=== PATIENT | female | born 1970 | race Caucasian/White ===

== ENCOUNTER 2017-12-14 06:33 | Day surgery (SDC) | payer BC, SELFPAY ==
[2017-12-14] VITALS (7 sets, daily range): BP systolic 112–137; BP diastolic 66–76; PULSE 54–69; RESP 16–18; TEMP 36.2–36.6; O2SAT 97–100; BMI 24.7
--- NOTE | 2017-12-14 | EMB_PTH ---
PATIENT: COLE ZENG LOC: [facility] [place] U#:[id number] AGE/SX: 47/F ROOM: RE12/14/[address]: Dr. Marybel Overton DO : 1970 BED: DIS: 12/14/2017 SPEC #: [id number] RECD: 12/14/17 13:31 STATUS: KACEY LÁZARO #: [id number] DENISHA: 12/14/17 00:[address]: Marybel Overton DEPT: SURGICAL PATHOLOGY RECD BY: Spike Kinsey ENTERED: 12/14/17 13:31 SP TYPE: ENDOM BX/C PORFIRIO DR: No Primary Care Phys Tissues: Endometrium, NOS Procedures: Surgery Specimen Level IV HEADER OPERATION: Hysteroscopy, D & C, Symphion PRE-OP DIAGNOSIS: Abnormal uterine bleeding and polyp TISSUE SUBMITTED: Endometrial curettings MICROSCOPIC DIAGNOSIS Endometrial curettings: Simple and complex hyperplasia with focal atypia. Fragments of myometrium. SJ:radha 12/15/17 COMMENT Case has been reviewed in consultation with Dr. Polanco who concurs with the above diagnosis. IDC:AM MICROSCOPIC DESCRIPTION Slides are reviewed. GROSS DESCRIPTION Received in fixative is one container labeled with the patient's name and designated endometrial curettings. The specimen consists of multiple fragments of diamond hemorrhagic soft tissue that in aggregate measure 4 x 3 x 0.3 cm. The entire specimen is submitted in two cassettes. / LUCHO:radha 12/14/17 TC:5 CPT: 12388
[2017-12-14 06:58] LABS: Internal QC Validated? YES +Cl - CLEAR BKGD; Pregnancy, Urine Negative Negative
[2017-12-14 07:06] LABS: Hematocrit 38.4 % (37-47); Hemoglobin 12.5 g/dl (12.0-15.0); Mean Corp Hgb Conc 32.6 g/gl (32-36); Mean Corpuscular Hgb 31.7 pg (27.0-32.0); Mean Corpuscular Volume 97.5 fL (81-99); Mean Platelet Vol. 10.4 fl (6.2-12.0); Platelet Count 276 K/mm3 (150-450); RBC Distribution Width CV 12.8 % (11.6-14.6); RBC Distribution Width SD 45.2 fl (35.1-43.9); Red Blood Count 3.94 M/mm3 (4.2-5.4); White Blood Count 6.6 K/mm3 (4.4-11.0)
[2017-12-14 07:10] LABS: Scan Indicated on CBC? Y/N NO
[2017-12-14] MEDS: Bupivacaine Mpf 0.5% 30 ML VIAL (08:31)
--- NOTE | 2017-12-14 09:45 | DCINST_ITS ---
Discharge Diet: No Restrictions Discharge Activity: Return to Normal Activity, May Shower Return to work on:: 12/18/17 May resume sexual activity in: 2 weeks Weight Bearing Status: Weight bearing as tolerated Lifting Restrictions: None Call your doctor if you observe: Fever of 101 or Higher, Using more than one pad per hour, Shortness of breath, Chest pain, Calf discomfort, Uncontrolled pain Allergies/Adverse Reactions: Allergies ibuprofen Allergy (Severe, Verified 12/13/17 08:53) Unknown naproxen Allergy (Severe, Verified 12/13/17 08:53) unknown Medications to take at Discharge Glucosamine/MSM/Chondroitin A [Glucosamine Chondroit MSM Tab] 1 each PO BID 12/13/17 Multivitamin [Animal Shapes] 2 each PO DAILY 12/13/17 Primary Care Physician: Care Physician,No Primary [Primary Care Provider] - Test Results: Test results from this visit will be discussed in further detail at your follow- up appointment, if applicable. Please Follow Up With: Marybel Overton DO When: 1-2 weeks
--- NOTE | 2017-12-14 10:12 | OP.PCM_ITS ---
Problem List (1) Abnormal uterine bleeding (AUB) Status: Acute Report of Operation Date of Procedure: 12/14/17 Pre-Operative Diagnosis: AUB, history of uterine polyps, uterine polyp noted on ultrasound Post-Operative Diagnosis: As above Surgery/Procedure Performed:: Hysteroscopy, D&C using Symphoin and sharp curettage Description of Surgical Findings:: Descent of uterus and cervix. Very fluffy endometrium noted, with no distinct polyp or fibroid. Unable to visualize bilateral tubal ostia given the amount of endometrial tissue and the bleeding that was present. Otherwise normal en dometrial cavity. Type of Anesthesia:: MAC Specimen's removed: Endometrial curettings Estimated Blood Loss (mL): < 50 cc Fluids Replaced: Fluid deficit of 350 cc Description of Procedure: Indication: Patient is a 47-year-old who presented with abnormal uterine bleeding. Irregular menses started several years ago. She has a history of uterine polyps that were removed in 2006. Menses every few months. Bleeding that lasts a few days to 20 days, that is heavy flow. Pelvic ultrasound showed 2 intramural fibroids, largest 4.5 cm in size, endometrial thickness 8.1 mm with a well-circumscribed polyp present. Hysteroscopy, polypectomy, D&C was discussed with the patient. Risks, benefits, and alternatives were fully discussed. Consent was signed. Procedure: The patient was taken to the operating room where she was prepped and draped in the usual sterile fashion in dorsal lithotomy position using yellow fin stirrups. MAC anesthesia was adequate. The cervix was exposed with a weighted vaginal speculum. The anterior lip of the cervix was grasped with a s mindy-tooth tenaculum. 0.5% Marcaine was used for a paracervical block. Uterus was sounded to a depth of 7 cm. The endocervical canal was then progressively dilated to accommodate the Symphion hysteroscope. The hysteroscope was then introduced into the uterine cavity using sterile saline solution as a distending media. The endometrial cavity was distended with fluid and the cavity visualized. The endometrium appeared very fluffy. There is a lot of endometrial tissue and bleeding present. No distinct polyps or fibroids were noted. The bilateral tubal ostia were not able to be visualized given the amount of tissue. The Symphion was used to do a camera guided curettage of the uterine cavity. The hysteroscope was then removed. Sharp curettage was performed for a moderate-large amount of tissue. The patient tolerated the procedure well. The endometrial tissue was sent to pathology for review. All instruments were removed from the vaginal vault. Bleeding was hemostatic. Instrument count was correct. The patient was sent to recovery room in stable condition. - Admit VTE Documentation VTE Mechan Device Prophylaxis: SCD's
[2017-12-14] MEDS: Ondansetron 4 MG/2 ML Vial IV (10:15)
[2017-12-14] MEDS: Lactated Ringers 1,000 ML 75 ML IV (10:15)
[2017-12-14] MEDS: Ondansetron 4 MG/2 ML Vial IM (10:30)
== END 2017-12-14 11:15 | disposition home or self-care (01) ==
LOC: SDC 06:35 → AC 06:36
PROVIDERS: Referring Provider Obstetrics & Gynecology; Visit Provider Obstetrics & Gynecology
PROC: (CPT 58558; principal; 2017-12-14 07:45)
DX: N85.01 Benign endometrial hyperplasia (principal); N93.8 Other specified abnormal uterine and vaginal bleeding; N92.6 Irregular menstruation, unspecified; G25.81 Restless legs syndrome; K21.9 Gastro-esophageal reflux disease without esophagitis; F17.210 Nicotine dependence, cigarettes, uncomplicated
CPT/HCPCS: 00952; 58558; 81025; 85027; 86850; 86900; 88305; J7120; J2405

== ENCOUNTER 2018-09-24 07:53 | Observation (INO) | payer BC, SELFPAY ==
[2018-09-24] VITALS (12 sets, daily range): BP systolic 107–143; BP diastolic 49–107; PULSE 57–89; RESP 16–18; TEMP 36.4–36.9; O2SAT 96–100; BMI 23.4; BMI 24.1; BMI 24.2
--- NOTE | 2018-09-24 08:07 | RAD_ITS ---
STUDY: X-RAY CHEST REASON FOR EXAM: Female, 48 years old. Weakness and dizziness. TECHNIQUE: Single AP portable view of the chest. COMPARISON: None. FINDINGS: EKG electrodes are seen. Hyperinflation. The lungs are clear. There is no demonstrated pleural abnormality. Normal size heart. Normal mediastinum and betzaida. Normal visualized pulmonary arteries. Normal visualized aortic arch and descending thoracic aorta. Normal visualized thoracic spine. Normal visualized ribs, clavicles, and shoulders. There is no demonstrated abnormality of the visualized soft tissue structures of the upper abdomen. RAD/Chest 1 View IMPRESSION: Hyperinflation. Electronically Signed: Clark White, at 9:10 EDT , Service support ,
--- NOTE | 2018-09-24 08:07 | EKG12_ITS ---
Test Reason : DIZZINESS/WEAKNESS Blood Pressure : / mmHG Vent. Rate : 066 BPM Atrial Rate : 066 BPM P-R Int : 130 ms QRS Dur : 074 ms QT Int : 394 ms P-R-T Axes : 060 025 028 degrees QTc Int : 413 ms Normal sinus rhythm Low voltage QRS Confirmed by ANTONIO GILLESPIE, LJ ([id number]), makeup editor ROGERIO JACOBSON ([id number]) on 09/26/2018 11:30:07 AM Referred By: TEVIN Confirmed By:LJ ALVAREZ MD
--- NOTE | 2018-09-24 08:07 | CT_ITS ---
STUDY: CT BRAIN WITHOUT CONTRAST REASON FOR EXAM: Female, 48 years old. Dizziness. Left upper and lower extremity numbness. RADIATION DOSAGE (If Supplied By Facility): CTDIvol = ( 44.99 ) mGy, DLP = ( 745.49 ) mGycm TECHNIQUE: Transaxial CT imaging of the brain was performed without administration of intravenous contrast material. Individualized dose optimization techniques were used for this CT. COMPARISON: No relevant priors. FINDINGS: Normal soft tissue structures. Normal calvarium. Normal size ventricles and extra-axial spaces for the patient's age. Normal white matter tracts of the cerebral hemispheres. Normal basal ganglia and thalami. Normal brainstem. Normal cerebellum. There is no intracranial hemorrhage. There are no findings of an acute ischemic infarction. Minimal mucosal thickening at the base of the right maxillary sinus. CT/Brain/Head without Contrast IMPRESSION: Normal unenhanced CT scan of the brain. Electronically Signed: Clark White, at 9:10 EDT , Service support ,
--- NOTE | 2018-09-24 08:15 | ED.VISSUMM ---
- ER Visit Summary Date of Service: 09/24/18 Chief Complaint: Dizziness History of Present Illness: The patient is a 48 F with dizziness. This was sudden onset on Monday when the patient was eating lunch. She describes it as the room spinning. Worse when trying to walk. Patient had similar symptoms to this in the past, years ago. Patient also reports nausea, vomiting, and she has had ringing in her ears for years. No recent illnesses or fevers. She went to work today, and the symptoms were worse. She was having some numbness in her right thumb and left leg and left arm. She never had the numbness before. She denies weakness, facial droop, speech changes, or vision changes. Patient is a smoker. Physical Examination: Afebrile and vital signs unremarkable. Patient alert and oriented. No acute distress. Head and neck atraumatic. HEENT exam unremarkable. Cranial nerves grossly intact. No nystagmus. Heart regular. Lungs clear. Skin appears normal. No focal or lateralizing neurologic abnormalities. NIH stroke scale is 0. Test Results: EKG, lab work, CT brain, chest x-ray pending. Emergency Department Course and Treatment: Patient has vertigo and she had focal numbness. Her NIH stroke scale is 0 at this point so I will not activate a team. Will monitor closely for any changes, and activate as needed. IV and monitor started. Blood work, EKG, chest x-ray, CT brain pending. Patient treated with Ativan for her symptoms. Work-up was unremarkable. Patient felt somewhat better after treatment. Given that she has persistent vertigo for several days and is now having focal neurologic symptoms, I will contact the hospitalist for observation and further care. Treatment Plan: As above Disposition: Observation Impression: 1. Dizziness This note was generated with [employer] software. It may contain incorrect words, spelling, and punctuation that were not noted in review of the chart prior to signing ED Disposition - Plan for ED Patient: Referrals: Piero Evans MD [Primary Care Provider] -
[2018-09-24] MEDS: LORazepam 2 MG/ML Syringe 0.5 MG IV (08:22)
[2018-09-24 08:26] LABS: Absolute Lymphocyte Count 2.09 X10^3/ul (0.83-4.51); Absolute Neutrophil Count 3.6 X10^3/uL (2.0-7.7); Basophil# 0.02 X10^3/uL; Basophil% 0.3 % (0-1); Eosinophil# 0.05 X10^3/uL; Eosinophils% 0.8 % (0-5); Hematocrit 40.9 % (37-47); Hemoglobin 13.6 g/dl (12.0-15.0); Lymphocyte # 2.09 X10^3/ul (4.0); Lymphocyte % 33.4 % (19-41); Mean Corp Hgb Conc 33.3 g/gl (32-36); Mean Corpuscular Hgb 32.8 pg (27.0-32.0); Mean Corpuscular Volume 98.6 fL (81-99); Mean Platelet Vol. 10.6 fl (6.2-12.0); Monocyte# 0.48 X10^3/uL; Monocyte% 7.7 % (0-10); Neutrophil # 3.62 X10^3/uL (2.7-7.7); Neutrophil % 57.8 % (47-70); Platelet Count 298 K/mm3 (150-450); RBC Distribution Width CV 12.7 % (11.6-14.6); RBC Distribution Width SD 44.7 fl (35.1-43.9); Red Blood Count 4.15 M/mm3 (4.2-5.4); White Blood Count 6.3 K/mm3 (4.4-11.0)
[2018-09-24 08:36] LABS: POSITIVE DIFFERENTIAL NO
[2018-09-24 08:37] LABS: POSITIVE COUNT NO; POSITIVE MORPHOLOGY NO
[2018-09-24 08:40] LABS: Anion Gap 5 (5-15); BUN 10 mg/dL (7-18); BUN/Creat Ratio 13.4 RATIO (10-20); Calcium,Total 9.4 mg/dL (8.5-10.1); Chloride 108 mmol/L (98-107); Creatinine, Serum 0.74 mg/dL (0.55-1.02); EST Glomerular Filtration Rate 89 mL/min (>60); Est Glom Filt Rate - Afr Amer 107 mL/min (>60); Estimated Creatinine Clearance 66.78 ml/min; Glucose 87 mg/dL (74-106); Potassium 3.7 mmol/L (3.5-5.1); Sodium Level 139 mmol/L (136-145)
[2018-09-24 08:47] LABS: Prothrombin Time (Protime)PT. 13.3 SECONDS (11.7-14.9)
[2018-09-24 08:48] LABS: Partial Thromboplast Time 34.6 Seconds (24.1-36.2)
--- NOTE | 2018-09-24 09:45 | NURSING ---
125 OBS DIZZINESS, NUMBNESS SEMENTI
--- NOTE | 2018-09-24 09:51 | HP.PCM_ITS ---
Problem List (1) Vertigo Status: Acute (2) Tinnitus Status: Acute (3) TIA (transient ischemic attack) Status: Acute History of Present Illness Date of Admission: 09/24/18 Chief Complaint: numbness on the left side along with 3 days of vertigo and ringing in her ears The patient is a 48 year old F with a past medical history of uterine polyps (has had 2 surgeries in the past, the last in DEC 2017 and there was focal atypia), former smoker (now using e-cigarettes) and uterine fibroids who presented to the emergency department at [facility] on 09/24/2018 complaining of sudden onset of vertigo on 09/22/2018 and this was associated with ringing in her ears and now hearing loss in her right ear. Her observed her having nystagmus on Monday. Sx increase with head movement and when trying to ambulate. She has had brief periods of vertigo in the past but no prior hx of tinnitus or hearing loss. On 09/24/18 at approximately 6 AM she experienced paresthesias in the left arm and left leg. She had difficulty walking because she could not feel her leg and her foot was slapping down. This lasted approximately 30 minutes. By the time she arrived in the emergency department the symptoms had resolved. A stat CT brain revealed no acute pathology. Vital signs of presentation to the hospital were temp 97.8, pulse rate 89, blood pressure 143/107, respiratory rate 16 and she was 100% saturated on room air. CBC was unremarkable. CMP was unremarkable and troponin was less than 0.015. Magnesium is normal at 2.2. She had a CTA of the head and neck which was normal. She was admitted to a monitored bed on PCU with a dx of TIA and suspected M?ni?re's disease. Past Medical History Medical History: Medical History (Last Updated 04/23/17 @ 10:30 by Beronica Flores) Acute hemorrhoid K64.9 Anemia D64.9 Shoulder pain M25.519 Allergies ibuprofen Allergy (Severe, Verified 09/24/18 07:54) Unknown naproxen Allergy (Severe, Verified 09/24/18 07:54) unknown Home Medications: Ambulatory Orders Medication Instructions Recorded NK 09/24/18 Surgical History: Surgical History (Last Reviewed 09/24/18 @ 12:15 by Meagan Sementi, DO) History of cholecystectomy Z98.890, Z90.49 Surgical History: cholecystectomy, dilatation and curettage - December 2017, - - History of removal of several uterine polyps in the past Psychiatric History: No pertinent psych hx [employer]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 Overton Lives: Spouse/ Significant Other Smoking Status: Former smoker - she quit smoking cigarettes in 2013 and started E cigarettes which she is still using Tobacco Use: - - E-cigarettes Alcohol: None Drugs: None Review of Systems Constitutional: Denies: Anorexia, Chills, Fever, Weakness, Weight Change Eyes: Denies: Blurred vision, Double vision HEENT: Reports: Hearing Changes, - - Tinnitus. Denies: Head Aches, Sinus Con gestion, Sinus Drainage Cardiovascular: Denies: Chest Pain, Edema, Heaviness, Light Headedness, Palpitations Respiratory: Denies: Cough, Shortness of breath at rest, Sputum production Gastrointestinal: Reports: Nausea, Vomiting - Onset with vertigo. Denies: Abdominal Pain Genitourinary: Denies: Dysuria Gynecological: Reports: - - Currently on her menstrual period. Denies: Breast symptoms Musculoskeletal: Denies: Joint Pain, Joint Tenderness Skin: Denies: Jaundice, Rash, Wounds Neurological: Reports: Balance problems, Numbness - For arm and left leg onset at 0600 today and lasted 30 minutes.. Denies: Focal weakness, Tingling, Seizures Psychiatric: Denies: Anxiety, Depression, Homicidal Ideations, Suicidal Ideations Endocrine: Denies: Heat/ Cold Intolerance Hematologic/ Lymphatic: Denies: Easy Bruising, Easy Bleeding, Hx of blood clot VTE Information - Inpt Only VTE Present on Admission: No VTE Mechan Device Prophylaxis: None VTE Pharm Prophylaxis ordered?: No Reason prophylaxis not ordered:: Treatment Not Indicated - Short admission is expected and the patient is at very low risk. Patient Problems: Active and Suspected Problems (Last Updated 04/23/17 @ 10:30 by Beronica Flores) Vertigo (Acute) Tinnitus (Acute) TIA (transient ischemic attack) (Acute) - Physical Exam General: Alert, Oriented x3, Cooperative, No apparent distress, Well developed, Well nourished HEENT: Atraumatic, PERRLA, EOMI, Normocephalic Oral: Moist Mucosa Neck: Supple, No JVD, Negative Carotid Bruits, No Nodes, Trachea Midline Lungs: Clear to auscultation, Normal air movement Cardiovascular: Regular rate, Regular Rhythm, Normal S1, Normal S2, No murmurs, No Ectopic Activity, No rub noted, No Gallop Abdomen: Bowel Sounds Present, Soft, Non Tender, Non-Distended Extremities: No clubbing, No cyanosis, No edema, Capillary Refill Less than 3 Seconds, No Calf Tenderness, Peripheral Pulses Normal Skin: No rashes, No breakdown Musculoskeletal: No Tenderness to Palpation of Joints or Extremities Neurological: Cranial nerves II-XII grossly intact, Neuro grossly intact Psych/Mental Status: Normal Affect, Appropriate Vital Signs Temp Pulse Resp BP Pulse Ox 97.8 F 76 18 129/66 H 100 09/24/18 07:54 09/24/18 08:09 09/24/18 08:09 09/24/18 08:09 09/24/18 08:09 Oxygen Flow Rate (L/min) 2 Oxygen Delivery Method Room Air Weight: 120 lb Body Mass Index (BMI) 23.4 Laboratory Tests Past 24 Hrs 09/24/18 09/24/18 09/24/18 08:15 08:15 08:15 WBC 6.3 RBC 4.15 L Hgb 13.6 Hct 40.9 MCV 98.6 MCH 32.8 H MCHC 33.3 RDW 12.7 RDW Differential 44.7 H Plt Count 298 MPV 10.6 Immature Gran % (Auto) 0.000 Neut % (Auto) 57.8 Lymph % (Auto) 33.4 Caswell % (Auto) 7.7 Eos % (Auto) 0.8 Baso % (Auto) 0.3 Absolute Neuts (auto) 3.6 Absolute Lymphs (auto) 2.09 Total Counted Not Reportable PT 13.3 INR 1.0 APTT 34.6 Sodium 139 Potassium 3.7 Chloride 108 H Carbon Dioxide 26.0 Anion Gap 5 BUN 10 Creatinine 0.74 Estim Creat Clear Calc 66.78 Est GFR (MDRD) Af Amer 107 Est GFR (MDRD) Non-Af 89 BUN/Creatinine Ratio 13.4 Glucose 87 Calcium 9.4 Troponin I < 0.015 Assessment/Plan All Active Problems (Last Updated 04/23/17 @ 10:30 by Beronica Flores) Vertigo (Acute) Tinnitus (Acute) TIA (transient ischemic attack) (Acute) Abnormal uterine bleeding (AUB) (Acute) URI, acute (Acute) Impressions 1. Vertigo, tinnitus and hearing loss in the right ear-suspect M?ni?re's disease. 2. Paresthesias of the left upper extremity and left lower extremity lasting approximately 30 minutes and then resolving this a.m. CTA of the head and neck is normal. CT brain had no acute findings. 3. Former smoker, now using e-cigarettes Admit to a monitored bed on PCU Initiate Stroke protocol MRI of the head and CTA of the head and the neck. Neurology consult with Dr. Avelar Antiplatelet therapy with aspirin 81 mg daily PT and OT consults Bedside swallow eval Hydrate Lipid profile in the AM EKG-normal sinus rhythm with no suspicious ST or T wave changes. Ativan 0.5 mg p.o. every 8 hours.......... if the MRI is negative will consider starting low-dose hydrochlorothiazide for suspected M?ni?re's disease. Code Visit OBSV E&M: 27143 Initial observation care L3
--- NOTE | 2018-09-24 10:17 | CT_ITS ---
STUDY: CTA HEAD AND NECK WITH CONTRAST REASON FOR EXAM: Female, 48 years old. Dizziness/nausea. Left arm and left lower extremity numbness. RADIATION DOSAGE (If Supplied By Facility): CTDIvol = ( 15.90 ) mGy, DLP = ( 560.74 ) mGycm TECHNIQUE: CT angiography was performed with a multi-detector CT scanner. Data acquisition was obtained from the skull base through the vertex following intravenous administration of 100 IV Isovue 370. MIP images were reconstructed from the axial data set. Post-processing of the angiographic images was performed, with multiplanar reformation and 3D reconstruction. Individualized dose optimization techniques were used for this CT. COMPARISON: No relevant priors. FINDINGS: Mild degree of the thyroid megaly. Normal bilateral petrous carotid arteries. Normal right cavernous carotid artery with a normal supraclinoid bifurcation. Normal left cavernous carotid artery with a normal supraclinoid bifurcation. Normal right A1 segments of the anterior cerebral artery. Normal left A1 segments of the anterior cerebral artery. Normal intact anterior communicating artery (ACOM). Normal bilateral A2 segments of the anterior cerebral arteries. Normal right M1 and M2 segments of the middle cerebral arteries, with a normal M1 bifurcation. Normal left M1 and M2 segments of the middle cerebral arteries, with a normal M1 bifurcation. Normal right posterior communicating artery (PCOM). Normal left posterior communicating artery (PCOM). Normal bilateral vertebral arteries. Normal basilar artery with a normal basilar bifurcation. The visualized bilateral superior cerebellar (SCA) arteries are normal. Normal bilateral P1, P2 and visualized P3 segments of the posterior cerebral arteries. There is no demonstrated aneurysm of the three affiliated of Muñoz. There is no demonstrated abnormality of the visualized brain. AORTIC ARCH: Normal visualized aortic arch. Normal origins of the brachiocephalic, left common carotid, and left subclavian arteries. RIGHT CAROTID ARTERIES: Normal right common carotid artery (CCA). Normal right common carotid bulb. Normal origin of the right internal carotid (ICA) artery without a hemodynamically significant stenosis. Normal visualized cervical portion of the right internal carotid artery. Normal origin of the right external carotid artery (ECA). LEFT CAROTID ARTERIES: Normal left common carotid artery (CCA). Normal left common carotid bulb. Normal origin of the left internal carotid (ICA) artery without a hemodynamically significant stenosis. Normal visualized cervical portion of the left internal carotid artery. Normal origin of the left external carotid artery (ECA). VERTEBRAL ARTERIES: There is enhancement within the bilateral vertebral arteries with a small right vertebral artery, and a dominant left vertebral artery. CT/CTA Head AND Neck W/ Contrast IMPRESSION: Normal CTA Head and neck with contrast. Electronically Signed: Clark White, at 11:13 EDT , Service support ,
[2018-09-24 10:48] LABS: Magnesium 2.2 mg/dL (1.6-2.6)
[2018-09-24] MEDS: 0.9% NaCl Peripheral Flush Adult/Peds IV (11:00)
[2018-09-24] MEDS: 0.9% Normal Saline 1,000 ML 100 ML IV (11:01)
[2018-09-24 11:39] LABS: AST(SGOT) 17 U/L (15-37); Alanine Aminotransfer ALT/SGPT 21 U/L (13-56); Albumin, Serum 3.9 g/dL (3.2-5.0); Alkaline Phosphatase 94 U/L (45-117); Bilirubin, Direct 0.09 mg/dL (0.00-0.30); Globulin 3.5 g/dL (2.2-4.2); Protein, Total 7.4 g/dL (6.4-8.2)
--- NOTE | 2018-09-24 12:09 | MRI_ITS ---
STUDY: MRI BRAIN WITHOUT CONTRAST REASON FOR EXAM: Female, 48 years old. Dizziness possible CVA TECHNIQUE: Standardized multiplanar fat and water weighted pulse sequences were obtained. COMPARISON: Head CT and CTA same day. FINDINGS: Normal size of the ventricles and extra-axial spaces for the patient's age. The diffusion weighted sequence is normal. There are a few scattered 2 to 3 mm foci of increased T2 signal within the white matter.. Normal bilateral basal ganglia. Normal thalami. There is no extra-axial fluid accumulation. Normal flow voids within the major intracranial circulation suggesting patency by spin echo criteria. Normal sella turcica, pituitary gland, infundibular stalk, optic chiasm and hypothalamus. Normal tectal plate and pineal gland. Normal midbrain, mauri and medulla. Normal cerebellum. Normal basal cisterns. Normal bilateral temporal bones. Normal bilateral internal auditory canals. No demonstrated orbital abnormality, within the constraints of a routine brain study. There is minimal increased T2 signal within the paranasal sinuses. There is likely small right maxillary sinus mucus retention cyst. Normal calvarium and skull base. Normal visualized soft tissue structures. Normal visualized upper cervical spine. MRI/Brain without Contrast IMPRESSION: No MRI evidence for acute infarct Few scattered increased T2 signal abnormalities suspicious for Virchow-Keith spaces, versus old punctate areas of old ischemic changes or demyelination cannot be excluded Minimal inflammatory changes within the paranasal sinuses Electronically Signed: Rey Doss, at 16:58 EDT Tel , Service support ,
[2018-09-24 12:40] LABS: Amphetamine Urine VISTA NEGATIVE (<1000 ng/mL); Barbiturate Urine VISTA NEGATIVE (< 200 ng/mL); Benzodiazepine Urine VISTA NEGATIVE (< 200 ng/mL); Cocaine Urine VISTA NEGATIVE (< 300 ng/mL); Ecstacy Urine VISTA NEGATIVE (< 500 ng/mL); Methadone Urine VISTA NEGATIVE (< 300 ng/mL); PCP Urine VISTA NEGATIVE (< 25 ng/mL); THC Urine VISTA NEGATIVE (< 50 ng/mL); Vista UDS pH Range 6
[2018-09-24] MEDS: Aspirin 81 MG TAB.CHEW PO (13:27)
[2018-09-24] MEDS: LORazepam 0.5 MG Tablet PO ×2 (13:27→22:09)
--- NOTE | 2018-09-24 13:41 | PCM.CONS.GEN ---
Problem List (1) Vertigo Status: Acute Reason for Consult Date of Consultation: 09/24/18 Reason for Consultation: Dizziness History of Present Illness: The patient is a 48 year old F with PMH Ex-tobacco abuse admitted with dizziness. Per patient she started having dizziness since 09/22/2018, per patient she felt that the whole room was spinning, she was wobbly and needed to take support to walk, had nausea and vomiting, has tinnitus for a long time. Per patient she had numbness in the left arm and left leg this morning 09/24/18 lasting few mins, along with neck pain and right thumb numbness but denies any left facial numbness or left facial weakness. Patient denies any headache, visual disturbances, speech disturbances, or focal motor weakness. Patient had dizziness would worsen with head movement. Per patient would snore at night and also probably has apneic spells. CTA head/neck done on admission did not show any hemodynamically significant stenosis or occlusion. [] Past Medical History Medical History: Medical History (Last Updated 04/23/17 @ 10:30 by Beronica Flores) Acute hemorrhoid K64.9 Anemia D64.9 Shoulder pain M25.519 Allergies ibuprofen Allergy (Severe, Verified 09/24/18 07:54) Unknown naproxen Allergy (Severe, Verified 09/24/18 07:54) unknown Home Medications: Ambulatory Orders Medication Instructions Recorded NK 09/24/18 Surgical History: Surgical History (Last Reviewed 09/24/18 @ 12:15 by Samantha Gómez DO) History of cholecystectomy Z98.890, Z90.49 Surgical History: cholecystectomy, dilatation and curettage - December 2017, - - History of removal of several uterine polyps in the past Psychiatric History: No pertinent 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 Overton Lives: Spouse/ Significant Other Smoking Status: Former smoker - she quit smoking cigarettes in 2013 and started E cigarettes which she is still using Tobacco Use: - - E-cigarettes Alcohol: None Drugs: None Review of Systems Constitutional: Reports: - - Complete ROS negative except as documented in HPI Patient Problems: Active and Suspected Problems (Last Updated 04/23/17 @ 10:30 by Beronica Flores) Vertigo (Acute) Tinnitus (Acute) TIA (transient ischemic attack) (Acute) - Physical Exam General: Alert HEENT: Normocephalic Neck: Supple Lungs: Normal air movement Cardiovascular: Normal S1, Normal S2 Abdomen: Bowel Sounds Present Extremities: No cyanosis Neurological: - - Conscious, alert, CN II to XII grossly intact, power 5 x 5 all 4 extremities, no sensory loss, no cerebellar signs, gait deferred, no nystagmus, reflexes + B/L B/S/T/K/A Psych/Mental Status: Normal Affect Vital Signs Temp Pulse Resp BP Pulse Ox 97.5 F L 68 18 115/82 H 100 09/24/18 10:18 09/24/18 11:16 09/24/18 10:18 09/24/18 10:18 09/24/18 10:18 Oxygen Flow Rate (L/min) 2 Oxygen Delivery Method Room Air Weight: 56.1 kg Body Mass Index (BMI) 24.1 Intake and Output for Last 24 Hours 09/22/18 09/23/18 09/24/18 23:59 23:59 23:59 Intake Total 240 / 240 Balance 240 / 240 Laboratory Tests Past 24 Hrs 09/24/18 09/24/18 09/24/18 08:15 08:15 08:15 WBC 6.3 RBC 4.15 L Hgb 13.6 Hct 40.9 MCV 98.6 MCH 32.8 H MCHC 33.3 RDW 12.7 RDW Differential 44.7 H Plt Count 298 MPV 10.6 Immature Gran % (Auto) 0.000 Neut % (Auto) 57.8 Lymph % (Auto) 33.4 Menard % (Auto) 7.7 Eos % (Auto) 0.8 Baso % (Auto) 0.3 Absolute Neuts (auto) 3.6 Absolute Lymphs (auto) 2.09 Total Counted Not Reportable PT 13.3 INR 1.0 APTT 34.6 Sodium 139 Potassium 3.7 Chloride 108 H Carbon Dioxide 26.0 Anion Gap 5 BUN 10 Creatinine 0.74 Estim Creat Clear Calc 66.78 Est GFR (MDRD) Af Amer 107 Est GFR (MDRD) Non-Af 89 BUN/Creatinine Ratio 13.4 Glucose 87 Calcium 9.4 Magnesium Total Bilirubin Direct Bilirubin AST ALT Alkaline Phosphatase Troponin I < 0.015 Total Protein Albumin Globulin Urine Opiates Screen Urine Methadone Screen Ur Barbiturates Screen Ur Phencyclidine Scrn Ur Amphetamines Screen U Methamphetamin-MDMA U Benzodiazepines Scrn Urine Cocaine Screen U Cannabinoids Screen Ur Drug Screen Comment 09/24/18 09/24/18 09/24/18 08:15 08:15 12:05 WBC RBC Hgb Hct MCV MCH MCHC RDW RDW Differential Plt Count MPV Immature Gran % (Auto) Neut % (Auto) Lymph % (Auto) Menard % (Auto) Eos % (Auto) Baso % (Auto) Absolute Neuts (auto) Absolute Lymphs (auto) Total Counted PT INR APTT Sodium Potassium Chloride Carbon Dioxide Anion Gap BUN Creatinine Estim Creat Clear Calc Est GFR (MDRD) Af Amer Est GFR (MDRD) Non-Af BUN/Creatinine Ratio Glucose Calcium Magnesium 2.2 Total Bilirubin 0.20 Direct Bilirubin 0.09 AST 17 ALT 21 Alkaline Phosphatase 94 Troponin I Total Protein 7.4 Albumin 3.9 Globulin 3.5 Urine Opiates Screen NEGATIVE Urine Methadone Screen NEGATIVE Ur Barbiturates Screen NEGATIVE Ur Phencyclidine Scrn NEGATIVE Ur Amphetamines Screen NEGATIVE U Methamphetamin-MDMA NEGATIVE U Benzodiazepines Scrn NEGATIVE Urine Cocaine Screen NEGATIVE U Cannabinoids Screen NEGATIVE Ur Drug Screen Comment Assessment/Plan All Active Problems (Last Updated 04/23/17 @ 10:30 by Beronica Flores) Vertigo (Acute) Tinnitus (Acute) TIA (transient ischemic attack) (Acute) Abnormal uterine bleeding (AUB) (Acute) URI, acute (Acute) The patient is a 48 year old F with PMH Ex-tobacco abuse admitted with dizziness. Per patient she started having dizziness since 09/22/2018, per patient she felt that the whole room was spinning, she was wobbly and needed to take support to walk, had nausea and vomiting, has tinnitus for a long time. Per patient she had numbness in the left arm and left leg this morning 09/24/18 lasting few mins, along with neck pain and right thumb numbness but denies any left facial numbness or left facial weakness. Patient denies any headache, visual disturbances, speech disturbances, or focal motor weakness. Patient had dizziness would worsen with head movement. Per patient would snore at night and also probably has apneic spells. CTA head/neck done on admission did not show any hemodynamically significant stenosis or occlusion. Impression Dizziness?likely peripheral etiology, R/O stroke Left arm/leg numbness with neck pain Plan ?MRI brain without contrast and MRI C spine w/o contrast ?CTA head/neck?reported no hemodynamically significant stenosis or occlusion ?TTE -Polysomnography testing as outpatient. -PT/OT ?Vestibular therapy ?ENT consult ?Fall precautions ?Further medical management per hospitalist team ?Please call with questions if any ?Follow-up with neurology as outpatient in 6 weeks ?Thank you for allowing us to participate in patient's care and management Code Visit Inpatient E&M: [id number] Init Hosp L3
--- NOTE | 2018-09-24 15:00 | MRI_ITS ---
STUDY: MRI CERVICAL SPINE WITHOUT CONTRAST REASON FOR EXAM: Female, 48 years old. Vertigo TECHNIQUE: Standardized fat and water weighted pulse sequences were obtained in the sagittal and axial planes. COMPARISON: None FINDINGS: Normal foramen magnum and brainstem-cervical cord junction. Normal craniovertebral junction. Normal anterior atlantoaxial articulation. Normal odontoid process. There is Mild multilevel facet spondylosis and mild uncinate hypertrophy Normal cervical lordosis. Normal vertebral bodies and posterior osseous elements. C2-3: Normal endplates. Normal disc height, signal and morphology. Normal central canal and intervertebral neural foramina. C3-4: There is mild posterior bulging annulus. There is small posterior disc osteophyte complex.. Normal central canal and intervertebral neural foramina. C4-5: Normal endplates. Normal disc height, signal and morphology. Normal central canal and intervertebral neural foramina. C5-6: Normal endplates. Normal disc height, signal and morphology. Normal central canal and intervertebral neural foramina. C6-7: There is mild posterior bulging annulus. There is 3 mm anterolisthesis C7 on C6.. Normal central canal and intervertebral neural foramina. C7-T1: Normal endplates. Normal disc height, signal and morphology. Normal central canal and intervertebral neural foramina. Normal cervical cord. Normal visualized soft tissue structures. MRI/Spine Cervical (Routine) IMPRESSION: Mild multilevel spondylosis 3 mm anterior listhesis C7 on C6 likely degenerative Electronically Signed: Rey Doss, at 17:37 EDT Tel , Service support ,
[2018-09-25] MEDS: 0.9% Normal Saline 1,000 ML 100 ML IV ×2 (00:10→08:42)
[2018-09-25 00:18] VITALS: BMI 24.1
[2018-09-25 03:03] VITALS: PULSE 57
[2018-09-25 04:00] VITALS: BP 99/52; PULSE 59; RESP 16; TEMP 36.5; O2SAT 97
[2018-09-25] MEDS: LORazepam 0.5 MG Tablet PO ×2 (05:29→13:30)
[2018-09-25 07:00] VITALS: PULSE 67
[2018-09-25 07:52] LABS: Cholesterol 153 mg/dL (200); High Density Lipoprotein 44 mg/dL; Triglycerides 86 mg/dL; Very Low Density Lipoprotein 17 mg/dL (5-40)
[2018-09-25] MEDS: Aspirin 81 MG TAB.CHEW PO (08:39)
[2018-09-25 09:35] VITALS: BP 99/58; PULSE 67; RESP 14; TEMP 36.8; O2SAT 97
--- NOTE | 2018-09-25 12:31 | PCM.PN.NEU ---
Patient Problems: Active and Suspected Problems (Last Updated 04/23/17 @ 10:30 by Beronica Flores) Vertigo (Acute) Tinnitus (Acute) TIA (transient ischemic attack) (Acute) Subjective: No issues overnight. MRI brain w/o contrast images reviewed?nothing acute. MRI C-spine w/o contrast reported to show mild multilevel spondylosis, 3 mm anterolisthesis C7 and C6 likely degenerative - Physical Exam General: Alert HEENT: Normocephalic Neck: Supple Lungs: Normal air movement Cardiovascular: Normal S1, Normal S2 Abdomen: Bowel Sounds Present Extremities: No cyanosis Neurological: - - Conscious, alert, CN II to XII grossly intact, power 5 x 5 all 4 extremities, no sensory loss, no cerebellar signs, gait deferred, no nystagmus, reflexes + B/L B/S/T/K/A Psych/Mental Status: Normal Affect Vital Signs Temp Pulse Resp BP Pulse Ox 98.2 F 67 14 99/58 L 97 09/25/18 09:35 09/25/18 09:35 09/25/18 09:35 09/25/18 09:35 09/25/18 09:35 Oxygen Flow Rate (L/min) 2 Oxygen Delivery Method Room Air Weight: 56.1 kg Body Mass Index (BMI) 24.1 Intake and Output for Last 24 Hours 09/23/18 09/24/18 09/25/18 23:59 23:59 23:59 Intake Total 1997 1617 / 1617 Balance 1997 1617 / 1617 Laboratory Tests Past 24 Hrs 09/24/18 09/25/18 12:05 06:50 Triglycerides 86 Cholesterol 153 LDL Cholesterol 92 VLDL Cholesterol 17 HDL Cholesterol 44 Urine Opiates Screen NEGATIVE Urine Methadone Screen NEGATIVE Ur Barbiturates Screen NEGATIVE Ur Phencyclidine Scrn NEGATIVE Ur Amphetamines Screen NEGATIVE U Methamphetamin-MDMA NEGATIVE U Benzodiazepines Scrn NEGATIVE Urine Cocaine Screen NEGATIVE U Cannabinoids Screen NEGATIVE Medical Necessity - Tobacco Use Smoking Status: Former smoker Tobacco Use: - Assessment/Plan All Active Problems (Last Updated 04/23/17 @ 10:30 by Beronica Flores) Vertigo (Acute) Tinnitus (Acute) TIA (transient ischemic attack) (Acute) Abnormal uterine bleeding (AUB) (Acute) URI, acute (Acute) The patient is a 48 year old F with PMH Ex-tobacco abuse admitted with dizziness. Per patient she started having dizziness since 09/22/2018, per patient she felt that the whole room was spinning, she was wobbly and needed to take support to walk, had nausea and vomiting, has tinnitus for a long time. Per patient she had numbness in the left arm and left leg yesterday morning 09/24/18 lasting few mins, along with neck pain and right thumb numbness but denies any left facial numbness or left facial weakness. Patient denies any headache, visual disturbances, speech disturbances, or focal motor weakness. Patient had dizziness would worsen with head movement. Per patient would snore at night and also probably has apneic spells. CTA head/neck done on admission did not show any hemodynamically significant stenosis or occlusion. Impression Dizziness?likely peripheral etiology Left arm/leg numbness with neck pain C7 on C6 anterolisthesis Plan ?MRI brain without contrast-images reviewed nothing acute ?MRI C spine w/o contrast-7 on C6 anterolisthesis. Mild multilevel spondylosis ?CTA head/neck?reported no hemodynamically significant stenosis or occlusion ?TTE-pending ?On aspirin -Polysomnography testing as outpatient ?Spine surgery consult as outpatient -PT/OT ?Vestibular therapy ?ENT consult ?Fall precautions ?Further medical management per hospitalist team ?Please call with questions if any ?Follow-up with neurology as outpatient in 6 weeks ?Thank you for allowing us to participate in patient's care and management
--- NOTE | 2018-09-25 14:48 | ECHOD_ITS ---
Reason For Study: TIA Procedure This was a 2D Doppler, Color Flow transthoracic echocardiogram. The exam was of adequate technical quality. Exam performed portable in patient room. Left Ventricle Normal LV size. Left ventricular systolic function is normal. The estimated ejection fraction is 60 %. No evidence for diastolic dysfunction. No regional wall motion abnormalities noted. Right Ventricle Normal RV size. Normal systolic function. Atria Normal left atrium. Normal right atrium. No doppler evidence for ASD. Bubble contrast study negative for right to left interatrial shunt. Mitral Valve There is no mitral annular calcification. Normal mitral valve. Trivial mitral valve insufficiency. Tricuspid Valve Normal tricuspid valve. Trivial tricuspid valve insufficiency. Right ventricular systolic pressure estimated to be 22 mmHg. Aortic Valve Trisinus/trileaflet aortic valve. Normal aortic valve. Pulmonic Valve The pulmonic valve is not well visualized. Great Vessels Normal sized aortic root. Pericardium/Pleural No pericardial effusion. Medication Performed a rapid injection of agitated mix of 9 cc saline and 1cc air to assess for atrial septal defect. MMode/2D Measurements & Calculations LVIDd: 4.3 cm IVSd: 0.58 cm Ao root diam: 2.7 cm LVIDs: 3.1 cm LVPWd: 0.64 cm RVDd: 3.0 cm FS: 27.5 % LAV(MOD-bp): 39.3 ml LA A4 area: 13.2 cm2 LA dimension(2D): 2.9 cm LAV(MOD-bp) Indexed: 25.9 ml/m2 LAV(MOD-sp2): 44.4 ml LAV(MOD-sp4): 32.6 ml RA A4 area: 14.8 cm2 Time Measurements MV dec time: 0.21 sec Doppler Measurements & Calculations MV E max cristian: 81.0 cm/sec Lat Peak E' Cristian: 13.2 cm/sec Med Peak E' Cristian: 9.8 cm/sec MV A max cristian: 61.8 cm/sec E/E' lat: 6.2 E/E' med: 8.3 MV E/A: 1.3 Ao V2 max: 113.7 cm/sec LV V1 max: 92.4 cm/sec PA V2 max: 86.7 cm/sec Ao max P.2 mmHg LV V1 max P.6 mmHg TR max cristian: 215.8 cm/sec TR max P.7 mmHg Interpretation Summary Left ventricular systolic function is normal. The estimated ejection fraction is 60 %. Trivial mitral valve insufficiency. Trivial tricuspid valve insufficiency. Right ventricular systolic pressure estimated to be 22 mmHg. No evidence for diastolic dysfunction. Bubble contrast study negative for right to left interatrial shunt. Ordering Physician: Samantha Gómez Referring Physician: Piero Evans Performed By: Shiela Paz, JACOB, RVT
[2018-09-25 15:00] VITALS: PULSE 76
[2018-09-25 15:17] VITALS: BP 110/67; PULSE 72; RESP 14; TEMP 36.8; O2SAT 98
--- NOTE | 2018-09-25 15:27 | CASEMGMT ---
SW did not complete a PHQ9 as per Neurologist he does not feel patient had a Stroke or TIA. Colleen NOBLES MSW
--- NOTE | 2018-09-25 17:18 | PCM.DC ---
- Discharge Diagnoses Current Active Problems: Current Active and Chronic Problems (Last Updated 04/23/17 @ 10:30 by Beronica Flores) Vertigo (Acute) Tinnitus (Acute) TIA (transient ischemic attack) (Acute) You will use the following diet at home:: No restrictions Your food should be the consistency of: Regular Your liquids should be the consistency of: Regular/Thin Discharge Activity: - - You are on a small dose of Ativan which can make you sleepy....do not drive while taking this medication if you are sleepy. Return to work on:: 10/01/18 Call your doctor if you observe: Fever of 101 or Higher, - - Recurrent nausea/vomiting/severe vertigo Instructions: The Inner Ear: Understanding the Balance System, Inner Ear Problems: Causes of Dizziness (Vertigo), Managing Dizziness (Vertigo) with Medications, Managing Balance Problems: Vestibular Rehabilitation Therapy, What Is Meniere's Disease? Additional Instructions: I think you should eat a low salt diet......salt causes fluid retention and this can lead to increased vertigo IF you have M?ni?re's disease. I also think you should see an ENT doctor to be evaluated for M?ni?re's disease. M?ni?re's disease is a triad of vertigo, hearing loss and tinnitus (ringing in the ears). There are several ENT doctors in [place]...Dr. Moreland, Dr. Reinoso and Dr. Mireles. Any of them would be good. I am giving you a referral to go to PT so you can get Vestibular training to help with the Vertigo. You did not have a stroke. Your heart is normal. The rhythm of your heart is regular with no problems. You do not have to take aspirin. The neurologist, Dr. Avelar, wants to see you in the office in 6 weeks. He thinks you should have a sleep study and either he can order this OR your family doctor can order it. Pending Tests on Discharge: none Allergies/Adverse Reactions: Allergies ibuprofen Allergy (Severe, Verified 09/24/18 07:54) Unknown naproxen Allergy (Severe, Verified 09/24/18 07:54) unknown Medications to take at Discharge Lorazepam [Ativan] 0.5 mg PO UD #30 tablet 09/25/18 The following prescriptions were given: Lorazepam [Ativan] 0.5 mg PO UD #30 tablet Transmission Status: Received by [id number] Primary Care Physician: Piero Evans MD [Primary Care Provider] - Please follow up with your Primary Care Physician in: 1-2 weeks Test Results: Test results from this visit will be discussed in further detail at your follow-up appointment, if applicable. Please Follow Up With: Rosemary Avelar MD When: 6 weeks Proposed Discharge Date: 09/25/18
--- NOTE | 2018-09-25 17:19 | PCM.WORK.EX ---
Work/School Excuse Work/School Excuse for:: Patient Please excuse this person from:: Work From: 09/24/18 through: 09/30/18
--- NOTE | 2018-09-25 17:32 | DS.PCM_ITS ---
Discharge Date and Diagnosis - Problem List Patient Problems: Active and Suspected Problems (Last Updated 04/23/17 @ 10:30 by Beronica Flores) M?ni?re's disease (Suspected) Vertigo (Acute) Tinnitus (Acute) Date of Admission: 09/24/18 Date of Discharge: 09/25/18 - Primary Discharge Diagnosis Active and Suspected Problems (Last Updated 04/23/17 @ 10:30 by Beronica Flores) Vertigo (Acute) Tinnitus (Acute) Paresthesias involving both sides of the body..suspect anxiety related M?ni?re's disease (Suspected) - Secondary Discharge Diagnosis Chronic Problems Former smoker (Chronic) - now uses E cigarette 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 hx of uterine polyps with atypia on path report Hospital Course and Treatment Imaging Results: 09/25/18 14:48 Echo Complete [ECHO] Routine Clinical Impression(s) from Imaging Studies Brain CT 09/24/18 08:07 IMPRESSION: Normal unenhanced CT scan of the brain. Electronically Signed: Clark White, at 9:10 EDT , Service support , Chest X-Ray 09/24/18 08:07 IMPRESSION: Hyperinflation. Electronically Signed: Clark White, at 9:10 EDT , Service support , Head/Neck CTA 09/24/18 10:17 IMPRESSION: Normal CTA Head and neck with contrast. Electronically Signed: Clark White, at 11:13 EDT , Service support , Brain MRI 09/24/18 12:09 IMPRESSION: No MRI evidence for acute infarct Few scattered increased T2 signal abnormalities suspicious for Virchow-Keith spaces, versus old punctate areas of old ischemic changes or demyelination cannot be excluded Minimal inflammatory changes within the paranasal sinuses Electronically Signed: Rey Doss, at 16:58 EDT Tel , Service support , Cervical Spine MRI 09/24/18 15:00 IMPRESSION: Mild multilevel spondylosis 3 mm anterior listhesis C7 on C6 likely degenerative Electronically Signed: Rey Doss, at 17:37 EDT Tel , Service support , Laboratory Results - last 24 hr 09/25/18 06:50 Triglycerides 86 Cholesterol 153 LDL Cholesterol 92 VLDL Cholesterol [address] Bala Avelar-neurology Operations: None Procedures: Transthoracic echo - Interpretation Summary Left ventricular systolic function is normal. The estimated ejection fraction is 60 %. Trivial mitral valve insufficiency. Trivial tricuspid valve insufficiency. Right ventricular systolic pressure estimated to be 22 mmHg. No evidence for diastolic dysfunction. Bubble contrast study negative for right to left interatrial shunt. Summary of Care Provided: The patient is a 48 year old F with a past medical history of uterine polyps (has had 2 surgeries in the past, the last in DEC 2017 and there was focal atypia), former smoker (now using e-cigarettes) and uterine fibroids who presented to the emergency department at [facility] on 09/24/2018 complaining of sudden onset of vertigo on 09/22/2018 and this was associated with ringing in her ears and hearing loss in her right ear. Her observed her having nystagmus on Monday09/22/2018. Sx increased with head movement and when trying to ambulate. She had had brief periods of vertigo in the past but no prior hx of tinnitus or hearing loss. On 09/24/18 at approximately 6 AM she experienced paresthesias in the left arm, left leg and right thumb. She had difficulty walking because she could not feel her leg and her foot was slapping down. This lasted approximately 30 minutes. By the time she arrived in the emergency department the symptoms had resolved. A stat noncontrasted CT brain revealed no acute pathology. Vital signs at presentation to the hospital were temp 97.8, pulse rate 89, blood pressure 143/107, respiratory rate 16 and she was 100% saturated on room air. CBC was unremarkable. CMP was unremarkable and troponin was less than 0.015. Magnesium was normal at 2.2. She had a CTA of the head and neck which was normal. She was admitted to a monitored bed on PCU with a dx of TIA and suspected M?ni?re's disease. The stroke protocol was initiated. Dr. Avelar was consulted and saw the patient on 09/24/2018. He recommended an MRI of the brain without contrast and MRI of the C-spine without contrast. He also recommended a transthoracic echocardiogram, PSG as an outpatient, vestibular therapy, ENT consult and F/U with him in the office in 6 weeks. The MRI of the brain showed no MR evidence of acute infarct. MRI of the C-spine showed mild multilevel spondylosis with a 3 mm anterior listhesis of C7 on C6. There was no canal stenosis and no neural foraminal stenosis. An ec hocardiogram showed a normal left ventricular ejection fraction with a negative bubble contrast study for intra-atrial shunt. Telemetry during her admission showed normal sinus rhythm with no significant ectopy. She was started on Ativan 0.5 mg p.o. every 8 hours at admission and this improved her symptoms. On the date of discharge she still had mild vertigo but was able to ambulate without difficulty and denied any nausea or vomiting. She was discharged home and instructed to follow-up with ENT to be evaluated for possible M?ni?re's disease. She was given a referral to physical therapy for vestibular training. She will follow-up with Dr. Evans in 1 to [address] Avelar in 6 weeks. She should have an outpatient PSG to be evaluated for possible sleep disordered breathing. She was given a prescription for Ativan 0.5 mg tablets, #30, and instructed to take 1 p.o. every 8 hours for the next 48 to 72 hours and then change the dosing to every 8 hours as needed f or vertigo. PHYSICAL EXAM: GENERAL: alert, oriented X 3, Cooperative, NAD ORAL: moist mucosa, no mucosal lesions NECK: No JVD, supple, trachea midline LUNGS: CTA, symmetric chest expansion HEART: RRR, Normal S1 and S2, no rub, no gallop ABDOMEN: soft, NT, ND, BS present, no guarding with palpation EXTREMITIES: no edema, no cyanosis, no calf tenderness SKIN: No rashes, no breakdown NEUROLOGIC: no focal neurologic deficits PSYCH: appropriate, normal affect, pleasant This note was generated with [employer] software. It may contain incorrect words, spelling, and punctuation that were not noted in checking the note before signing. Patient Problems: Active and Suspected Problems (Last Updated 04/23/17 @ 10:30 by Beronica Flores) M?ni?re's disease (Suspected) Vertigo (Acute) Tinnitus (Acute) - Physical Exam Vital Signs Temp Pulse Resp BP Pulse Ox 98.3 F 72 14 110/67 98 09/25/18 15:17 09/25/18 15:17 09/25/18 15:17 09/25/18 15:17 09/25/18 15:17 Oxygen Flow Rate (L/min) 2 Oxygen Delivery Method Room Air Weight: 123 lb 10.869 oz Body Mass Index (BMI) 24.1 Intake and Output for Last 24 Hours 09/23/18 09/24/18 09/25/18 23:59 23:59 23:59 Intake Total 1997 2502 / 2502 Balance 1997 2502 / 2502 Laboratory Tests Past 24 Hrs 09/25/18 06:50 Triglycerides 86 Cholesterol 153 LDL Cholesterol 92 VLDL Cholesterol 17 HDL Cholesterol 44 Discharge Activity: - - You are on a small dose of Ativan which can make you sleepy....do not drive while taking this medication if you are sleepy. Return to work on:: 10/01/18 Call your doctor if you observe: Fever of 101 or Higher, - - Recurrent nausea/vomiting/severe vertigo Home Medications: Medications to take at Discharge Lorazepam [Ativan] 0.5 mg PO UD #30 tablet 09/25/18 Following Prescrptions Were Given to Patient: Lorazepam [Ativan] 0.5 mg PO UD #30 tablet Transmission Status: Received by [id number] Other Amb Orders: Physical Therapy Evaluation Location: None Selected Primary Care Physician: Piero Evans MD [Primary Care Provider] - Please follow up with your Primary Care Physician in: 1-2 weeks Please Follow Up With: Rosemary Avelar MD When: 6 weeks Patient Instructions: What Is Meniere's Disease?, The Inner Ear: Understanding the Balance System, Inner Ear Problems: Causes of Dizziness (Vertigo), Managing Dizziness (Vertigo) with Medications, Managing Balance Problems: Vestibular Rehabilitation Therapy Minutes spent on discharge:: 30 Patient Condition:: Good Medical Necessity - Tobacco Use Smoking Status: Former smoker Tobacco Use: - - she uses a E cigarette Meaningful Use Info Meaningful Use Diagnoses (Choose all that apply): None applicable Code Visit OBSV E&M: 59058 Observation care discharge
== END 2018-09-25 18:03 | disposition home or self-care (01) ==
LOC: ED 08:13 → PCU 09:55
PROVIDERS: Admitting Provider Internal Medicine; Emergency Provider Emergency Medicine; Family Provider Internal Medicine; PCP Internal Medicine; Visit Provider Internal Medicine
DX: R42 Dizziness and giddiness (principal); H93.19 Tinnitus, unspecified ear; R29.700 NIHSS score 0; F17.290 Nicotine dependence, other tobacco product, uncomplicated; M47.892 Other spondylosis, cervical region; I08.1 Rheumatic disorders of both mitral and tricuspid valves
CPT/HCPCS: 36415; 70450; 70496; 70498; 70551; 71045; 72141; 80048; 80061; 80076; 80307; 83735; 84484; 85025; 85610; 85730; 93005; 93306; 94762; 96361; 96374; 97161; 97166; 99218; 99283; J7030; Q9957; Q9967; A4216; G0378

== ENCOUNTER 2021-10-18 16:56 | Emergency (ER) | payer OTHER, SELFPAY ==
[2021-10-18] VITALS (10 sets, daily range): BP systolic 99–126; BP diastolic 59–88; PULSE 67–109; RESP 16–30; TEMP 36.6; O2SAT 98–100; BMI 26.0
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
--- NOTE | 2021-10-18 16:59 | CT_ITS ---
STUDY: CT HEAD STROKE PROTOCOL W/O CONTRAST INJECTION REASON FOR EXAM: Female, 51 years old. Neuro deficit, acute, stroke suspected RADIATION DOSAGE (If Supplied By Facility): CTDIvol = ( ) mGy, DLP = ( ) mGycm TECHNIQUE: Transaxial CT imaging of the brain was performed without administration of intravenous contrast material. Individualized dose optimization techniques were used for this CT. COMPARISON: 09/24/2018 FINDINGS: Normal soft tissue structures. Normal calvarium. Normal size ventricles and extra-axial spaces for the patient''s age. Normal white matter tracts of the cerebral hemispheres. Normal basal ganglia and thalami. Normal brainstem. Normal cerebellum. There is no intracranial hemorrhage. There are no findings of an acute ischemic infarction. Normal visualized paranasal sinuses. ASPECT score: CT/STROKE Brain/Head without Cont IMPRESSION: Normal unenhanced CT scan of the brain. N.B. : The above Results were Read Back by Esau Levin MD to Drew Puckett MD, and understanding confirmed on 10/18/2021 17:24:13 (ET). Electronically Signed: Esau Levin MD at 17:20 EDT ,
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
--- NOTE | 2021-10-18 17:00 | CT_ITS ---
STUDY: CTA HEAD AND NECK WITH CONTRAST REASON FOR EXAM: Female, 51 years old. Neuro deficit, acute, stroke suspected RADIATION DOSAGE (If Supplied By Facility): CTDIvol = ( 16.89 ) mGy, DLP = ( 626.77 ) mGycm TECHNIQUE: CT angiography was performed with a multi-detector CT scanner. Data acquisition was obtained from the skull base through the vertex following intravenous administration of IV 100mL Isovue-370. MIP images were reconstructed from the axial data set. Post-processing of the angiographic images was performed, with multiplanar reformation and 3D reconstruction. Individualized dose optimization techniques were used for this CT. COMPARISON: No relevant priors. FINDINGS: Normal bilateral petrous carotid arteries. Minor calcific plaquing of the right cavernous carotid artery with a normal supraclinoid bifurcation. Minor calcific plaquing of left cavernous carotid artery with a normal supraclinoid bifurcation. Normal right A1 segments of the anterior cerebral artery. Normal left A1 segments of the anterior cerebral artery. Normal intact anterior communicating artery (ACOM). Normal bilateral A2 segments of the anterior cerebral arteries. Normal right M1 and M2 segments of the middle cerebral arteries, with a normal M1 bifurcation. Normal left M1 and M2 segments of the middle cerebral arteries, with a normal M1 bifurcation. Right posterior communicating artery not visualized consistent with normal variant). Normal left posterior communicating artery (PCOM). Normal bilateral vertebral arteries. Normal basilar artery with a normal basilar bifurcation. The visualized bilateral superior cerebellar (SCA) arteries are normal. Normal bilateral P1, P2 and visualized P3 segments of the right posterior cerebral.. Hypoplastic P1 segment of left posterior cerebral and normal T2 and P3 segments There is no demonstrated aneurysm of the [place] of [place]. AORTIC ARCH: Normal visualized aortic arch. Normal origins of the brachiocephalic, left common carotid, and left subclavian arteries. RIGHT CAROTID ARTERIES: Normal right common carotid artery (CCA). Normal right common carotid bulb. Normal origin of the right internal carotid (ICA) artery without a hemodynamically significant stenosis. Normal visualized cervical portion of the right internal carotid artery. Normal origin of the right external carotid artery (ECA). LEFT CAROTID ARTERIES: Normal left common carotid artery (CCA). Normal left common carotid bulb. Normal origin of the left internal carotid (ICA) artery without a hemodynamically significant stenosis. Normal visualized cervical portion of the left internal carotid artery. Normal origin of the left external carotid artery (ECA). VERTEBRAL ARTERIES: Left vertebral is dominant and normal caliber. Right vertebral is hypoplastic terminating in PICA which is normal developmental variant CT/STROKE CTA Head AND Neck W/Con IMPRESSION: Mild atherosclerotic disease. No evidence for hemodynamically stenosis of the head or neck vasculature. N.B. : The above Results were Read Back by Rob Nam MD to Drew Bonilla DO, DO, and understanding confirmed on 10/18/2021 17:52:57 (ET). Electronically Signed: Rob Nam MD at 17:40 EDT ,
--- NOTE | 2021-10-18 17:10 | CM.ED ---
Social Work Note Reason for Referral: Stroke Alert SW responded to Stroke Alert, no family present. SW to remain available should additional needs arise. Hailee Patterson EMBEDDED PROCESSOR, HEEL SPRAYER FIRST
[2021-10-18 17:55] LABS: Anion Gap 9 (5-15); BUN 9 mg/dL (7-18); BUN/Creat Ratio 10.4 RATIO (10-20); Calcium,Total 9.4 mg/dL (8.5-10.1); Chloride 110 mmol/L (98-107); Creatinine, Serum 0.86 mg/dL (0.55-1.02); EST Glomerular Filtration Rate 73 mL/min (>60); Est Glom Filt Rate - Afr Amer 89 mL/min (>60); Estimated Creatinine Clearance 66.83 ml/min; Glucose 107 mg/dL (74-106); Potassium 3.1 mmol/L (3.5-5.1); Sodium Level 139 mmol/L (136-145); Troponin-I HS 9 pg/mL (3.0-54.0)
[2021-10-18 18:02] LABS: Absolute Lymphocyte Count 1.67 X10^3/uL (0.83-4.51); Absolute Neutrophil Count 5.2 X10^3/uL (2.0-7.7); Basophil# 0.04 X10^3/uL; Basophil% 0.5 % (0-1); Hemoglobin 13.4 g/dL (12.0-15.0); Lymphocyte # 1.67 X10^3/ul (0.83-4.51); Lymphocyte % 22.6 % (19-41); Mean Corp Hgb Conc 35.3 g/dL (32-36); Mean Corpuscular Hgb 33.4 pg (27.0-32.0); Mean Corpuscular Volume 94.8 fL (81-99); Mean Platelet Vol. 10.2 fl (6.2-12.0); Monocyte# 0.46 X10^3/uL; Monocyte% 6.2 % (0-10); NRBC Flagged by Analyzer 0 % (0-5); Neutrophil % 70.3 % (47-70); Platelet Count 417 K/mm3 (150-450); RBC Distribution Width CV 12.3 % (11.6-14.6); RBC Distribution Width SD 43.3 fl (35.1-43.9); Red Blood Count 4.01 M/mm3 (4.2-5.4); White Blood Count 7.4 K/mm3 (4.4-11.0)
--- NOTE | 2021-10-18 18:03 | ED.RN ---
Transfer to [facility] set up with [facility] with assist of [facility] staff. Delay in TPA order being placed due to waiting on chest abd pelvis CT results.
[2021-10-18 18:06] LABS: Partial Thromboplast Time 31.8 Seconds (24.1-36.2); Prothrombin Time (Protime)PT. 13.2 SECONDS (11.7-14.9)
--- NOTE | 2021-10-18 18:12 | NURSING ---
[facility] ETA IS 25 MIN
[2021-10-18] MEDS: 0.9% Normal Saline 1,000 ML 100 ML IV (18:41)
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
--- NOTE | 2021-10-18 19:36 | ED.RN ---
[facility] brought patient back d/t pt. becoming combative. Pt. was given 20 mg of Ketamine and 1 mg of Ativan but despite medication pt. continued to be combative-flight crew stated the only way they could take her was if they could intubate and sedate her and because she is a stroke patient they could not do that. Flight crew brought pt. back to this ER and patient was placed back in room/on monitor/ and the NS flush for the TPA was continued. [facility] gave 15 minute ETA.
--- NOTE | 2021-10-18 19:46 | ED.RN ---
Pauline Gomez notified that pt. will be coming via Ambulance instead of [facility].
--- NOTE | 2021-10-18 19:58 | ED.RN ---
[facility] here to take patient to [facility].
--- NOTE | 2021-10-18 20:09 | ED.RN ---
Pt. left with [facility]. notified.
== END 2021-10-18 19:05 | disposition short-term general hospital (02) ==
PROVIDERS: Emergency Provider Student in an Organized Health Care Education/Training Program; Visit Provider Student in an Organized Health Care Education/Training Program
DX: I63.9 Cerebral infarction, unspecified (principal); E87.6 Hypokalemia; Z87.891 Personal history of nicotine dependence; R47.81 Slurred speech; R29.711 NIHSS score 11; V89.2XXA Person injured in unspecified motor-vehicle accident, traffic, initial encounter
CPT/HCPCS: 70450; 70496; 70498; 71260; 74177; 80048; 84484; 85025; 85610; 85730; 93005; 96365; 99285; J2997; J7030; Q9967; A4216

== ENCOUNTER → 2022-03-29 | Outpatient (CLI) | payer OTHER, SELFPAY ==
[2022-03-29 17:41] LABS: Absolute Lymphocyte Count 2.29 X10^3/uL (0.83-4.51); Absolute Neutrophil Count 4.3 X10^3/uL (2.0-7.7); Basophil# 0.04 X10^3/uL; Basophil% 0.6 % (0-1); Eosinophil# 0.09 X10^3/uL; Eosinophils% 1.2 % (0-5); Hematocrit 43.9 % (37-47); Hemoglobin 14.8 g/dL (12.0-15.0); Lymphocyte # 2.29 X10^3/ul (0.83-4.51); Lymphocyte % 31.5 % (19-41); Mean Corp Hgb Conc 33.7 g/dL (32-36); Mean Corpuscular Hgb 32.1 pg (27.0-32.0); Mean Corpuscular Volume 95.2 fL (81-99); Mean Platelet Vol. 12.4 fl (6.2-12.0); Monocyte# 0.54 X10^3/uL; Monocyte% 7.4 % (0-10); NRBC Flagged by Analyzer 0 % (0-5); Neutrophil # 4.28 X10^3/uL (2.7-7.7); Platelet Count 205 K/mm3 (150-450); RBC Distribution Width CV 12.2 % (11.6-14.6); RBC Distribution Width SD 42.5 fl (35.1-43.9); Red Blood Count 4.61 M/mm3 (4.2-5.4); White Blood Count 7.3 K/mm3 (4.4-11.0)
[2022-03-29 18:23] LABS: ALB/GLOB Ratio 1.1 RATIO (0.9-2.4); AST(SGOT) 28 U/L (15-37); Alanine Aminotransfer ALT/SGPT 35 U/L (13-56); Albumin, Serum 3.9 g/dL (3.2-5.0); Alkaline Phosphatase 152 U/L (45-117); Anion Gap 7 (5-15); BUN 13 mg/dL (7-18); BUN/Creat Ratio 19.7 RATIO (10-20); Calcium,Total 9.6 mg/dL (8.5-10.1); Chloride 110 mmol/L (98-107); Creatinine, Serum 0.66 mg/dL (0.55-1.02); EST Glomerular Filtration Rate 100 mL/min (>60); Est Glom Filt Rate - Afr Amer 121 mL/min (>60); Globulin 3.7 g/dL (2.2-4.2); Glucose 81 mg/dL (74-106); Potassium 3.7 mmol/L (3.5-5.1); Protein, Total 7.6 g/dL (6.4-8.2); Sodium Level 141 mmol/L (136-145); Thyroid Stim Hormone (TSH) 1.14 uIU/mL (0.358-3.74)
[2022-03-29 19:01] LABS: Hepatitis C Antibody Non-Reactive (Nonreactive); Vitamin D,25 Hydroxy 20.8 ng/mL
== END | disposition home or self-care (01) ==
LOC: POLAB3 15:47
PROVIDERS: Visit Provider Family Medicine Geriatric Medicine
DX: Z13.89 Encounter for screening for other disorder (principal); E78.5 Hyperlipidemia, unspecified; E55.9 Vitamin D deficiency, unspecified
CPT/HCPCS: 36415; 80053; 82306; 84443; 85025; 86803

== ENCOUNTER 2025-01-12 09:22 | Observation (INO) | payer MEDICAID, SELFPAY ==
[2025-01-12] VITALS (11 sets, daily range): BP systolic 130–157; BP diastolic 64–78; PULSE 57–78; RESP 16–21; TEMP 36.6–37; O2SAT 96–100; BMI 25.0; BMI 25.3
--- NOTE | 2025-01-12 09:28 | EKG12_ITS ---
Test Reason : Blood Pressure : */* mmHG Vent. Rate : 60 BPM Atrial Rate : 60 BPM P-R Int : 146 ms QRS Dur : 74 ms QT Int : 434 ms P-R-T Axes : 61 46 61 degrees QTcB Int : 434 ms Normal sinus rhythm Normal ECG Confirmed by Tremaine Ivey ([id number]), editor sound NELL YBARRA ([id number]) on 01/13/2025 1:13:13 PM Referred By: Confirmed By: Tremaine Ivey
--- NOTE | 2025-01-12 09:29 | EDS_ITS ---
HPI History of Present Illness Chief Complaint: Stroke Alert Narrative Narrative: Patient is a 54-year-old female presenting to the emergency department for strokelike symptoms. Stroke team was called by nurse in triage. Patient states about 15 minutes prior to arrival she developed numbness to her bilateral face below her nose to her neck. She initially was unable to speak and had slurred speech right after per her . They state that her speech still sounds muted. She is not on any oral anticoagulation. She has a history of a TIA and what sounds like transient global amnesia by 's history. Patient denies any recent head trauma or falls. Reports that she had visual changes during the episode that have now completely improved. Denies any focal numbness or weakness in her extremities. [facility] Medical History Encounter for screening for COVID-19 URI (upper respiratory infection) Anemia Shoulder pain Acute hemorrhoid Home Medications ?Medication ?Instructions ?Recorded ?Last Taken ?Type estradiol 1 mg tablet 1 mg PO DAILY 01/12/25 Unkno wn History loratadine 10 mg tablet (Claritin) 10 mg PO DAILY lori rgies 01/12/25 Unknown History Allergy/AdvReac Type Severity Reaction Status Date / Time ibuprofen Allergy Severe Unknown Verified 01/12/25 09:25 naproxen Allergy Severe unknown Verified 01/12/25 09:25 Surgical History H/O: hysterectomy History of cholecystectomy Social History Smoking Status: Former smoker alcohol intake: never ROS ROS ED ROS Narrative See HPI EXAM Physical Exam Narrative Exam Narrative: Vital signs: Reviewed General: Alert and oriented x 3. No acute distress HEENT: Head is normocephalic and atraumatic, sinuses nontender, pupils equal round and reactive. Nares are patent. Oropharynx and throat exams normal. Neck: Supple without lymphadenopathy nontender Cardiovascular: Regular rate and rhythm, no murmurs. No rubs or gallops. Normal S1 and S2 Respiratory: Clear to auscultation bilaterally. No wheezes, rales, rhonchi Abdominal: Soft and nontender. Normal bowel sounds. No guarding or rebound. Nonsurgical abdomen Extremities: No tenderness. No bruising. Normal range of motion. Normal sensation. Skin: No rash or redness. The rest of the physical exam is unremarkable Const Vital Signs: 01/12/25 09:25 01/12/25 09:28 01/12/25 09:48 Temperature 98.3 F Temperature Source Temporal Pulse Rate 78 63 Respiratory Rate 18 21 H Blood Pressure 145/78 H 136/71 H Blood Pressure Mean 100 92 Pulse Ox 100 100 Oxygen Delivery Method Room Air Room Air Room Air 01/12/25 09:50 01/12/25 09:56 01/12/25 10:04 Temperature 98.3 F Temperature Source Temporal Pulse Rate 78 64 60 Respiratory Rate 18 17 20 H Blood Pressure 145/78 H 157/78 H Blood Pressure Mean 100 104 Pulse Ox 100 98 100 Oxygen Delivery Method Room Air Room Air 01/12/25 10:15 Temperature Temperature Source Pulse Rate 57 L Respiratory Rate 21 H Blood Pressure 139/67 H Blood Pressure Mean 85 Pulse Ox Oxygen Delivery Method MDM MDM MDM Narrative Medical decision making narrative: Patient is a 54-year-old female presenting to the emergency department for strokelike symptoms. Stroke team was called by nursing staff on triage. Patient was immediately evaluated by myself. She has an NIH of 0. She has what sounds like a TIA. She is not on any OAC. CT imaging was still obtained given the reports of the patient's age still sounding slightly slurred per . EKG shows normal sinus rhythm with no ischemic changes. No dysrhythmia. No ST elevation or depression. No abnormal T wave inversions CBC with no leukocytosis and a normal hemoglobin. BMP with no significant abnormalities. Coags are unremarkable. Troponin is negative. CT brain with no acute intracranial process. CTA is negative. Given NIH is 0 patient is not a candidate for TNK. Discussed findings with patient and at bedside. All questions answered. Explained the need for admission for further stroke workup. They are agreeable. Patient admitted to Dr. Turner for further management. Clinical impression: Stroke like symptoms. History & Record Review Discussion w/independent historian: Patient Lab Data Attestation: I reviewed the patient's lab results. Labs: Laboratory Results - last 24 hr 01/12/25 01/12/25 09:26 09:40 WBC 8.2 RBC 4.46 Hgb 14.5 Hct 42.8 MCV 96.0 MCH 32.5 H MCHC 33.9 RDW Std Deviation 42.2 RDW Coeff of Kishore 12.2 Plt Count 290 MPV 10.9 Immature Gran % (Auto) 0.500 Neut % (Auto) 61.0 Lymph % (Auto) 30.6 [place] % (Auto) 6.3 Eos % (Auto) 1.0 Baso % (Auto) 0.6 Absolute Neuts (auto) 5.0 Absolute Lymphs (auto) 2.51 Nucleated RBC % 0 PT 13.0 INR 1.0 APTT 30.0 Sodium 137 Potassium 4.0 Chloride 104 Carbon Dioxide 22.2 Anion Gap 11 BUN 11 Creatinine 0.62 L Estim Creat Clear Calc 97.00 Est GFR (MDRD) Non-Af 106 BUN/Creatinine Ratio 18.1 Glucose 97 Calcium 9.3 Troponin T High Sens < 6 POC Glucose 92 Radiography Diagnostic Testing: Clinical Impression(s) from Imaging Studies Brain CT 01/12/25 09:32 IMPRESSION: No acute intracranial process. If concern for infarction persists, I recommend MRI with diffusion-weighted imaging if clinically indicated. Results were reported to Dr. Zaragoza at 9:40 a.m. EST on 01/12/2025. Reading Location: [facility] Head/Neck CTA 01/12/25 09:40 IMPRESSION: Negative CTA head/neck. No large vessel occlusion or stenosis. No aneurysm identified. Reading [facility] Discharge Plan Disposition Disposition: Acute Care Hospital [facility] Discharge Date/Time: 01/12/25 12:05 NIHSS NIHSS 1a. Level of Consciousness: 0 - Alert; keenly responsive 1b. LOC Questions: 0 - Answers BOTH questions correctly 1c. LOC Commands: 0 - Performs BOTH tasks correctly 2. Best Gaze: 0 - Normal 3. Visual: 0 - No visual loss 4. Facial Palsy: 0 - Normal symmetrical movements 5a. Left Arm: 0 - No drift; arm holds 90 (or 45) degrees for full 10 seconds 5b. Right Arm: 0 - No drift; arm holds 90 (or 45) degrees for full 10 seconds 6a. Left Le - No drift; leg holds 30-degree position for full 5 seconds 6b. Right Le - No drift; leg holds 30-degree position for full 5 seconds 7. Limb Ataxia: 0 - Absent 8. Sensory: 0 - Normal; no sensory loss 9. Best Language: 0 - No aphasia; normal 10. Dysarthria: 0 - Normal 11. Extinction and Inattention: 0 - No abnormality Total: 0 Stroke Questions Stroke Team Activated: Yes Reviewed Inclusion/Exclusion criteria: Yes IV Thrombolytic Administered: No No contraindications from thrombolytic administration: No
--- OUTSIDE RECORDS SUMMARY | 2025-01-12 09:31 | XMS RPT_ITS | CCD ---
Author Organization [facility] Care Team Providers Care Watch Technician Name Role Phone Free, Text Entry Unavailable Unavailable Elsie Mar Unavailable Unavailable Nathan GILLESPIE, Piero Camara Primary Care Provider Caleb Munguia Unavailable Unavailable Unavailable Caleb Munguia PA-C Primary Care Provider Caleb Munguia PA-C Primary Care Provider SHAHBAZ RAMIREZ Attending Unavailable CALEB MUNGUIA Primary Care Unavailable CALEB MUNGUIA Referring Unavailable SHAHBAZ RAMIREZ Admitting Unavailable Maggy RaeChi Unavailable Butch, Dr. Baez Primary Care Unavailable Franki, Dr. Oliverio Dc Attending Unavail able Doan, Dr. Oliverio Dc Referring Unavail able Butch, Dr. Baez Primary Care Unavailable Jose, Dr. Denita Rod Admitting Unav ailable Jose, Dr. Denita Rod Attending Unav ailable Butch, Dr. Baez Primary Care Unavailable Jose, Dr. Denita Rod Admitting Unav ailable Zanoteboni, Dr. Denita Rod Attending Unav ailable Butch, Dr. Baez Primary Care Unavailable Jose, Dr. Denita Rod Attending Unav ailable Carey, MsKathy Mata Attending Unavailabl e Fried, MsKathy Mata Referring Unavailabl e Newbill, Mr. Caleb Vargas Primary Care Unavail able Newbill, Mr. Caleb Vargas Primary Care Unavail able Newbill, Kathy Vargas Attending Unavail able Newbill, Kathy Vargas Referring Unavail able Butch, Dr. Baez Primary Care Unavailable UNKNOWN, UNKNOWN Referring Unavailable Zanotti, Dr. Denita Rod Admitting Unav ailable Zanotti, Dr. Denita Rod Attending Unav ailable Butch, Dr. Baez Primary Care Unavailable Butch, Dr. Baez Attending Unavailable Butch, Dr. Baez Primary Care Unavailable Fried, Andrea Attending Unavailable Fried, Andrea Referring Unavailable Butch, Dr. Baez Attending Unavailable Butch, Dr. Baez Primary Care Unavailable Fried, Andrea Attending Unavailable Fried, Andrea Referring Unavailable Butch, Dr. Baez Primary Care Unavailable Butch , Nestor Primary Care Provider [phone] Rommel Rae Chi Attending Unavailable Care Physician, No Primary Primary Care Unava ilable Rommel Rae Chi Attending Unavailable ButchRommel ring Chi Primary Care Unavailable ButchRommel ring Chi Primary Care Provider [phone] PIERO EVANS Primary Care Unavailable PIERO EVANS Primary Care Unavailable ROMMEL RAE CHI Primary Care Unavailable Allergies Allergy Classification Reported Allergen(s) Allergy Type Date of Onset Reaction(s) Facility (18 sources) Ibuprofen; Translations: [Ibuprofen TABS] Drug Allergy 1 Hives [facility] (18 sources) Naproxen; Translations: [Naproxen TABS] Drug Allergy 8 Hives, Swelling [facility] (5 sources) Naproxen; Translations: [NAPROXEN SODIUM] Drug Allergy 8 Hives, Swelling [facility] (1 source) Ibuprofen Drug Allergy [address] [facility] (1 source) Naproxen Drug Allergy [address] [facility] Medications Current Medications Medication Drug Class(es) Dates Sig (Normalized) Sig (Original) LORazepam 0.5 mg oral tablet (2 sources) Benzodiazepine Start: 09-25-2018 take 1 tablet by mouth every eight hours as needed, then take 1 tablet by mouth every eight hours as needed Lorazepam Active 0.5 MG PO DIRECTED September 24, 2018 11:00pm take 1 tab every 8 hours for the next 3 days and then you can change the dosing to 1 tab every 8 hours as needed for vertigo Completed/Discontinued Medications Medication Drug Class(es) Dates Sig (Normalized) Sig (Original) Acetaminophen (16 sources) Start: 10-18-2021 End: 10-20-2021 take 1 tablet by mouth every four hours as needed acetaminophen (TYLENOL) tablet 325 mg Start: 09-20-2021 take 1 tablet by evens th four times daily as needed Tylenol 8 Hour Arthritis Pain 650 MG Oral Tablet Extended Release TAKE 1 TABLET 4 TIMES DAILY NEEDED. Quantity: 120 Refills: 0 Ordered: 20-Sep-2021 Caleb Munguia PA-C Start : 20-Sep-2021 Active End: 04-09-2024 take 2 tablets by mouth every six hours as needed acetaminophen (TYLENOL EXTRA STRENGTH) 500 mg tablet Take 1,000 mg by mouth every 6 hours as needed. 04/09/2024 Discontinued Comment on above: Take 1,000 mg by evens every 6 hours as needed. amoxicillin 875 mg oral tablet (2 sources) Penicillin-class Antibacterial Start: End: take 1 tablet by mouth twice daily amoxicillin 875 mg oral tablet ; 1 tab(s) orally 2 times a day Quantity: 20 Refills: 0 Ordered: 07-Apr-2020 Tremaine Garrido Start: 07-Apr-2020 End: 16-Apr-2020 Status: Other Generic Substitution Allowed Comments: Finish all this medication unless otherwise directed by prescriber. take 1 capsule by mo [facility] three times daily amoxicillin 500 mg oral capsule ; 1 cap( s) orally 3 times a day Quantity: 0 Refills: 0 Ordered: 02-Aug-2021 [place] Generic Substitution Allowed Comment on above: Finish all this medi cation unless otherwise directed by prescriber. aspirin 81 mg chewable tablet (1 source) Platelet Aggregation Inhibitor, Nonsteroidal Anti-inflammatory Drug Start: 10-21-19 End: 10-21-19 aspirin chewable tablet 81 mg atorvastatin 40 mg oral tablet (1 source) HMG-CoA Reductase Inhibitor Start: 10-20-19 End: 10-21-19 atorvastatin (LIPITOR) tablet 40 mg azithromycin 250 mg oral tablet (4 sources) Macrolide Antimicrobial Start: 10-12-19 take 1 tablet by mouth once Azithromycin 250 MG Oral Tablet TAKE DIRECTED PER PACKAGE INSTRUCTIONS. Quantity: 6 Refills: 0 Ordered: 11-Oct-2021 Caleb Munguia PA-C Start : 11-Oct-2021 Active Start: 04-23-2017 End: 04-28-2017 Azithromycin Discontinued 25 0 MG PO daily 6 5 April 23, 2017 12:00am April 28, 2017 12:08am Take 2 tabs once on day one. Take one tablet once daily for the next 4 days. brompheniramine maleate 0.4 mg/ml / dextromethorphan hydrobromide 2 mg/ml / pseudoephedrine hydrochloride 6 mg/ml oral solution (2 sources) alpha-Adrenergic Agonist, Uncompetitive B-zijsfm-E-aspartate Receptor Antagonist, Sigma-1 Agonist Start: 10-11-2021 take 5-10 mL by mouth every four to six hours as needed for cough Uhwtakwtm-Sbquqrhi-DJ 30-2-10 MG/5ML Oral Syrup take 5-10 mL po q4-6 hrs prn cough, cold, or allergy symptoms Quantity: 200 Refills: 1 Ordered: 11-Oct-2021 Caleb Munguia PA-C Start : 11-Oct-2021 Active celecoxib 100 mg oral capsule (12 sources) Nonsteroidal Anti-inflammatory Drug Start: 09-20-2021 take 1 capsule by mouth every twelve hours Celecoxib 100 MG Oral Capsule TAKE 1 CAPSULE Every twelve hours PRN Quantity: 60 Refills: 1 Ordered: 20-Sep-2021 Caleb Munguia PA-C Start : 20-Sep-2021 Active dimenhyDRINATE 50 mg oral tablet (15 sources) Start: 09-20-2021 take 1-2 tablets by mouth every six hours as needed Dramamine 50 MG Oral Tablet TAKE 1 TO 2 TABLETS EVERY 6 HOURS NEEDED. Quantity: 240 Refills: 0 Ordered: 20-Sep-2021 Caleb Munguia PA-C Start : 20-Sep-2021 Active Start: 10-03-2018 End: 04-09-2024 take 1 tablet by mouth four times daily as needed for dizziness dimenhyDRINATE (DRAMAMINE) 50 mg chew Indications: Vertigo Take 1 tablet by mouth four times daily as needed (dizziness). 10/03/2018 04/09/2024 Discontinued Comment on above: Take 1 tablet by evens four times daily as needed (dizziness). Enoxaparin Sodium (LOVENOX) injection 40 mg (1 source) Start: End: Enoxaparin Sodium (LOVENOX) injection 40 mg estradiol 0.1 mg/ml vaginal cream (2 sources) Estrogen Start: End: estradiol (ESTRACE) 0.01 % (0.1 mg/gram) vaginal cream Use 0.5g vaginally at bedtime for 2 weeks then 1-3 time/weeks for maintenance. 42.5 g 2 03/30/2023 04/09/2024 Discontinued 1 ml hydrALAZINE hydrochloride 20 mg/ml injection (2 sources) Arteriolar Vasodilator Start: End: take 10 mg intravenously every hour as needed hydrALAZINE (APRESOLINE) injection 10 mg labetalol hydrochloride 5 mg/ml injectable solution (2 sources) beta-Adrenergic Woody Start: End: take 10 mg intravenously every hour as needed labetalol (NORMODYNE) injection 10 mg Start: 10-18-2021 End: 10-20-2021 labetalol (NORMODYNE) inject ion 20 mg 2 ml metoclopramide 5 mg/ml prefilled syringe (1 source) Dopamine-2 Receptor Antagonist Start: 10-18-2021 End: 10-18-2021 metoclopramide (REGLAN) injection 10 mg Start: 10-18-2021 End: 10-18-2021 metoclopramide (REGLAN) inje ction 10 mg polyethylene glycol (MIRALAX ) packet 17 g (1 source) Start: 10-18-2021 End: 10-20-2021 polyethylene glycol (MIRALAX ) packet 17 g microencapsulated potassium chloride 20 meq extended release oral tablet (1 source) Start: 10-20-2021 End: 10-20-2021 potassium chloride (K-DUR) tablet ER 40 mEq Start: 10-20-2021 End: 10-20-2021 potassium chloride (K-DUR) t ablet ER 40 mEq predniSONE 10 mg oral tablet (8 sources) Start: 10-26-2021 predniSONE 10 MG Oral Tablet TAKE 3 TABLETS FOR 3 DAYS, 2 TABLETS FOR 3 DAYS, 1 TABLET FOR 4 DAYS AND THEN STOP Quantity: 19 Refills: 0 Ordered: 26-Oct-2021 Caleb Munguia PA-C Start : 26-Oct-2021 Active Start: 10-11-2021 take 1 tablet by evens th twice daily predniSONE 10 MG Oral Tablet Take 1 tablet twice daily Quantity: 10 Refills: 0 Ordered: 11-Oct-2021 Caleb Munguia PA-C Start : 11-Oct-2021 Active Start: 09-30-2021 predniSONE 10 MG Oral Tablet Take 3 tablets by mouth for 3 days, then 2 tablets for 3 days and 1 tablet daily for 3 days. Quantity: 18 Refills: 0 Ordered: 30-Sep-2021 Car FLORES Avis Start : 30-Sep-2021 Active prochlorperazine 10 mg oral tablet (12 sources) Phenothiazine Start: 09-20-2021 take 1 tablet by mouth every six hours for nausea Prochlorperazine Maleate 10 MG Oral Tablet take one tablet every 6 hrs for nausea or at onset of migraine Quantity: 20 Refills: 0 Ordered: 20-Sep-2021 Caleb Munguia PA-C Start : 20-Sep-2021 Active rizatriptan 10 mg oral tablet (12 sources) Serotonin-1b and Serotonin-1d Receptor Agonist Start: 09-20-2021 take 1 tablet by mouth every two hours as needed, then take 3 tablets by mouth every twenty-four hours as needed Rizatriptan Benzoate 10 MG Oral Tablet TAKE 1 TABLET AT ONSET OF HEADACHE. MAY REPEAT EVERY 2 HOURS NEEDED. MAXIMUM 3 TABLETS IN 24 HOURS. Quantity: 9 Refills: 2 Ordered: 20-Sep-2021 Caleb Munguia PA-C Start : 20-Sep-2021 Active Senna Leaves (1 source) Start: 10-19-2021 End: 10-20-2021 senna (SENOKOT) tablet 8.6 mg 1000 ml sodium chloride 9 mg/ml injection (2 sources) Start: 10-18-2021 End: 10-19-2021 sodium chloride 0.9% IV solution tiZANidine 4 mg oral tablet (2 sources) Central alpha-2 Adrenergic Agonist Start: 10-26-2021 take 1 tablet by mouth three times daily as needed tiZANidine HCl - 4 MG Oral Tablet TAKE 1 TABLET 3 TIMES DAILY NEEDED. Quantity: 30 Refills: 1 Ordered: 26-Oct-2021 Caleb Munguia PA-C Start : 26-Oct-2021 Active topiramate 25 mg oral tablet (2 sources) Start: 07-12-2022 Topiramate 25 MG Oral Tablet 25 mg at night for a week, then 25 mg twice daily for a week, then 25 mg am, 50mg pm twice daily for a week, then 50 mg twice daily Quantity: 120 Refills: 5 Ordered: 12-Jul-2022 Oliverio Doan MD Start : 12-Jul-2022 Active Problems Active Problems Problem Classification Problem Date Documented Da te Episodic/Chronic Acute cerebrovascular disease (2 sources) Cerebrovascular accident; Translations: [Cerebral infarction, unspecified] Onset: 10-18-2021 Chronic Benign neoplasm of uterus (2 sources) Leiomyoma of uterus, unspecified; Translations: [Uterine leiomyoma] Onset: 08-31-2022 10-04-2022 Episodic Chronic obstructive pulmonary disease and bronchiectasis (1 source) Other emphysema; Translations: [Other emphysema] Onset: 04-26-2022 Chronic Conditions associated with dizziness or vertigo (2 sources) Vertigo; Translations: [Dizziness and giddiness] 09-24-2018 Episodic Disorders of lipid metabolism (1 source) Hyperlipidemia, unspecified; Translations: [Hyperlipidemia, unspecified hyperlipidemia type] Onset: 10-04-2023 Chronic Epilepsy; convulsions (4 sources) Seizure; Translations: [Other convulsions] Onset: 05-17-2022 Episodic Essential hypertension (1 source) Essential (primary) hypertension; Translations: [Essential hypertension, malignant] Onset: 04-08-2024 Chronic Headache; including migraine (15 sources) Migraine with aura; Translations: [Migraine with aura, without mention of intractable migraine without mention of status migrainosus] Onset: 07-12-2022 Chronic Menopausal disorders (4 sources) Menopausal flushing; Translations: [Menopausal and female climacteric states] Onset: 04-26-2018 04-26-2018 Chronic Nutritional deficiencies (1 source) Vitamin D deficiency, unspecified; Translations: [Vitamin D deficiency] Onset: 10-04-2023 Chronic Osteoarthritis (18 sources) Primary gonarthrosis, bilateral; Translations: [Bilateral primary osteoarthritis of knee] Onset: 04-26-2018 04-26-2018 Chronic Other ear and sense organ disorders (2 sources) Tinnitus; Translations: [Tinnitus, unspecified ear] 09-24-2018 Episodic Other female genital disorders (16 sources) Abnormal uterine bleeding; Translations: [Unspecified disorders of menstruation and other abnormal bleeding from female genital tract] 09-25-2018 Chronic Other female genital disorders (1 source) Abnormal uterine and vaginal bleeding, unspecified; Translations: [Abnormal uterine and vaginal bleeding, unspecified] Onset: 08-31-2022 Chronic Other female genital disorders (1 source) Unspecified dyspareunia; Translations: [Unspecified dyspareunia] Onset: 06-14-2022 Chronic Other female genital disorders (5 sources) Large ovary; Translations: [Other noninflammatory disorders of ovary, fallopian tube, and broad ligament] Episodic Other female genital disorders (3 sources) Mass of ovary; Translations: [Other noninflammatory disorders of ovary, fallopian tube, and broad ligament] Episodic Other gastrointestinal disorders (1 source) Intra-abdominal and pelvic swelling, mass and lump, unspecified site; Translations: [Intra-abd and pelvic swelling, mass and lump, unsp site] Onset: 10-11-2022 Episodic Other gastrointestinal disorders (2 sources) Generalized intra-abdominal and pelvic swelling, mass and lump; Translations: [Generalized intra-abd and pelvic swelling, mass and lump] Onset: 08-31-2022 Episodic Other gastrointestinal disorders (1 source) Other intra-abdominal and pelvic swelling, mass and lump; Translations: [Other intra-abdominal and pelvic swelling, mass and lump] Onset: 08-31-2022 Episodic Other gastrointestinal disorders (1 source) Finding of abdominopelvic segment of trunk; Translations: [Generalized intra-abdominal and pelvic swelling, mass and lump] 08-31-2022 Episodic Other gastrointestinal disorders (1 source) Swelling; Translations: [Other intra-abdominal and pelvic swelling, mass and lump] 10-04-2022 Episodic Other nervous system disorders (14 sources) Carpal tunnel syndrome; Translations: [Carpal tunnel syndrome] Chronic Other nervous system disorders (5 sources) Disorder of brain; Translations: [Encephalopathy, unspecified] Chronic Other non-traumatic joint disorders (14 sources) Pain in left knee; Translations: [Chronic pain of left knee] Episodic Other non-traumatic joint disorders (14 sources) Chronic ankle pain; Translations: [Pain in joint, ankle and foot] Episodic Other and delivery including normal (13 sources) Delivery normal; Translations: [Normal delivery] Episodic Comment on above: 06/18/89 42 WEEKS FE MALE 7LBS 1/2OZ10/19/90 31 WEEKS MALE 7LBS 9OZ; Other screening for suspected conditions (not mental disorders or infectious disease) (20 sources) Patient encounter status; Translations: [Encounter for screening mammogram for malignant neoplasm of breast] Onset: 04-26-2022 Resolved: 10-26-2021 Episodic Residual codes; unclassified (4 sources) Past history of procedure; Translations: [Other specified personal history presenting hazards to health] Episodic Comment on above: 10/25/21 NORMAL; Screening and history of mental health and substance abuse codes (2 sources) Ex-smoker; Translations: [Personal history of nicotine dependence] 09-25-2018 Episodic Sprains and strains (4 sources) Strain of neck muscle; Translations: [Sprain of neck] Episodic Substance-related disorders (4 sources) Nicotine dependence, unspecified, uncomplicated; Translations: [Nicotine dependence, unspecified, uncomplicated] Onset: 04-26-2022 Chronic Unclassified (2 sources) MOUTH PAIN 08-02-2021 Comment on above: MOUTH PAIN Past or Other Problems Problem Classification Problem Date Documented Date Episodic/Chronic Acute cerebrovascular disease (1 source) Acute cerebrovascular disease Onset: 10-18-2021 Administrative/social admission (1 source) Other specified counseling; Translations: [Other specified counseling] Onset: 06-14-2022 Episodic Malaise and fatigue (2 sources) Other fatigue; Translations: [Other fatigue] Onset: 02-21-2023 Episodic Other connective tissue disease (10 sources) Tendinitis of wrist; Translations: [Other tenosynovitis of hand and wrist] Resolved: 10-26-2021 Episodic Other female genital disorders (4 sources) Other noninflammatory disorders of ovary, fallopian tube and broad ligament; Translations: [Oth noninflammatory disord of ovary, fallop and broad ligmt] Onset: 05-12-2022 Episodic Other lower respiratory disease (1 source) Other nonspecific abnormal finding of lung field; Translations: [Other nonspecific abnormal finding of lung field] Onset: 04-26-2022 Episodic Other lower respiratory disease (3 sources) Breathing painful; Translations: [Chest pain on breathing] Onset: 11-13-2007 Resolved: 04-26-2018 04-26-2018 Episodic Other non-traumatic joint disorders (11 sources) Pain in wrist; Translations: [Pain in joint, forearm] Resolved: 10-26-2021 Episodic Other upper respiratory infections (10 sources) Acute upper respiratory infection; Translations: [Acute upper respiratory infections of unspecified site] Resolved: 10-26-2021 09-25-2018 Episodic Residual codes; unclassified (14 sources) H/O: vertigo; Translations: [Personal history of other disorders of nervous system and sense organs] Resolved: 09-20-2021 Episodic Spondylosis; intervertebral disc disorders; other back problems (3 sources) Brachial neuritis; Translations: [Radiculopathy, cervical region] Onset: 11-13-2007 Resolved: 04-26-2018 04-26-2018 Episodic Unclassified (13 sources) Finding of menstrual bleeding; Translations: [Menstruation] Comment on above: AGE 12; Results Test Name Value Interpretation Reference Range Facility [facility] SCREENING W TOMOon 04-11 [facility] SCRE[facility]ING [facility] * * *Final Report* * * DATE OF EXAM: Apr 11 2024 11:01AM [facility] 0582 - WEND[facility] SCREENING W YANG / PROCEDURE REASON: Encounter for screening mammogram for breast cancer * * * * Physician Interpretation * * * * RESULT: [place] [address] #[id number] - [facility]END[facility] SCREENING W YANG HISTORY: 53 year-old patient seen for screening and is asymptomatic in both breasts. Patient states no personal history of breast cancer. Patient states no personal history of other cancers. COMPARISON STUDIES: The present examination has been compared to prior imaging studies dated 11/22/2017 (mammogram), 12/12/2017 (mammogram), 12/12/2017 (ultrasound), 09/30/2021 (mammogram) and 11/04/2022 (mammogram). MAMMOGRAM TECHNIQUE: The study was acquired using full field digital technology and interpreted from soft copy. Digital Breast Tomosynthesis (DBT) images were obtained and used to assist in the interpretation of this examination. MAMMOGRAM FINDINGS: There are scattered areas of fibroglandular density. No suspicious masses, calcifications or other abnormalities are seen in either breast. There are no significant interval changes. IMPRESSION: There is no mammographic evidence of malignancy in either breast. Routine screening mammogram is recommended. Annual mammogram will be due in 1 year. BI-RADS Category 1: Negative RISK: Based on the Tyrer-Cuzick (TC) risk assessment model, this patient has a 4.8% lifetime risk of developing breast cancer, meaning they are at average risk for developing breast cancer. However, this is only an estimate based on available history provided on the patient's questionnaire. We encourage all patients to talk with their providers about these results, further recommendations for managing breast health, and appropriate supplemental screening options if the patient has dense breast tissue. Interpreting Radiologist: Pamela Simeon M.D. Electronically signed on: 04/15/2024 Wood Craftsman: TANISHA Transcribe Date/Time: Apr 11 2024 10:50A Dictated by: PAMELA SIMEON MD This examination was interpreted and the report reviewed and electronically signed by: PAMELA SIMEON MD on Apr 15 2024 11:33AM EST [id number] [facility] Telephone (RDXWS) KELSIE ZENG ([id number]) 1970 F Date Time Provider Department 04/09/24 NURSE/NATHAN EDUARDO [facility] [id number] During your visit today, we recorded the following information about you: Rd Henry, Mammo Tech 04/09/2024 2:28 PM Signed Could we have a order for a screening mammogram? Pt schedule 04/11. Thanks a Piero Weeks MD 04/09/2024 4:34 PM Signed Has not been seen since 2019. Allergies As of Date: 04/09/2024 Noted Allergy Reaction ALEVE (NAPROXEN SODIUM) 11/23/2017 4 - Hives 7 - Swelling Date Reviewed: 03/30/2023 Reviewed by: Gracia Dunham APRN.AUTOMOTIVE FLEET SUPERVISOR - Fully Assessed Reason for Visit: Orders [681] Problem List As Of Date 04/09/2024 Noted Resolved Brachial neuritis or radiculitis NOS [M54.12] 11/13/2007 04/26/2018 Painful respiration [R07.1] 11/13/2007 04/26/2018 Primary osteoarthritis of both knees [M17.0] 04/26/2018 Perimenopausal vasomotor symptoms [N95.1] 04/26/2018 Encounter Status:Closed by ANGELES JONES on 04/09/24 Normal [facility] CBC panel Auto (Bld)on 04-08 Erythrocyte distribution width (RBC) [Ratio] 12.1 % Normal 11.5-15.0 [facility] Comment on above: Order Comment: Jessica gallegos Type: BLOOD SPECIMEN Ordering Facility: External Submitter Address: , , Performed By: #### 5 8410-2 #### [facility] CLIA [id number] [address] [place] [address] [place] Hematocrit (Bld) [Volume fraction] 40.5 % Normal 36.0-46.0 [facility] Comment on above: Order Comment: Jessica gallegos Type: BLOOD SPECIMEN Ordering Facility: External Submitter Address: , , Performed By: #### 5 8410-2 #### [facility] CLIA [id number] [address] [place] [address] [place] Hemoglobin (Bld) [Mass/Vol] 13.3 g/dL Normal 11.5-15.5 [facility] Comment on above: Order Comment: Jessica gallegos Type: BLOOD SPECIMEN Ordering Facility: External Submitter Address: , , Performed By: #### 5 8410-2 #### [facility] CLIA [id number] [address] [place] [address] [place] MCH (RBC) [Entitic mass] 32.8 pg Normal 26.0-34.0 [facility] Comment on above: Order Comment: Speci men Type: BLOOD SPECIMEN Ordering Facility: External Submitter Address: , , Performed By: #### 5 8410-2 #### [facility] CLIA [id number] [address] [place] [address] [place] MCHC (RBC) [Mass/Vol] 32.8 g/dL Normal 30.5-36.0 [facility] Comment on above: Order Comment: Speci men Type: BLOOD SPECIMEN Ordering Facility: External Submitter Address: , , Performed By: #### 5 8410-2 #### [facility] CLIA [id number] [address] [place] [address] [place] MCV (RBC) [Entitic vol] 100.0 fL Normal 80.0-100.0 [facility] Comment on above: Order Comment: Speci men Type: BLOOD SPECIMEN Ordering Facility: External Submitter Address: , , Performed By: #### 5 8410-2 #### [facility] CLIA [id number] [address] [place] [address] [place] Nucleated RBC (Bld) [#/Vol] 10*3/uL Normal <0.01 [facility] Comment on above: Order Comment: Speci men Type: BLOOD SPECIMEN Ordering Facility: External Submitter Address: , , Performed By: #### 5 8410-2 #### [facility] CLIA [id number] [address] [place] [address] [place] Platelet mean volume (Bld) [Entitic vol] 11.4 fL Normal 9.0-12.7 [facility] Comment on above: Order Comment: Speci men Type: BLOOD SPECIMEN Ordering Facility: External Submitter Address: , , Performed By: #### 5 8410-2 #### [facility] CLIA [id number] [address] [place] [address] [place] Platelets (Bld) [#/Vol] 266 10*3/uL Normal 150-400 [facility] Comment on above: Order Comment: Speci men Type: BLOOD SPECIMEN Ordering Facility: External Submitter Address: , , Performed By: #### 5 8410-2 #### [facility] CLIA [id number] [address] [place] [address] [place] RBC (Bld) [#/Vol] 4.05 10*6/uL Normal 3.90-5.20 [facility] Comment on above: Order Comment: Speci men Type: BLOOD SPECIMEN Ordering Facility: External Submitter Address: , , Performed By: #### 5 8410-2 #### [facility] CLIA [id number] [address] [place] [address] [place] WBC (Bld) [#/Vol] 6.87 10*3/uL Normal 3.70-11.00 [facility] Comment on above: Order Comment: Speci men Type: BLOOD SPECIMEN Ordering Facility: External Submitter Address: , , Performed By: #### 5 8410-2 #### [facility] CLIA [id number] [address] [place] [address] [place] Comprehensive metabolic 2000 panelon 04-08-2024 Albumin [Mass/Vol] 4.0 g/dL Normal 3.9-4.9 [facility] Comment on above: Order Comment: Speci men Type: BLOOD SPECIMEN Ordering Facility: External Submitter Address: , , Performed By: #### 2 4331-1, 3, #### [facility] CLIA [id number] [address] [place] [address] [place] ALP [Catalytic activity/Vol] 84 U/L Normal 34-123 [facility] Comment on above: Order Comment: Speci men Type: BLOOD SPECIMEN Ordering Facility: External Submitter Address: , , Performed By: #### 2 4331-1, 3015-3, #### [facility] CLIA [id number] [address] [place] [id number] [place] ALT [Catalytic activity/Vol] 16 U/L Normal 7-38 [facility] Comment on above: Order Comment: Speci men Type: BLOOD SPECIMEN Ordering Facility: External Submitter Address: , , Performed By: #### 2 4331-1, 3015-05, #### [facility] CLIA [id number] [address] [place] [id number] [place] Anion gap [Moles/Vol] 11 mmol/L Normal 8-15 [facility] Comment on above: Order Comment: Speci men Type: BLOOD SPECIMEN Ordering Facility: External Submitter Address: , , Performed By: #### 2 4331-1, 3015-05, #### [facility] CLIA [id number] [address] [place] [address] [place] AST [Catalytic activity/Vol] 20 U/L Normal 13-35 [facility] Comment on above: Order Comment: Speci men Type: BLOOD SPECIMEN Ordering Facility: External Submitter Address: , , Performed By: #### 2 4331-1, 3015-05, #### [facility] CLIA [id number] [address] [place] [id number] [place] Bilirubin [Mass/Vol] 0.3 mg/dL Normal 0.2-1.3 [facility] Comment on above: Order Comment: Speci men Type: BLOOD SPECIMEN Ordering Facility: External Submitter Address: , , Performed By: #### 2 4331-1, 3015-05, #### [facility] CLIA [id number] [address] [place] [address] [place] Calcium [Mass/Vol] 9.5 mg/dL Normal 8.5-10.2 [facility] Comment on above: Order Comment: Speci men Type: BLOOD SPECIMEN Ordering Facility: External Submitter Address: , , Performed By: #### 2 4331-1, 3, #### [facility] CLIA [id number] [address] [place] [id number] [place] Chloride [Moles/Vol] 105 mmol/L Normal 98-107 [facility] Comment on above: Order Comment: Speci men Type: BLOOD SPECIMEN Ordering Facility: External Submitter Address: , , Performed By: #### 2 4331-1, 3, #### [facility] CLIA [id number] [address] [place] [id number] [place] CO2 [Moles/Vol] 23 mmol/L Normal 22-30 [facility] Comment on above: Order Comment: Speci men Type: BLOOD SPECIMEN Ordering Facility: External Submitter Address: , , Performed By: #### 2 4331-1, 3015-05, #### [facility] CLIA [id number] [address] [place] [address] [place] Creatinine [Mass/Vol] 0.65 mg/dL Normal 0.58-0.96 [facility] Comment on above: Order Comment: Speci men Type: BLOOD SPECIMEN Ordering Facility: External Submitter Address: , , Performed By: #### 2 4331-1, 3015-05, #### [facility] CLIA [id number] [address] [place] [address] OF [facility] Creatinine and Glomerular filtration rate.predicted panel (S/P/Bld) 105 mL/min/1.73m??? Normal >=60 [facility] Comment on above: Order Comment: Speci men Type: BLOOD SPECIMEN Ordering Facility: External Submitter Address: , , Result Comment: Bashir mated Glomerular Filtration Rate (eGFR) is calculated using the 2020 CKD-EPI creatinine equation. This equation utilizes serum creatinine, sex, and age as parameters. The creatinine assay has traceable calibration to isotope dilution-mass spectrometry. Refer to KDIGO guidelines for clinical interpretation. In patients with unstable renal function, e.g. those with acute kidney injury, the eGFR may not accurately reflect actual GFR. Performed By: #### 2 4331-1, 3015-05, #### [facility] CLIA [id number] [address] [address] [place] Glucose [Mass/Vol] 75 mg/dL Normal 74-99 [facility] Comment on above: Order Comment: Jessica gallegos Type: BLOOD SPECIMEN Ordering Facility: External Submitter Address: , , Result Comment: The [place] Diabetes Association (ADA) provides guidance for cutoff values for fasting glucose and random glucose. The ADA defines fasting as no caloric intake for at least 8 hours. Fasting plasma glucose results between 100 to 125 mg/dL indicate increased risk for diabetes (prediabetes). Fasting plasma glucose results greater than or equal to 126 mg/dL meet the criteria for diagnosis of diabetes. In the absence of unequivocal hyperglycemia, results should be confirmed by repeat testing. In a patient with classic symptoms of hyperglycemia or hyperglycemic crisis, random plasma glucose results greater than or equal to 200 mg/dL meet the criteria for diagnosis of diabetes. Reference: Standards of Medical Care in Diabetes 2016, [place] [employer]. Diabetes Care. 2016.39(Suppl 1). Performed By: #### 2 4331-1, 3015-05, #### [facility] CLIA [id number] [address] [address] [place] Potassium [Moles/Vol] 4.0 mmol/L Normal 3.7-5.1 [facility] Comment on above: Order Comment: Jessica gallegos Type: BLOOD SPECIMEN Ordering Facility: External Submitter Address: , , Performed By: #### 2 4331-1, 3015-05, #### [facility] CLIA [id number] [address] [address] [place] Protein [Mass/Vol] 6.7 g/dL Normal 6.3-8.0 [facility] Comment on above: Order Comment: Jessica gallegos Type: BLOOD SPECIMEN Ordering Facility: External Submitter Address: , , Performed By: #### 2 4331-1, 3015-3, #### [facility] CLIA [id number] [address] [place] [address] [place] Sodium [Moles/Vol] 139 mmol/L Normal 136-144 [facility] Comment on above: Order Comment: Speci men Type: BLOOD SPECIMEN Ordering Facility: External Submitter Address: , , Performed By: #### 2 4331-1, 3, #### [facility] CLIA [id number] [address] [place] [address] [place] Urea nitrogen [Mass/Vol] 10 mg/dL Normal 7-21 [facility] Comment on above: Order Comment: Speci men Type: BLOOD SPECIMEN Ordering Facility: External Submitter Address: , , Performed By: #### 2 4331-1, 3015-05, #### [facility] CLIA [id number] [address] [place] [address] [place] Lipid 1996 panelon 5 Cholesterol [Mass/Vol] 186 mg/dL Normal <200 [facility] Comment on above: Order Comment: Speci men Type: BLOOD SPECIMEN Ordering Facility: External Submitter Address: , , Result Comment: <200 mg/dL, Desirable 200-239 mg/dL, Borderline high >239 mg/dL, High Performed By: #### 2 4331-1, 3, #### [facility] CLIA [id number] [address] [place] [id number] [place] Cholesterol in HDL [Mass/Vol] 54 mg/dL Normal >39 [facility] Comment on above: Order Comment: Speci men Type: BLOOD SPECIMEN Ordering Facility: External Submitter Address: , , Result Comment: 40-5 9 mg/dL, Acceptable >59 mg/dL, High: Negative risk factor for coronary heart disease <40 mg/dL, Low: Positive risk factor for coronary heart disease Performed By: #### 2 4331-1, 3015-3, #### [facility] CLIA [id number] [address] [place] [address] [place] Cholesterol in LDL [Mass/Vol] 99 mg/dL Normal <100 [facility] Comment on above: Order Comment: Speci men Type: BLOOD SPECIMEN Ordering Facility: External Submitter Address: , , Result Comment: <100 mg/dL, Optimal 100-129 mg/dL, Near optimal/above optimal 130-159 mg/dL, Borderline high 160-189 mg/dL, High >189 mg/dL, Very high Secondary prevention optimal LDL Cholesterol levels are recommended to be < 70 mg/dL Performed By: #### 2 4331-1, 3015-05, #### [facility] CLIA [id number] [address] [place] [address] [place] Cholesterol in LDL/Cholesterol in HDL [Mass ratio] 1.83 {ratio} Normal <2.54 [facility] Comment on above: Order Comment: Jessica gallegos Type: BLOOD SPECIMEN Ordering Facility: External Submitter Address: , , Result Comment: Deisi kohler: 1. National Cholesterol Education Program ATP III Guideline At-A-Glance Quick Desk Reference: National Heart, Lung, and Blood De Young. National Institutes of Health. 2001: NIH Publication No. 01-3305. 2. An International Atherosclerosis Society position paper: global recommendations for the management of dyslipidemia: executive summary, Atherosclerosis. 2014: 232(2):410-413. Performed By: #### 2 4331-1, 3015-05, #### [facility] CLIA [id number] [address] [place] [id number] [place] Cholesterol in VLDL [Mass/Vol] 33 mg/dL High <30 [facility] Comment on above: Order Comment: Jessica men Type: BLOOD SPECIMEN Ordering Facility: External Submitter Address: , , Performed By: #### 2 4331-1, 3, #### [facility] CLIA [id number] [address] [place] [address] [place] Cholesterol non HDL [Mass/Vol] 132 mg/dL High <130 [facility] Comment on above: Order Comment: Fcoi men Type: BLOOD SPECIMEN Ordering Facility: External Submitter Address: , , Result Comment: <130 mg/dL, Optimal 130-159 mg/dL, Near optimal/above optimal 160-189 mg/dL, Borderline high 190-219 mg/dL, High >219 mg/dL, Very high Secondary prevention optimal non HDL Cholesterol levels are recommended to be <100 mg/dL Performed By: #### 2 4331-1, 3015-3, #### [facility] IA [id number] [address] [place] [address] [place] Cholesterol.total/Ch olesterol in HDL [Mass ratio] 3.44 {ratio} Normal <5.10 [facility] Comment on above: Order Comment: Speci men Type: BLOOD SPECIMEN Ordering Facility: External Submitter Address: , , Performed By: #### 2 4331-1, 3, #### [facility] IA [id number] [address] [place] [address] [place] FASTING TIME 15 hrs Normal [facility] Comment on above: Order Comment: Fcoi men Type: BLOOD SPECIMEN Ordering Facility: External Submitter Address: , , Performed By: #### 2 4331-1, 3, #### [facility] IA [id number] [address] [place] [address] [place] Triglyceride [Mass/Vol] 165 mg/dL High <150 [facility] Comment on above: Order Comment: Fcoi men Type: BLOOD SPECIMEN Ordering Facility: External Submitter Address: , , Result Comment: <150 mg/dL, Normal 150-199 mg/dL, Borderline high 200-499 mg/dL, High >499 mg/dL, Very high Performed By: #### 2 4331-1, 3015-3, #### [facility] CLIA [id number] [address] [place] [address] [place] TSH SerPl-aCncon 04-08-2024 TSH Qn 1.480 m[IU]/L Normal 0.270-4.200 [facility] Comment on above: Order Comment: Speci men Type: BLOOD SPECIMEN Ordering Facility: External Submitter Address: , , Performed By: #### 2 4331-1, 3016-3, #### [facility] CLIA [id number] [address] [place] [address] [place] 25(OH)D3 SerPl-mCncon 2023 25-hydroxyvitamin D3 [Mass/Vol] 23.4 ng/mL Low 31.0-80.0 [facility] Comment on above: Order Comment: Speci men Type: BLOOD SPECIMENOrdering Facility: [facility] Address: ATTN: LABORATORY, [place] [address] Result Comment: Clas sification of 25 [place] Vitamin D status: Deficiency/Insufficiency: < or = 30 ng/ml. Sufficiency/Optimal Levels: 31-80 ng/mL Toxicity: > 100 ng/mL. Test performed by chemiluminescent immunoassay. Performed By: #### 1 989-3 ####[facility] [id number] [place] [address] [place] CBC W Auto Differential pane l (Bld)on 10-04-2023 Basophils (Bld) [#/Vol] 0.05 10*3/uL Normal <0.11 [facility] Comment on above: Order Comment: Speci men Type: BLOOD SPECIMEN Ordering Facility: [facility] Address: ATTN: LABORATORY, [place] [address] Performed By: #### 5 7021-8 #### [facility] CLIA [id number] [address] [place] [id number] [place] Basophils/100 WBC (Bld) 0.6 % Normal [facility] Comment on above: Order Comment: Speci men Type: BLOOD SPECIMEN Ordering Facility: [facility] Address: ATTN: LABORATORY, [place] [address] Performed By: #### 5 7021-8 #### [facility] CLIA [id number] [address] [place] [address] [place] Differential cell count method Nom (Bld) Auto Normal [facility] Comment on above: Order Comment: Speci men Type: BLOOD SPECIMEN Ordering Facility: [facility] Address: ATTN: LABORATORY, [place] [address] Performed By: #### 5 7021-8 #### [facility] CLIA [id number] [address] [place] [address] [place] Eosinophils (Bld) [#/Vol] 0.06 10*3/uL Normal <0.46 [facility] Comment on above: Order Comment: Speci men Type: BLOOD SPECIMEN Ordering Facility: [facility] Address: ATTN: LABORATORY, [place] [address] Performed By: #### 5 7021-8 #### [facility] CLIA [id number] [address] [place] [address] [place] Eosinophils/100 WBC (Bld) 0.7 % Normal [facility] Comment on above: Order Comment: Speci men Type: BLOOD SPECIMEN Ordering Facility: [facility] Address: ATTN: LABORATORY, [place] [address] Performed By: #### 5 7021-8 #### [facility] CLIA [id number] [address] [place] [address] [place] Erythrocyte distribution width (RBC) [Ratio] 12.2 % Normal 11.5-15.0 [facility] Comment on above: Order Comment: Speci men Type: BLOOD SPECIMEN Ordering Facility: [facility] Address: ATTN: LABORATORY, [place] [address] Performed By: #### 5 7021-8 #### [facility] CLIA [id number] [address] [place] [address] [place] Hematocrit (Bld) [Volume fraction] 41.2 % Normal 36.0-46.0 [facility] Comment on above: Order Comment: Speci men Type: BLOOD SPECIMEN Ordering Facility: [facility] Address: ATTN: LABORATORY, [place] [address] Performed By: #### 5 7021-8 #### [facility] CLIA [id number] [address] [place] [address] [place] Hemoglobin (Bld) [Mass/Vol] 13.5 g/dL Normal 11.5-15.5 [facility] Comment on above: Order Comment: Speci men Type: BLOOD SPECIMEN Ordering Facility: [facility] Address: ATTN: LABORATORY, [place] [address] Performed By: #### 5 7021-8 #### [facility] CLIA [id number] [address] [place] [address] [place] Immature granulocytes (Bld) [#/Vol] 0.17 10*3/uL High <0.10 [facility] Comment on above: Order Comment: Speci men Type: BLOOD SPECIMEN Ordering Facility: [facility] Address: ATTN: LABORATORY, [place] [address] Performed By: #### 5 7021-8 #### [facility] CLIA [id number] [address] [place] [address] [place] Immature granulocytes/100 WBC (Bld) 1.9 % Normal [facility] Comment on above: Order Comment: Speci men Type: BLOOD SPECIMEN Ordering Facility: [facility] Address: ATTN: LABORATORY, [place] [address] Performed By: #### 5 7021-8 #### [facility] CLIA [id number] [address] [place] [address] [place] Lymphocytes (Bld) [#/Vol] 2.15 10*3/uL Normal 1.00-4.00 [facility] Comment on above: Order Comment: Speci men Type: BLOOD SPECIMEN Ordering Facility: [facility] Address: ATTN: LABORATORY, [place] [address] Performed By: #### 5 7021-8 #### [facility] CLIA [id number] [address] [place] [address] [place] Lymphocytes/100 WBC (Bld) 23.8 % Normal [facility] Comment on above: Order Comment: Speci men Type: BLOOD SPECIMEN Ordering Facility: [facility] Address: ATTN: LABORATORY, [place] [address] Performed By: #### 5 7021-8 #### [facility] CLIA [id number] [address] [place] [address] [place] MCH (RBC) [Entitic mass] 32.9 pg Normal 26.0-34.0 [facility] Comment on above: Order Comment: Speci men Type: BLOOD SPECIMEN Ordering Facility: [facility] Address: ATTN: LABORATORY, [place] [address] Performed By: #### 5 7021-8 #### [facility] CLIA [id number] [address] [place] [address] [place] MCHC (RBC) [Mass/Vol] 32.8 g/dL Normal 30.5-36.0 [facility] Comment on above: Order Comment: Speci men Type: BLOOD SPECIMEN Ordering Facility: [facility] Address: ATTN: LABORATORY, [place] [address] Performed By: #### 5 7021-8 #### [facility] CLIA [id number] [address] [place] [address] [place] MCV (RBC) [Entitic vol] 100.5 fL High 80.0-100.0 [facility] Comment on above: Order Comment: Speci men Type: BLOOD SPECIMEN Ordering Facility: [facility] Address: ATTN: LABORATORY, [place] [address] Performed By: #### 5 7021-8 #### [facility] CLIA [id number] [address] [place] [address] [place] Monocytes (Bld) [#/Vol] 0.45 10*3/uL Normal <0.87 [facility] Comment on above: Order Comment: Speci men Type: BLOOD SPECIMEN Ordering Facility: [facility] Address: ATTN: LABORATORY, [place] [address] Performed By: #### 5 7021-8 #### [facility] CLIA [id number] [address] [place] [address] [place] Monocytes/100 WBC (Bld) 5.0 % Normal [facility] Comment on above: Order Comment: Speci men Type: BLOOD SPECIMEN Ordering Facility: [facility] Address: ATTN: LABORATORY, [place] [address] Performed By: #### 5 7021-8 #### [facility] CLIA [id number] [address] [place] [address] [place] Neutrophils (Bld) [#/Vol] 6.14 10*3/uL Normal 1.45-7.50 [facility] Comment on above: Order Comment: Speci men Type: BLOOD SPECIMEN Ordering Facility: [facility] Address: ATTN: LABORATORY, [place] [address] Performed By: #### 5 7021-8 #### [facility] CLIA [id number] [address] [place] [address] [place] Neutrophils/100 WBC (Bld) 68.0 % Normal [facility] Comment on above: Order Comment: Speci men Type: BLOOD SPECIMEN Ordering Facility: [facility] Address: ATTN: LABORATORY, [place] [address] Performed By: #### 5 7021-8 #### [facility] CLIA [id number] [address] [place] [address] [place] Nucleated RBC (Bld) [#/Vol] 10*3/uL Normal <0.01 [facility] Comment on above: Order Comment: Speci men Type: BLOOD SPECIMEN Ordering Facility: [facility] Address: ATTN: LABORATORY, [place] [address] Performed By: #### 5 7021-8 #### [facility] CLIA [id number] [address] [place] [address] [place] Nucleated RBC/100 WBC (Bld) [Ratio] 0.0 /100 WBC Normal [facility] Comment on above: Order Comment: Speci men Type: BLOOD SPECIMEN Ordering Facility: [facility] Address: ATTN: LABORATORY, [place] [address] Performed By: #### 5 7021-8 #### [facility] CLIA [id number] [address] [place] [address] [place] Platelet mean volume (Bld) [Entitic vol] 11.8 fL Normal 9.0-12.7 [facility] Comment on above: Order Comment: Speci men Type: BLOOD SPECIMEN Ordering Facility: [facility] Address: ATTN: LABORATORY, [place] [address] Performed By: #### 5 7021-8 #### [facility] CLIA [id number] [address] [place] [address] [place] Platelets (Bld) [#/Vol] 307 10*3/uL Normal 150-400 [facility] Comment on above: Order Comment: Speci men Type: BLOOD SPECIMEN Ordering Facility: [facility] Address: ATTN: LABORATORY, [place] [address] Performed By: #### 5 7021-8 #### [facility] CLIA [id number] [address] [place] [address] [place] RBC (Bld) [#/Vol] 4.10 10*6/uL Normal 3.90-5.20 [facility] Comment on above: Order Comment: Speci men Type: BLOOD SPECIMEN Ordering Facility: [facility] Address: ATTN: LABORATORY, [place] [address] Performed By: #### 5 7021-8 #### [facility] CLIA [id number] [address] [place] [address] [place] WBC (Bld) [#/Vol] 9.02 10*3/uL Normal 3.70-11.00 [facility] Comment on above: Order Comment: Speci men Type: BLOOD SPECIMEN Ordering Facility: [facility] Address: ATTN: LABORATORY, [place] [address] Performed By: #### 5 7021-8 #### [facility] CLIA [id number] [address] [place] [id number] [place] Comprehensive metabolic 2000 panelon 10-04-2023 Albumin [Mass/Vol] 4.1 g/dL Normal 3.9-4.9 [facility] Comment on above: Order Comment: Speci men Type: BLOOD SPECIMEN Ordering Facility: [facility] Address: ATTN: LABORATORY, [place] [address] Performed By: #### 2 4331-1, 3015-3, 24557-4 #### [facility] CLIA [id number] [address] [place], [place] [address] [place] ALP [Catalytic activity/Vol] 98 U/L Normal 34-123 [facility] Comment on above: Order Comment: Speci men Type: BLOOD SPECIMEN Ordering Facility: [facility] Address: ATTN: LABORATORY, [place] [address] Performed By: #### 2 4331-1, 3015-3, 77702-8 #### [facility] CLIA [id number] [address] [place] [id number] [place] ALT [Catalytic activity/Vol] 12 U/L Normal 7-38 [facility] Comment on above: Order Comment: Speci men Type: BLOOD SPECIMEN Ordering Facility: [facility] Address: ATTN: LABORATORY, [place] [address] Performed By: #### 2 4331-1, 3015-3, 87627-9 #### [facility] CLIA [id number] [address] [address] [place] Anion gap [Moles/Vol] 12 mmol/L Normal 8-15 [facility] Comment on above: Order Comment: Speci men Type: BLOOD SPECIMEN Ordering Facility: [facility] Address: ATTN: LABORATORY, [place] [address] Performed By: #### 2 4331-1, 3015-3, #### [facility] CLIA [id number] [address] [place] [address] [place] AST [Catalytic activity/Vol] 18 U/L Normal 13-35 [facility] Comment on above: Order Comment: Speci men Type: BLOOD SPECIMEN Ordering Facility: [facility] Address: ATTN: LABORATORY, [place] [address] Performed By: #### 2 4331-1, 3015-3, #### [facility] CLIA [id number] [address] [place] [address] [place] Bilirubin [Mass/Vol] 0.3 mg/dL Normal 0.2-1.3 [facility] Comment on above: Order Comment: Speci men Type: BLOOD SPECIMEN Ordering Facility: [facility] Address: ATTN: LABORATORY, [place] [address] Performed By: #### 2 4331-1, 3015-3, #### [facility] CLIA [id number] [address] [place] [address] [place] Calcium [Mass/Vol] 9.2 mg/dL Normal 8.5-10.2 [facility] Comment on above: Order Comment: Speci men Type: BLOOD SPECIMEN Ordering Facility: [facility] Address: ATTN: LABORATORY, [place] [address] Performed By: #### 2 4331-1, 3, #### [facility] CLIA [id number] [address] [place] [address] [place] Chloride [Moles/Vol] 105 mmol/L Normal 98-107 [facility] Comment on above: Order Comment: Speci men Type: BLOOD SPECIMEN Ordering Facility: [facility] Address: ATTN: LABORATORY, [place] [address] Performed By: #### 2 4331-1, 6-3, 46656-9 #### [facility] CLIA [id number] [address] [place] [address] [place] CO2 [Moles/Vol] 22 mmol/L Normal 22-30 [facility] Comment on above: Order Comment: Speci men Type: BLOOD SPECIMEN Ordering Facility: [facility] Address: ATTN: LABORATORY, [place] [address] Performed By: #### 2 4331-1, 3015-3, 18269-3 #### [facility] CLIA [id number] [address] [place] [address] [place] Creatinine [Mass/Vol] 0.60 mg/dL Normal 0.58-0.96 [facility] Comment on above: Order Comment: Fcoi men Type: BLOOD SPECIMEN Ordering Facility: [facility] Address: ATTN: LABORATORY, [place] [address] Performed By: #### 2 4331-1, 3015-3, #### [facility] CLIA [id number] [address] [place] [address] [place] Creatinine and Glomerular filtration rate.predicted panel (S/P/Bld) 107 mL/min/1.73m??? Normal >=60 [facility] Comment on above: Order Comment: Jessica gallegos Type: BLOOD SPECIMEN Ordering Facility: [facility] Address: ATTN: LABORATORY, [place] [address] Result Comment: Bashir mated Glomerular Filtration Rate (eGFR) is calculated using the 2020 CKD-EPI creatinine equation. This equation utilizes serum creatinine, sex, and age as parameters. The creatinine assay has traceable calibration to isotope dilution-mass spectrometry. Refer to KDIGO guidelines for clinical interpretation. In patients with unstable renal function, e.g. those with acute kidney injury, the eGFR may not accurately reflect actual GFR. Performed By: #### 2 4331-1, 6-3, 16097-6 #### [facility] CLIA [id number] [address] [address] [place] Glucose [Mass/Vol] 77 mg/dL Normal 74-99 [facility] Comment on above: Order Comment: Jessica gallegos Type: BLOOD SPECIMEN Ordering Facility: [facility] Address: ATTN: LABORATORY, [place] [address] Result Comment: The [place] Diabetes Association (ADA) provides guidance for cutoff values for fasting glucose and random glucose. The ADA defines fasting as no caloric intake for at least 8 hours. Fasting plasma glucose results between 100 to 125 mg/dL indicate increased risk for diabetes (prediabetes). Fasting plasma glucose results greater than or equal to 126 mg/dL meet the criteria for diagnosis of diabetes. In the absence of unequivocal hyperglycemia, results should be confirmed by repeat testing. In a patient with classic symptoms of hyperglycemia or hyperglycemic crisis, random plasma glucose results greater than or equal to 200 mg/dL meet the criteria for diagnosis of diabetes. Reference: Standards of Medical Care in Diabetes 2016, [place] [employer] Association. Diabetes Care. 2016.39(Suppl 1). Performed By: #### 2 4331-1, 6-3, 26794-7 #### [facility] CLIA [id number] [address] [address] [place] Potassium [Moles/Vol] 4.2 mmol/L Normal 3.7-5.1 [facility] Comment on above: Order Comment: Jessica gallegos Type: BLOOD SPECIMEN Ordering Facility: [facility] Address: ATTN: LABORATORY, [place] [address] Performed By: #### 2 4331-1, 3015-3, 25630-0 #### [facility] CLIA [id number] [address] [address] [place] Protein [Mass/Vol] 6.7 g/dL Normal 6.3-8.0 [facility] Comment on above: Order Comment: Jessica gallegos Type: BLOOD SPECIMEN Ordering Facility: [facility] Address: ATTN: LABORATORY, [place] [address] Performed By: #### 2 4331-1, 3015-3, 15682-3 #### [facility] CLIA [id number] [address] [address] [place] Sodium [Moles/Vol] 139 mmol/L Normal 136-144 [facility] Comment on above: Order Comment: Speci men Type: BLOOD SPECIMEN Ordering Facility: [facility] Address: ATTN: LABORATORY, [place] [address] Performed By: #### 2 4331-1, 3016-3, 83345-7 #### [facility] CLIA [id number] [address] [place] [id number] [place] Urea nitrogen [Mass/Vol] 6 mg/dL Low 7-21 [facility] Comment on above: Order Comment: Speci men Type: BLOOD SPECIMEN Ordering Facility: [facility] Address: ATTN: LABORATORY, [place] [address] Performed By: #### 2 4331-1, 3015-3, 97222-5 #### [facility] CLIA [id number] [address] [place] [id number] [place] Lipid 1996 panelon 4 Cholesterol [Mass/Vol] 181 mg/dL Normal <200 [facility] Comment on above: Order Comment: Speci men Type: BLOOD SPECIMENOrdering Facility: [facility] Address: ATTN: LABORATORY, [place] [address] Result Comment: <200 mg/dL, Desirable 200-239 mg/dL, Borderline high >239 mg/dL, High Performed By: #### 2 4331-1, 3016-3, 79578-3 ####[facility] [id number] [address] [address] [place] Cholesterol in HDL [Mass/Vol] 55 mg/dL Normal >39 [facility] Comment on above: Order Comment: Speci men Type: BLOOD SPECIMENOrdering Facility: [facility] Address: ATTN: LABORATORY, [place] [address] Result Comment: 40-5 9 mg/dL, Acceptable >59 mg/dL, High: Negative risk factor for coronary heart disease <40 mg/dL, Low: Positive risk factor for coronary heart disease Performed By: #### 2 4331-1, 3015-3, 48287-7 ####[facility] [id number] [address] [address] [place] Cholesterol in LDL [Mass/Vol] 104 mg/dL High <100 [facility] Comment on above: Order Comment: Speci men Type: BLOOD SPECIMENOrdering Facility: [facility] Address: ATTN: LABORATORY, [place] [address] Result Comment: <100 mg/dL, Optimal 100-129 mg/dL, Near optimal/above optimal 130-159 mg/dL, Borderline high 160-189 mg/dL, High >189 mg/dL, Very high Secondary prevention optimal LDL Cholesterol levels are recommended to be < 70 mg/dL Performed By: #### 2 4331-1, 3015-3, ####[facility] [id number] [place] [address] [place] Cholesterol in LDL/Cholesterol in HDL [Mass ratio] 1.89 {ratio} Normal <2.54 [facility] Comment on above: Order Comment: Fcoi men Type: BLOOD SPECIMENOrdering Facility: [facility] Address: ATTN: [place] [address] Result Comment: Refe rence: 1. National Cholesterol Education Program ATP III Guideline At-A-Glance Quick Desk Reference: National Heart, Lung, and Blood De Young. National Institutes of Health. 2001: NIH Publication No. 01-3305. 2. An International Atherosclerosis Society position paper: global recommendations for the management of dyslipidemia: executive summary, Atherosclerosis. 2014: 232(2):410-413. Performed By: #### 2 4331-1, 3015-3, ####[facility] [id number] [place] [id number] [place] Cholesterol in VLDL [Mass/Vol] 22 mg/dL Normal <30 [facility] Comment on above: Order Comment: Fcoi men Type: BLOOD SPECIMENOrdering Facility: [facility] Address: ATTN: LABORATORY, [place] [address] Performed By: #### 2 4331-1, 3, ####[facility] [id number] [address] [address] [place] Cholesterol non HDL [Mass/Vol] 126 mg/dL Normal <130 [facility] Comment on above: Order Comment: Speci men Type: BLOOD SPECIMENOrdering Facility: [facility] Address: ATTN: LABORATORY, [place] [address] Result Comment: <130 mg/dL, Optimal 130-159 mg/dL, Near optimal/above optimal 160-189 mg/dL, Borderline high 190-219 mg/dL, High >219 mg/dL, Very high Secondary prevention optimal non HDL Cholesterol levels are recommended to be <100 mg/dL Performed By: #### 2 4331-1, 3, ####[facility] [id number] [place] [address] [place] Cholesterol.total/Ch olesterol in HDL [Mass ratio] 3.29 {ratio} Normal <5.10 [facility] Comment on above: Order Comment: Fcoi men Type: BLOOD SPECIMENOrdering Facility: [facility] Address: ATTN: LABORATORY, [place] [address] Performed By: #### 2 4331-1, 3015-05, ####[facility] [id number] [address] [address] [place] FASTING TIME 12 hrs Normal [facility] Comment on above: Order Comment: Speci men Type: BLOOD SPECIMENOrdering Facility: [facility] Address: ATTN: LABORATORY, [place] [address] Performed By: #### 2 4331-1, 3, ####[facility] [id number] [address] [address] [place] Triglyceride [Mass/Vol] 109 mg/dL Normal <150 [facility] Comment on above: Order Comment: Speci rosy Type: BLOOD SPECIMENOrdering Facility: [facility] Address: ATTN: LABORATORY, [place] [address] Result Comment: <150 mg/dL, Normal 150-199 mg/dL, Borderline high 200-499 mg/dL, High >499 mg/dL, Very high Performed By: #### 2 4331-1, 3016-3, 78309-2 ####[facility] [id number] [place] [address] [place] TSH SerPl-aCncon 10-04-2023 TSH Qn 1.140 m[IU]/L Normal 0.270-4.200 [facility] Comment on above: Order Comment: Speci men Type: BLOOD SPECIMEN Ordering Facility: [facility] Address: ATTN: LABORATORY, [place] [address] Performed By: #### 2 4331-1, 3016-3, 97836-8 #### [facility] CLIA [id number] [address] [place] Mamm - Screening Mammogram w / Tomosynthesison 11-04-2022 MG Breast Screening Normal Women [address] Work Phone: Clinic Note - [employer] Onc-Teleph one Visiton 10-11-2022 Clinic Note - [employer] Onc-Telephone Visit Patient Visit Information: Onco- Fertility: Visit Type: Telephone Visit: A telephone visit (audio only) between the patient (at the originating site) and the provider (at the distant site) was utilized to provide this telehealth service. Verbal Consent for Encounter: Verbal consent was requested and obtained from patient, or from parent/guardian if minor, on this date for a telehealth visit. Patient Visit Info: Last 3 Weights & Heights: Date: Weight/Scale Type:Height: 27-Sep-2022 15:1661.1 kg 150.8 cm 14-Jun-2022 11:1664.8 kg 150.8 cm History of Present Illness: Patient Information: KLESIE ZENG is a 52 year old Female Chief Complaint: Postop Treatment History: Referred by Andrea Laird CNP for adnexal mass MRI PELVIS W/O-W CONTRASt 05/12/2022 FINDINGS: UTERUS: The uterus is anteverted and measures 7.4 x 3.1 x 5.8 cm. Please note measurement does not include the mass described below. The thickness of the junctional zone is within normal limits. The endometrium has normal thickness and appearance. A few tiny nabothian cysts are noted. Projecting into the right adnexa, there is a 7.0 x 3.7 x 4.4 cm T2 hypointense mass extending from the right lateral corpus. It is uncertain if this abuts or arises from the myometrium. The vagina and vulva are unremarkable. OVARIES/ADNEXA: RIGHT: Local susceptibility artifact partially obscures the ovary. No visualized hydrosalpinx. LEFT: Local susceptibility artifact partially obscures the left ovary which otherwise does not appear enlarged. No visualized hydrosalpinx. PERITONEAL FLUID: No free or loculated fluid collections are evident in the pelvis. PELVIC LYMPH NODES: No abnormally enlarged pelvic lymph nodes are identified. BOWEL: No dilated bowel is visualized. BONES: No focal lesions are noted in the bone. The visualized pelvic vasculature appears patent. IMPRESSION: 1. Both ovaries are partially obscured by significant susceptibility artifact, probably arising from tubal ligation clips. 2. 7 cm mass extending into the right adnexa. This most likely arises from the right lateral corpus of the uterus and represents an exophytic subserosal fibroid. Because the right ovary is partially obscured, it is possible this arises from the right ovary as well. If that was the case, this would likely represent a fibrothecoma. US PELVIS TRANSABDOMINAL WITH TRANSVAGINAL 09/30/2021 FINDINGS: URINARY BLADDER: Unremarkable. UTERUS: The uterus measured 7.9 x 4.1 x 5.8 cm. There was no focal uterine mass. The endometrial lining measured 5 mm in AP thickness, within the limits of normal for this age group. RIGHT OVARY: Unable to identify the right ovary. There was however a complex heterogeneous rounded solid appearing masslike structure with dirty posterior acoustic shadowing measuring 56 x 34 x 45 mm. Color Doppler did show internal blood flow.. LEFT OVARY: Unable to identify the left ovary. No gross left adnexal mass. FREE FLUID: None. IMPRESSION: Unable to identify the left ovary. No gross left adnexal mass. Heterogeneous nonspecific masslike lesion in the right adnexa as described. Tumor to be excluded. This could be an ovarian dermoid. Other ovarian tumor must be excluded. Exophytic partially calcified uterine fibroid is a remote possibility. Recommend further evaluation with MRI of the pelvis. CA125 trends PMH BMI 27.4 Abnormal uterine bleeding Acute encephalopathy Enlarged ovary PSH History of Cholecystectomy History of Skin biopsy History of [facility] tooth extraction Social Hx Electronic cigarette use No alcohol use No illicit drug use Sexually active Family Hx Mother- HTN, diabetes, cardiac disorder Allergies and Outpatient Medication Profile: Allergies: ibuprofen: Drug, Hives/Urticaria, Active naproxen: Drug, Hives/Urticaria, Active Outpatient Medication Profile: * Patient Currently Takes Medications as of 27-Sep-2022 15:18 documented in Structured Notes acetaminophen 500 mg oral tablet: 2 tab(s) orally every 6 hours, As Needed Interval History, ROS and Problem List: Problem List: Medical History: Encounter for surgical counseling: ICD-10: Z71.89, Status: Active Dyspareunia in female: ICD-10: N94.10, Status: Active Pelvic mass: ICD-10: R19.00, Status: Active Family History: Family History: No Family History items are recorded in the problem list. Social History: Smoking: Smoking Statusnever smoker Results: Lab Results: Lab Results: Results: CEA date/time 23-Aug-2022 10:23 N/A CA19-9 date/time 23-Aug-2022 10:23 N/A CA125 date/time 23-Aug-2022 10:23 N/A InhibinA date/time 23-Aug-2022 10:23 N/A InhibinB date/time 23-Aug-2022 10:23 N/A AFP date/time 23-Aug-2022 10:23 N/A b-HcG date/time 23-Aug-2022 10:23 3 Assessment and Plan: Assessm (more content not included)... 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 Normal [facility] SURGICAL PATHOLOGY RESULTSon 10-03-2022 Pathology Report Name KELSIE ZENG Kathy Pathologist: ROSA MARIA READ MD Date of Procedure: 08/31/2022 Date Received: 08/31/2022 Date Reported 10/03/2022 Submitting Physician: DENITA CHA M.D. Location: [facility] Other External # FINAL DIAGNOSIS A. UTERUS, CERVIX, RIGHT AND LEFT OVARIES AND FALLOPIAN TUBES, TOTAL LAPAROSCOPIC HYSTERECTOMY AND BILATERAL SALPINGO-OOPHORECTOMY: -- INACTIVE ENDOMETRIUM. 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 -- CERVIX WITH NO SIGNIFICANT PATHOLOGIC FINDINGS. -- RIGHT AND LEFT OVARIES WITH NO SIGNIFICANT PATHOLOGIC FINDINGS. -- RIGHT AND LEFT FALLOPIAN TUBES WITH NO SIGNIFICANT PATHOLOGIC FINDINGS. Electronically Signed Out By ROSA MARIA READ MD/SXR By the signature on this report, the individual or group listed as making the Final Interpretation/Diagnosi s certifies that they have reviewed this case. Diagnostic interpretation performed at [facility] [address] [facility] [address] Clinical History: Physician Contact Number: [id number] Fixative (A): Formalin Clinical Diagnosis History 51yo F with pelvic mass presenting for robotic TLH, BSO Preop labs: Hgb 14.2, Plts 270, Cr 0.57 IMAGING: MRI PELVIS W/ CONTRAST 05/12/2022 FINDINGS: UTERUS: The uterus is anteverted and measures 7.4 x 3.1 x 5.8 cm. Please note measurement does not include the mass described below. The thickness of the junctional zone is within normal limits. The endometrium has normal thickness and appearance. A few tiny nabothian cysts are noted. Projecting into the right adnexa, there is a 7.0 x 3.7 x 4.4 cm T2 hypointense mass extending from the right lateral corpus. It is uncertain if this abuts or arises from the myometrium. The vagina and vulva are unremarkable. PELVIC LYMPH NODES: No abnormally enlarged pelvic lymph nodes are identified. IMPRESSION: 1. Both ovaries are partially obscured by significant susceptibility artifact, probably arising from tubal ligation clips. 2. 7 cm mass extending into the right adnexa. This most likely arises from the right lateral corpus of the uterus and represents an exophytic subserosal fibroid. Because the right ovary is partially obscured, it is possible this arises from the right ovary as well. If that was the case, this would likely represent a fibrothecoma. US PELVIS TRANSABDOMINAL WITH TRANSVAGINAL 09/30/2021 FINDINGS: UTERUS: The uterus measured 7.9 x 4.1 x 5.8 cm. There was no focal uterine mass. The endometrial lining measured 5 mm in AP thickness, within the limits of normal for this age group. RIGHT OVARY: Unable to identify the right ovary. There was however a complex heterogeneous rounded solid appearing masslike structure with dirty posterior acoustic shadowing measuring 56 x 34 x 45 mm. Color Doppler did show internal blood flow. IMPRESSION: Unable to identify the left ovary. No gross left adnexal mass. Heterogeneous nonspecific masslike lesion in the right adnexa as described. Tumor to be excluded. This could Specimens Submitted As: A: UTERUS CERVIX BILATERAL TUBES AND OVARIES, FIBROID Gross Description: A. Received in formalin, labeled with the patient's name and hospital number and uterus, cervix, bilateral tubes and ovaries with fibroid, is a uterus with attached cervix, fallopian tubes, and ovaries and detached nodule. The uterus is received intact, weighs 71.30 g, and measures 3.2 cm (cornu to cornu) x 7.8 cm (fundus to cervix) x 3.4 cm (anterior to posterior). The serosa is diamond-red and remarkable for a 4.5 x 3.5 cm ragged area on the posterior region consistent with possible attachment site for the nodule. The cervix measures 2.7 cm from 12:00 to 6:00 and 2.7 cm from 9:00 to 3:00, and the cervical os is slit-like, 0.7 cm. The ectocervix is diamond brown, smooth, and glistening. The endocervical canal measures 2.3 cm in length and appears unremarkable. The endometrial cavity is 4.5 cm in length and 2.3 cm in width. The endometrium is diamond and velvety and measur (more content not included)... [facility] Clinic Note - Intakeon 09-27 Clinic Note - Intake Patient Visit Information: Visit TypeFollow Up Visit Source of Informationpatient Admission Information: Admission Since Last VisitNo Vital Signs: Temp (degrees C)36.5 degrees C Heart Rate (beats/min)53 beats per minute Respiration (breaths/min)17 breath per minute BP Systolic (mm Hg)136 mmHg BP Diastolic (mm Hg)83 mmHg BP Mean (mm Hg)100 mmHg Height in cm150.8 centimeter(s) Weight in kg61.1 kilogram(s) Weightstanding BMI (kg/m2)26.8 kg/M2 BSA (m2)1.59 M2 SpO2 (%)100 % SpO2 Patient Onroom air Pain Screening: Patient States Painno (0) Allergies: ibuprofen: Drug, Hives/Urticaria, Active naproxen: Drug, Hives/Urticaria, Active Outpatient Medication Profile: * Patient Currently Takes Medications as of 27-Sep-2022 15:18 documented in Structured Notes acetaminophen 500 mg oral tablet: 2 tab(s) orally every 6 hours, As Needed Notification: NotificationsAnnual Screens Due Dates Advanced Directives: Aug 31, 2023 Family Violence: Aug 31, 2023 Depression (Due every 6 months for ONC only; all others use Annual date): Feb 27, 2023 Substance Use - Alcohol: Aug 31, 2023 Substance Use - Drugs: Aug 31, 2023 Nutrition: Aug 31, 2023 Learning: Aug 31, 2023 Travel History: COVID-19 Screening Completedno exposure or symptoms Travel or ExposureNO travel to International locations in the past 30 days Falls: Have you fallen in the last 6 monthsno Do you have a fear of fallingno Do you feel you need assistanceno Is the patient using an assistive deviceno Spiritual/Procedural: Spiritual/cultural/reli gious practices important for us to knowno Alcohol, prescription or recreational drugs taken this AM for non medical reasonsno Oncology Nutrition: During the past 2 weeks, weight has(0) not changed Intake past month, compared to normal intake(0) unchanged Problems keeping me from eating past 2 weeks (0) no problem eating In the past month, my activity/functioning rating is(0) normal with no limitations Clinician notifiedno Score 6 or > notify clinician0 Electronic Signatures: Niharika Augustin (PCNA) (Signed 27-Sep-2022 15:18) Authored: Patient Visit Information, Vital Signs, Allergies, Outpatient Medication Profile, Notification, Travel History, Falls, Spiritual/Procedural, Oncology Nutrition Last Updated: 27-Sep-2022 15:18 by Niharika Augustin (PCNA) [facility] 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 Please note measurement does not include the mass described below. The thickness of the junctional zone is within normal limits. The endometrium has normal thickness and appearance. A few tiny nabothian cysts are noted. Projecting into the right adnexa, there is a 7.0 x 3.7 x 4.4 cm T2 hypointense mass extending from the right lateral corpus. It is uncertain if this abuts or arises from the myometrium. The vagina and vulva are unremarkable. OVARIES/ADNEXA: RIGHT: Local susceptibility artifact partially obscures the ovary. No visualized hydrosalpinx. LEFT: Local susceptibility artifact partially obscures the left ovary which otherwise does not appear enlarged. No visualized hydrosalpinx. PERITONEAL FLUID: No free or loculated fluid collections are evident in the pelvis. PELVIC LYMPH NODES: No abnormally enlarged pelvic lymph nodes are identified. BOWEL: No dilated bowel is visualized. BONES: No focal lesions are noted in the bone. The visualized pelvic vasculature appears patent. IMPRESSION: 1. Both ovaries are partially obscured by significant susceptibility artifact, probably arising from tubal ligation clips. 2. 7 cm mass extending into the right adnexa. This most likely arises from the right lateral corpus of the uterus and represents an exophytic subserosal fibroid. Because the right ovary is partially obscured, it is possible this arises from the right ovary as well. If that was the case, this would likely represent a fibrothecoma. US PELVIS TRANSABDOMINAL WITH TRANSVAGINAL 09/30/2021 FINDINGS: URINARY BLADDER: Unremarkable. UTERUS: The uterus measured 7.9 x 4.1 x 5.8 cm. There was no focal uterine mass. The endometrial lining measured 5 mm in AP thickness, within the limits of normal for this age group. RIGHT OVARY: Unable to identify the right ovary. There was however a complex heterogeneous rounded solid appearing masslike structure with dirty posterior acoustic shadowing measuring 56 x 34 x 45 mm. Color Doppler did show internal blood flow.. LEFT OVARY: Unable to identify the left ovary. No gross left adnexal mass. FREE FLUID: None. IMPRESSION: Unable to identify the left ovary. No gross left adnexal mass. Heterogeneous nonspecific masslike lesion in the right adnexa as described. Tumor to be excluded. This could be an ovarian dermoid. Other ovarian tumor must be excluded. Exophytic partially calcified uterine fibroid is a remote possibility. Recommend further evaluation with MRI of the pelvis. CA125 trends PMH BMI 27.4 Abnormal uterine bleeding Acute encephalopathy Enlarged ovary PSH History of Cholecystectomy History of Skin biopsy History of [facility] tooth extraction Social Hx Electronic cigarette use No alcohol use No illicit drug use Sexually active Family Hx Mother- HTN, diabetes, cardiac disorder Allergies and Outpatient Medication Profile: Allergies: ibuprofen: Drug, Hives/Urticaria, Active naproxen: Drug, Hives/Urticaria, Active Outpatient Medication Profile: * No Current Medications as of 31-Aug-2022 12:19 documented in Structured Notes oxyCODONE 5 mg oral tablet: 1 tab(s) orally every 6 hours as needed for tqfqonzz-uz-ylyoze pain, take with ibuprofen. , Start Date: 31-Aug-2022 MiraLax oral powder for reconstitution: 17 gram(s) orally once a day as needed for constipation, Start Date: 31-Aug-2022 acetaminophen 500 mg oral tablet: 2 tab(s) orally every 6 hours , Start Date: 31-Aug-2022 Interval History, ROS and Problem List: Problem List: Medical History: Encounter for surgical counseling: ICD-10: Z71.89, Status: Active Dyspareunia in female: ICD-10: N94.10, Status: Active Pelvic mass: ICD-10: R19.00, Status: Active Social History: Smoking: Smoking Statusnever smoker Assessment and Plan: Assessment: Referred by Andrea Laird CNP for adnexal mass 51 yo referred for evaluation of solid adnexal mass. DDx includes large pedunculated fibroid versus ovarian fibroma. S/p 08/31/2022 Robotic-assisted total laparoscopic hysterectomy and bilateral salpingo oophorectomy. Plan: Doing very well postop. Postoperative do's an don'ts discussed from this point forward. f/u by phone after pathology is resulted. Denita Cha MD Wet Char Conveyor Tender, Gynecologic Oncology [facility] (more content not included)... Normal [facility] ABO/RH GROUP TESTon 09-01-19 23 ABO TYPE O Normal [facility] Comment on above: Performed By: #### V ERAB ####[id number] [place] [address] RH TYPE Positive Normal [facility] Comment on above: Performed By: #### V ERAB ####[id number] [place] [address] Order Reconciliationon 08-31 Order Reconciliation Page 1 Discharge Reconciliation Document Reconciliation Type: Discharge requested on behalf of Fidelina Shaffer (Resident) done by Fidelina Shaffer ( (Resident)) Discharge - Reconciliation: 31-Aug-2022 12:19 by: Fidelina Shaffer ( (Resident)) Current OrdersDateHOME MEDICATIONS AT DISCHARGE DateReconciliation Comment/ Additional Information Acetaminophen Tablet (TYLENOL)DOSE = 650 mg Oral Every 4 Hours, PRN Pain - Mild (1-3) (PACU) when able to take OralClinician Notes: Dolores-operative order ONLY 31-Aug-2022 09:14 Acetaminophen is not required ceFAZolin 1 gram Vial_IPRO SolutionGive 2 gram(s), IntraVenous, ONCE 31-Aug-2022 12:08 ceFAZolin 1 gram Vial_IPRO is not required Dexamethasone 4 mg Inj 1 mL_IPRO SolutionGive 6 mg, IntraVenous, ONCE 31-Aug-2022 12:08 Dexamethasone 4 mg Inj 1 mL_IPRO is not required ePHEDrine 50 mg/mL 1 mL Vial_IPRO SolutionGive 15 mg, IntraVenous, ONCE 31-Aug-2022 12:08 ePHEDrine 50 mg/mL 1 mL Vial_IPRO is not required FENTANYL 50MCG/1ML 2ML INJ_IPRO SolutionGive 150 microgram(s), IntraVenous, ONCE 31-Aug-2022 12:08 FENTANYL 50MCG/1ML 2ML INJ_IPRO is not required HYDROmorphone 1 mg/mL 1 mL Ampule_IPRO SolutionGive 0.8 mg, IntraVenous, ONCE 31-Aug-2022 12:08 HYDROmorphone 1 mg/mL 1 mL Ampule_IPRO is not required HYDROmorphone Injectable (DILAUDID)DOSE = 0.2 mg IntraVenous Push Every 5 Minutes, PRN Pain - Mod (4-6) (PACU) if unable to take oralClinician Notes: Dolores-operative order ONLYMax total of 4 mg regardless of dose. 31-Aug-2022 09:14 HYDROmorphone Injectable is not required HYDROmorphone Injectable (DILAUDID)DOSE = 0.4 mg IntraVenous Push Every 5 Minutes, PRN Pain - Severe (7-10) (PACU)Clinician Notes: Dolores-operative order ONLYMax total of 4 mg regardless of dose. 31-Aug-2022 09:14 HYDROmorphone Injectable is not required Lactated Ringers Infusion IV Bag Volume = 1,000 mL Run at: 100 mL/hr IntraVenous Clinician Notes: Dolores-operative order ONLY 31-Aug-2022 09:14 Lactated Ringers Infusion is not required LIDOCAINE 2% PF 100MG/5ML SYR_IPRO SolutionGive 80 mg, IntraVenous, ONCE 31-Aug-2022 12:08 LIDOCAINE 2% PF 100MG/5ML SYR_IPRO is not required Lidocaine 1% Injectable DOSE = 0.1 mL SubCutaneous Once, PRN analgesia for IV startClinician Notes: Dolores-operative order ONLYTo be used for IV Insertion Only 31-Aug-2022 09:14 Lidocaine 1% Injectable is not required Methocarbamol Injectable (ROBAXIN)DOSE = 1,000 mg IntraVenous Push OnceClinician Notes: Dolores-operative order ONLY 31-Aug-2022 09:14 Methocarbamol Injectable is not required Midazolam 1 mg/mL Inj 2 mL_IPRO SolutionGive 2 mg, IntraVenous, ONCE 31-Aug-2022 12:08 Midazolam 1 mg/mL Inj 2 mL_IPRO is not required Ondansetron 4 mg/2 mL Inj_IPRO SolutionGive 4 mg, IntraVenous, ONCE 31-Aug-2022 12:08 Ondansetron 4 mg/2 mL Inj_IPRO is not required Ondansetron Injectable (ZOFRAN)DOSE = 4 mg IntraVenous Push Once, PRN PONV, first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 Zully Fritz (N MGR) (Signed 14-Jun-2022 11:38) Authored: Vital Signs, Notification Co-Signer: Patient Visit Information, Vital Signs, Allergies, Outpatient Medication Profile, Notification, Travel History, Falls, Spiritual/Procedural, Oncology Nutrition, Adv Dir, Violence, Depression, Substance, Nutrition/Learning Last Updated: 14-Jun-2022 11:38 by Zully Fritz (N MGR) [facility] 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 Please note measurement does not include the mass described below. The thickness of the junctional zone is within normal limits. The endometrium has normal thickness and appearance. A few tiny nabothian cysts are noted. Projecting into the right adnexa, there is a 7.0 x 3.7 x 4.4 cm T2 hypointense mass extending from the right lateral corpus. It is uncertain if this abuts or arises from the myometrium. The vagina and vulva are unremarkable. OVARIES/ADNEXA: RIGHT: Local susceptibility artifact partially obscures the ovary. No visualized hydrosalpinx. LEFT: Local susceptibility artifact partially obscures the left ovary which otherwise does not appear enlarged. No visualized hydrosalpinx. PERITONEAL FLUID: No free or loculated fluid collections are evident in the pelvis. PELVIC LYMPH NODES: No abnormally enlarged pelvic lymph nodes are identified. BOWEL: No dilated bowel is visualized. BONES: No focal lesions are noted in the bone. The visualized pelvic vasculature appears patent. IMPRESSION: 1. Both ovaries are partially obscured by significant susceptibility artifact, probably arising from tubal ligation clips. 2. 7 cm mass extending into the right adnexa. This most likely arises from the right lateral corpus of the uterus and represents an exophytic subserosal fibroid. Because the right ovary is partially obscured, it is possible this arises from the right ovary as well. If that was the case, this would likely represent a fibrothecoma. US PELVIS TRANSABDOMINAL WITH TRANSVAGINAL 09/30/2021 FINDINGS: URINARY BLADDER: Unremarkable. UTERUS: The uterus measured 7.9 x 4.1 x 5.8 cm. There was no focal uterine mass. The endometrial lining measured 5 mm in AP thickness, within the limits of normal for this age group. RIGHT OVARY: Unable to identify the right ovary. There was however a complex heterogeneous rounded solid appearing masslike structure with dirty posterior acoustic shadowing measuring 56 x 34 x 45 mm. Color Doppler did show internal blood flow.. LEFT OVARY: Unable to identify the left ovary. No gross left adnexal mass. FREE FLUID: None. IMPRESSION: Unable to identify the left ovary. No gross left adnexal mass. Heterogeneous nonspecific masslike lesion in the right adnexa as described. Tumor to be excluded. This could be an ovarian dermoid. Other ovarian tumor must be excluded. Exophytic partially calcified uterine fibroid is a remote possibility. Recommend further evaluation with MRI of the pelvis. CA125 trends PMH BMI 27.4 Abnormal uterine bleeding Acute encephalopathy Enlarged ovary PSH History of Cholecystectomy History of Skin biopsy History of [place] tooth extraction Social Hx Electronic cigarette use No alcohol use No illicit drug use Sexually active Family Hx Mother- HTN, diabetes, cardiac disorder Allergies and Outpatient Medication Profile: Allergies: ibuprofen: Drug, Hives/Urticaria, Active naproxen: Drug, Hives/Urticaria, Active Outpatient Medication Profile: * Patient Currently Takes Medications as of 02-Aug-2021 10:19 documented in Structured Notes amoxicillin 500 mg oral capsule: 1 cap(s) orally 3 times a day Social History: Smoking: Smoking Statusnever smoker Results: Lab Results: Lab Results: Results: CBC date/time WBC HGB HCT PLT Neut 23-Sep-2021 09:16 7.5 12.8 38.3 266 N/A BMP date/time NA K CL CO2 BUN CREAT 23-Sep-2021 09:16 139 3.9 108(H) N/A 12 0.56 Assessment and Plan: Assessment: Referred by Andrea Laird CNP for adnexal mass 51 yo referred for evaluation of solid adnexal mass. DDx includes large pedunculated fibroid versus ovarian fibroma. Reporting associated R sided dysparunia. Feels it is related. Plan: Discussed entities on DDx and potential management strategies. Favor benign process and observation is possible. Patient feels she is symptomatic of this mass with dysparunia and this is reasonably likely. Hysterectomy is an option. R/B/A discussed. Wants to proceed. Robotic hysterectomy/BSO Pelvic mass, pelvic pain Same day surgery No PAT needed Usual labs to include bhcg, Type & Screen Denita Cha MD [employer] Conveyor Tender, Gynecologic Oncology [facility] Referred by Andrea Laird CNP Patient Instructions: Instructions Type: nutrition Note Recipients: Nestor Rae MD - [id number] Nestor Rae MD - [id number] [] Se (more content not included)... [facility] MRI PELVIS W/O-W CONTRASTon 05-12-2022 MRI PELVIS W/O-W CONTRAST Patient Name: KELSIE ZENG STUDY: MRI PELVIS W/O-W CONTRAST; 05/12/2022 10:11 am INDICATION: Enlarged ovary can't r/o tumor per recent u/s N83.8: Enlarged ovary. COMPARISON: None. ACCESSION NUMBER(S): [id number] ORDERING CLINICIAN: ANDREA CHAPIN TECHNIQUE: Multiplanar MRI of the pelvis was obtained including axial, sagittal and coronal T2 weighted SSFSE, (para)axial, (para)coronal and sagittal T2 FSE , axial DWI, pre and post gadolinium dynamic T1 GRE sequences in 3 planes. 10 ml of Gadolinium contrast agent Dotarem were administered intravenously without complication. FINDINGS: UTERUS: The uterus is anteverted and measures 7.4 x 3.1 x 5.8 cm. Please note measurement does not include the mass described below. The thickness of the junctional zone is within normal limits. The endometrium has normal thickness and appearance. A few tiny nabothian cysts are noted. Projecting into the right adnexa, there is a 7.0 x 3.7 x 4.4 cm T2 hypointense mass extending from the right lateral corpus. It is uncertain if this abuts or arises from the myometrium. The vagina and vulva are unremarkable. OVARIES/ADNEXA: RIGHT: Local susceptibility artifact partially obscures the ovary. No visualized hydrosalpinx. LEFT: Local susceptibility artifact partially obscures the left ovary which otherwise does not appear enlarged. No visualized hydrosalpinx. PERITONEAL FLUID: No free or loculated fluid collections are evident in the pelvis. PELVIC LYMPH NODES: No abnormally enlarged pelvic lymph nodes are identified. BOWEL: No dilated bowel is visualized. BONES: No focal lesions are noted in the bone. The visualized pelvic vasculature appears patent. IMPRESSION: 1. Both ovaries are partially obscured by significant susceptibility artifact, probably arising from tubal ligation clips. 2. 7 cm mass extending into the right adnexa. This most likely arises from the right lateral corpus of the uterus and represents an exophytic subserosal fibroid. Because the right ovary is partially obscured, it is possible this arises from the right ovary as well. If that was the case, this would likely represent a fibrothecoma. Electronically signed by: JUWAN DAMON MD Normal 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 : No Is the patient or breast feeding? : No What are the patient's signs and symptoms? : Enlarged ovary can't r/o tumor per recent u/s Mamm - Screening Mammogram w/ Tomosynthesis; Status:Hold For - Scheduling; Requested for:[id number]; Radiologist to Determine Optimal Study : Y What are the patient's signs and symptoms ? : Annual Screening Mammogram Provider Impressions Pelvic MRI ordered await result and consider CA125 mammogram ordered Chief Complaint PT HERE TODAY TO DISCUSS THE MASS THAT WAS FOUND BY HER RIGHT OVARY. PT HAS NO CONCERNS AT THIS TIME. History of Present IllnessPt. presents for f/u to concern about ovarian mass from Summer 2021. At the time a pelvic MRI and CA 125 was ordered. Soon after that visit pt. had a stroke and then lost health ins. She now presents with to follow up. Pt. reports continued pelvic pain with intercourse Review of Systems Constitutional: no fever and no chills. Active Problems Problems Abnormal uterine bleeding (AUB) (626.9) (N93.9) Acute encephalopathy (348.30) (G93.40) Arthritis (716.90) (M19.90) Carpal tunnel syndrome (354.0) (G56.00) Cervical strain (847.0) (S16.1XXA) Chronic pain of left knee (719.46,338.29) (M25.562,G89.29) Chronic pain of right ankle (719.47,338.29) (M25.571,G89.29) Enlarged ovary (620.8) (N83.8) Migraine with aura and without status migrainosus, not intractable (346.00) (G43.109) Past Medical History Problems History of Encounter for routine gynecological examination (V72.31) (Z01.419) Resolved Date: 26 Oct 2021 History of Encounter for screening for malignant neoplasm of colon (V76.51) (Z12.11) Resolved Date: 26 Oct 2021 History of mammogram (V15.89) (Z92.89) 10/25/21 NORMAL History of vertigo (V12.49) (Z87.898) Resolved Date: 20 Sep 2021 History of Menstruation AGE 12 History of NVD (normal vaginal delivery) (650) (O80) 06/18/89 42 WEEKS FEMALE 7LBS 1/2OZ 10/19/90 31 WEEKS MALE 7LBS 9OZ History of Pap test, as part of routine gynecological examination (V76.2) (Z01.419) 10/25/21 NORMAL History of Right wrist pain (719.43) (M25.531) Resolved Date: 26 Oct 2021 History of Screening for breast cancer (V76.10) (Z12.39) Resolved Date: 26 Oct 2021 History of Screening for cervical cancer (V76.2) (Z12.4) Resolved Date: 26 Oct 2021 History of Tendonitis of wrist, right (727.05) (M77.8) Resolved Date: 26 Oct 2021 History of URI, acute (465.9) (J06.9) Resolved Date: 26 Oct 2021 Surgical History Problems History of Cholecystectomy History of Skin biopsy History of [place] tooth extraction Family History Mother Family history of cardiac disorder (V17.49) (Z82.49) Family history of cerebrovascular accident (CVA) (V17.1) (Z82.3) Family history of diabetes mellitus (V18.0) (Z83.3) Family history of hypertension (V17.49) (Z82.49) Brother Family history of asthma (V17.5) (Z82.5) Family history of bleeding disorder (V18.3) (Z83.2) Family history of cardiac disorder (V17.49) (Z82.49) Family history of cerebrovascular accident (CVA) (V17.1) (Z82.3) Family history of diabetes mellitus (V18.0) (Z83.3) Family history of hypertension (V17.49) (Z82.49) Family history of malignant neoplasm (V16.9) (Z80.9) Social History Problems Electronic cigarette use (305.1) (Z78.9) Former smoker (V15.82) (Z87.891) No alcohol use No illicit drug use Patient consumes caffeinated coffee (V49.89) (Z78.9) Patient ingests cola containing caffeine (V49.89) (Z78.9) Sexually active Allergies Medication Ibuprofen TABS Recorded By: Dimitri Chapa; 09/16/2021 11:35:45 AM Naproxen TABS Recorded By: Dimitri Chapa; 09/16/2021 11:35:45 AM Current Meds Medication NameInstruction Celecoxib 100 MG Oral CapsuleTAKE 1 CAPSULE Every twelve hours PRN Dramamine 50 MG Oral TabletTAKE 1 TO 2 TABLETS EVERY 6 HOURS NEEDED. predniSONE 10 MG Oral TabletTAKE 3 TABLETS FOR 3 DAYS, 2 TABLETS FOR 3 DAYS, 1 TABLET FOR 4 DAYS AND THEN STOP Prochlorperazine Maleate 10 MG Oral Tablettake one tablet every 6 hrs for nausea or at onset of migraine Rizatriptan Benzoate 10 MG Oral TabletTAKE 1 TABLET AT ONSET OF HEADACHE. MAY REPEAT EVERY 2 HOURS NEEDED. MAXIMUM 3 TABLETS IN 24 HOURS. tiZANidine HCl - 4 MG Oral TabletTAKE 1 TABLET 3 TIMES DAILY NEEDED. Tylenol 8 Hour Arthritis Pain 650 MG Oral Tablet Extended ReleaseTAKE 1 T (more content not included)... Normal [facility] CT Chest Low Dose for Lung S creening w/o Contraston 04-26-2022 CT Chest for screening Normal [facility] [address] Work Phone: CT CHEST LUNG CA SCREEN I NITIAL OR FOLLOW UP LR1 LR2 CONTINUATION OF SCREENING LOW DOSEon 04-26-2022 CT CHEST LUNG CA SCREEN INITIAL OR FOLLOW UP LR1 LR2 CONTINUATION OF SCREENING LOW DOSE Patient Name: KELSIE ZENG STUDY: TH CT CHEST LOW DOSE FOR LUNG SCREENING WO CONTRAST INDICATION: NICOTINE DEPENDENCE. COMPARISON: None. ACCESSION NUMBER(S): [id number] ORDERING CLINICIAN: NESTOR RAE TECHNIQUE: Helical data acquisition of the chest was obtained without IV contrast material. Images were reformatted in axial, coronal, and sagittal planes. FINDINGS: LUNGS AND AIRWAYS: The trachea and central airways are patent. No endobronchial lesion is seen. There is no focal consolidation, pleural effusion, or pneumothorax. Minimal upper lung predominant paraseptal emphysema noted. Nodules as described below are annotated on PACS series 5. 2 mm left upper lobe nodule on image 44. 2 mm right lower lobe nodule on image 206. MEDIASTINUM AND ROSSY, LOWER NECK AND AXILLA: The visualized thyroid gland is within normal limits. No evidence of thoracic lymphadenopathy by CT criteria. Esophagus appears within normal limits as seen. HEART AND VESSELS: The thoracic aorta normal in course and caliber. Main pulmonary artery and its branches are normal in caliber. No coronary artery calcifications are seen. Please note, the study is not optimized for evaluation of coronary arteries. The cardiac chambers are not enlarged. There is no pericardial effusion seen. UPPER ABDOMEN: The visualized subdiaphragmatic structures demonstrate no remarkable findings. CHEST WALL AND OSSEOUS STRUCTURES: Chest wall is within normal limits. No acute osseous pathology. There are no suspicious osseous lesions. IMPRESSION: 1. 2 mm pulmonary nodules as described above,likely benign. Continued annual screening with low-dose noncontrast chest CT is recommended. 2. Minimal upper lung predominant paraseptal emphysema. LUNG RADS CATEGORY: Lung-RADS 2, (Benign Appearance or Behavior): Continue with annual screening in 12 months, CT199 CT Chest Lung Ca Screen Initial or Follow up LR1/LR2/Continuation of Screening Low Dose recommended as per [place] [employer] Guidelines Lung-RADS Version 1.1. Electronically signed by: KANDACE CROOKS MD [facility] Absolute lymphocyte countOrd ered By: Dr. Rae on 03-29-2022 Lymphocytes Auto (Unsp spec) [#/Vol] 2.29 10*3/uL 0.83-4.[address] [facility] Basophil percentageOrdered B y: Dr. Rae on 03-29-2022 Basophils/100 WBC (Bld) 0.6 % 0-[address] [facility] Bilirubin [Mass/Vol] 0.40 mg/dL 0.20-1.00 [facility] Comment on above: For patients on eltr ombopag therapy, use of Dimension [place] TBIL is not recommended. Chloride [Moles/Vol] 110 mmol/L 98-107 [facility] Eosinophils/100 WBC (Bld) 1.2 % 0-[address] [facility] Glucose [Mass/Vol] 81 mg/dL 74-106 [facility] Neutrophils (Bld) [#/Vol] 4.3 10*3/uL 2.0-7.[address] [facility] Neutrophils/100 WBC (Bld) 59.0 % 47-[address] [facility] Potassium [Moles/Vol] 3.7 mmol/L 3.5-5.[address] [facility] Protein [Mass/Vol] 7.6 g/dL 6.4-8.2 [facility] Sodium [Moles/Vol] 141 mmol/L 136-145 [facility] WBC (Bld) [#/Vol] 7.3 10*3/uL 4.4-11.0 [facility] Blood erythrocytes count (nu mber/volume)Ordered By: Dr. Rae on 03-29-2022 RBC (Bld) [#/Vol] 4.61 10*6/uL 4.2-5.4 [facility] Blood hemoglobin measurement (mass/volume)Ordered By: Dr. Rae on 03-29-2022 Hemoglobin (Bld) [Mass/Vol] 14.8 g/dL 12.0-15.[address] [facility] Blood lymphocytes/100 leukoc ytesOrdered By: Dr. Rae on 03-29-2022 Lymphocytes/100 WBC (Bld) 31.5 % 19-[address] [facility] Blood monocytes/100 leukocyt esOrdered By: Dr. Rae on 03-29-2022 Monocytes/100 WBC (Bld) 7.4 % 0-[address] [facility] Blood platelet mean volumeOr dered By: Dr. Rae on 03-29-2022 Platelet mean volume (Bld) [Entitic vol] 12.4 fL 6.2-12.[address] [facility] CBC W/Diff, Automatedon 03-13 Absolute Lymph 2.29 X10 3/uL Normal 0.83-4.[address] [facility] Comment on above: Performed By: #### L 100.0100, L500.4050, L506.1000, L501.9520, L3890.6300 #### [facility] [address] [place], [address] Absolute Neut 4.3 X10 3/uL Normal 2.0-7.[address] [facility] Comment on above: Performed By: #### L 100.0100, L500.4050, L506.1000, L501.9520, L3890.6300 #### [facility] [address] [place], [address] Basophils/100 WBC (Bld) 0.6 % Normal 0-[address] [facility] Comment on above: Performed By: #### L 100.0100, L500.4050, L506.1000, L501.9520, L3890.6300 #### [facility] [address] [place], [address] Eosinophils/100 WBC (Bld) 1.2 % Normal 0-[address] [facility] Comment on above: Performed By: #### L 100.0100, L500.4050, L506.1000, L501.9520, L3890.6300 #### [facility] [address] [place], [address] Erythrocyte distribution width (RBC) [Ratio] 12.2 % Normal 11.6-14.[address] [facility] Comment on above: Performed By: #### L 100.0100, L500.4050, L506.1000, L501.9520, L3890.6300 #### [facility] [address] [place], [address] Hematocrit (Bld) [Volume fraction] 43.9 % Normal 37-[address] [facility] Comment on above: Performed By: #### L 100.0100, L500.4050, L506.1000, L501.9520, L3890.6300 #### [facility] [address] [place], [address] Hemoglobin (Bld) [Mass/Vol] 14.8 g/dL Normal 12.0-15.[address] [facility] Comment on above: Performed By: #### L 100.0100, L500.4050, L506.1000, L501.9520, L3890.6300 #### [facility] [address] [place], [address] IG% 0.300 Normal 0.0-0.[address] [facility] Comment on above: Result Comment: IG% - Immature Granulocytes (promyelocytes, myelocytes and metamyelocytes) > 1% indicates that a LEFT SHIFT is Present. Performed By: #### L 100.0100, L500.4050, L506.1000, L501.9520, L3890.6300 #### [facility] [address] [place], [address] Lymphocytes/100 WBC (Bld) 31.5 % Normal 19-[address] [facility] Comment on above: Performed By: #### L 100.0100, L500.4050, L506.1000, L501.9520, L3890.6300 #### [facility] [address] [place], [address] MCH (RBC) [Entitic mass] 32.1 pg High 27.0-32.[address] [facility] Comment on above: Performed By: #### L 100.0100, L500.4050, L506.1000, L501.9520, L3890.6300 #### [facility] [address] [place], [address] MCHC (RBC) [Mass/Vol] 33.7 g/dL Normal 32-[address] [facility] Comment on above: Performed By: #### L 100.0100, L500.4050, L506.1000, L501.9520, L3890.6300 #### [facility] [address] [place], [address] MCV (RBC) [Entitic vol] 95.2 fL Normal 81-[address] [facility] Comment on above: Performed By: #### L 100.0100, L500.4050, L506.1000, L501.9520, L3890.6300 #### [facility] [address] [place], [address] Monocytes/100 WBC (Bld) 7.4 % Normal 0-[address] [facility] Comment on above: Performed By: #### L 100.0100, L500.4050, L506.1000, L501.9520, L3890.6300 #### [facility] [address] [place], [address] Neutrophils/100 WBC (Bld) 59.0 % Normal 47-[address] [facility] Comment on above: Performed By: #### L 100.0100, L500.4050, L506.1000, L501.9520, L3890.6300 #### [facility] [address] [place], [address] Nucleated RBC (Bld) [#/Vol] 0 10*3/uL Normal 0-[address] [facility] Comment on above: Performed By: #### L 100.0100, L500.4050, L506.1000, L501.9520, L3890.6300 #### [facility] [address] [place], [address] Platelet mean volume (Bld) [Entitic vol] 12.4 fL High 6.2-12.[address] [facility] Comment on above: Performed By: #### L 100.0100, L500.4050, L506.1000, L501.9520, L3890.6300 #### [facility] [address] [place], [address] Platelets (Bld) [#/Vol] 205 10*3/uL Normal 150-[address] [facility] Comment on above: Performed By: #### L 100.0100, L500.4050, L506.1000, L501.9520, L3890.6300 #### [facility] [address] [place], [address] RBC (Bld) [#/Vol] 4.61 10*6/uL Normal 4.2-5.4 [facility] Comment on above: Performed By: #### L 100.0100, L500.4050, L506.1000, L501.9520, L3890.6300 #### [facility] [address] [place], [address] RDW SD 42.5 fl Normal 35.1-43.[address] [facility] Comment on above: Performed By: #### L 100.0100, L500.4050, L506.1000, L501.9520, L3890.6300 #### [facility] [address] [place], [address] WBC (Bld) [#/Vol] 7.3 10*3/uL Normal 4.4-11.0 [facility] Comment on above: Performed By: #### L 100.0100, L500.4050, L506.1000, L501.9520, L3890.6300 #### [facility] [address] [place], [address] Comprehensive Metabolic Prof ilon 03-29-2022 Albumin [Mass/Vol] 3.9 g/dL Normal 3.2-5.0 [facility] Comment on above: Performed By: #### L 100.0100, L500.4050, L506.1000, L501.9520, L3890.6300 #### [facility] [address] [place], [address] Albumin/Globulin [Mass ratio] 1.1 {ratio} Normal 0.9-2.[address] [facility] Comment on above: Performed By: #### L 100.0100, L500.4050, L506.1000, L501.9520, L3890.6300 #### [facility] [address] [place], [address] ALK P 152 U/L High 45-[address] [facility] Comment on above: Performed By: #### L 100.0100, L500.4050, L506.1000, L501.9520, L3890.6300 #### [facility] [address] [place], [address] ALT [Catalytic activity/Vol] 35 U/L Normal 13-[address] [facility] Comment on above: Performed By: #### L 100.0100, L500.4050, L506.1000, L501.9520, L3890.6300 #### [facility] [address] [place], [address] AST [Catalytic activity/Vol] 28 U/L Normal 15-[address] [facility] Comment on above: Performed By: #### L 100.0100, L500.4050, L506.1000, L501.9520, L3890.6300 #### [facility] [address] [place], [address] Bilirubin [Mass/Vol] 0.40 mg/dL Normal 0.20-1.00 [facility] Comment on above: Result Comment: For patients on eltrombopag therapy, use of Dimension [place] TBIL is not recommended. Performed By: #### L 100.0100, L500.4050, L506.1000, L501.9520, L3890.6300 #### [facility] [address] [place], [address] BUN/CRE 19.7 RATIO Normal 10-[address] [facility] Comment on above: Performed By: #### L 100.0100, L500.4050, L506.1000, L501.9520, L3890.6300 #### [facility] [address] [place], [address] CA,Total 9.6 mg/dL Normal 8.5-10.[address] [facility] Comment on above: Performed By: #### L 100.0100, L500.4050, L506.1000, L501.9520, L3890.6300 #### [facility] [address] [place], [address] Chloride [Moles/Vol] 110 mmol/L High 98-107 [facility] Comment on above: Performed By: #### L 100.0100, L500.4050, L506.1000, L501.9520, L3890.6300 #### [facility] [address] [place], [address] CO2 [Moles/Vol] 24.0 mmol/L Normal 21.0-32.[address] [facility] Comment on above: Performed By: #### L 100.0100, L500.4050, L506.1000, L501.9520, L3890.6300 #### [facility] [address] [place], [address] Creatinine [Mass/Vol] 0.66 mg/dL Normal 0.55-1.[address] [facility] Comment on above: Result Comment: The validity of the calculated GFR GFRAA in patients over 70 years has not been determined. Clinical correlation is essential. Performed By: #### L 100.0100, L500.4050, L506.1000, L501.9520, L3890.6300 #### [facility] [address] [place], [address] EST GFR - AA 121 mL/min Normal >[address] [facility] Comment on above: Result Comment: Afri can [place] GFR Calc Performed By: #### L 100.0100, L500.4050, L506.1000, L501.9520, L3890.6300 #### [facility] [address] [place], [address] GAP 7 Normal 5-[address] [facility] Comment on above: Performed By: #### L 100.0100, L500.4050, L506.1000, L501.9520, L3890.6300 #### [facility] [address] [place], [address] GFR/1.73 sq M.predicted among non-blacks MDRD (S/P/Bld) [Vol rate/Area] 100 mL/min/{1.73_m2} Normal >[address] [facility] Comment on above: Result Comment: Non- GFR Calc Performed By: #### L 100.0100, L500.4050, L506.1000, L501.9520, L3890.6300 #### [facility] [address] [place], [address] Globulin (S) [Mass/Vol] 3.7 g/dL Normal 2.2-4.[address] [facility] Comment on above: Performed By: #### L 100.0100, L500.4050, L506.1000, L501.9520, L3890.6300 #### [facility] [address] [place], [address] Glucose [Mass/Vol] 81 mg/dL Normal 74-106 [facility] Comment on above: Performed By: #### L 100.0100, L500.4050, L506.1000, L501.9520, L3890.6300 ####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 #### [facility] (DEFAULT) [address] [address] Mean Cell Hgb Conc 33.2 g/dL Normal 31.4-35.9 [facility] Comment on above: Performed By: #### H EMOGC #### [facility] (DEFAULT) [address] [address] Platelet mean volume (Bld) [Entitic vol] 10.3 fL Normal 8.5-12.2 [facility] Comment on above: Performed By: #### H EMOGC #### [facility] (DEFAULT) [address] [place] [address] Platelets (Bld) [#/Vol] 354 10*3/uL Normal 150-393 [facility] Comment on above: Performed By: #### H EMOGC #### [facility] (DEFAULT) [address] [place] [address] RBC (Bld) [#/Vol] 3.60 10*6/uL Low 3.91-5.04 [facility] Comment on above: Performed By: #### H EMOGC #### [facility] (DEFAULT) [address] [place] [address] RBC Distribution 12.7 % Normal 10.8-14.9 [facility] Comment on above: Performed By: #### H EMOGC #### [facility] (DEFAULT) [address] [place] [address] WBC (Bld) [#/Vol] 11.18 10*3/uL Normal 3.99-11.19 [facility] Comment on above: Performed By: #### [facility] #### [facility] (DEFAULT) [address] [place] [address] Erythrocyte distribution width (RBC) [Ratio] 12.7 % 10.8 - 14.9 % [facility] Hematocrit (Bld) [Volume fraction] 34.9 % 34.9 - 44.3 % [facility] Hemoglobin (Bld) [Mass/Vol] 11.6 g/dL 11.4 - 15.2 g/dL [facility] Interpretation and review of laboratory results Abnormal [facility] MCH (RBC) [Entitic mass] 32.2 pg 25.9 - 33.9 pg [facility] MCHC (RBC) [Mass/Vol] 33.2 g/dL 31.4 - 35.9 g/dL [facility] MCV (RBC) [Entitic vol] 96.9 fL 79.6 - 97.7 fL [facility] Platelet mean volume (Bld) [Entitic vol] 10.3 fL 8.5 - 12.2 fL [facility] Platelets (Bld) [#/Vol] 354 10*3/uL 150 - 393 K/uL [facility] RBC (Bld) [#/Vol] 3.60 10*6/uL Low [facility] WBC (Bld) [#/Vol] 11.18 10*3/uL 3.99 - 11 .19 K/uL [facility] CHEM 7 (LYTES,BUN,CREA,GLUC) on 10-19-2021 Anion gap [Moles/Vol] 14 mmol/L Normal 7-17 [facility] Comment on above: Performed By: #### L ABHSTI1 #### [facility] (DEFAULT) [address] [place] [address] Chloride [Moles/Vol] 112 mmol/L High 98-108 [facility] Comment on above: Performed By: #### L ABHSTI1 #### [facility] (DEFAULT) [address] [place] [address] CO2 [Moles/Vol] 21 mmol/L Normal 21-31 [facility] Comment on above: Performed By: #### L ABHSTI1 #### [facility] (DEFAULT) [address] [place] [address] Creatinine [Mass/Vol] 0.63 mg/dL Normal 0.50-1.20 [facility] Comment on above: Performed By: #### L ABHSTI1 #### [facility] (DEFAULT) [address] [place] [address] eGFR, CKD-EPI, Female >90 Normal >=60 [facility] Comment on above: Result Comment: Repo rted eGFR is based on the CKD-EPI 2020 equation using creatinine, age, and sex. Performed By: #### L ABHSTI1 #### [facility] (DEFAULT) [address] [place] [address] Glucose [Mass/Vol] 93 mg/dL Normal 70-99 [facility] Comment on above: Performed By: #### L ABHSTI1 #### [facility] (DEFAULT) [address] [place] [address] Osmolality [Osmolality] 296 mosm/kg Normal 278-305 [facility] Comment on above: Performed By: #### L ABHSTI1 #### [facility] (DEFAULT) [address] [place] [address] Potassium [Moles/Vol] 3.6 mmol/L Normal 3.5-5.0 [facility] Comment on above: Performed By: #### L ABHSTI1 #### [facility] (DEFAULT) [address] [place] [address] Sodium [Moles/Vol] 143 mmol/L Normal 135-145 [facility] Comment on above: Performed By: #### L ABHSTI1 #### [facility] (DEFAULT) [address] [place] [address] Urea nitrogen [Mass/Vol] 10 mg/dL Normal 7-25 [facility] Comment on above: Performed By: #### L ABHSTI1 #### [facility] (DEFAULT) [address] [place] [address] Urea nitrogen/Creatinine [Mass ratio] 16 mg/mg Normal [facility] Comment on above: Performed By: #### L ABHSTI1 #### [facility] (DEFAULT) [address] [place] [address] Anion gap [Moles/Vol] 14 mmol/L 7 - 17 mmol/L [facility] Chloride [Moles/Vol] 112 mmol/L High 98 - 10 8 mmol/L [facility] CO2 [Moles/Vol] 21 mmol/L 21 - 31 mmol/L [facility] Creatinine [Mass/Vol] 0.63 mg/dL 0.50 - 1.20 mg/dL [facility] GFR/1.73 sq M.predicted CKD-EPI (S/P/Bld) [Vol rate/Area] >90 >=60 mL/min/1.73m2 [facility] Comment on above: Reported eGFR is bas ed on the CKD-EPI 2020 equation using creatinine, age, and sex. Glucose [Mass/Vol] 93 mg/dL 70 - 99 mg/dL [facility] Interpretation and review of laboratory results Abnormal [facility] Osmolality Calc [Osmolality] 296 [facility] Potassium [Moles/Vol] 3.6 mmol/L 3.5 - 5.0 mmol/L [facility] Sodium [Moles/Vol] 143 mmol/L 135 - 145 mmol/L [facility] Urea nitrogen [Mass/Vol] 10 mg/dL 7 - 25 mg/dL [facility] Urea nitrogen/Creatinine [Mass ratio] 16 mg/mg [facility] CHM 7 - EDon 10-19-2021 Anion gap [Moles/Vol] 14 mmol/L Normal 7-17 [facility] Comment on above: Performed By: #### [facility] [place] #### [facility] (DEFAULT) [address] [place] [address] Chloride [Moles/Vol] 111 mmol/L High 98-108 [facility] Comment on above: Performed By: #### [facility] [place] #### [facility] (DEFAULT) [address] [place] [address] CO2 [Moles/Vol] 20 mmol/L Low 21-31 [facility] Comment on above: Performed By: #### [facility] [place] #### [facility] (DEFAULT) [address] [place] [address] Creatinine [Mass/Vol] 0.64 mg/dL Normal 0.50-1.20 [facility] Comment on above: Performed By: #### [facility] [place] #### [facility] (DEFAULT) [address] [place] [address] eGFR, CKD-EPI, Female >90 Normal >=60 [facility] Comment on above: Result Comment: Repo rted eGFR is based on the CKD-EPI 2020 equation using creatinine, age, and sex. Performed By: #### H EMO #### [facility] (DEFAULT) [address] [place] [address] Glucose [Mass/Vol] 104 mg/dL High 70-99 [facility] Comment on above: Performed By: #### H EMO #### [facility] (DEFAULT) [address] [place] [address] Osmolality [Osmolality] 294 mosm/kg Normal 278-305 [facility] Comment on above: Performed By: #### H EMO #### [facility] (DEFAULT) [address] [place] [address] Potassium [Moles/Vol] 4.2 mmol/L Normal 3.5-5.0 [facility] Comment on above: Result Comment: Slig htly hemolyzed Performed By: #### H EMO #### [facility] (DEFAULT) [address] [place] [address] Sodium [Moles/Vol] 141 mmol/L Normal 135-145 [facility] Comment on above: Performed By: #### H EMO #### [facility] (DEFAULT) [address] [place] [address] Urea nitrogen [Mass/Vol] 9 mg/dL Normal 7-25 [facility] Comment on above: Performed By: #### H EMO #### [facility] (DEFAULT) [address] [place] [address] Urea nitrogen/Creatinine [Mass ratio] 14 mg/mg Normal [facility] Comment on above: Performed By: #### H EMO #### [facility] (DEFAULT) [address] [place] [address] HEAD WITHOUT CONTRASTon 0 10-19-2021 CT HEAD WITHOUT CONTRAST EXAM: CT HEAD WITHOUT CONTRAST, 10/19/2021 6:14 PM COMPARISON: CT head 10/18/2021. CLINICAL INDICATIONS: 51 years Female s/p tPA; RELEVANT CLINICAL HISTORY: To be scheduled 24 hours post admission.; TECHNIQUE: A series of transaxial computerized tomographic images are obtained from base of skull to vertex without intravenous contrast. Axial whole-head and thin section posterior fossa slices are provided. Reformats: Sagittal and coronal. FINDINGS: No acute intracranial hemorrhage, large territory infarct, mass effect, or midline shift. There is no extracerebral collection. Ventricles are normal in size and configuration for patient's stated age. Posterior fossa is within normal limits. Calvarium and skull base appear intact. Small amount of fluid in the right frontal and sphenoid sinuses with partial opacification of the right frontoethmoidal recess, similar to the prior study. Mastoid air cells and middle ear cavities are clear. Visualized orbits are unremarkable. IMPRESSION: No hemorrhage or other acute intracranial abnormality. I personally viewed and interpreted these images and I have reviewed and approved this report. Normal [facility] CT Head WO contraston 2021 IMPRESSION: No hemorrhage or other acute intracranial abnormality. I personally viewed and interpreted these images and I have reviewed and approved this report. OLOGY EXAM: CT HEAD WITHOU T CONTRAST, 10/19/2021 6:14 PM COMPARISON: CT head 10/18/2021. CLINICAL INDICATIONS: 51 years Female s/p tPA; RELEVANT CLINICAL HISTORY: To be scheduled 24 hours post admission.; TECHNIQUE: A series of transaxial computerized tomographic images are obtained from base of skull to vertex without intravenous contrast. Axial whole-head and thin section posterior fossa slices are provided. Reformats: Sagittal and coronal. FINDINGS: No acute intracranial hemorrhage, large territory infarct, mass effect, or midline shift. There is no extracerebral collection. Ventricles are normal in size and configuration for patient's stated age. Posterior fossa is within normal limits. Calvarium and skull base appear intact. Small amount of fluid in the right frontal and sphenoid sinuses with partial opacification of the right frontoethmoidal recess, similar to the prior study. Mastoid air cells and middle ear cavities are clear. Visualized orbits are unremarkable. RADIOLOGY Jaciel Henry MD - 10/19/2021 EXAM: CT HEAD WITHOUT CONTRAST, 10/19/2021 6:14 PM COMPARISON: CT head 10/18/2021. CLINICAL INDICATIONS: 51 years Female s/p tPA; RELEVANT CLINICAL HISTORY: To be scheduled 24 hours post admission.; TECHNIQUE: A series of transaxial computerized tomographic images are obtained from base of skull to vertex without intravenous contrast. Axial whole-head and thin section posterior fossa slices are provided. Reformats: Sagittal and coronal. FINDINGS: No acute intracranial hemorrhage, large territory infarct, mass effect, or midline shift. There is no extracerebral collection. Ventricles are normal in size and configuration for patient's stated age. Posterior fossa is within normal limits. Calvarium and skull base appear intact. Small amount of fluid in the right frontal and sphenoid sinuses with partial opacification of the right frontoethmoidal recess, similar to the prior study. Mastoid air cells and middle ear cavities are clear. Visualized orbits are unremarkable. IMPRESSION IMPRESSION: No hemorrhage or other acute intracranial abnormality. I personally viewed and interpreted these images and I have reviewed and approved this report. [facility] Radiology Study observation (narrative) [facility] CT Head WO contrastOrdered B y: Jaciel Henry on 10-19-2021 [facility] Work Phone: CT STROKE HEAD-STROKE ALERT ONLYon 10-19-2021 CT STROKE HEAD-STROKE ALERT ONLY EXAM: CT STROKE HEAD-STROKE ALERT ONLY, 10/18/2021 9:53 PM COMPARISON: None. CLINICAL INDICATIONS: 51 years Female Suspected Stroke; TECHNIQUE: A series of transaxial computerized tomographic images are obtained from base of skull to vertex without intravenous contrast. Axial whole-head and thin section posterior fossa slices are provided. Reformats: Sagittal and coronal. FINDINGS: No acute intracranial hemorrhage, large territory infarct, or mass effect. There is no extracerebral collection. Ventricles are normal in size and configuration for patient's stated age. Posterior fossa is within normal limits. Calvarium and skull base appear intact. Small amount of fluid in the right frontal and sphenoid sinuses with partial opacification of the right frontoethmoid recess. Mastoids and middle ear cavities clear. Normal orbits. IMPRESSION: 1. No acute intracranial abnormality. 2. Fluid in the right frontal ethmoid and sphenoid sinuses. Correlate for acute sinusitis. Findings were discussed with Maribell Grewal DO at 2158 on 10.18.21. I personally viewed and interpreted these images and I have reviewed and approved this report. Normal [facility] FIBRINOGEN, CLOTTABLEon 08-0 Fibrinogen Coag (PPP) [Mass/Vol] 204 mg/dL Low 220 - 410 mg/dL [facility] Comment on above: Functional Fibrinoge n (activity) levels can be affected by direct thrombin inhibitors such as heparins (>2.0 IU/ml) and dabigatran. Abnormal results should be interpreted with caution. Interpretation and review of laboratory results Abnormal [facility] Fibrinogen levels m ay be altered by the normal physiologic changes of and should be interpreted considering reference ranges specific to gestational age. First Trimester: 244-510 mg/dL Second Trimester: 291-538 mg/dL Third Trimester: 373-619 mg/dL Reference: Jony-Magdy M, Yeboah LG, Terrell FG. and laboratory studies: a reference table for clinicians. Obstet Gynecol 2009; 114:1326. [facility] Fibrinogen-Clottable 204 mg/dL Low 220-410 [facility] Comment on above: Order Comment: Acute Coronary Syndrome (ACS): Initial Evaluation and Management: [email or web address]/Acute% 20Coronary%20Syndrome.pdf#search=troponin Result Comment: Func tional Fibrinogen (activity) levels can be affected by direct thrombin inhibitors such as heparins (>2.0 IU/ml) and dabigatran. Abnormal results should be interpreted with caution. Performed By: #### L ABHSTI1 #### [facility] (DEFAULT) [address] [place] [address] Fibrinogen-Clottable 187 mg/dL Low 220-410 [facility] Comment on above: Order Comment: Fibr inogen levels may be altered by the normal physiologic changes of and should be interpreted considering reference ranges specific to gestational age. First Trimester: 244-510 mg/dL Second Trimester: 291-538 mg/dL Third Trimester: 373-619 mg/dL Reference: Osmar M, Edilia LG, Terrell FG. and laboratory studies: a reference table for clinicians. Obstet Gynecol 2009; 114:1326. Result Comment: Func tional Fibrinogen (activity) levels can be affected by direct thrombin inhibitors such as heparins (>2.0 IU/ml) and dabigatran. Abnormal results should be interpreted with caution. Performed By: #### P TT, PTISTR, FIB #### [facility] (DEFAULT) [address] [address] GLUCOSE POCon 10-19-2021 Glucose [Mass/Vol] 94 mg/dL 70 - 99 mg/dL [facility] POC Sample Type CAPBL [facility] Test performed at address of the patient encounter. [facility] HEMOGLOBIN A1Con 10-19-2021 Glucose [Mass/Vol] 103 mg/dL Normal [facility] Comment on above: Performed By: #### A 1CB #### [facility] (DEFAULT) [address] [address] HbA1c (Bld) [Mass fraction] 5.2 % Normal 4.7-5.6 [facility] Comment on above: Performed By: #### A 1CB #### [facility] (DEFAULT) [address] [address] HEMOGLOBIN [id number] By: Sa emelyn Vásquez on 10-19-2021 Average glucose Estimated from glycated hemoglobin (Bld) [Mass/Vol] 103 mg/dL [facility] HbA1c (Bld) [Mass fraction] 5.2 % 4.7 - 5.6 % [facility] HEPATIC FUNCTION PANELon Albumin [Mass/Vol] 3.9 g/dL Normal 3.5-5.0 [facility] Comment on above: Performed By: #### H EMO #### [facility] (DEFAULT) [address] [place] [address] ALP [Catalytic activity/Vol] 82 U/L Normal 32-126 [facility] Comment on above: Performed By: #### H EMO #### [facility] (DEFAULT) [address] [place] [address] ALT [Catalytic activity/Vol] 17 U/L Normal 9-48 [facility] Comment on above: Result Comment: Slig htly hemolyzed Performed By: #### H EMO #### [facility] (DEFAULT) [address] [place] [address] AST [Catalytic activity/Vol] 21 U/L Normal 10-39 [facility] Comment on above: Result Comment: Slig htly hemolyzed Performed By: #### H EMO #### [facility] (DEFAULT) [address] [place] [address] Bilirubin [Mass/Vol] 0.8 mg/dL Normal <1.5 [facility] Comment on above: Result Comment: Slig htly hemolyzed Performed By: #### H EMO #### [facility] (DEFAULT) [address] [place] [address] Bilirubin.indirect [Mass/Vol] 0.1 mg/dL Normal <0.3 [facility] Comment on above: Result Comment: Slig htly hemolyzed Performed By: #### H EMO #### [facility] (DEFAULT) [address] [place] [address] Protein [Mass/Vol] 6.7 g/dL Normal 6.4-8.3 [facility] Comment on above: Performed By: #### H EMOGC #### [facility] (DEFAULT) [address] [place] [address] HIGH SENSITIVITY TROPONIN I - SINGLE ORDERon 10-19-2021 hs-Troponin I 12 ng/L Normal <34 [facility] Comment on above: Order Comment: Acute Coronary Syndrome (ACS): Initial Evaluation and Management: [email or web address]/Guidelines/Acute% 20Coronary%20Syndrome.pdf#search=troponin Performed By: #### L ABHSTI1 #### [facility] (DEFAULT) [address] [place] [address] LIPID PANEL WITH REFLEX TO M ELODIA LDLon 10-19-2021 Calculated LDL Cholesterol 80 mg/dL Normal 0-99 [facility] Comment on above: Result Comment: [<10 0 mg/dL: Optimal] [100-129 mg/dL: Near Optimal] [130-159 mg/dL: Borderline High] [160-189 mg/dL: High] [>189 mg/dL: Very High] Performed By: #### L IPDR #### [facility] (DEFAULT) [address] [place] [address] Cholesterol [Mass/Vol] 138 mg/dL Normal <200 [facility] Comment on above: Result Comment: [<20 0 mg/dL: Desirable] [200-239 mg/dL: Borderline High] [>239 mg/dL: High] Performed By: #### L IPDR #### [facility] (DEFAULT) [address] [place] [address] Cholesterol in HDL [Mass/Vol] 32 mg/dL Low >=40 [facility] Comment on above: Result Comment: [<40 mg/dL: Low (High Risk)] [>59 mg/dL: High (Low Risk)] Performed By: #### L IPDR #### [facility] (DEFAULT) [address] [address] Non HDL Cholesterol 106 mg/dL Normal <130 [facility] Comment on above: Performed By: #### L IPDR #### [facility] (DEFAULT) [address] [address] Total Cholesterol/HDL Ratio 4.3 Normal <4.5 [facility] Comment on above: Performed By: #### L IPDR #### [facility] (DEFAULT) [address] [place] [address] Triglyceride [Mass/Vol] 128 mg/dL Normal <150 [facility] Comment on above: Result Comment: [<15 0 mg/dL: Desirable] [150-199 mg/dL: Borderline] [200-499 mg/dL: High] [>500 mg/dL: Very High] Performed By: #### L IPDR #### [facility] (DEFAULT) [address] [place] [address] Cholesterol [Mass/Vol] 138 mg/dL <200 [facility] Comment on above: [<200 mg/dL: Desirab le] [200-239 mg/dL: Borderline High] [>239 mg/dL: High] Cholesterol in HDL [Mass/Vol] 32 mg/dL Low >=40 [facility] Comment on above: [<40 mg/dL: Low (Hig h Risk)] [>59 mg/dL: High (Low Risk)] Cholesterol in HDL [Mass/Vol] 106 mg/dL <130 [facility] Cholesterol in LDL [Mass/Vol] 80 mg/dL 0 - 99 mg/dL [facility] Comment on above: [<100 mg/dL: Optimal ] [100-129 mg/dL: Near Optimal] [130-159 mg/dL: Borderline High] [160-189 mg/dL: High] [>189 mg/dL: Very High] Cholesterol.total/Ch olesterol in HDL [Mass ratio] 4.3 {ratio} <4.5 [facility] Interpretation and review of laboratory results Abnormal [facility] Triglyceride [Mass/Vol] 128 mg/dL <150 [facility] Comment on above: [<150 mg/dL: Desirab le] [150-199 mg/dL: Borderline] [200-499 mg/dL: High] [>500 mg/dL: Very High] [facility] LT BLUE TOP TUBEon 2 [facility] MAGNESIUMon 10-19-2021 Magnesium [Mass/Vol] 2.1 mg/dL Normal 1.6-2.6 [facility] Comment on above: Performed By: #### L ABHSTI1 #### [facility] (DEFAULT) [address] [place] [address] Interpretation and review of laboratory results Normal [facility] Magnesium [Mass/Vol] 2.1 mg/dL 1.6 - 2 .6 mg/dL [facility] No Panel Informationon 10-19 [facility] PTINR-STROKEon 10-19-2021 INR Coag (PPP) [Relative time] 1.2 {INR} High 0.9-1.1 [facility] Comment on above: Performed By: #### P TT, PTISTR, FIB #### [facility] (DEFAULT) [address] [place] [address] PT Coag (PPP) [Time] 14.8 s High 11.9-14.2 [facility] Comment on above: Performed By: #### P TT, PTISTR, FIB #### [facility] (DEFAULT) [address] [place] [address] PTTon 10-19-2021 aPTT Coag (Bld) [Time] 30.7 s Normal 24.0-34.3 [facility] Comment on above: Performed By: #### P TT, PTISTR, FIB #### [facility] (DEFAULT) [address] [place] [address] Portable XR Chest Viewson IMPRESSION: No acute cardiopulmonary disease I personally viewed and interpreted these images and I have reviewed and approved this report. OLOGY EXAM: XR CHEST PORTABLE, 10/19/2021 07:33 AM COMPARISON: No prior studies available for comparison. CLINICAL INDICATIONS: evaluate for pneumonia FINDINGS: (Compromised by rotation to the left) Implanted Devices: None Thorax: Lungs are clear with no focal consolidation or mass. No pleural effusion or pneumothorax. Cardiac silhouette is within normal limits. Included osseous structures are intact. RADIOLOGY Mar Wyatt MB [facility] - 10/19/2021 EXAM: XR CHEST PORTABLE, 10/19/2021 07:33 AM COMPARISON: No prior studies available for comparison. CLINICAL INDICATIONS: evaluate for pneumonia FINDINGS: (Compromised by rotation to the left) Implanted Devices: None Thorax: Lungs are clear with no focal consolidation or mass. No pleural effusion or pneumothorax. Cardiac silhouette is within normal limits. Included osseous structures are intact. IMPRESSION IMPRESSION: No acute cardiopulmonary disease I personally viewed and interpreted these images and I have reviewed and approved this report. [facility] Radiology Study observation (narrative) [facility] Portable XR Chest ViewsOrder ed By: Mar Wyatt on 10-19-2021 [facility] Work Phone: TOXICOLOGY SCREEN URINE - UD RGOrdered By: Nancy King on 10-19-2021 Barbiturates Ql (U) Negative Cutoff: 200 ng/mL [facility] Cannabinoids Screen Ql (U) Negative Cutoff: 50 ng/mL [facility] Drugs identified Screen Nom (U) Ketamine Lorazapam Dextromethorphan Abnormal Negative [facility] Interpretation and review of laboratory results Abnormal [facility] For Medical Purposes Only. Nonforensic screen results are considered presumptive and no confirmatory testing will follow. Drugs are detected by immunoassay or Liquid Chromatography Mass Spectrometry (LC-MS/MS). The LC-MS/MS test was developed and its performance characteristics determined by the Toxicology Laboratory at [facility]. It has not been cleared or approved by the FDA. The laboratory is regulated under CLIA as qualified to perform high-complexity testing. This test is used for clinical purposes and should not be regarded as investigational or for research. The following drugs with their lowest level of detection in ng/ml(LOD) are included in this screen: 6 Monoacetylmorphine(300) , 7 Aminoflunitrazepam(25), 7 Aminoclonazepam(50),7 hydroxymitragynine (100),Alphahydroxymidaz olam (200), Alphahydrozyalprazolam( 200), Alprazolam(50), Amitriptyline(50), Amphetamine(250), Atenolol(500),Benzoylec gonine(50), Buprenorphine(100), Bupropion(25),Caffeine( [address]),Chlordiazepoxide (50), Chlorpheniramine(100), Chlorpromazine(50), Citalopram(100), Clonazepam(200), Cocaine(25),Codeine(200 ), Cotinine(500),Desiprami ne(50), Desmethyldoxepin(100), Dextromethorphan(100), Diazepam(100), Dihydrocodeine(100), Diltazem(50), Diphenhydramine(100),Do xepin(100),EDDP/methado ne(100), Ephedrine/Pseudoephedri ne(100),Fentanyl(25),Fl unitrazepam(100),Fluoxe hunter(200), Flurazepam(50),Gabapent in(1500), Haloperidol(25), Hydrocodone(100), Hydromorphone(200), Imipramine(50), Ketamine(25), Lidocaine(25),Lorazepam (100), Lysergide(LSD)(25),Mapr otiline(200), MDA(250), MDMA(250), Meperidine(50),Midazola m (200),Methadone(50), Methamphetamine(500), Methylphenidate(50), Metoprolol(50), Morphine(200),Nalbuphin e(50), Naloxone(200), Norbuprenorphine(300), Nordiazepam(100), Norfentanyl(50),Noroxyc odone (100), Norpropoxyphene(50), Nortriptyline(50), Olanzapine(200),Oxazepa m(200),Oxycodone(100),O xymorphone(200), Phencyclidine(PCP)(25), Pheniramine(25), Pregabalin(1500), Promethazine(50), Propoxyphene(100), Propanolol(50), Quetiapine(25), Quinidine(500), Ranitidine(500), Risperidone(100), Sertraline(50),Temazepa m(100), Thioridazine(100), Tramadol(50), Trazodone(25), Triazolam(100), Trifluoperazine (100),Venlafaxine(50), Verapamil(100), Zolpidem(200) [facility] TOXICOLOGY SCREEN URINE - UD RGon 10-19-2021 Barbiturates Negative Normal Cutoff: 200 ng/mL [facility] Comment on above: Order Comment: For M edical Purposes Only. Nonforensic screen results are considered presumptive and no confirmatory testing will follow. Drugs are detected by immunoassay or Liquid Chromatography Mass Spectrometry (LC-MS/MS). The LC-MS/MS test was developed and its performance characteristics determined by the Toxicology Laboratory at [facility]. It has not been cleared or approved by the FDA. The laboratory is regulated under CLIA as qualified to perform high-complexity testing. This test is used for clinical purposes and should not be regarded as investigational or for research. The following drugs with their lowest level of detection in ng/ml(LOD) are included in this screen: 6 Monoacetylmorphine(300), 7 Aminoflunitrazepam(25), 7 Aminoclonazepam(50),7 hydroxymitragynine (100),Alphahydroxymidazolam (200), Alphahydrozyalprazolam(200), Alprazolam(50), Amitriptyline(50), Amphetamine(250), Atenolol(500),Benzoylecgonine(50), Buprenorphine(100), Bupropion(25),Caffeine(32584),Chlordiazepoxide(50), Chlorpheniramine(100), Chlorpromazine(50), Citalopram(100), Clonazepam(200), Cocaine(25),Codeine(200), Cotinine(500),Desipramine(50), Desmethyldoxepin(100), Dextromethorphan(100), Diazepam(100), Dihydrocodeine(100), Diltazem(50), Diphenhydramine(100),Doxepin(100),EDDP/methadone(100), Ephedrine/Pseudoephedrine(100),Fentanyl(25),Flunitrazepam(100),Fl uoxetine(200), Flurazepam(50),Gabapentin(1500), Haloperidol(25), Hydrocodone(100), Hydromorphone(200), Imipramine(50), Ketamine(25), Lidocaine(25),Lorazepam(100), Lysergide(LSD)(25),Maprotiline(200), MDA(250), MDMA(250), Meperidine(50),Midazolam (200),Methadone(50), Methamphetamine(500), Methylphenidate(50), Metoprolol(50), Morphine(200),Nalbuphine(50), Naloxone(200), Norbuprenorphine(300), Nordiazepam(100), Norfentanyl(50),Noroxycodone (100), Norpropoxyphene(50), Nortriptyline(50), Olanzapine(200),Oxazepam(200),Oxycodone(100),Oxymorphone(200), Phencyclidine(PCP)(25), Pheniramine(25), Pregabalin(1500), Promethazine(50), Propoxyphene(100), Propanolol(50), Quetiapine(25), Quinidine(500), Ranitidine(500), Risperidone(100), Sertraline(50),Temazepam(100), Thioridazine(100), Tramadol(50), Trazodone(25), Triazolam(100), Trifluoperazine (100),Venlafaxine(50), Verapamil(100), Zolpidem(200) Performed By: #### U DRG #### [facility] (DEFAULT) [address] [place] [address] Cannabinoids Screen Ql (U) Negative Normal Cutoff: 50 ng/mL [facility] Comment on above: Order Comment: For M edical Purposes Only. Nonforensic screen results are considered presumptive and no confirmatory testing will follow. Drugs are detected by immunoassay or Liquid Chromatography Mass Spectrometry (LC-MS/MS). The LC-MS/MS test was developed and its performance characteristics determined by the Toxicology Laboratory at [facility]. It has not been cleared or approved by the FDA. The laboratory is regulated under CLIA as qualified to perform high-complexity testing. This test is used for clinical purposes and should not be regarded as investigational or for research. The following drugs with their lowest level of detection in ng/ml(LOD) are included in this screen: 6 Monoacetylmorphine(300), 7 Aminoflunitrazepam(25), 7 Aminoclonazepam(50),7 hydroxymitragynine (100),Alphahydroxymidazolam (200), Alphahydrozyalprazolam(200), Alprazolam(50), Amitriptyline(50), Amphetamine(250), Atenolol(500),Benzoylecgonine(50), Buprenorphine(100), Bupropion(25),Caffeine(92163),Chlordiazepoxide(50), Chlorpheniramine(100), Chlorpromazine(50), Citalopram(100), Clonazepam(200), Cocaine(25),Codeine(200), Cotinine(500),Desipramine(50), Desmethyldoxepin(100), Dextromethorphan(100), Diazepam(100), Dihydrocodeine(100), Diltazem(50), Diphenhydramine(100),Doxepin(100),EDDP/methadone(100), Ephedrine/Pseudoephedrine(100),Fentanyl(25),Flunitrazepam(100),Fl uoxetine(200), Flurazepam(50),Gabapentin(1500), Haloperidol(25), Hydrocodone(100), Hydromorphone(200), Imipramine(50), Ketamine(25), Lidocaine(25),Lorazepam(100), Lysergide(LSD)(25),Maprotiline(200), MDA(250), MDMA(250), Meperidine(50),Midazolam (200),Methadone(50), Methamphetamine(500), Methylphenidate(50), Metoprolol(50), Morphine(200),Nalbuphine(50), Naloxone(200), Norbuprenorphine(300), Nordiazepam(100), Norfentanyl(50),Noroxycodone (100), Norpropoxyphene(50), Nortriptyline(50), Olanzapine(200),Oxazepam(200),Oxycodone(100),Oxymorphone(200), Phencyclidine(PCP)(25), Pheniramine(25), Pregabalin(1500), Promethazine(50), Propoxyphene(100), Propanolol(50), Quetiapine(25), Quinidine(500), Ranitidine(500), Risperidone(100), Sertraline(50),Temazepam(100), Thioridazine(100), Tramadol(50), Trazodone(25), Triazolam(100), Trifluoperazine (100),Venlafaxine(50), Verapamil(100), Zolpidem(200) Performed By: #### U DRG #### [facility] (DEFAULT) [address] [place] [address] Drugs Detected Urine Tox Abnormal Negative [facility] Comment on above: Order Comment: For M edical Purposes Only. Nonforensic screen results are considered presumptive and no confirmatory testing will follow. Drugs are detected by immunoassay or Liquid Chromatography Mass Spectrometry (LC-MS/MS). The LC-MS/MS test was developed and its performance characteristics determined by the Toxicology Laboratory at [facility]. It has not been cleared or approved by the FDA. The laboratory is regulated under CLIA as qualified to perform high-complexity testing. This test is used for clinical purposes and should not be regarded as investigational or for research. The following drugs with their lowest level of detection in ng/ml(LOD) are included in this screen: 6 Monoacetylmorphine(300), 7 Aminoflunitrazepam(25), 7 Aminoclonazepam(50),7 hydroxymitragynine (100),Alphahydroxymidazolam (200), Alphahydrozyalprazolam(200), Alprazolam(50), Amitriptyline(50), Amphetamine(250), Atenolol(500),Benzoylecgonine(50), Buprenorphine(100), Bupropion(25),Caffeine(79322),Chlordiazepoxide(50), Chlorpheniramine(100), Chlorpromazine(50), Citalopram(100), Clonazepam(200), Cocaine(25),Codeine(200), Cotinine(500),Desipramine(50), Desmethyldoxepin(100), Dextromethorphan(100), Diazepam(100), Dihydrocodeine(100), Diltazem(50), Diphenhydramine(100),Doxepin(100),EDDP/methadone(100), Ephedrine/Pseudoephedrine(100),Fentanyl(25),Flunitrazepam(100),Fl uoxetine(200), Flurazepam(50),Gabapentin(1500), Haloperidol(25), Hydrocodone(100), Hydromorphone(200), Imipramine(50), Ketamine(25), Lidocaine(25),Lorazepam(100), Lysergide(LSD)(25),Maprotiline(200), MDA(250), MDMA(250), Meperidine(50),Midazolam (200),Methadone(50), Methamphetamine(500), Methylphenidate(50), Metoprolol(50), Morphine(200),Nalbuphine(50), Naloxone(200), Norbuprenorphine(300), Nordiazepam(100), Norfentanyl(50),Noroxycodone (100), Norpropoxyphene(50), Nortriptyline(50), Olanzapine(200),Oxazepam(200),Oxycodone(100),Oxymorphone(200), Phencyclidine(PCP)(25), Pheniramine(25), Pregabalin(1500), Promethazine(50), Propoxyphene(100), Propanolol(50), Quetiapine(25), Quinidine(500), Ranitidine(500), Risperidone(100), Sertraline(50),Temazepam(100), Thioridazine(100), Tramadol(50), Trazodone(25), Triazolam(100), Trifluoperazine (100),Venlafaxine(50), Verapamil(100), Zolpidem(200) Result Comment: Aleksandra mine Lorazapam Dextromethorphan Performed By: #### U DRG #### [facility] (DEFAULT) [address] [place] [address] [id number] URINE DIPSTICK; REFLEX MICRO SCOPY; REFLEX CULTURE PERFORMABLEon 10-19-2021 Appearance (U) Clear Normal Clear [facility] Comment on above: Performed By: #### L [email or web address] #### [facility] (DEFAULT) [address] [place] [address] 34837 Blood Urine Trace Abnormal Negative [facility] Comment on above: Performed By: #### L ABHSTI1 #### [facility] (DEFAULT) [address] [place] [address] 42830 Color (U) Yellow Normal Yellow [facility] Comment on above: Performed By: #### L ABHSTI1 #### [facility] (DEFAULT) [address] [place] [address] 24873 Glucose Ql (U) Negative Normal Negative [facility] Comment on above: Performed By: #### L ABHSTI1 #### [facility] (DEFAULT) [address] [place] [address] 05801 Ketones Ql (U) 15 mg/dL = Small Abnormal Negative [facility] Comment on above: Performed By: #### L ABHSTI1 #### [facility] (DEFAULT) [address] [place] [address] 65183 Leukocyte esterase Test strip Ql (U) Negative Normal Negative [facility] Comment on above: Performed By: #### L ABHSTI1 #### [facility] (DEFAULT) [address] [place] [address] 95175 Nitrites Urine Negative Normal Negative [facility] Comment on above: Performed By: #### L ABHSTI1 #### [facility] (DEFAULT) [address] [place] [address] 24380 pH (U) 5.5 [pH] Normal 5.0-7.0 [facility] Comment on above: Performed By: #### L ABHSTI1 #### [facility] (DEFAULT) [address] [place] [address] 19805 Protein Urine Negative Normal Negative [facility] Comment on above: Performed By: #### L ABHSTI1 #### [facility] (DEFAULT) [address] [place] [address] 97897 Specific [place] Urine 1.010 Normal 1.001-1.035 [facility] Comment on above: Performed By: #### L HUYTI1 #### [facility] (DEFAULT) [address] [place] [address] 15056 Urobilinogen Urine 0.2 E.U./dL Normal 0.2 E.U/d L, 1.0 E.U/dL [facility] Comment on above: Performed By: #### L ABHSTI1 #### [facility] (DEFAULT) [address] [place] [address] 79596 Appearance (U) Clear Clear [facility] Color (U) Yellow Yellow [facility] Glucose Test strip (U) [Mass/Vol] Negative Negative [facility] Interpretation and review of laboratory results Abnormal [facility] Ketones (U) [Mass/Vol] 15 mg/dL = Small Abnormal Negative [facility] Leukocyte esterase Test strip Ql (U) Negative Negative [facility] Nitrite Ql (U) Negative Negative [facility] pH (U) 5.5 [pH] 5.0 - 7.0 [facility] Protein (U) [Mass/Vol] Negative Negative [facility] RBC (U) [#/Vol] Trace Abnormal Negative [facility] Specific gravity (U) [Rel density] 1.010 [facility] Urobilinogen (U) [Mass/Vol] 0.2 E.U./dL 0.2 E.U/dL, 1.0 E.U/dL [facility] URINE MICROSCOPIC WITH REFLE X TO CULTUREon 10-19-2021 Bacteria ABSENT Normal ABSENT [facility] Comment on above: Performed By: #### L ABHSTI1 #### [facility] (DEFAULT) [address] [place] [address] 70355 RBC Urine 0-2 Normal 0-2 [facility] Comment on above: Performed By: #### L ABHSTI1 #### [facility] (DEFAULT) [address] [place] [address] 34921 Squamous/Epithelial Cells ABSENT Normal 1/hpf = 1+, 2-5/hpf = 2+, 0/hpf = 0+, ABSENT [facility] Comment on above: Performed By: #### L ABHSTI1 #### [facility] (DEFAULT) [address] [place] [address] 87305 WBC Urine 0-5 Normal 0-5 [facility] Comment on above: Performed By: #### L ABHSTI1 #### [facility] (DEFAULT) [address] [place] [address] 64858 URINE MICROSCOPIC WITH REFLE X TO CULTUREOrdered By: Maia Noyola on 10-19-2021 Bacteria LM Ql (Urine sed) ABSENT ABSENT [facility] Epithelial cells.squamous LM Ql (Urine sed) ABSENT 1/hpf = 1+, 2-5/hpf = 2+, 0/hpf = 0+, ABSENT [facility] Interpretation and review of laboratory results Normal [facility] RBC LM.HPF (Urine sed) [#/Area] 0-2 0 - 2 /HPF [facility] WBC LM.HPF (Urine sed) [#/Area] 0-5 0 - 5 /HPF [facility] XR CHEST PORTABLEon 10-20-19 XR CHEST PORTABLE EXAM: XR CHEST PORTABLE, 10/19/2021 07:33 AM COMPARISON: No prior studies available for comparison. CLINICAL INDICATIONS: evaluate for pneumonia FINDINGS: (Compromised by rotation to the left) Implanted Devices: None Thorax: Lungs are clear with no focal consolidation or mass. No pleural effusion or pneumothorax. Cardiac silhouette is within normal limits. Included osseous structures are intact. IMPRESSION: No acute cardiopulmonary disease I personally viewed and interpreted these images and I have reviewed and approved this report. Normal [facility] Absolute lymphocyte counton 10-18-2021 Lymphocytes Auto (Unsp spec) [#/Vol] 1.67 10*3/uL 0.83-4.[address] [facility] Work Phone: [phone] Basophil percentageon 2021 Basophils/100 WBC (Bld) 0.5 % 0-[address] [facility] Work Phone: [phone] Chloride [Moles/Vol] 110 mmol/L 98-107 [facility] Work Phone: Eosinophils/100 WBC (Bld) 0.0 % 0-[address] [facility] Work Phone: Glucose [Mass/Vol] 107 mg/dL 74-106 [facility] Work Phone: [phone] Comment on above: Fasting Glucose resu lt from 100 to 125 mg/dL suggests IMPAIRED HOMEOSTASIS per A.D.A. criteria. Neutrophils (Bld) [#/Vol] 5.2 10*3/uL 2.0-7.[address] [facility] Work Phone: Neutrophils/100 WBC (Bld) 70.3 % 47-[address] [facility] Work Phone: Potassium [Moles/Vol] 3.1 mmol/L 3.5-5.[address] [facility] Work Phone: [phone] Sodium [Moles/Vol] 139 mmol/L 136-145 [facility] Work Phone: WBC (Bld) [#/Vol] 7.4 10*3/uL 4.4-11.0 [facility]: Blood erythrocytes count (nu mber/volume)on 10-18-2021 RBC (Bld) [#/Vol] 4.01 10*6/uL 4.2-5.4 [facility]: Blood hemoglobin measurement (mass/volume)on 10-18-2021 Hemoglobin (Bld) [Mass/Vol] 13.4 g/dL 12.0-15.[address] [facility] Work Phone: Blood lymphocytes/100 leukoc yteson 10-18-2021 Lymphocytes/100 WBC (Bld) 22.6 % 19-[address] [facility] Work Phone: Blood monocytes/100 leukocyt eson 10-18-2021 Monocytes/100 WBC (Bld) 6.2 % 0-[address] [facility] Work Phone: Blood platelet mean volumeon 10-18-2021 Platelet mean volume (Bld) [Entitic vol] 10.2 fL 6.2-12.[address] [facility] Work Phone: CBC AND ELECTRONIC DIFFon Basophils (Bld) [#/Vol] 0.04 10*3/uL 0.00 - 0.15 K/uL [facility] Basophils/100 WBC (Bld) 0.3 % [facility] Differential cell count method Nom (Bld) Electronic Differential [facility] Eosinophils (Bld) [#/Vol] 10*3/uL 0.00 - 0.42 K/uL [facility] Eosinophils/100 WBC (Bld) 0.1 % [facility] Erythrocyte distribution width (RBC) [Ratio] 12.3 % 10.8 - 14.9 % [facility] Hematocrit (Bld) [Volume fraction] 36.4 % 34.9 - 44.3 % [facility] Hemoglobin (Bld) [Mass/Vol] 12.1 g/dL 11.4 - 15.2 g/dL [facility] Immature granulocytes (Bld) [#/Vol] 0.07 10*3/uL <=0.08 [facility] Immature granulocytes/100 WBC (Bld) 0.5 % [facility] Interpretation and review of laboratory results Abnormal [facility] Lymphocytes (Bld) [#/Vol] 1.72 10*3/uL 1.16 - 3.51 K/uL [facility] Lymphocytes/100 WBC (Bld) 11.3 % [facility] MCH (RBC) [Entitic mass] 31.9 pg 25.9 - 33.9 pg [facility] MCHC (RBC) [Mass/Vol] 33.2 g/dL 31.4 - 35.9 g/dL [facility] MCV (RBC) [Entitic vol] 96.0 fL 79.6 - 97.7 fL [facility] Monocytes (Bld) [#/Vol] 0.78 10*3/uL 0.22 - 0.87 K/uL [facility] Monocytes/100 WBC (Bld) 5.1 % [facility] Neutrophils (Bld) [#/Vol] 12.56 10*3/uL High 1.64 - 7.28 K/uL [facility] Nucleated RBC/100 WBC (Bld) [Ratio] 0.0 % <=0.2 /100 WBC [facility] Platelet mean volume (Bld) [Entitic vol] 10.5 fL 8.5 - 12.2 fL [facility] Platelets (Bld) [#/Vol] 363 10*3/uL 150 - 393 K/uL [facility] RBC (Bld) [#/Vol] 3.79 10*6/uL Low [facility] Segmented neutrophils/100 WBC (Bld) 82.7 % [facility] WBC (Bld) [#/Vol] 15.18 10*3/uL High 3.99 - 11 .19 [facility] - EDon 10-18-2021 Anion gap [Moles/Vol] 14 mmol/L 7 - 17 mmol/L [facility] Chloride [Moles/Vol] 111 mmol/L High 98 - 10 8 mmol/L [facility] CO2 [Moles/Vol] 20 mmol/L Low 21 - 31 mmol/L [facility] Creatinine [Mass/Vol] 0.64 mg/dL 0.50 - 1.20 mg/dL [facility] GFR/1.73 sq M.predicted CKD-EPI (S/P/Bld) [Vol rate/Area] >90 >=60 mL/min/1.73m2 [facility] Comment on above: Reported eGFR is bas ed on the CKD-EPI 2020 equation using creatinine, age, and sex. Glucose [Mass/Vol] 104 mg/dL High 70 - 99 mg/dL [facility] Interpretation and review of laboratory results Abnormal [facility] Osmolality Calc [Osmolality] 294 [facility] Potassium [Moles/Vol] 4.2 mmol/L 3.5 - 5.0 mmol/L [facility] Comment on above: Slightly hemolyzed Sodium [Moles/Vol] 141 mmol/L 135 - 145 mmol/L [facility] Urea nitrogen [Mass/Vol] 9 mg/dL 7 - 25 mg/dL [facility] Urea nitrogen/Creatinine [Mass ratio] 14 mg/mg [facility] CT Head limitedon 10-18-2021 IMPRESSION: 1. No acute intracranial abnormality. 2. Fluid in the right frontal ethmoid and sphenoid sinuses. Correlate for acute sinusitis. Findings were discussed with Maribell Grewal DO at 2158 on 10.18.21. I personally viewed and interpreted these images and I have reviewed and approved this report. OLOGY EXAM: CT STROKE HEAD-STROKE ALERT ONLY, 10/18/2021 9:53 PM COMPARISON: None. CLINICAL INDICATIONS: 51 years Female Suspected Stroke; TECHNIQUE: A series of transaxial computerized tomographic images are obtained from base of skull to vertex without intravenous contrast. Axial whole-head and thin section posterior fossa slices are provided. Reformats: Sagittal and coronal. FINDINGS: No acute intracranial hemorrhage, large territory infarct, or mass effect. There is no extracerebral collection. Ventricles are normal in size and configuration for patient's stated age. Posterior fossa is within normal limits. Calvarium and skull base appear intact. Small amount of fluid in the right frontal and sphenoid sinuses with partial opacification of the right frontoethmoid recess. Mastoids and middle ear cavities clear. Normal orbits. RADIOLOGY Martina Leon MD - 10/18/2021 EXAM: CT STROKE HEAD-STROKE ALERT ONLY, 10/18/2021 9:53 PM COMPARISON: None. CLINICAL INDICATIONS: 51 years Female Suspected Stroke; TECHNIQUE: A series of transaxial computerized tomographic images are obtained from base of skull to vertex without intravenous contrast. Axial whole-head and thin section posterior fossa slices are provided. Reformats: Sagittal and coronal. FINDINGS: No acute intracranial hemorrhage, large territory infarct, or mass effect. There is no extracerebral collection. Ventricles are normal in size and configuration for patient's stated age. Posterior fossa is within normal limits. Calvarium and skull base appear intact. Small amount of fluid in the right frontal and sphenoid sinuses with partial opacification of the right frontoethmoid recess. Mastoids and middle ear cavities clear. Normal orbits. IMPRESSION IMPRESSION: 1. No acute intracranial abnormality. 2. Fluid in the right frontal ethmoid and sphenoid sinuses. Correlate for acute sinusitis. Findings were discussed with Maribell Grewal DO at 2158 on 10.18.21. I personally viewed and interpreted these images and I have reviewed and approved this report. [facility] Radiology Study observation (narrative) [facility] CT Head limitedOrdered By: Barb Leon on 10-18-2021 [facility] Work Phone: Determination of erythrocyte mean corpuscular volume (MCV)on 10-18-2021 MCV (RBC) [Entitic vol] 94.8 fL 81-99 [facility] Work Phone: FIBRINOGEN, CLOTTABLEon 08-0 Fibrinogen Coag (PPP) [Mass/Vol] 187 mg/dL Low 220 - 410 mg/dL [facility] Comment on above: Functional Fibrinoge n (activity) levels can be affected by direct thrombin inhibitors such as heparins (>2.0 IU/ml) and dabigatran. Abnormal results should be interpreted with caution. Interpretation and review of laboratory results Abnormal [facility] Fibrinogen levels m ay be altered by the normal physiologic changes of and should be interpreted considering reference ranges specific to gestational age. First Trimester: 244-510 mg/dL Second Trimester: 291-538 mg/dL Third Trimester: 373-619 mg/dL Reference: Osmar M, Edilia LG, Terrell FG. and laboratory studies: a reference table for clinicians. Obstet Gynecol 2009; 114:1326. [facility] HCG ( test) QlOrder ed By: Marissa Marino on 10-18-2021 Beta HCG ( test) Ql Negative Negative [facility] Interpretation and review of laboratory results Normal [facility] HEPATIC FUNCTION PANELon Albumin [Mass/Vol] 3.9 g/dL 3.5 - 5.0 g/dL [facility] ALP [Catalytic activity/Vol] 82 U/L 32 - 126 U/L [facility] ALT [Catalytic activity/Vol] 17 U/L 9 - 48 U/L [facility] Comment on above: Slightly hemolyzed AST [Catalytic activity/Vol] 21 U/L 10 - 39 U/L [facility] Comment on above: Slightly hemolyzed Bilirubin [Mass/Vol] 0.8 mg/dL <1.5 [facility] Comment on above: Slightly hemolyzed Bilirubin.direct [Mass/Vol] 0.1 mg/dL <0.3 [facility] Comment on above: Slightly hemolyzed Interpretation and review of laboratory results Normal [facility] Protein [Mass/Vol] 6.7 g/dL 6.4 - 8.3 g/dL [facility] HIGH SENSITIVITY TROPONIN I - SINGLE ORDERon 10-18-2021 Interpretation and review of laboratory results Normal [facility] Troponin I.cardiac DL <= 0.01 ng/mL [Mass/Vol] 12 ng/L <34 [facility] Hematocrit Auto (Bld) [Volum e fraction]on 10-18-2021 Hematocrit (Bld) [Volume fraction] 38.0 % 37-[address] [facility] Work Phone: INR in Blood by Coagulation assayon 10-18-2021 INR Coag (Bld) [Relative time] 1.0 {INR} [facility] Work Phone: Laboratory - Chemistry and C hemistry - challengeon 10-18-2021 CO2 [Moles/Vol] 20.0 mmol/L 21.0-32.[address] [facility] Work Phone: Urea nitrogen/Creatinine [Mass ratio] 10.4 mg/mg 10-[address] [facility] Work Phone: Laboratory - Coagulationon 0 10-18-2021 aPTT Coag (Bld) [Time] 31.8 s 24.1-36.[address] [facility] Work Phone: PT Coag (PPP) [Time] 13.2 s 11.7-14.9 [facility] Work Phone: Laboratory - Hematology and Cell countson 10-18-2021 Erythrocyte distribution width (RBC) [Entitic vol] 43.3 fL 35.1-43.[address] [facility] Work Phone: Erythrocyte distribution width (RBC) [Ratio] 12.3 % 11.6-14.[address] [facility] Work Phone: Immature granulocytes/100 WBC (Bld) 0.400 % 0.0-0.[address] [facility] Work Phone: Comment on above: IG% - Immature Granu locytes (promyelocytes, myelocytes and metamyelocytes) > 1% indicates that a LEFT SHIFT is Present. MCH (RBC) [Entitic mass] 33.4 pg 27.0-32.[address] [facility] Work Phone: Nucleated RBC/100 WBC (Bld) [Ratio] 0 % 0-[address] [facility] Work Phone: MCHC Auto (RBC) [Mass/Vol]on 10-18-2021 MCHC (RBC) [Mass/Vol] 35.3 g/dL 32-[address] [facility] Work Phone: No Panel Informationon 10-18 [facility] Estimated Creatinine Clearance Calc 66.83 ml/min [facility] Work Phone: Estimated GFR (MDRD) Amer 89 mL/min >[address] [facility] Work Phone: Comment on above: GFR Calc Estimated GFR (MDRD) Non-Af Amer 73 mL/min >[address] [facility] Work Phone: Comment on above: Non- GFR Calc Troponin I High Sensitivity 9 pg/mL 3.0-54.[address] [facility] Work Phone: Comment on above: Please Note: [place] t Units and Gender Specific Reference Ranges. For more information see Policy Stat Procedure [place] High Sensitivity Troponin (TNIH) and attachments. PTINR-STROKEon 10-18-2021 INR Coag (Bld) [Relative time] 1.2 {INR} High [facility] Interpretation and review of laboratory results Abnormal [facility] PT Coag (PPP) [Time] 14.8 s High [facility] PTTon 10-18-2021 aPTT Coag (PPP) [Time] 30.7 s [facility] Interpretation and review of laboratory results Normal [facility] Platelets bldon 10-18-2021 Platelets (Bld) [#/Vol] 417 10*3/uL 150-[address] [facility] Work Phone: Serum or plasma calcium cecilia urement (mass/volume)on 10-18-2021 Calcium [Mass/Vol] 9.4 mg/dL 8.5-10.1 [facility] Work Phone: Serum or plasma creatinine m easurement (mass/volume)on 10-18-2021 Creatinine [Mass/Vol] 0.86 mg/dL 0.55-1.[address] [facility] Work Phone: Comment on above: The validity of the calculated GFR & GFRAA in patients over 70 years has not been determined. Clinical correlation is essential. Serum or plasma urea nitroge n measurement (mass/volume)on 10-18-2021 Urea nitrogen [Mass/Vol] 9 mg/dL 7-[address] [facility] Work Phone: Thin prep Papanicolaou smear with manual screeningon 10-18-2021 Thin prep Papanicolaou smear with manual screening 9 5-[address] [facility] Work Phone: Office Visit (Internal Medic ine)on 10-11-2021 Follow-up visit Diagnoses/Problems Assessed URI, acute (465.9) (J06.9) Orders URI, acute Start: Azithromycin 250 MG Oral Tablet (Zithromax); TAKE DIRECTED PER PACKAGE INSTRUCTIONS Rx By: Caleb Munguia; Dispense: 0 Days ; #:6 Tablet; Refill: 0;For: URI, acute; KARL = N; Verified Transmission to [facility]; Last Updated By: Paulina Brown; 10/11/2021 11:25:47 AM Xray Chest 2 View PA + Lateral; Status:Hold For - Scheduling; Requested for:[id number]; Perform:[facility]; Due:[id number];Ordered; For:URI, acute; Ordered By:Caleb Munguia; Radiologist to Determine Optimal Study : Y What are the patient's signs and symptoms? : cough, covid suspected Start: predniSONE 10 MG Oral Tablet; Take 1 tablet twice daily Rx By: Caleb Munguia; Dispense: 5 Days ; #:10 Tablet; Refill: 0;For: URI, acute; KARL = N; Verified Transmission to [facility]; Last Updated By: Paulina Brown; 10/11/2021 11:25:48 AM Start: [id number]-MH 30-2-10 MG/5ML Oral Syrup; take 5-10 mL po q4-6 hrs prn cough, cold, or allergy symptoms Rx By: Caleb Munguia; Dispense: 0 Days ; #:200 Milliliter; Refill: 1;For: URI, acute; KARL = N; Verified Transmission to [facility]; Last Updated By: Paulina Brown; 10/11/2021 11:25:49 AM Patient Discussion/Summary Exam and presentation is consistent with upper respiratory infection and suspect for COVID-19. Patient declined swab at this time. Patient's treatment window for paxlovid also passed. Prescriptions for Z-Rizwan, prednisone, and Bromfed. X-ray chest but patient advised to wait to obtain this until symptoms are improved. Work note provided. Follow-up as needed. Chief Complaint Patient here today to be seen body aches, fatigue, cough, diarrhea, loss of taste and smell x 1 week. Patient taking OTC Tylenol and last taken this morning. History of Present IllnessPresents for evaluation of URI. Symptoms including cough, congestion, body aches, malaise, and headache have been present for seven days and refractory to OTC meds. Patient also reports associated loss of taste and smell and diarrhea. No fever, chills, nausea, vomiting, abdominal pain, CP, or SOB. No exacerbating factors Review of Systems Constitutional: as noted in HPI. Cardiovascular: as noted in HPI. Respiratory: as noted in HPI. Gastrointestinal: as noted in HPI. Active Problems Problems Abnormal uterine bleeding (AUB) (626.9) (N93.9) Arthritis (716.90) (M19.90) Carpal tunnel syndrome (354.0) (G56.00) Chronic pain of left knee (719.46,338.29) (M25.562,G89.29) Chronic pain of right ankle (719.47,338.29) (M25.571,G89.29) Encounter for routine gynecological examination (V72.31) (Z01.419) Encounter for screening for malignant neoplasm of colon (V76.51) (Z12.11) Migraine with aura and without status migrainosus, not intractable (346.00) (G43.109) Right wrist pain (719.43) (M25.531) Screening for breast cancer (V76.10) (Z12.39) Screening for cervical cancer (V76.2) (Z12.4) Tendonitis of wrist, right (727.05) (M77.8) Past Medical History Problems History of vertigo (V12.49) (Z87.898) Resolved Date: 20 Sep 2021 History of Menstruation AGE 12 History of NVD (normal vaginal delivery) (650) (O80) 06[birth year]18/89 42 WEEKS FEMALE 7LBS 1/2OZ 10/19/90 31 WEEKS MALE 7LBS 9OZ Surgical History Problems History of Cholecystectomy History of Skin biopsy History of [place] tooth extraction Family History Mother Family history of cardiac disorder (V17.49) (Z82.49) Family history of cerebrovascular accident (CVA) (V17.1) (Z82.3) Family history of diabetes mellitus (V18.0) (Z83.3) Family history of hypertension (V17.49) (Z82.49) Brother Family history of asthma (V17.5) (Z82.5) Family history of bleeding disorder (V18.3) (Z83.2) Family history of cardiac disorder (V17.49) (Z82.49) Family history of cerebrovascular accident (CVA) (V17.1) (Z82.3) Family history of diabetes mellitus (V18.0) (Z83.3) Family history of hypertension (V17.49) (Z82.49) Family history of malignant neoplasm (V16.9) (Z80.9) Social History Problems Electronic cigarette use (305.1) (Z78.9) Former smoker (V15.82) (Z87.891) No alcohol use No illicit drug use Patient consumes caffeinated coffee (V49.89) (Z78.9) Patient ingests cola containing caffeine (V49.89) (Z78.9) Sexually active Allergies Medication Ibuprofen TABS Recorded By: Dimitri Chapa; 09/16/2021 11:35:45 AM Naproxen TABS Recorded By: Dimitri Chapa; 09/16/2021 11:35:45 AM Current Meds Medication NameInstruction Celecoxib 100 MG Oral CapsuleTAKE 1 CAPSULE Every twelve hours PRN Dramamine 50 MG Oral TabletTAKE 1 TO 2 TABLETS EVERY 6 HOURS NEEDED. Prochlorperazine Maleate 10 MG Oral Tablettake one tablet every 6 hrs for nausea or at onset of migraine Rizatriptan Benzoate 10 MG Oral TabletTAKE 1 TABLET AT ONSET OF HEADACHE. MAY REPEAT EVERY 2 HOURS NEEDED. MAXIMUM 3 TABLETS IN 24 HOURS. Tylenol 8 Hour Art (more content not included)... Normal [place] Tobacco Screening.on 022 Adult depression screening assessment No [facility] Work Phone: Fall risk assessment a) No falls within the last year [facility] Work Phone: Tobacco use status CPHS a) Yes [facility] Work Phone: BUSINESS INFO CONSULTANT - Office Visiton 09-11 BUSINESS INFO CONSULTANT - Office Visit Diagnoses/Problems Assessed Abnormal uterine bleeding (AUB) (626.9) (N93.9) Provider Impressions Will consult with physician regarding next imaging and call pt. Pt. advised to schedule f/u with Caleb Munguia (PCP) as soon as possible for evaluation of hemorrhoids and referral for colonoscopy/colorectal surgery as indicated Pt. verbalized understanding Chief Complaint Patient here today for ultrasound results. She is nervous for results but has no other concerns at this time. History of Present IllnessPt. presents for f/u from pelvic u/s 09/30/2021. Indication was bleeding that pt. is unable to tell whether it is vaginal or rectal. I did not see any vaginal bleeding or cervical friability on last exam. Pt. also with hemorrhoids that she states have not been investigated. Pt. reports no history of colonoscopy. U/S report noted 5mm endometrial thickness. Solid-appearing mass noted noted near R ovary. MRI recommended. Review of Systems Constitutional: no fever and no chills. Active Problems Problems Abnormal uterine bleeding (AUB) (626.9) (N93.9) Arthritis (716.90) (M19.90) Carpal tunnel syndrome (354.0) (G56.00) Chronic pain of left knee (719.46,338.29) (M25.562,G89.29) Chronic pain of right ankle (719.47,338.29) (M25.571,G89.29) Encounter for routine gynecological examination (V72.31) (Z01.419) Encounter for screening for malignant neoplasm of colon (V76.51) (Z12.11) Migraine with aura and without status migrainosus, not intractable (346.00) (G43.109) Right wrist pain (719.43) (M25.531) Screening for breast cancer (V76.10) (Z12.39) Screening for cervical cancer (V76.2) (Z12.4) Tendonitis of wrist, right (727.05) (M77.8) Past Medical History Problems History of vertigo (V12.49) (Z87.898) Resolved Date: 20 Sep 2021 History of Menstruation AGE 12 History of NVD (normal vaginal delivery) (650) (O80) 06/18/89 42 WEEKS FEMALE 7LBS 1/2OZ 10/19/90 31 WEEKS MALE 7LBS 9OZ Surgical History Problems History of Cholecystectomy History of Skin biopsy History of [place] tooth extraction Family History Mother Family history of cardiac disorder (V17.49) (Z82.49) Family history of cerebrovascular accident (CVA) (V17.1) (Z82.3) Family history of diabetes mellitus (V18.0) (Z83.3) Family history of hypertension (V17.49) (Z82.49) Brother Family history of asthma (V17.5) (Z82.5) Family history of bleeding disorder (V18.3) (Z83.2) Family history of cardiac disorder (V17.49) (Z82.49) Family history of cerebrovascular accident (CVA) (V17.1) (Z82.3) Family history of diabetes mellitus (V18.0) (Z83.3) Family history of hypertension (V17.49) (Z82.49) Family history of malignant neoplasm (V16.9) (Z80.9) Social History Problems Electronic cigarette use (305.1) (Z78.9) Former smoker (V15.82) (Z87.891) No alcohol use No illicit drug use Patient consumes caffeinated coffee (V49.89) (Z78.9) Patient ingests cola containing caffeine (V49.89) (Z78.9) Sexually active Allergies Medication Ibuprofen TABS Recorded By: Dimitri Chapa; 09/16/2021 11:35:45 AM Naproxen TABS Recorded By: Dimitri Chapa; 09/16/2021 11:35:45 AM Current Meds Medication NameInstruction Celecoxib 100 MG Oral CapsuleTAKE 1 CAPSULE Every twelve hours PRN Dramamine 50 MG Oral TabletTAKE 1 TO 2 TABLETS EVERY 6 HOURS NEEDED. predniSONE 10 MG Oral TabletTake 3 tablets by mouth for 3 days, then 2 tablets for 3 days and 1 tablet daily for 3 days. Prochlorperazine Maleate 10 MG Oral Tablettake one tablet every 6 hrs for nausea or at onset of migraine Rizatriptan Benzoate 10 MG Oral TabletTAKE 1 TABLET AT ONSET OF HEADACHE. MAY REPEAT EVERY 2 HOURS NEEDED. MAXIMUM 3 TABLETS IN 24 HOURS. Tylenol 8 Hour Arthritis Pain 650 MG Oral Tablet Extended ReleaseTAKE 1 TABLET 4 TIMES DAILY NEEDED. Vitals Vital Signs Recorded: [id number] 02:45PM Cwclxvnt620 Zuvgtogia89 Height5 ft 1 in Klcrcc373 lb 4 oz BMI Zmvfqtgzsr43.37 kg/m2 BSA Calculated1.59 Physical Exam Constitutional: Alert and in no acute distress. Well developed, well nourished Signatures Electronically signed by : Andrea Chapin APRN-LUIS DAVIES-AUTOMOTIVE FLEET SUPERVISOR; Oct 07 2021 3:27PM EST (Author) Normal [facility] BUSINESS INFO CONSULTANT - Office Visit No report was sent Normal [facility] No Panel Informationon 10-04 Please click on the link to view the study images [place] [id number] [employer] Work Phone: Mamm - Screening Mammogram w / Tomosynthesison 09-30-2021 MG Breast Screening Please click on the link to view the study images [place] [address] [employer] Work Phone: No Panel Informationon 09-30 Please click on the link to view the study images Normal [place] [address] [employer] Work Phone: Initial Visit (Orthopaedic [facility])on 09-29-2021 Initial Visit (Orthopaedic Surgery) Diagnoses/Problems Assessed Right wrist pain (719.43) (M25.531) Tendonitis of wrist, right (727.05) (M77.8) Orders Right wrist pain Xray Wrist Complete Min 3 View; Status:Resulted - Preliminary; Done: [id number] 01:48PM Laterality : Right Radiologist to Determine Optimal Study : Y What are the patient's signs and symptoms? : pain, swelling, hx fx >20 yrs ago Right wrist pain, Tendonitis of wrist, right Start: predniSONE 10 MG Oral Tablet; Take 3 tablets by mouth for 3 days, then 2 tablets for 3 days and 1 tablet daily for 3 days Patient Discussion/Summary Impression: right wrist pain and right wrist tendonitis. Currently, the condition is moderate in severity and Symptoms slightly worsened over the last 4 months. Prednisone taper written, take daily as directed. Patient was advised to hold the Celebrex while taking the steroid, may resume after completing the taper. Tylenol is safe in addition to either medication. Treatment plan includes activity modification and thumb spica splint. Patient discussion: discussed with the patient. We discussed using the thumb and wrist spica splint for any repetitive motions to allow to rest full-time for the next 2 weeks. I did offer work restrictions, patient states she does not know if she will be able to work if she has written restrictions. I did counselling psychologist her that repetitive movement and use of the wrist is going to continue to aggravate the tendinitis symptoms she presented with today. Patient was instructed for gentle range of motion activity daily and as needed. Plan will be for patient to return in approximately 2-3 weeks, sooner for changes or concerns. We also discussed that if she wants to be seen for multiple other joint assessments that unfortunately those do need to be scheduled separately so we can dedicate the visit time to that joint. She is agreeable with this plan of care. This note was generated using [employer] software. It may contain errors in wording, punctuation or spelling. Provider Impressions History, symptoms and assessment consistent with right wrist tendinitis. Chief Complaint PT HERE FOR RIGHT CTS. STATES CTS FOR YEARS. SHOOTING PAIN THAT RADIATES UP INTO THE ARM. DENIES NUMBNESS AND TINGLING. DIFFICULTY GRASPING AND HOLDING ONTO OBJECTS. REFERRED BY CALEB MUNGUIA. History of Present Illness Agree with CC as documented per MADDIE. Kelsie is a pleasant 51-year-old female presenting today for evaluation of the right wrist. Patient also states she is having left knee and right ankle pain. I did confirm that this appointment was scheduled for wrist assessment and rule out carpal tunnel syndrome. Patient states symptoms have been going for years, however the last several months she gets constant discomfort, worse with repetitive lifting. 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 Heavier items more so than light items. She believes symptoms are worsening over time and rates it moderate to severe in intensity 7 out of 10 at the worst. She has taken Tylenol and states, I live on Tylenol with minimal symptom relief. Her PCP recently placed her on Celebrex approximately 1 week ago and she is not able to tell if there is any improvement. She has purchased an OTC wrist wrap that she wears as needed with minimal improvement. Denies any nighttime awakening. She denies any numbness and tingling of her hand or fingers. She does report a previous history of a right wrist fracture in the 90s that did not require surgical repair she was placed in a brace and had attend physical therapy post injury. She is right-hand dominant. Review of Systems Constitutional: no fever, no chills, not feeling tired and not feeling poorly. ENT: no nosebleeds. Cardiovascular: no chest pain. Respiratory: no shortness of breath and no cough. Gastrointestinal: no abdominal pain, no nausea, no vomiting and no diarrhea. The patient presents with complaints of right wrist arthralgias. Integumentary: no rashes and no skin wound. Neurological: no headache. Psychiatric: no depression and no sleep disturbances. Endocrine: no muscle weakness and no muscle cramps. Hematologic/Lymphatic: no swollen glands and no tendency for easy bruising. All other systems have been reviewed and are negative for complaint. Active Problems Problems Abnormal uterine bleeding (AUB) (626.9) (N93.9) Arthritis (716.90) (M19.90) Carpal tunnel syndrome (354.0) (G56.00) Chronic pain of left knee (719.46,338.29) (M25.562,G89.29) Chronic pain of right ankle (719.47,338.29) (M25.571,G89.29) Encounter for routine gynecological examination (V72.31) (Z01.419) Encounter for screening for malignant neoplasm of colon (V76.51) (Z12.11) Migraine with aura and without status migrainosus, not intractable (346.00) (G43.109) Screening for breast cancer (V76.10) (Z12.39) Scree (more content not included)... Normal [facility] Radiologyon 09-29-2021 XR Wrist - bilateral 3 Views Please click on the link to view the study images Normal [facility] [address] Work Phone: XR Wrist - bilateral 3 Views Normal [facility] 300 Work Phone: Tobacco Screening.on 022 Fall risk assessment b) One or more fall s in the last year [facility] 300 Work Phone: Tobacco use status CPHS a) Yes [facility] 300 Work Phone: Hemoglobin A1Con 09-23-2021 Glucose [Mass/Vol] 100 mg/dL [facility] Work Phone: HbA1c (Bld) [Mass fraction] 5.1 % [facility] Work Phone: Comment on above: Diagnosis of Diabete s-Adults Non-Diabetic: < or = 5.6% Increased risk for developing diabetes: 5.7-6.4% Diagnostic of diabetes: > or = 6.5%. Monitoring of Diabetes Age (y) Therapeutic Goal (%) Adults: >18 <7.0 Pediatrics: 13-18 <7.5 7-12 <8.0 0- 6 7.5-8.5 [place] [employer]. Diabetes Care 33(S1), Mar 2009. LMPon 09-23-2021 Last menstrual period start date [facility] [address] [place] Work Phone: Laboratory - Chemistry and C hemistry - challengeon 09-23-2021 Albumin BCP dye [Mass/Vol] 3.9 g/dL 3.4 - 5.0 [facility] Work Phone: ALP [Catalytic activity/Vol] 93 U/L 33 - 110 [facility] Work Phone: ALT With P-5'-P [Catalytic activity/Vol] 17 U/L 7 - 45 [facility] Work Phone: Comment on above: Patients treated wit h Sulfasalazine may generate falsely decreased results for ALT. Anion gap [Moles/Vol] 10 mmol/L 10 - 20 [facility] Work Phone: [phone] AST With P-5'-P [Catalytic activity/Vol] 17 U/L 9 - 39 [facility] Work Phone: [phone] Bilirubin [Mass/Vol] 0.3 mg/dL 0.0 - 1.2 -[facility] Work Phone: [phone] Calcium [Mass/Vol] 8.8 mg/dL 8.6 - 10.3 [facility] Work Phone: [phone] Chloride [Moles/Vol] 108 mmol/L above high threshold 98 - 107 [facility] Work Phone: CO2 [Moles/Vol] 25 mmol/L 21 - 32 [facility] Work Phone: [phone] Creatinine [Mass/Vol] 0.56 mg/dL See Below [facility] Work Phone: Comment on above: Reference Range: 0.5 0 - 1.05 Glucose [Mass/Vol] 83 mg/dL 74 - 99 [facility] Work Phone: [phone] Potassium [Moles/Vol] 3.9 mmol/L 3.5 - 5.3 [facility] Work Phone: Protein [Mass/Vol] 6.2 g/dL below low threshold 6.4 - 8.2 [facility] Work Phone: [phone] Sodium [Moles/Vol] 139 mmol/L 136 - 145 [facility] Work Phone: [phone] TSH Qn 1.09 m[IU]/L See Below [facility] Work Phone: [phone] Comment on above: Reference Range: 0.4 4 - 3.98 TSH testing is performed using different testing methodology at [facility] than at other [facility]. Direct result comparisons should only be made within the same method. Urea nitrogen [Mass/Vol] 12 mg/dL 6 - 23 [facility] Work Phone: [phone] Laboratory - Hematology and Cell countson 09-23-2021 Erythrocyte distribution width (RBC) [Ratio] 12.7 % See Below [facility] Work Phone: [phone] Comment on above: Reference Range: 11. 5 - 14.5 Hematocrit (Bld) [Volume fraction] 38.3 % See Below [facility] Work Phone: [phone] Comment on above: Reference Range: 36. 0 - 46.0 Hemoglobin (Bld) [Mass/Vol] 12.8 g/dL See Below [facility] Work Phone: [phone] Comment on above: Reference Range: 12. 0 - 16.0 MCHC (RBC) [Mass/Vol] 33.3 g/dL See Below [facility] Work Phone: [phone] Comment on above: Reference Range: 32. 0 - 36.0 MCV (RBC) [Entitic vol] 97 fL 80 - 100 [facility] Work Phone: [phone] Platelets (Bld) [#/Vol] 266 10*3/uL 150 - 450 [facility] Work Phone: [phone] RBC (Bld) [#/Vol] 3.94 {x10E12/L} below low threshold See Below [facility] Work Phone: Comment on above: Reference Range: 4.0 0 - 5.20 WBC (Bld) [#/Vol] 7.5 10*3/uL 4.4 - 11.3 [facility] Work Phone: Lipid Panelon 09-23-2021 Cholesterol [Mass/Vol] 197 mg/dL 0 - 199 [facility] Work Phone: Comment on above: . AGE DESIRABLE BORD JANICE HIGH HIGH 0-19 Y 0 - 169 170 - 199 >/= 200 20-24 Y 0 - 189 190 - 224 >/= 225 >24 Y 0 - 199 200 - 239 >/= 240 All ranges are based on fasting samples. Specific therapeutic targets will vary based on patient-specific cardiac risk.. Pediatric guidelines reference:Pediatrics 2011, 128(S5). Adult guidelines reference: NCEP ATPIII Guidelines, GRAHAM 2001, 258:2486-97. Venipuncture immediately after or during the administration of Metamizole may lead to falsely low results. Testing should be performed immediately prior to Metamizole dosing. Cholesterol in HDL [Mass/Vol] 51.0 mg/dL [facility] Work Phone: Comment on above: . AGE VERY LOW LOW N ORMAL HIGH 0-19 Y < 35 < 40 40-45 ---- 20- 24 Y ---- < 40 >45 ---- >24 Y ---- < 40 40-60 >60. Cholesterol in LDL [Mass/Vol] 123 mg/dL above high threshold 0 - 99 [facility] Work Phone: Comment on above: . NEAR BORD AGE KALI RABLE OPTIMAL HIGH HIGH VERY HIGH 0-19 Y 0 - 109 --- 110-129 >/= 130 ---- 20-24 Y 0 - 119 --- 120-159 >/= 160 ---- >24 Y 0 - 99 100-129 130-159 160-189 >/=190. Cholesterol.total/Ch olesterol in HDL [Mass ratio] 3.9 {ratio} [facility] Work Phone: Comment on above: REF VALUESDESIRABLE < 3.4HIGH RISK > 5.0 Triglyceride [Mass/Vol] 116 mg/dL 0 - 149 [facility] Work Phone: Comment on above: . AGE DESIRABLE BORD JANICE HIGH HIGH VERY HIGH 0 D-90 D 19 - 174 ---- ---- ----91 D- 9 Y 0 - 74 75 - 99 >/= 100 ---- 10-19 Y 0 - 89 90 - 129 >/= 130 ---- 20-24 Y 0 - 114 115 - 149 >/= 150 ---- >24 Y 0 - 149 150 - 199 200- 499 >/= 500. Venipuncture immediately after or during the administration of Metamizole may lead to falsely low results. Testing should be performed immediately prior to Metamizole dosing. Lipid Panel 23 mg/dL 0 - 40 [facility] Work Phone: No Panel Informationon 09-23 >90 >90 [facility] Work Phone: Comment on above: CALCULATIONS OF BASHIR MATED GFR ARE PERFORMED USING THE 2020 CKD-EPI STUDY REFIT EQUATION WITHOUT THE RACE VARIABLE FOR THE IDMS-TRACEABLE CREATININE METHODS.https://jasn.asnjournals.org/content//ASN .5728175156 BUSINESS INFO CONSULTANT - Office Visiton 09-10 BUSINESS INFO CONSULTANT - Office Visit Diagnoses/Problems Health Maintenance/Risks Encounter for preventive health examination (V70.0) (Z00.00) Assessed Abnormal uterine bleeding (AUB) (626.9) (N93.9) Orders Ultrasound Pelvis Transabdominal With Transvaginal; Status:Active; Requested for:30Sep2021; Radiologist to Determine Optimal Study : Y What are the patient's signs and symptoms? 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 : Annual Screening Mammogram Provider Impressions No blood seen in vaginal vault, no cervical friability noted. External hemorrhoids noted. Pap obtained Mammogram ordered schedule pelvic u/s and f/u for results get records from [place] Chief Complaint PT HERE TODAY FOR ABNORMAL BLEEDING. PT STATES SHE HAS BEEN SPOTTING, BUT NOTICES ITS MORE NEAR HER RECTUM. PT HAS NOT HAD A PERIOD SINCE 2018, THINKS SHE HAD A DANDC PROCEDURE AND NOW IS STARTING TO BLEED. LMP ALEX History of Present IllnessPt. reports uterine polyps (?) removed and possible D+C 2018 due to heavy bleeding done in [place]. States no vaginal bleeding all of 2020 and now with periodic bleeding and spotting and not sure whether this is vaginal or rectal. Pt. does report having large hemorrhoids. Pt. states she sees Caleb Munguia and is getting scheduled for a colonoscopy. Not sure when last pap and mammogram were, but at least a few years Review of Systems Constitutional: no fever and no chills. Respiratory: no shortness of breath. Genitourinary: as noted in HPI. Active Problems Problems Arthritis (716.90) (M19.90) Carpal tunnel syndrome (354.0) (G56.00) Chronic pain of left knee (719.46,338.29) (M25.562,G89.29) Chronic pain of right ankle (719.47,338.29) (M25.571,G89.29) Encounter for screening for malignant neoplasm of colon (V76.51) (Z12.11) Migraine with aura and without status migrainosus, not intractable (346.00) (G43.109) Past Medical History Problems History of vertigo (V12.49) (Z87.898) Resolved Date: 20 Sep 2021 History of Menstruation AGE 12 History of NVD (normal vaginal delivery) (650) (O80) [birth year]89 42 WEEKS FEMALE 7LBS 1/2OZ 10/19/90 31 WEEKS MALE 7LBS 9OZ Surgical History Problems History of Cholecystectomy History of Skin biopsy History of [place] tooth extraction Family History Mother Family history of cardiac disorder (V17.49) (Z82.49) Family history of cerebrovascular accident (CVA) (V17.1) (Z82.3) Family history of diabetes mellitus (V18.0) (Z83.3) Family history of hypertension (V17.49) (Z82.49) Brother Family history of asthma (V17.5) (Z82.5) Family history of bleeding disorder (V18.3) (Z83.2) Family history of cardiac disorder (V17.49) (Z82.49) Family history of cerebrovascular accident (CVA) (V17.1) (Z82.3) Family history of diabetes mellitus (V18.0) (Z83.3) Family history of hypertension (V17.49) (Z82.49) Family history of malignant neoplasm (V16.9) (Z80.9) Social History Problems Electronic cigarette use (305.1) (Z78.9) Former smoker (V15.82) (Z87.891) No alcohol use No illicit drug use Patient consumes caffeinated coffee (V49.89) (Z78.9) Patient ingests cola containing caffeine (V49.89) (Z78.9) Sexually active Allergies Medication Ibuprofen TABS Recorded By: Dimitri Chapa; 09/16/2021 11:35:45 AM Naproxen TABS Recorded By: Dimitri Chapa; 09/16/2021 11:35:45 AM Current Meds Medication NameInstruction Celecoxib 100 MG Oral CapsuleTAKE 1 CAPSULE Every twelve hours PRN Dramamine 50 MG Oral TabletTAKE 1 TO 2 TABLETS EVERY 6 HOURS NEEDED. Prochlorperazine Maleate 10 MG Oral Tablettake one tablet every 6 hrs for nausea or at onset of migraine Rizatriptan Benzoate 10 MG Oral TabletTAKE 1 TABLET AT ONSET OF HEADACHE. MAY REPEAT EVERY 2 HOURS NEEDED. MAXIMUM 3 TABLETS IN 24 HOURS. Tylenol 8 Hour Arthritis Pain 650 MG Oral Tablet Extended ReleaseTAKE 1 TABLET 4 TIMES DAILY NEEDED. Vitals Vital Signs Recorded: [id number] 03:27PM Olxaholu527 Tlaqdsrpx40 Height5 ft Ieubdi498 lb 14.22 oz BMI Aowraambqx92.13 kg/m2 BSA Calculated1.6 LMPMENO Physical Exam Constitutional: Alert and in no acute distress. Well developed, well nourished Pulmonary: No respiratory distress Chest: Breasts: normal appearance, no nipple discharge and no skin changes, palpation of breasts and axillae: no palpable mass and no axillary lymphadenopathy and sexual maturation normal Genitourinary: external genitalia: normal and sexual maturation: normal Vagina: normal. Cervix: Normal. a Pap smear was performed. Psychiatric: alert and oriented x 3., affect normal to pat (more content not included)... Normal [facility] Radiologyon 09-23-2021 XR Knee 4 Views Please click on the link to view the study images Normal [address] Work Phone: XR Knee 4 Views Normal [facility] Work Phone: XR Ankle 3 Views Please click on the link to view the study images Normal [address] Work Phone: XR Ankle 3 Views Normal [facility] Work Phone: XR Foot 3 Views Please click on the link to view the study images Normal [address] Work Phone: XR Foot 3 Views Normal [facility] Work Phone: Office Visit (Internal Medic ine)on 09-20-2021 Follow-up visit Diagnoses/Problems Health Maintenance/Risks Encounter for preventive health examination (V70.0) (Z00.00) Assessed Arthritis (716.90) (M19.90) Migraine with aura and without status migrainosus, not intractable (346.00) (G43.109) Carpal tunnel syndrome (354.0) (G56.00) Chronic pain of left knee (719.46,338.29) (M25.562,G89.29) Chronic pain of right ankle (719.47,338.29) (M25.571,G89.29) Encounter for screening for malignant neoplasm of colon (V76.51) (Z12.11) Orders Arthritis, Carpal tunnel syndrome Start: Celecoxib 100 MG Oral Capsule; TAKE 1 CAPSULE Every twelve hours PRN Rx By: Caleb Munguia; Dispense: 30 Days ; #:60 Capsule; Refill: 1;For: Arthritis, Carpal tunnel syndrome; KARL = N; Verified Transmission to [id number]; Last Updated By: Paulina Brown; 09/20/2021 9:06:07 AM Carpal tunnel syndrome, Chronic pain of left knee, Chronic pain of right ankle Orthopedic - General Referral Evaluation and Treatment Evaluate AND Treat Status: Hold For - Scheduling Requested for: 20Sep2021 Ordered;For: Carpal tunnel syndrome, Chronic pain of left knee, Chronic pain of right ankle; Ordered By: Caleb Munguia Performed: Due: 19Dec2021 Chronic pain of left knee Xray Knee Complete 4 or more View; Status:Hold For - Scheduling; Requested for:20Sep2021; Perform:[facility]; Due:19Dec2021;Ordered; For:Chronic pain of left knee; Ordered By:Caleb Munguia; Laterality : Left Radiologist to Determine Optimal Study : Y What are the patient's signs and symptoms? : pain, instability Chronic pain of right ankle Xray Ankle 3 View; Status:Hold For - Scheduling; Requested for:20Sep2021; Perform:[facility]; Due:19Dec2021;Ordered; For:Chronic pain of right ankle; Ordered By:Caleb Munguia; Laterality : Right Radiologist to Determine Optimal Study : Y What are the patient's signs and symptoms? : pain Xray Foot Complete Min 3 View; Status:Hold For - Scheduling; Requested for:20Sep2021; Perform:[facility]; Due:19Dec2021;Ordered; For:Chronic pain of right ankle; Ordered By:Caleb Munguia; Laterality : Right Radiologist to Determine Optimal Study : Y What are the patient's signs and symptoms? : pain Encounter for screening for malignant neoplasm of colon Gastroenterology Referral Evaluation and Treatment Evaluate AND Treat Status: Hold For - Scheduling Requested for: 20Sep2021 Ordered;For: Encounter for screening for malignant neoplasm of colon; Ordered By: Caleb Munguia Performed: Due: 19Dec2021 Health Maintenance Complete Blood Count; Status:Active; Requested for:20Sep2021; Perform:Lab Services - Lab To Draw (Blood Test); Due:19Dec2021;Ordered; For:Health Maintenance; Ordered By:Caleb Munguia; Comprehensive Metabolic Panel; Status:Active; Requested for:20Sep2021; Perform:Lab Services - Lab To Draw (Blood Test); Due:19Dec2021;Ordered; For:Health Maintenance; Ordered By:Caleb Munguia; Hemoglobin A1C; Status:Active; Requested for:20Sep2021; Perform:Lab Services - Lab To Draw (Blood Test); Due:19Dec2021;Ordered; For:Health Maintenance; Ordered By:Caleb Munguia; Lipid Panel; Status:Active; Requested for:20Sep2021; Perform:Lab Services - Lab To Draw (Blood Test); Due:19Dec2021;Ordered; For:Health Maintenance; Ordered By:Caleb Munguia; TSH WITH REFLEX TO FREE T4 IF ABNORMAL; Status:Active; Requested for:20Sep2021; Perform:Lab Services - Lab To Draw (Blood Test); Due:19Dec2021;Ordered; For:Health Maintenance; Ordered By:Caleb Munguia; Migraine with aura and without status migrainosus, not intractable Start: Prochlorperazine Maleate 10 MG Oral Tablet; take one tablet every 6 hrs for nausea or at onset of migraine Rx By: Caleb Munguia; Dispense: 5 Days ; #:20 Tablet; Refill: 0;For: Migraine with aura and without status migrainosus, not intractable; KARL = N; Verified Transmission to [facility]; Last Updated By: Curiyo; 09/20/2021 9:06:06 AM Start: Rizatriptan Benzoate 10 MG Oral Tablet (Maxalt); TAKE 1 TABLET AT ONSET OF HEADACHE. MAY REPEAT EVERY 2 HOURS NEEDED. MAXIMUM 3 TABLETS IN 24 HOURS Rx By: Caleb Munguia; Dispense: 3 Days ; #:9 Tablet; Refill: 2;For: Migraine with aura and without status migrainosus, not intractable; KARL = N; Verified Transmission to [facility]; Last Updated By: Curiyo; 09/20/2021 9:06:07 AM Patient Discussion/Summary Health maintenance: Patient is scheduled to see BUSINESS INFO CONSULTANT for breast and pelvic exams. CBC, CMP, A1c, lipid panel, and TSH ordered. Screening colonoscopy ordered as well. Further recommendations pending results. Carpal tunnel syndrome, right hand: We will start Celebrex. Patient reports history of tolerance and intolerance to prescription NSAIDs versus pouo-eai-zdpdohv NSAIDs. Patient states that prescription Aleve was tolerated without issue and xifb-bjl-ljlbzcv was not resulting in a rash. We will try Celebrex. Signs and symp (more content not included)... Normal [facility] Tobacco Screening.on 022 Adult depression screening assessment No [facility] Work Phone: Fall risk assessment a) No falls within the last year [facility] Work Phone: Tobacco use status CPHS a) Yes [facility] Work Phone: Vital Signs Date Time Vital Sign Value Performing Clinician Facility 08-31-2022 08:55-0400 Body temperature 96.8 [degF] Denita Cha MD Work Phone: [facility] 08-31-2022 08:55-0400 Diastolic blood pressure 71 mm[Hg] Denita Cha MD Work Phone: [facility] 08-31-2022 08:55-0400 Heart rate 63 /min Denita Cha MD Work Phone: [facility] 08-31-2022 08:55-0400 Respiratory rate 16 /min Denita Cha MD Work Phone: [facility] 08-31-2022 08:55-0400 Systolic blood pressure 145 mm[Hg] Denita Cha MD Work Phone: [facility] 08-31-2022 06:58-0400 Body height 149.8 cm Denita Cha MD Work Phone: [facility] 08-31-2022 06:58-0400 Body mass index (BMI) [Ratio] 26.96 kg/m2 Denita Cha MD Work Phone: [facility] 08-31-2022 06:58-0400 Body weight 60.5 kg Denita Cha MD Work Phone: [facility] 07-12-2022 09:31-0400 Body height 154.94 cm Rommel-Chi Butch Work Phone: MB-Xlzukivyp-NMXWM [place] [address] Work Phone: 07-12-2022 09:31-0400 Body mass index (BMI) [Ratio] 26.83 kg/m2 Rommel-Chi Butch Work Phone: VR-Kmenjbmue-WMCXO [place] [facility] Work Phone: 07-12-2022 09:31-0400 Body surface area Derived from formula 1.63 m2 Rommel-Chi Butch Work Phone: FG-Pyuxqufaj-NLGEA [place] [facility] Work Phone: 07-12-2022 09:31-0400 Body weight 64.41 kg Rommel-Chi Butch Work Phone: PY-Egrkfomse-JMSON [place] [facility] Work Phone: 07-12-2022 09:31-0400 Diastolic blood pressure 81 mm[Hg] Rommel-Chi Butch Work Phone: UH-Zkdddgrmp-MBGJU [place] [address] Work Phone: 07-12-2022 09:31-0400 Heart rate 69 /min Rommel-Chi Butch Work Phone: JJ-Iwppftofj-MSUJV [place] [facility] Work Phone: 07-12-2022 09:31-0400 Respiratory rate 18 /min Rommel-Chi Butch Work Phone: YN-Doplkfxfo-QJRNK [place] [facility] Work Phone: 07-12-2022 09:31-0400 Systolic blood pressure 146 mm[Hg] Rommel-Chi Butch Work Phone: XT-Otyzsnkix-MJZLO [place] [facility] Work Phone: 07-12-2022 09:31-0400 0 1 Rommel-Chi Butch Work Phone: [facility] Work Phone: Comment on above: [employer] 05-05-2022 09:32-0500 Body height 154.94 cm Caleb Munguia Work Phone: [employer] [facility] [place] Work Phone: 05-05-2022 09:32-0500 Body mass index (BMI) [Ratio] 27.4 kg/m2 Caleb Munguia Work Phone: [place] [address] [place] Work Phone: 05-05-2022 09:32-0500 Body surface area Derived from formula 1.65 m2 Caleb Munguia Work Phone: [place] [address] [place] Work Phone: 05-05-2022 09:32-0500 Body weight 65.77 kg Caleb Munguia Work Phone: [place] [address] [place] Work Phone: 05-05-2022 09:32-0500 Diastolic blood pressure 82 mm[Hg] Caleb Munguia Work Phone: [place] [address] [place] Work Phone: 05-05-2022 09:32-0500 Systolic blood pressure 130 mm[Hg] Caleb Munguia Work Phone: [address] Work Phone: 10-20-2021 11:56-0400 Body temperature 98.29 [degF] Louis Ireland MD Work Phone: [facility] 10-20-2021 11:56-0400 Diastolic blood pressure 54 mm[Hg] Louis Ireland MD Work Phone: [facility] 10-20-2021 11:56-0400 Heart rate 54 /min Louis Ireland MD Work Phone: [facility] 10-20-2021 11:56-0400 Respiratory rate 18 /min Louis Ireland MD Work Phone: [facility] 10-20-2021 11:56-0400 SaO2% (BldA) [Mass fraction] 99 % Louis Ireland MD Work Phone: [facility] 10-20-2021 11:56-0400 Systolic blood pressure 108 mm[Hg] Louis Ireland MD Work Phone: [facility] 10-18-2021 22:12-0400 Body height 154.9 cm Louis Ireland MD Work Phone: [facility] 10-18-2021 22:12-0400 Body mass index (BMI) [Ratio] 27.17 kg/m2 Louis Ireland MD Work Phone: [facility] 10-18-2021 22:12-0400 Body weight 65.23 kg Louis Ireland MD Work Phone: [facility] 10-18-2021 18:53-0400 Diastolic blood pressure 61 mm[Hg] [facility] Work Phone: 10-18-2021 18:53-0400 Systolic blood pressure 126 mm[Hg] [facility] Work Phone: 10-18-2021 18:45-0400 Heart rate 74 /min [facility] Work Phone: 10-18-2021 18:45-0400 Respiratory rate 25 /min [facility] Work Phone: 10-18-2021 18:45-0400 SaO2% (BldA) [Mass fraction] 100 % [facility] Work Phone: 10-18-2021 17:06-0400 Body height 162.56 cm [facility] Work Phone: 10-18-2021 17:06-0400 Body mass index (BMI) [Ratio] 26 kg/m2 [facility] Work Phone: 10-18-2021 17:06-0400 Body temperature 97.9 [degF] [facility] Work Phone: 10-18-2021 17:06-0400 Body weight 68.9 kg [facility] Work Phone: 10-11-2021 11:06-0400 Body height 154.94 cm Caleb Barb Newbill Work Phone: [facility] Work Phone: 10-11-2021 11:06-0400 Body mass index (BMI) [Ratio] 25.51 kg/m2 Caleb M Newbill Work Phone: [facility] Work Phone: 10-11-2021 11:06-0400 Body surface area Derived from formula 1.6 m2 Caleb Barb Newbill Work Phone: [facility] Work Phone: 10-11-2021 11:06-0400 Body temperature 97.8 [degF] Caleb Barb Newbill Work Phone: [facility] Work Phone: 10-11-2021 11:06-0400 Body weight 61.24 kg Caleb Barb Newbill Work Phone: [facility] Work Phone: 10-11-2021 11:06-0400 Diastolic blood pressure 79 mm[Hg] Caleb M Newbill Work Phone: [facility] Work Phone: 10-11-2021 11:06-0400 Heart rate 76 /min Caleb M Newbill Work Phone: [facility] Work Phone: 10-11-2021 11:06-0400 SaO2% (BldA) [Mass fraction] 98 % Caleb Munguia Work Phone: [facility] Work Phone: 10-11-2021 11:06-0400 Systolic blood pressure 120 mm[Hg] Caleb Munguia Work Phone: [facility] Work Phone: 10-07-2021 14:45-0400 Body height 154.94 cm Caleb Munguia Work Phone: [address] Work Phone: 10-07-2021 14:45-0400 Body mass index (BMI) [Ratio] 25.37 kg/m2 Caleb Munguia Work Phone: [address] Work Phone: 10-07-2021 14:45-0400 Body surface area Derived from formula 1.59 m2 Caleb Munguia Work Phone: [address] Work Phone: 10-07-2021 14:45-0400 Body weight 60.9 kg Caleb Munguia Work Phone: [place] [address] [place] Work Phone: 10-07-2021 14:45-0400 Diastolic blood pressure 72 mm[Hg] Caleb Claytonl Work Phone: [place] [address] [place] Work Phone: 10-07-2021 14:45-0400 Systolic blood pressure 118 mm[Hg] Caleb Claytonl Work Phone: [place] [address] [place] Work Phone: 09-29-2021 13:08-0400 Body height 152.4 cm Caleb M Newbill Work Phone: [facility] [address] Work Phone: 09-29-2021 13:08-0400 Body mass index (BMI) [Ratio] 26.83 kg/m2 Caleb M Newbill Work Phone: [facility] [address] Work Phone: 09-29-2021 13:08-0400 Body surface area Derived from formula 1.59 m2 Caleb M Newbill Work Phone: [facility] 300 Work Phone: 09-29-2021 13:08-0400 Body temperature 97.2 [degF] Caleb M Newbill Work Phone: [facility] 300 Work Phone: 09-29-2021 13:08-0400 Body weight 62.32 kg Caleb M Newbill Work Phone: [facility] 300 Work Phone: 09-23-2021 15:27-0400 Body height 152.4 cm Caleb M Newbill Work Phone: [address] Work Phone: 09-23-2021 15:27-0400 Body mass index (BMI) [Ratio] 27.13 kg/m2 Caleb M Newbill Work Phone: [facility] [address] [place] Work Phone: 09-23-2021 15:27-0400 Body surface area Derived from formula 1.6 m2 Caleb M Newbill Work Phone: [facility] [address] [place] Work Phone: 09-23-2021 15:27-0400 Body weight 63 kg Caleb M Newbill Work Phone: [address] Work Phone: 09-23-2021 15:27-0400 Diastolic blood pressure 68 mm[Hg] Caleb Barb Claytonl Work Phone: [address] Work Phone: 09-23-2021 15:27-0400 Systolic blood pressure 146 mm[Hg] Caleb Barb Newbill Work Phone: [address] Work Phone: 09-20-2021 08:35-0400 Body height 152.4 cm Caleb Barb Valerobill Work Phone: [facility] Work Phone: 09-20-2021 08:35-0400 Body mass index (BMI) [Ratio] 27.07 kg/m2 Caleb Barb Valerobill Work Phone: [facility] Work Phone: 09-20-2021 08:35-0400 Body surface area Derived from formula 1.6 m2 Caleb Barb Valerobill Work Phone: [facility] Work Phone: 09-20-2021 08:35-0400 Body temperature 98.4 [degF] Caleb Barb Valerobill Work Phone: [facility] Work Phone: 09-20-2021 08:35-0400 Body weight 62.87 kg Caleb Barb Newbill Work Phone: [facility] Work Phone: 09-20-2021 08:35-0400 Diastolic blood pressure 66 mm[Hg] Caleb Barb Newbill Work Phone: [facility] Work Phone: 09-20-2021 08:35-0400 Heart rate 76 /min Caleb Barb Newbill Work Phone: [facility] Work Phone: 09-20-2021 08:35-0400 SaO2% (BldA) [Mass fraction] 99 % Caleb Munguia Work Phone: [facility] Work Phone: 09-20-2021 08:35-0400 Systolic blood pressure 128 mm[Hg] Caleb Munguia Work Phone: [facility] Work Phone: 08-02-2021 12:16-0400 Body height 152.4 cm Text Entry [facility] 08-02-2021 12:16-0400 Body temperature 98.06 [degF] Text Entry [facility] 08-02-2021 12:16-0400 Diastolic blood pressure 80 mm[Hg] Text Entry Free [facility] 08-02-2021 12:16-0400 Heart rate 71 /min Text Entry [facility] 08-02-2021 12:16-0400 Respiratory rate 16 /min Text Entry [facility] 08-02-2021 12:16-0400 SaO2% (BldA) [Mass fraction] 97 % Text Entry [facility] 08-02-2021 12:16-0400 Systolic blood pressure 120 mm[Hg] Text Entry Free [facility] Encounters Encounter Date Encounter Type Care Provider Facility Start: 04-11-2024 End: 04-11-2024 ambulatory ROMMEL CHI BUTCH Facility:[facility] Start: 04-11-2024 End: 04-11-2024 Subsequent hospital visit by physician Screen Mammo [facility] Comment on above: Encounter for screen ing mammogram for breast cancer [Z12.31] Start: 04-09-2024 End: 04-09-2024 Telephone encounter Nurse/Nathan Eduardo [facility] Work Phone: Mammogram Comment on above: Orders Start: 04-08-2024 End: 04-08-2024 ambulatory PIERO MARQUESQUEZ Facility:[facility] Start: 10-04-2023 End: 10-04-2023 ambulatory PIERO Camara NATHAN Facility:[facility] Start: 11-10-2022 Chart Update Nestor Rae Work Phone: [address] Work Phone: Start: 11-04-2022 ambulatory Andrea Chapin Facility:[id number] Start: 11-04-2022 Encounter for genera l adult medical examination without abnormal findings Andrea Fried Facility:[id number] Start: 10-12-2022 ambulatory Rommel Rae Facility:[facility] Start: 10-11-[address] Nestor Donnelly ty:[facility] Start: 09-27-[address] Nestor Donnelly ty:[facility] Start: 08-31-2022 End: 08-31-[address] Nestor Rae Facility:[facility] Start: 08-31-2022 End: 08-31-2022 Subsequent hospital visit by physician Denita Cha MD Work Phone: [facility] Comment on above: Generalized intra-ab dominal and pelvic swelling, mass and lump; Leiomyoma of uterus, unspecified; Abnormal uterine and vaginal bleeding, unspecified; Other intra-abdominal and pelvic swelling, mass and lump Start: 07-12-2022 Office outpatient ne w 60 minutes Nestor Rae Work Phone: [facility] [place] [address] Work Phone: Start: 07-12-[address] Nestor Donnelly ty:[facility] Start: 06-14-[address] Nestor Donnelly ty:[facility] Start: 06-02-2022 Chart Update Nestor Rae Work Phone: [address] Work Phone: Start: 05-17-[address] Nestor Donnelly ty:[id number] Start: 05-12-[address] Nestor Donnelly ty:[id number] Start: 05-05-2022 Periodic preventive med est patient 40-64yrs Caleb Munguia Work Phone: [address] Work Phone: Start: 05-05-2022 ambulatory Ms. Andrea Ybarra cility:[id number] Start: 04-26-[address] Nestor Donnelly ty:[id number] Start: 03-29-2022 End: 03-29-2022 Patient encounter procedure [facility], Phy Office 3rd Flr Start: 03-29-2022 End: 03-29-2022 ambulatory [facility] Work Phone: Start: 11-04-2021 Transcribe Orders Caleb Sam Nilda CASTELLANOS Work Phone: [facility], Neuroscience Comment on above: Acute encephalopathy (Primary Dx) Start: 10-26-2021 ambulatory Mr. Caleb curry Nilda Facility:[id number] Start: 10-18-2021 End: 10-20-2021 Evaluation and management of inpatient [facility] Facility:[facility] Start: 10-18-2021 End: 10-20-2021 Evaluation and management of inpatient Louis Ireland MD Work Phone: [id number] Comment on above: Stroke Start: 10-18-2021 End: 10-18-2021 Emergency department patient visit [facility] Start: 10-13-2021 FUV, Provider: Avis Yoon, Status: Pen, Time: 3:30 PM Caleb Munguia Work Phone: [facility] Work Phone: Start: 10-11-2021 AUDIT Caleb Munguia Work Phone: [place] [address] [facility] Work Phone: Start: 10-11-2021 Office outpatient vi sit 25 minutes Caleb Munguia Work Phone: [facility] Work Phone: Start: 10-07-2021 Office outpatient vi sit 10 minutes Caleb Barb Newbill Work Phone: [facility] [employer] Work Phone: Start: 09-30-2021 Chart Update Caleb Day Newbill Work Phone: [facility] [address] Work Phone: Start: 09-29-2021 NPV, Provider: Avis Yoon, Status: Pen, Time: 1:00 PM Caleb Barb Newabhishekl Work Phone: [facility] Work Phone: Start: 09-29-2021 Office outpatient ne w 45 minutes Caleb Barb Newbill Work Phone: [facility] [address] Work Phone: Start: 09-29-2021 Patient encounter procedure Caleb Munguia Work Phone: [facility] [address] Work Phone: Start: 09-27-2021 Chart Update Caleb Munguia Work Phone: [facility] Work Phone: Start: 09-23-2021 Initial preventive medicine new patient 40-64yrs Caleb aDy Newbill Work Phone: [facility] [employer] Work Phone: Start: 09-20-2021 Office outpatient ne w 45 minutes Caleb Barb Newbill Work Phone: [facility] Work Phone: Start: 09-08-2021 ambulatory Piero powers MD Work Phone: [facility] [place] Start: 08-02-2021 End: 08-02-2021 Emergency department patient visit Elsie Wbeb [facility] 02 Encounter for gynecological examination (general) (routine) without abnormal findings Caleb Munguia Work Phone: [facility] [address] [place] Work Phone: Comment on above: 10/25/21 NORMAL; Patient encounter status Caleb Munguia Work Phone: [place] [address] [place] Work Phone: End: 10-26-2021 Patient encounter status Caleb Munguia Work Phone: [facility] [address] [place] Work Phone: Procedures Date Procedure Procedure Detail Performing Clinician Start: 04-08-2024 Lipid 1996 panel - S fly or Plasma Nurse/Nathan Niñotr Work Phone: Start: 11-04-2022 Mammography Denita michelle MD Work Phone: Start: 08-31-2022 SURGICAL PATHOLOGY RESULTS Denita Cha MD Work Phone: Start: 08-23-[address] Rommel Rae Comment on above: Performed By: #### T +S #### 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 Work Phone: Start: 10-19-2021 End: 10-19-2021 Drug tst prsmv instrmnt chem analyzers pr date Jaciel Park MD Work Phone: Start: 10-19-2021 EXTRA MICRO Jaciel moore MD Work Phone: Start: 10-19-2021 Urnls dip stick/tabl et reagent auto microscopy Jaciel Park MD Work Phone: Start: 10-19-2021 Urnls dip stick/tabl et rgnt auto w/o microscopy Jaciel Park MD Work Phone: Start: 10-19-2021 Hemoglobin glycosylated a1c Maribell Grewal DO Work Phone: Start: 10-19-2021 Lipid 1996 panel - S fly or Plasma Louis Ireland MD Work Phone: Start: 10-18-2021 CBC AND ELECTRONIC DIFF Jaciel Park MD Work Phone: Start: 10-18-2021 Complete blood count with white cell differential, automated Jaciel Park MD Work Phone: Start: 10-18-2021 Fibrinogen activity Mariia Park MD Work Phone: Start: 10-18-2021 Hepatic function panel Jaciel Park MD Work Phone: Start: 10-18-2021 LT BLUE TOP TUBE Jaciel Park MD Work Phone: Start: 10-18-2021 MINT GREEN TOP TUBE Mariia Park MD Work Phone: Start: 10-18-2021 Ct head/brain w/o co ntrast material Jaciel Park MD Work Phone: Start: 10-18-2021 Glucose measurement, blood Shahbaz Ramirez MD Work Phone: Start: 10-18-2021 CT of chest and abdomen Start: 09-23-2021 Lipid 1996 panel - S fly or Plasma Denita Cha MD Work Phone: Start: 09-23-2021 Microscopic observat ion [Identifier] in Cervix by Cyto stain Denita Cha MD Work Phone: Start: 04-26-2018 Adult depression scr eening assessment Piero Evans MD Work Phone: Start: 11-22-2017 Mammography Piero Zeng MD Work Phone: Biopsy of skin Caleb Clayton l Work Phone: Cholecystectomy Caleb Brennan ll Work Phone: Extraction of wisdom tooth S shreya Day Newabhishekl Work Phone: Plan of Treatment Date Care Activity Detail Author Start: 04-08-2029 Lipid panel Lipid Screening [facility] Start: 04-26-2028 Urine microalbumin profile [facility] Start: 04-08-2027 Diabetes Screening Diabetes Screenin g [facility] Start: 10-19-2026 Fasting lipid profile LIPID SCREENIN G [facility] Start: 09-23-2026 Lipid panel Lipid Panel [facility] Start: 05-04-2025 Screening for malign ant neoplasm of colon [facility] Start: 09-23-2024 Diabetes mellitus screening Diabetes Screening [facility] Start: 09-23-2024 Screening for malign ant neoplasm of cervix [facility] Start: 04-11-2024 End: 04-11-2024 Patient encounter procedure 04/11/2024 10:50 AM EST Appointment Mammogram [address] [place] [address] did phone note for order 04/09 z12.39 Mammogram Comment on above: did phone note for o rder 04/09 z12.39 Start: 11-12-2023 Covid-19 Vaccine ( season) Covid-19 Vaccine () [facility] Start: 11-12-2023 Influenza vaccination Influenza Vacc ine (#1) [facility] Start: 11-05-2023 Screening for malign ant neoplasm of breast [facility] Start: 04-26-2023 LIPID SCREEN LIPID SCREEN [facility] Start: 11-22-2022 HPV TESTING HPV TESTING [facility] Start: 11-22-2022 PAP TESTING PAP TESTING [facility] Start: 11-22-2022 Screening for malign ant neoplasm of cervix Cervical Cancer Screening [facility] Start: 11-18-2022 FUV, Provider: Oliverio Doan, Status: Pen, Time: 8:30 AM FUV, Provider: Oliverio Doan, Status: Pen, Time: 8:30 AM [facility] [facility] Work Phone: Start: 11-11-2022 Influenza vaccination Influenza Vacc ine (#1) [facility] Start: 07-12-2022 NPV, Provider: Oliverio Doan, Status: Pen, Time: 9:30 AM NPV, Provider: Oliverio Doan, Status: Pen, Time: 9:30 AM [employer] Work Phone: Start: 05-17-2022 EEG, Provider: NEURO EEG SMC02 EQUIPMENT,[id number], Status: Pen, Time: 9:00 AM EEG, Provider: NEURO EEG SMC02 EQUIPMENT,[id number], Status: Pen, Time: 9:00 AM [employer] Work Phone: Start: 11-11-2021 Influenza vaccination C [facility] Start: 10-18-2021 Bleeding precautions [facility] Work Phone: Start: 10-18-2021 Consultation [facility] Work Phone: Start: 10-18-2021 CT angiography of he ad and neck STROKE CTA Head AND Neck W/Con [facility] Work Phone: Start: 10-18-2021 CTA Head vessels and Neck vessels W contrast IV [facility] Work Phone: Start: 10-18-2021 CT of head without contrast STROKE Brain/Head without Cont [facility] Work Phone: Start: 10-18-2021 CT Unspecified body region WO contrast [facility] Work Phone: Start: 10-18-2021 Oxygen therapy [facility] Work Phone: Start: 10-18-2021 Plain chest X-ray Chest 1 View [facility] Work Phone: Start: 10-18-2021 [facility] Work Phone: Start: 10-13-2021 FUV, Provider: Avis Yoon, Status: Pen, Time: 3:30 PM FUV, Provider: Avis Yoon, Status: Pen, Time: 3:30 PM [facility] [address] Work Phone: Start: 10-07-2021 FUV, Provider: Andrea Chapin, Status: Pen, Time: 2:30 PM FUV, Provider: Andrea Chapin, Status: Pen, Time: 2:[address] Work Phone: Start: 09-29-2021 NPV, Provider: Avis Yoon, Status: Pen, Time: 1:00 PM NPV, Provider: Avis Yoon, Status: Pen, Time: 1:00 PM [facility] Work Phone: Start: 09-23-2021 NPV, Provider: Andrea Chapin, Status: Pen, Time: 3:00 PM NPV, Provider: Andrea Chapin, Status: Pen, Time: 3:00 PM [facility] Work Phone: Start: 05-10-2021 DIABETES SCREEN DIABETES SCREEN [facility] Start: 2020 Pneumococcal Vaccine : 50+ (1 of 1 - PCV) Pneumococcal Vaccine: 50+ (1 of 1 - PCV) [facility] Start: 2020 SHINGRIX VACCINE (1 of 2) SHINGRIX VACCINE (1 of 2) [facility] Start: 2020 Zoster vaccine hzv l nisha for subcutaneous use ZOSTER (SHINGLES) VACCINE (1 of 2) [facility] Start: 2020 Zoster Vaccines (1 o f 2) Zoster Vaccines (1 of 2) [facility] Start: 04-26-2019 Adult depression screening assessment DEPRESSION SCREENING [facility] Start: 11-22-2018 Mammography MAMMOGRAM [facility] Start: 08-31-2015 COLOGUARD (FIT-DNA) COLOGUARD (FIT-D NA) [facility] Start: 08-31-2015 Colonoscopy [facility] Start: 08-31-2015 COLORECTAL CANCER SCREENING COLORECTAL CANCER SCREENING [facility] Start: 08-31-[address] COLONOGRAPHY [facility] Start: 08-31-2015 FECAL OCCULT BLOOD FECAL OCCULT BLOO D [facility] Start: 08-31-2015 Screening for malign ant neoplasm of colon [facility] Start: 08-31-2015 SIGMOIDOSCOPY SIGMOIDOSCOPY [facility] Start: 2010 Screening mammography MAMMOGRA M SCREENING DISCUSSION [facility] Start: 1992 DTaP/Tdap/Td Vaccine s (1 - Tdap) DTaP/Tdap/Td Vaccines (1 - Tdap) [facility] Start: 08-31-1991 Screening for malign ant neoplasm of cervix [facility] Start: 1989 Hepatitis B Vaccine (1 of 3 - 19+ 3-dose series) Hepatitis B Vaccine (1 of 3 - 19+ 3-dose series) [facility] Start: 1989 Third diphtheria, tetanus and acellular pertussis (DTaP) vaccination TDAP (ADULT) [facility] Start: 1988 Anxiety Screening Anxiety Screening [facility] Start: 1988 Depression Screening Depression Scre ening [facility] Start: 1988 HEPATITIS C SCREENING HEPATITIS C SC [facility] Start: 1988 Hepatitis C screening Hepatitis C Sc [facility] Start: 1988 HIV SCREENING HIV SCREENING [facility] Start: 1988 HIV screening HIV Screening [facility] Start: 1988 Tetanus vaccination TETANUS [facility] Start: 1985 HIV screening HIV SCREENING DISCUSSION [facility] Start: 1976 PNEUMOCOCCAL (1 - PCV) PNEUMOCOCCAL (1 - PCV) [facility] Start: 1976 Pneumococcal Vaccine : Pediatrics (0 to 5 Years) and At-Risk Patients (6 to 64 Years) (1 - PCV) Pneumococcal Vaccine: Pediatrics (0 to 5 Years) and At-Risk Patients (6 to 64 Years) (1 - PCV) [facility] Start: 08-31-1975 COVID-19 VACCINE (#1) COVID-19 VACCI NE (#1) [facility] Start: 08-31-1971 MMR Vaccines (1 of 1 - Standard series) MMR Vaccines (1 of 1 - Standard series) [facility] Start: 03-01-1971 COVID-19 VACCINE (#1) COVID-19 VACCI NE (#1) [facility] Start: 1970 Hepatitis B Vaccines (1 of 3 - 3-dose series) Hepatitis B Vaccines (1 of 3 - 3-dose series) [facility] Start: 1970 Hepatitis C antibody , confirmatory test HEPATITIS C VIRUS SCREENING [facility] Start: 1970 HIV screening HIV Screening [facility] Start: 1970 Screening for malign ant neoplasm of colon [facility] Start: 1970 Yearly Adult [facility] Breast - bilater al screening WENDY SCREENING W YANG Radiology Routine Encounter for screening mammogram for breast cancer 04/11/2024 11:01 AM EST [facility] Work Phone: GOLD TOP TUBE GOLD TOP TUBE La b STAT 10/18/2021 10:10 PM EDT [facility] LAVENDER TOP TUBE LAVENDER TOP T UBE Lab STAT 10/18/2021 10:10 PM EDT [facility] Patient referral [facility] Work Phone: RAINBOW DRAW RAINBOW DRAW Lab STAT 10/18/2021 10:10 PM EDT [facility] End: 10-08-2022 Screening mammography bi 2-view breast inc cad WENDY SCREENING Radiology Routine Encounter for screening mammogram for breast cancer 1 Occurrences starting 09/08/2021 until 10/08/[address] [facility] Work Phone: Comment on above: 1 Occurrences starti ng 09/08/2021 until 10/08/2022 Immunizations Immunization Date Immunization Notes Care Provider Tate castellon 04-26-2018 tetanus toxoid, redu campbell diphtheria toxoid, and acellular pertussis vaccine, adsorbed Piero Evans MD Work Phone: [facility] Work Phone: 04-26-2018 influenza virus vaccine, unspecified formulation Nurse/Nathan Wstr Work Phone: [facility] Payers Date Payer Category Payer Private Health Insurance HU[employer]NA [employer] [place] [id number] 2023-Present [address] [address] [place] [address] Medicaid [id number] 2023 Unknown [id number] 2022 Self-pay [id number] 2022 Unknown [id number] 2021 Unknown 2021 Unknown [id number] 2018 Unknown [employer] ACCE SS PPO [id number] 2018-Present [phone] [address] [place] [address] PPO [id number] 1970 Unknown [id number] 94 1970 Unknown [id number] 56 1970 Unknown [id number] 56 1970 Unknown [id number] 56 1970 Unknown [id number] 56 1970 Unknown [id number] 56 1970 Unknown [id number] 56 1970 Unknown [id number] 56 1970 Unknown [id number] 9 1970 Unknown [id number] [id number] 069 1970 Unknown [id number] [id number] 9 1970 Unknown [id number] 069 Unknown [id number] Unknown [id number] Unknown [id number] Unknown [id number] 62 Unknown [id number] 62 Social History Date Type Detail Facility [facility] Start: 10-18-2021 End: 10-18-2021 Tobacco smoking consumption unknown [facility] Start: 1982 Tobacco smoking stat us NVIS Smokes tobacco daily [facility] Start: 1982 History of tobacco use Cigarette Smo ker [facility] Start: 10-03-2018 End: 03-30-2023 Alcohol intake Current non-drinker of alcohol (finding) [facility] Start: 04-26-2018 Tobacco Comment Vaping since 2014. C [facility] Start: 1970 Sex Assigned At Not on file C [facility] Start: 02-19-2020 End: 01-18-2024 Patient ingests cola containing caffeine Patient ingests cola containing caffeine [facility] Start: 09-24-2018 None [facility] Start: 09-24-2018 Spouse/ Signif icant Other [facility] Start: 09-25-2018 - [facility] Start: 1970 Sex Assigned At Female W [facility] Start: 02-19-2020 End: 03-30-2023 Gender identity Not on file [facility] Start: 03-30-2023 Tobacco smoking stat us NHIS Ex-smoker [facility] Start: 1982 History of tobacco use Current smoke r [facility] History of tobacco use Passive smoker [facility] Start: 03-30-2023 Tobacco use and exposure Smokeless tobacco non-user [facility] Adult Depression Screening Assessment 0 [facility] Start: 03-30-2023 Tobacco Comment Vaping since 2 015. also vapes [facility] Start: 03-30-2023 Gender identity Identifies as female gender (finding) [facility] Mental Status Date Assessment Result Facility 10-18-2021 Cognitive function Voice/Name [facility] Work Phone: Clinical Notes 11-13-2007 to 04-11-2024 [address] [facility] - 04/11/2024 10:50 AM ESTTelephone Encounter - Piero Evans MD - 04/09/2024 4:32 PM ESTTelephone Encounter - Piero Evans MD - 04/09/2024 4:32 PM EST Note Date & Type Note Facility 04-11-2024 History of Present illness Narrative Radiology Service Progress Note PATIENT NAME: Kelsie Zeng DATE OF SERVICE: April 11, 2024 TIME: 11:09 AM PATIENT IDENTITY VERIFICATION COMPLETED USING TWO (2) IDENTIFIERS: Name and Date of confirmed by patient verbally. FALL SCREENING: Has the patient had 2 falls in the last year or 1 fall with injury or currently using an Ambulatory Assistive Device (Walker, Cane, Wheelchair, Crutches, etc.)? No PATIENT GENDER DATA: Assigned female at . status: : No status: NO. PATIENT RELEVANT IMPLANT DATA REVIEWED: Not Applicable PATIENT PRESENTS WITH AN IMPLANTABLE OR ATTACHED LEVELER: No RADIOLOGY DEPARTMENT: Mammography PERIPHERAL IV DATA: Not applicable SIGNED BY: Dane Marcial April 11, 2024 11:09 AM documented in this encounter [facility] 04-11-2024 Note HNO ID: [id number] Author: RD H[facility]RY Mammo Tech Service: ? Author Type: Publications Designer Type: Progress Notes Filed: 04/11/2024 11:09 Note Text: Radiology Service Progress Note PATIENT NAME: Kelsie Zeng DATE OF SERVICE: April 11, 2024 TIME: 11:09 AM PATIENT IDENTITY VERIFICATION COMPLETED USING TWO (2) IDENTIFIERS: Name and Date of confirmed by patient verbally. FALL SCREENING: Has the patient had 2 falls in the last year or 1 fall with injury or currently using an Ambulatory Assistive Device (Walker, Cane, Wheelchair, Crutches, etc.)? No PATIENT GENDER DATA: Assigned female at . status: : No status: NO. PATIENT RELEVANT IMPLANT DATA REVIEWED: Not Applicable PATIENT PRESENTS WITH AN IMPLANTABLE OR ATTACHED LEVELER: No RADIOLOGY DEPARTMENT: Mammography PERIPHERAL IV DATA: Not applicable SIGNED BY: Dane Marcial April 11, 2024 11:09 AM [facility] 04-09-2024 Telephone encounter Note Has not been seen since 2019. [facility] 04-09-2024 Miscellaneous Notes Has not been seen since 2019. Could we have a order for a screening mammogram? Pt schedule 04/11. Thanks a million documented in this encounter [facility] 04-09-2024 Telephone encounter Note Could we have a order for a screening mammogram? Pt schedule 04/11. Thanks a million [facility] 08-31-2022 Note Post Operative Note: PreOp Diagnosis: pelvic mass Post-Procedure Diagnosis: fibroid uterus Procedure: 1. Robotic-assisted total laparoscopic hysterectomy 2. Bilateral salpingooophorectomy Surgeon: Dr. Cha Resident/Fellow/Other Mathematics Instructor: Fidelina Shaffer, PGY-3 Anesthesia: general I.V. Fluids: 1600cc crystalloid Estimated Blood Loss (mL): 25 Blood Replacement: none Specimen: yes. uterus, cervix, bilateral fallopian tubes and ovaries, uterine fibroids Complications: none Findings: 7cm R broad ligament uterine fibroid. Bilateral fallopian tubes with Filshie clips in place. Normal appearing bilateral ovaries. Patient Returned To/Condition: PACU in stable condition Urine Output: 400cc Operative Report Dictated: Dictation: not applicable - note contains Operative Report Operative Report: After informed consent was confirmed, the patient was taken to the operating room with an IV in place. A preoperative huddle and timeout were performed, with all OR personnel confirming correct patient and procedure. The patient was moved to the operating room table and SCDs were placed. General anesthesia was induced without difficulty. She was then placed in the dorsal lithotomy position on the operating room table using Johann stirrups. She was prepped and draped in a normal sterile fashion for a robotic assisted laparoscopic hysterectomy. A surgical pause was performed. The patient's identity and surgical procedure were again confirmed by all the surgical personnel. The patient received preoperative antibiotics. A oneill catheter was placed. A Constantino cannula and Kassie uterine manipulator was placed. Final surgical timeout was performed. We then turned our attention to the laparoscopic portion of the operation. An 8mm skin incision was made at Liao's point. The abdomen was then entered via direct optical entry. CO2 was then insufflated into the abdomen. Inspection confirmed no trauma upon entry, and abdominal survey was unremarkable. Additional trocars were placed as follows: two 8 mm robotic trocars in the right abdomen, and one 8 mm robotic trocar in the left abdomen. An 8 mm Airseal trocar replaced the port in the left upper quadrant. All trocars were placed under direct visualization. The patient was placed in steep Trendelenburg and the bowels were moved into the upper abdomen. The [employer] robotic surgical system was brought to the patient's bedside and docked. The left round ligament was transected, the peritoneum was incised and the retroperitoneum entered. The left ureter was identified. The left infundibulopelvic ligament was isolated, cauterized, and transected. The posterior peritoneum was opened toward the Constantino cup. The anterior peritoneum was opened and the bladder flap was created. The right uterine artery was skeletonized, cauterized, and transected at the level of the cup. Attention was turned to the R. The right round ligament was transected, the peritoneum incised, and the retroperitoneum entered. The right ureter was identified. The right infundibulopelvic ligament was isolated, cauterized, and transected. The posterior peritoneum was incised toward the Constantino cup, identifying the ureter along its length. The anterior peritoneum was opened and the bladder flap was created. Due to the size of the posterior fibroid and the course of the ureter, the right uterine artery was cauterized and transected at its origin from the internal iliac artery. We then mobilized the uterine vasculature medially and mobilized the ureter laterally to facilitate safe hysterectomy around the R sided fibroid. A colpotomy was made circumferentially following the contours of the cup. Using electrocautery, the fibroid was transected from the rest of the specimen to accommodate atraumatic removal through the vagina. The uterine specimen including the attached tubes and ovaries was removed through the vagina. The fibroid was then removed through the vagina. All specimens were then sent for permanent section. The vaginal cuff was closed with a running stitch of 0 V-loc suture. The pelvis was copiously irrigated and all operative sites were found to be hemostatic. All instruments were removed and the robot was taken from the patient's bedside. The abdomen was desufflated and all ports were removed. The skin at all incisions was closed with 4-0 Monocryl in a subcuticular fashion. Patient tolerated the procedure well. Sponge, lap, and instrument counts were correct. The oneill was removed at the end of the case. She was extubated and taken to the PACU in stable condition. Attestation: Note Completion: I am a:Resident/Fellow Attending AttestationI was present for the entire procedure Electronic Signatures: Fidelina Shaffer (Resident)) (Signed 31-Aug-2022 15:46) Authored: Post Operative Note, Note Completion Denita Cha) (Signed 01-Sep-2022 08:48 (more content not included)... [facility] 08-31-2022 Miscellaneous Notes Post Operative Note: PreOp Diagnosis: pelvic mass Post-Procedure Diagnosis: fibroid uterus Procedure: 1. Robotic-assisted total laparoscopic hysterectomy 2. Bilateral salpingooophorectomy Surgeon: Dr. Cha Resident/Fellow/Other Mathematics Instructor: Fidelina Shaffer, PGY-3 Anesthesia: general I.V. Fluids: 1600cc crystalloid Estimated Blood Loss (mL): 25 Blood Replacement: none Specimen: yes. uterus, cervix, bilateral fallopian tubes and ovaries, uterine fibroids Complications: none Findings: 7cm R broad ligament uterine fibroid. Bilateral fallopian tubes with Filshie clips in place. Normal appearing bilateral ovaries. Patient Returned To/Condition: PACU in stable condition Urine Output: 400cc Operative Report Dictated: Dictation: not applicable - note contains Operative Report Operative Report: After informed consent was confirmed, the patient was taken to the operating room with an IV in place. A preoperative huddle and timeout were performed, with all OR personnel confirming correct patient and procedure. The patient was moved to the operating room table and SCDs were placed. General anesthesia was induced without difficulty. She was then placed in the dorsal lithotomy position on the operating room table using Johann stirrups. She was prepped and draped in a normal sterile fashion for a robotic assisted laparoscopic hysterectomy. A surgical pause was performed. The patient's identity and surgical procedure were again confirmed by all the surgical personnel. The patient received preoperative antibiotics. A oneill catheter was placed. A Constantino cannula and Kassie uterine manipulator was placed. Final surgical timeout was performed. We then turned our attention to the laparoscopic portion of the operation. An 8mm skin incision was made at Liao's point. The abdomen was then entered via direct optical entry. CO2 was then insufflated into the abdomen. Inspection confirmed no trauma upon entry, and abdominal survey was unremarkable. Additional trocars were placed as follows: two 8 mm robotic trocars in the right abdomen, and one 8 mm robotic trocar in the left abdomen. An 8 mm Airseal trocar replaced the port in the left upper quadrant. All trocars were placed under direct visualization. The patient was placed in steep Trendelenburg and the bowels were moved into the upper abdomen. The [employer] robotic surgical system was brought to the patient's bedside and docked. The left round ligament was transected, the peritoneum was incised and the retroperitoneum entered. The left ureter was identified. The left infundibulopelvic ligament was isolated, cauterized, and transected. The posterior peritoneum was opened toward the Constanitno cup. The anterior peritoneum was opened and the bladder flap was created. The right uterine artery was skeletonized, cauterized, and transected at the level of the cup. Attention was turned to the R. The right round ligament was transected, the peritoneum incised, and the retroperitoneum entered. The right ureter was identified. The right infundibulopelvic ligament was isolated, cauterized, and transected. The posterior peritoneum was incised toward the Constantino cup, identifying the ureter along its length. The anterior peritoneum was opened and the bladder flap was created. Due to the size of the posterior fibroid and the course of the ureter, the right uterine artery was cauterized and transected at its origin from the internal iliac artery. We then mobilized the uterine vasculature medially and mobilized the ureter laterally to facilitate safe hysterectomy around the R sided fibroid. A colpotomy was made circumferentially following the contours of the cup. Using electrocautery, the fibroid was transected from the rest of the specimen to accommodate atraumatic removal through the vagina. The uterine specimen including the attached tubes and ovaries was removed through the vagina. The fibroid was then removed through the vagina. All specimens were then sent for permanent section. The vaginal cuff was closed with a running stitch of 0 V-loc suture. The pelvis was copiously irrigated and all operative sites were found to be hemostatic. All instruments were removed and the robot was taken from the patient's bedside. The abdomen was desufflated and all ports were removed. The skin at all incisions was closed with 4-0 Monocryl in a subcuticular fashion. Patient tolerated the procedure well. Sponge, lap, and instrument counts were correct. The oneill was removed at the end of the case. She was extubated and taken to the PACU in stable condition. Attestation: Note Completion: I am a: Resident/Fellow Attending Attestation I was present for the entire procedure Electronic Signatures: Fidelina Shaffer (Resident)) (Signed 31-Aug-2022 15:46) Authored: Post Operative Note, Note Completion Denita Cha) (Signed 01-Sep-2022 08:48) Authored: Post Operative Note, Note Completion Co-Signer: Post Operative Note, Note Completion Last Updated: 01-Sep-2022 08:48 by Denita Cha) documented in this encounter [facility] Work Phone: 08-31-2022 Note Formatting of this n ote is different from the original. Post Operative Note: PreOp Diagnosis: pelvic mass Post-Procedure Diagnosis: fibroid uterus Procedure: 1. Robotic-assisted total laparoscopic hysterectomy 2. Bilateral salpingooophorectomy Surgeon: Dr. Cha Resident/Fellow/Other Mathematics Instructor: Fidelina Shaffer, PGY-3 Anesthesia: general I.V. Fluids: 1600cc crystalloid Estimated Blood Loss (mL): 25 Blood Replacement: none Specimen: yes. uterus, cervix, bilateral fallopian tubes and ovaries, uterine fibroids Complications: none Findings: 7cm R broad ligament uterine fibroid. Bilateral fallopian tubes with Filshie clips in place. Normal appearing bilateral ovaries. Patient Returned To/Condition: PACU in stable condition Urine Output: 400cc Operative Report Dictated: Dictation: not applicable - note contains Operative Report Operative Report: After informed consent was confirmed, the patient was taken to the operating room with an IV in place. A preoperative huddle and timeout were performed, with all OR personnel confirming correct patient and procedure. The patient was moved to the operating room table and SCDs were placed. General anesthesia was induced without difficulty. She was then placed in the dorsal lithotomy position on the operating room table using Johann stirrups. She was prepped and draped in a normal sterile fashion for a robotic assisted laparoscopic hysterectomy. A surgical pause was performed. The patient's identity and surgical procedure were again confirmed by all the surgical personnel. The patient received preoperative antibiotics. A oneill catheter was placed. A Constantino cannula and Kassie uterine manipulator was placed. Final surgical timeout was performed. We then turned our attention to the laparoscopic portion of the operation. An 8mm skin incision was made at Liao's point. The abdomen was then entered via direct optical entry. CO2 was then insufflated into the abdomen. Inspection confirmed no trauma upon entry, and abdominal survey was unremarkable. Additional trocars were placed as follows: two 8 mm robotic trocars in the right abdomen, and one 8 mm robotic trocar in the left abdomen. An 8 mm Airseal trocar replaced the port in the left upper quadrant. All trocars were placed under direct visualization. The patient was placed in steep Trendelenburg and the bowels were moved into the upper abdomen. The [employer] robotic surgical system was brought to the patient's bedside and docked. The left round ligament was transected, the peritoneum was incised and the retroperitoneum entered. The left ureter was identified. The left infundibulopelvic ligament was isolated, cauterized, and transected. The posterior peritoneum was opened toward the Constantino cup. The anterior peritoneum was opened and the bladder flap was created. The right uterine artery was skeletonized, cauterized, and transected at the level of the cup. Attention was turned to the R. The right round ligament was transected, the peritoneum incised, and the retroperitoneum entered. The right ureter was identified. The right infundibulopelvic ligament was isolated, cauterized, and transected. The posterior peritoneum was incised toward the Constantino cup, identifying the ureter along its length. The anterior peritoneum was opened and the bladder flap was created. Due to the size of the posterior fibroid and the course of the ureter, the right uterine artery was cauterized and transected at its origin from the internal iliac artery. We then mobilized the uterine vasculature medially and mobilized the ureter laterally to facilitate safe hysterectomy around the R sided fibroid. A colpotomy was made circumferentially following the contours of the cup. Using electrocautery, the fibroid was transected from the rest of the specimen to accommodate atraumatic removal through the vagina. The uterine specimen including the attached tubes and ovaries was removed through the vagina. The fibroid was then removed through the vagina. All specimens were then sent for permanent section. The vaginal cuff was closed with a running stitch of 0 V-loc suture. The pelvis was copiously irrigated and all operative sites were found to be hemostatic. All instruments were removed and the robot was taken from the patient's bedside. The abdomen was desufflated and all ports were removed. The skin at all incisions was closed with 4-0 Monocryl in a subcuticular fashion. Patient tolerated the procedure well. Sponge, lap, and instrument counts were correct. The oneill was removed at the end of the case. She was extubated and taken to the PACU in stable condition. Attestation: Note Completion: I am a: Resident/Fellow Attending Attestation I was present for the entire procedure Electronic Signatures: Fidelina Shaffer (Resident)) (Signed 31-Aug-2022 15:46) Authored: Post Operative Note, Note Completion Denita Cha) (Signed 01-Sep-2022 08:48) Authored: Post Operative Note, Note Completion Co-Signer: Post Operative Note, Note Completion Last Updated: 01-Sep-2022 08:48 by Denita Cha) [facility] Work Phone: 08-31-2022 Note History of Present I llness: /Lactating: Are You no (1) Are You Currently Breastfeedingno (1) History Present Illness: Reason for surgery: pelvic mass HPI: 51yo F with pelvic mass presenting for robotic TLH, BSO Preop labs: Hgb 14.2, Plts 270, Cr 0.57 IMAGING: MRI PELVIS W/ CONTRAST 05/12/2022 FINDINGS: UTERUS: The uterus is anteverted and measures 7.4 x 3.1 x 5.8 cm. Please note measurement does not include the mass described below. The thickness of the junctional zone is within normal limits. The endometrium has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 (High), Systolic Blood Pressure greater than 180 mmHg and heart rate LESS THAN 60 beats per minute. labetalol (NORMODYNE) injection 10 mg 10 mg, Intravenous, EVERY 1 HOUR NEEDED, Starting on Mon10/18/21 at 2210, Until Mon10/20/21 at 1544, Systolic Blood Pressure greater than 180 mmHg and heart rate GREATER THAN 60 beats per minute., Hold if Heart Rate LESS THAN 60 beats per minute. For vials: labetalol should be treated as a SINGLE USE VIAL. Discard remaining contents after one use. labetalol (NORMODYNE) injection 20 mg 20 mg, Intravenous, EVERY 10 MINUTES NEEDED, 3 doses, Starting on Mon10/18/21 at 1945, Until Mon10/20/21 at 1544, Administer for systolic blood pressure greater than 180 OR diastolic blood pressure greater than 105. HOLD if heart rate less than 60., Administration duration: up to 20 mg over 2 minutes. Telemetry required except for BUSINESS INFO CONSULTANT patients on [address] 6 and 7. For vials: labetalol should be treated as a SINGLE USE VIAL. Discard remaining contents after one use. polyethylene glycol (MIRALAX) packet 17 g(Linked Group 4) 17 g, Oral, DAILY NEEDED, Starting on Mon10/18/21 at 2210, Until Mon10/20/21 at 1544, Constipation If No Bowel Movement in 48 Hours polyethylene glycol (MIRALAX) packet 17 g(Linked Group 4) 17 g, Per NG tube, DAILY NEEDED, Starting on Mon10/18/21 at 2210, Until Mon10/20/21 at 1544, Constipation If No Bowel Movement in 48 Hours Linked Groups Order Group 1: Enoxaparin Sodium (LOVENOX) injection 40 mgJump to med 40 mg, Subcutaneous, DAILY, First dose on Mon10/20/21 at 0900, Until Discontinued

Indications: DVT/PE prophylaxis And PLATELET COUNT (CANCELED) Routine, EVERY 3 DAYS AM LAB, First occurrence on Mon10/23/21 at 0500, Until Specified, New collection Group 2: senna (SENOKOT) tablet 8.6 mgJump to med 8.6 mg, Oral, DAILY EVERY MORNING, First dose on Mon10/19/21 at 0900, Until Discontinued
Hold if BM in last 2 hours.
Or senna (SENOKOT) tablet 8.6 mgJump to med 8.6 mg, Per NG tube, DAILY EVERY MORNING, First dose on Mon10/19/21 at 0900, Until Discontinued
Hold if BM in last 2 hours.
Group 3: acetaminophen (TYLENOL) tablet 325 mgJump to med 325 mg, Oral, EVERY 4 HOURS NEEDED, Starting on Mon10/18/21 at 2210, Until Mon10/20/21 at 1544, Mild Pain, Moderate Pain
Maximum dose of acetaminophen is 4000 mg from all sources in 24 hours.
Or acetaminophen (TYLENOL) tablet 325 mgJump to med 325 mg, Per NG tube, EVERY 4 HOURS NEEDED, Starting on Mon10/18/21 at 2210, Until Mon10/20/21 at 1544, Mild Pain, Moderate Pain
Maximum dose of acetaminophen is 4000 mg from all sources in 24 hours.
Or acetaminophen (TYLENOL) tablet 650 mgJump to med 650 mg, Oral, EVERY 4 HOURS NEEDED, Starting on Mon10/18/21 at 2210, Until Mon10/20/21 at 1544, Severe Pain, Oral temp > 99.5
Maximum dose of acetaminophen is 4000 mg from all sources in 24 hours.
Or acetaminophen (TYLENOL) tablet 650 mgJump to med 650 mg, Per NG tube, EVERY 4 HOURS NEEDED, Starting on Mon10/18/21 at 2210, Until Mon10/20/21 at 1544, Severe Pain, Oral temp > 99.5
Maximum dose of acetaminophen is 4000 mg from all sources in 24 hours.
Group 4: polyethylene glycol (MIRALAX) packet 17 gJump to med 17 g, Oral, DAILY NEEDED, Starting on Mon10/18/21 at 2210, Until Mon10/20/21 at 1544, Constipation If No Bowel Movement in 48 Hours Or polyethylene glycol (MIRALAX) packet 17 gJump to med 17 g, Per NG tube, DAILY NEEDED, Starting on Mon10/18/21 at 2210, Until Mon10/20/21 at 1544, Constipation If No Bowel Movement in 48 Hours INFORMATION SOURCE (unrecogn ized section and content) DATE CREATED AUTHOR 05/04/2022 [facility] DATE CREATED AUTHOR AUTHOR'S ORGANIZ ATION 07/13/2022 [employer] DATE CREATED AUTHOR AUTHOR'S ORGANIZ ATION 10/19/2022 [facility] DATE CREATED AUTHOR AUTHOR'S ORGANIZ ATION 11/05/2022 [facility] DATE CREATED AUTHOR AUTHOR'S ORGANIZ ATION 02/23/2023 [facility] DATE CREATED AUTHOR AUTHOR'S ORGANIZ ATION 04/16/2024 [facility] Reason for Visit (unrecogniz ed section and content) Reason Comments Other Generalized intra-ab d and pelvic swelling, mass and lump Reason Comments Orders FOR RECORDS PERTAINING TO PATIENTS WHO ARE OR HAVE BEEN ENROLLED IN A CHEMICAL DEPENDENCY/SUBSTANCEABUSE PROGRAM, SOME INFORMATION MAY BE OMITTED. This clinical summary was aggregated from multiple sources. Caution should be exercised in using it in the provision of clinical care. This summary normalizes information from multiple sources, and as a consequence, information in this document may materially change the coding, format and clinical context of patient data. In addition, data may be omitted in some cases. CLINICAL DECISIONS SHOULD BE BASED ON THE PRIMARY CLINICAL RECORDS. [employer] provides no warranty or guarantee of the accuracy or completeness of information in this document.
--- NOTE | 2025-01-12 09:32 | CT_ITS ---
PROCEDURE: STROKE BRAIN/HEAD WITHOUT CONT 01/12/2025 REASON FOR EXAM: NEURO DEFICIT, ACUTE, STROKE SUSPECTED TECHNIQUE: Procedure Code: CTBR.ST Modality: CT Procedure: STROKE BRAIN/HEAD WITHOUT CONT Coronal and Sagittal reconstruction series were provided. One or more dose reduction techniques were used (e.g., Automated exposure control, adjustment of the mA and/or kV according to patient size, use of iterative reconstruction technique. RADIATION DOSE SUMMARY: CTDlvol: 44.99 mGy DLP: 796.11 mGycm COMPARISON: None FINDINGS: There is a chronic basal ganglia lacunar infarct likely present on the left. There is no evidence of acute intracranial hemorrhage or mass effect noted. Orbits are unremarkable. Paranasal sinuses and mastoid air cells are clear. Calvarium is intact. CT/STROKE Brain/Head without Cont IMPRESSION: No acute intracranial process. If concern for infarction persists, I recommend MRI with diffusion-weighted imaging if clinically indicated. Results were reported to Dr. Zaragoza at 9:40 a.m. EST on 01/12/2025. Reading Location[facility]
--- NOTE | 2025-01-12 09:40 | CT_ITS ---
PROCEDURE: STROKE CTA HEAD AND NECK W/CON 01/12/2025 REASON FOR EXAM: NEURO DEFICIT, ACUTE, STROKE SUSPECTED TECHNIQUE: Procedure Code: CTCTA.ST.HN Modality: CT Procedure: STROKE CTA HEAD AND NECK W/CON Multiplanar Sagittal and Coronal images were obtained. CONTRAST: Isovue 370 VOLUME: 95 mL One or more dose reduction techniques were used (e.g., Automated exposure control, adjustment of the mA and/or kV according to patient size, use of iterative reconstruction technique). RADIATION DOSE SUMMARY: DLP: 553.4 mGycm COMPARISON: None. FINDINGS: Aortic Arch: Not visualized. Brachiocephalic and Subclavians: Imaged portions are normal bilaterally. RIGHT Carotid: Right CCA: Normal. No stenosis or plaque. No dissection. Right ICA: Normal. Maximum stenosis (NASCET): 0 % Right ECA: Normal. LEFT Carotid: Left CCA: Normal. No plaque, stenosis, or dissection. Left ICA: Unremarkable. Maximum stenosis (NASCET): 0 % Left ECA: Unremarkable. Vertebrals: RIGHT Vertebral: Non dominant, without stenosis or occlusion. Distal right vertebral artery ends in PICA, a normal developmental variation. LEFT Vertebral: Dominant vessel and unremarkable. Aneurysm or avm: None. Anterior cerebral arteries: Normal bilaterally. Middle cerebral arteries: Normal bilaterally. Basilar artery: Normal. Posterior cerebral arteries: origin of the left BOOKIE. No stenosis or occlusion on either side. Other major branches of the posterior circulation: Major venous structures: No dural venous sinus thrombus. Other findings: Minimal linear scarring or atelectasis at the medial right lung apex. No significant incidental findings. Moderate degenerative change at C3-C4 and C6-C7. CT/STROKE CTA Head AND Neck W/Con IMPRESSION: Negative CTA head/neck. No large vessel occlusion or stenosis. No aneurysm id entified. Reading Location: [facility]
[2025-01-12 09:53] LABS: Hematocrit 42.8 % (37-47); Hemoglobin 14.5 g/dL (12.0-15.0); Immature Granulocytes Count 0.040 X10^3/uL (0.0-0.0); Mean Corp Hgb Conc 33.9 g/dL (32-36); Mean Corpuscular Volume 96.0 fL (81-99); Mean Platelet Vol. 10.9 fl (6.2-12.0); NRBC Flagged by Analyzer 0 % (0-5); Platelet Count 290 K/mm3 (150-450); RBC Distribution Width CV 12.2 % (11.6-14.6); RBC Distribution Width SD 42.2 fl (35.1-43.9); Red Blood Count 4.46 M/mm3 (4.2-5.4); White Blood Count 8.2 K/mm3 (4.4-11.0)
[2025-01-12 10:03] LABS: Partial Thromboplast Time 30.0 Seconds (24.1-36.2); Prothrombin Time (Protime)PT. 13.0 SECONDS (11.7-14.9)
[2025-01-12 10:13] LABS: Anion Gap 11 (5-15); BUN 11 mg/dL (4-19); BUN/Creat Ratio 18.1 RATIO (10-20); Calcium,Total 9.3 mg/dL (7.6-11.0); Carbon Dioxide 22.2 mmol/L (21.0-32.0); Chloride 104 mmol/L (98-108); Estimated Creatinine Clearance 97.00 ml/min (50-250); Glucose 97 mg/dL (70-99); Potassium 4.0 mmol/L (3.3-5.1); Troponin T High Sensitivity < 6 ng/L (<=14)
--- NOTE | 2025-01-12 11:27 | PCM.HP.STD ---
HPI - General General Date of Admission: 01/12/25 Date of Service: 01/12/25 Chief Complaint: Numbness of lower part of face and any speech abnormality HPI Narrative COLE ZENG, is a 54 F who arrived to ER with strokelike symptoms. Stroke alert was called by nursing staff in triage. Patient complaining of numbness on lower part of face and neck along with hazy vision without complete loss of vision/blindness and speech abnormality. As per the patient she was not able to speak and then was slurring and difficulty in putting words together. NIH stroke scale 0. Symptoms of a speech abnormality and ADB is not completely resolved. Initial evaluation in ED shows NIH stroke scale [address] head and CTA head and neck. Patient was further admitted for stroke workup. As per patient she had symptoms of TIA about 3 years ago. Patient does not remember/could not tell what were those symptoms. [facility] Medical History Encounter for screening for COVID-19 URI (upper respiratory infection) Anemia Shoulder pain Acute hemorrhoid Home Medications ?Medication ?Instructions ?Recorded ?Last Taken ?Type estradiol 1 mg tablet 1 mg PO DAILY 01/12/25 Unknown History loratadine 10 mg tablet (Claritin) 10 mg PO DAILY allergies 01/12/25 Unknown History Allergy/AdvReac Type Severity Reaction Status Date / Time ibuprofen Allergy Severe Unknown Verified 01/12/25 09:25 naproxen Allergy Severe unknown Verified 01/12/25 09:25 Surgical History H/O: hysterectomy History of cholecystectomy Social History Smoking Status: Former smoker alcohol intake: never ROS ROS Narrative Constitutional: Reports fatigue and weakness. No fever. HEENT: Reports systems reviewed and no addt'l complaints, except as documented Respiratory/Chest: No acute shortness of breath or respiratory distress or wheezing. CVS: No chest pain pressure or tightness. Gastrointestinal: Denies coffee ground emesis, hematemesis or vomiting Genitourinary: Denies burning urination or new urinary tract symptoms Musculoskeletal: Denies acute joint pain or limited range of motion. No acute injury Neurologic: Denies seizure-like symptoms. Rest as described in HPI Psychiatric: Denies anxiety or depression. Not on Ativan for many years. skin: No ulcer. No rash Endocrinology: Reports systems reviewed and no addt'l complaints, except as documented Hematologic/Lymphatic: Reports systems reviewed and no addt'l complaints, except as documented Rest 14 ROS are negative except as mentioned in HPI Vital Signs Vital Signs Vital Signs: 01/12/25 09:25 01/12/25 09:28 01/12/25 09:48 Temperature 98.3 F Temperature Source Temporal Pulse Rate 78 63 Respiratory Rate 18 21 H Blood Pressure 145/78 H 136/71 H Blood Pressure Mean 100 92 Pulse Ox 100 100 Oxygen Delivery Method Room Air Room Air Room Air 01/12/25 09:50 01/12/25 09:56 01/12/25 10:04 Temperature 98.3 F Temperature Source Temporal Pulse Rate 78 64 60 Respiratory Rate 18 17 20 H Blood Pressure 145/78 H 157/78 H Blood Pressure Mean 100 104 Pulse Ox 100 98 100 Oxygen Delivery Method Room Air Room Air 01/12/25 10:15 Temperature Temperature Source Pulse Rate 57 L Respiratory Rate 21 H Blood Pressure 139/67 H Blood Pressure Mean 85 Pulse Ox Oxygen Delivery Method Weight Weight: 145 lb 9.6 oz Body Mass Index (BMI) 25.0 Physical Exam Narrative General: Alert, Oriented x3, Cooperative. BMI 25.3 kg/m? HEENT: Atraumatic, PERRLA, EOMI, Normocephalic. Oral: No Gingival or Mucosal Lesions/ Ulcerations Neck: Supple, No JVD, Negative Carotid Bruits Chest wall/Lungs: Air entry diminished in bilateral lung bases. No crepitation/rhonchi Cardiovascular: Regular rate and rhythm, Normal S1,S2, systolic murmur right second ICS mass LLSB with radiation to carotid Abdomen: Bowel Sounds Present, Soft, Non Tender, Non-Distended : No dysuria. No renal angle tenderness. No suprapubic tenderness. Extremities: No edema, Capillary Refill Less than 3 Seconds Skin: No rashes, No breakdown Musculoskeletal: No Tenderness to Palpation of Joints or Extremities. ROM intact. Muscle strength 5/5 at major joint Neurological: Cranial nerves II-XII grossly intact, DTR 2+/4. No acute focal neurological deficit. NIH stroke scale 0. Psych/Mental Status: Normal Affect, Appropriate. Results Lab / Micro Data 01/12/25 09:40 01/12/25 09:40 Labs: Laboratory Results - last 24 hr 01/12/25 09:26: POC Glucose 92 01/12/25 09:40: WBC 8.2, RBC 4.46, Hgb 14.5, Hct 42.8, MCV 96.0, MCH 32.5 H, MCHC 33.9, RDW Std Deviation 42.2, RDW Coeff of Kishore 12.2, Plt Count 290, MPV 10.9, Immature Gran % (Auto) 0.500, Neut % (Auto) 61.0, Lymph % (Auto) 30.6, Gila % (Auto) 6.3, Eos % (Auto) 1.0, Baso % (Auto) 0.6, Absolute Neuts (auto) 5.0, Absolute Lymphs (auto) 2.51, Nucleated RBC % 0, PT 13.0, INR 1.0, APTT 30.0, Sodium 137, Potassium 4.0, Chloride 104, Carbon Dioxide 22.2, Anion Gap 11, BUN 11, Creatinine 0.62 L, Estim Creat Clear Calc 97.00, Est GFR (MDRD) Non-Af 106, BUN/Creatinine Ratio 18.1, Glucose 97, Calcium 9.3, Troponin T High Sens < 6 Imaging Radiology Impression Brain CT 01/12/25 09:32 IMPRESSION: No acute intracranial process. If concern for infarction persists, I recommend MRI with diffusion-weighted imaging if clinically indicated. Results were reported to Dr. Zaragoza at 9:40 a.m. EST on 01/12/2025. Reading Location[facility] Head/Neck CTA 01/12/25 09:40 IMPRESSION: Negative CTA head/neck. No large vessel occlusion or stenosis. No aneurysm identified. Reading Location: [facility] Assessment & Plan Assessment/Plan (1) TIA (transient ischemic attack): PLAN: Plan This is 54-year-old female being admitted for workup for possible TIA 1. Possible TIA: She had symptoms of TIA about 3 years ago. Patient is being admitted to PCU. Brain CT and head and neck CTA unremarkable. No LVO or aneurysm identified. Twelve-lead EKG, individually reviewed, NSR 60 bpm, QTc 434 ms. PT, OT, speech therapy/swallow evaluation and management, nursing NIH stroke scale, BP and glucose monitoring and control as per stroke protocol. TSH, A1c fasting lipid profile tomorrow AM. MRI brain and 2D echo with bubble contrast study ordered. Her previous echo shows no Doppler evidence of ASD/ Bubble contrast read negative for [id number] interatrial shunt. Glucose is normal. Serial troponin normal. BP within stroke guidelines. 2. Murmur: Possible TR: Previous echo in September 2018 shows trivial TR and MR 3. 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 No acute dizziness/vertigo now. 4. DVT prophylaxis: Moderate risk. On enoxaparin 40 mg subcu daily. Living will/advanced directive/end of life care: Patient does not have living will or advanced directive. She does not have designated power of personnel specialist for health but present in room is next of kin. After discussion of benefits/risks procedures involved with full code, DNR CC arrest and DNR CC, the patient opted for full code. Patient does want artificial life support including intubation, tube feed, ventilator and/chest compression, central venous catheter, vasopressor and DC shock if needed Total time spent in [id number] encounter in discussion of advanced directive 17 minutes. Laboratory Results 01/12/25 09:26: POC Glucose 92 01/12/25 09:40: WBC 8.2, RBC 4.46, Hgb 14.5, Hct 42.8, MCV 96.0, MCH 32.5 H, MCHC 33.9, RDW Std Deviation 42.2, RDW Coeff of Kishore 12.2, Plt Count 290, MPV 10.9, Immature Gran % (Auto) 0.500, Neut % (Auto) 61.0, Lymph % (Auto) 30.6, Gila % (Auto) 6.3, Eos % (Auto) 1.0, Baso % (Auto) 0.6, Absolute Neuts (auto) 5.0, Absolute Lymphs (auto) 2.51, Nucleated RBC % 0, PT 13.0, INR 1.0, APTT 30.0, Sodium 137, Potassium 4.0, Chloride 104, Carbon Dioxide 22.2, Anion Gap 11, BUN 11, Creatinine 0.62 L, Estim Creat Clear Calc 97.00, Est GFR (MDRD) Non-Af 106, BUN/Creatinine Ratio 18.1, Glucose 97, Calcium 9.3, Troponin T High Sens < 6 01/12/25 11:40: Troponin T Hi Sens 2 Hr 8 01/12/25 13:05: Troponin T Hi Sens 4Hr < 6 Clinical Impression(s) from Imaging Studies Brain CT 01/12/25 09:32 IMPRESSION: No acute intracranial process. If concern for infarction persists, I recommend MRI with diffusion-weighted imaging if clinically indicated. Results were reported to Dr. Zaragoza at 9:40 a.m. EST on 01/12/2025. Reading Location: [facility] Head/Neck CTA 01/12/25 09:40 IMPRESSION: Negative CTA head/neck. No large vessel occlusion or stenosis. No aneurysm identified. Reading Location: [id number] Charges/Coding Visit Charges Inpatient E&M: 49414 Init Hosp L3 Procedures Hospitalists Procedures: 96554 Advncd Care Plan 30 Min
--- OUTSIDE RECORDS SUMMARY | 2025-01-12 11:43 | XMS RPT_ITS | CCD ---
Author Organization [facility] Care Team Providers Care Residential Solar Sales Consultant Name Role Phone Free, Text Entry Unavailable [...] Unavailable Butch , Nestor Primary Care Provider [phone] Rommel Rae Chi Attending Unavailable Care Physician, No Primary Primary Care Unava ilable Rommel Rae Chi Attending Unavailable ButchRommel ring Chi Primary Care Unavailable ButchRommel ring Chi Primary Care Provider PIERO EVANS Primary Care Unavailable PIERO EVANS Primary Care Unavailable ROMMEL RAE CHI Primary Care Unavailable Allergies Allergy Classification Reported Allergen(s) Allergy Type Date of Onset Reaction(s) Facility (18 sources) Ibuprofen; Translations: [Ibuprofen TABS] Drug Allergy 1 Hives [facility] (18 sources) Naproxen; Translations: [Naproxen TABS] Drug Allergy 8 Hives, Swelling [facility] (5 sources) Naproxen; Translations: [NAPROXEN SODIUM] Drug Allergy 8 Hives, Swelling (1 source) Ibuprofen Drug Allergy 1 [facility] (1 source) Naproxen Drug Allergy 1 [facility] Medications Current Medications Medication Drug [...] by prescriber. take 1 capsule by mo [facility] three times daily amoxicillin 500 mg oral [...] oral solution (2 sources) alpha-Adrenergic Agonist, Uncompetitive Q-sueadi-Q-aspartate Receptor Antagonist, Sigma-1 Agonist Start: 10-11-2021 take 5-10 mL by mouth every four to six hours as needed for cough Zxblczrhq-Fezzwsum-GT 30-2-10 MG/5ML Oral Syrup take 5-10 mL [...] DATE OF EXAM: Apr 11 2024 11:01AM [facility] 0582 - WENDY SCREENING W YANG / PROCEDURE REASON: Encounter for screening mammogram for breast cancer * * * * Physician Interpretation * * * * RESULT: [place] [address] #[id number] - WENDY SCREENING W YANG HISTORY: 53 [...] Pamela Simeon M.D. Electronically signed on: 04/15/2024 Cattle Rancher: TANISHA Transcribe Date/Time: Apr 11 2024 10:50A Dictated by: PAMELA SIMEON MD This examination was interpreted and the report reviewed and electronically signed by: PAMELA SIMEON MD on Apr 15 2024 11:33AM EST [id number] Normal 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] 11/13/2007 04/26/2018 Painful respiration [R07.1] 11/13/2007 04/26/2018 Primary osteoarthritis of both knees [M17.0] 04/26/2018 Perimenopausal vasomotor symptoms [N95.1] 04/26/2018 Encounter Status:Closed by ANGELES JONES on 04/09/24 Normal [facility] CBC panel Auto (Bld)on 04-08 Erythrocyte distribution width (RBC) [Ratio] 12.1 % Normal 11.5-15.0 [facility] Comment on above: Order Comment: Jessica gallegos Type: BLOOD SPECIMEN Ordering Facility: External Submitter Address: , , Performed By: #### 5 8410-2 #### [facility] CLIA [id number] [address] [place] [address] [place] Hematocrit (Bld) [Volume fraction] 40.5 % Normal 36.0-46.0 [facility] Comment on above: Order Comment: Jessica gallegos Type: BLOOD SPECIMEN Ordering Facility: External Submitter Address: , , Performed By: #### 5 8410-2 #### [facility] CLIA [id number] [address] [place] [address] [place] Hemoglobin (Bld) [Mass/Vol] 13.3 g/dL Normal 11.5-15.5 [facility] Comment on above: Order Comment: Jessica gallegos Type: BLOOD SPECIMEN Ordering Facility: External Submitter Address: , , Performed By: #### 5 8410-2 #### [facility] CLIA [id number] [address] [place] [address] [place] MCH (RBC) [Entitic mass] 32.8 pg Normal 26.0-34.0 [facility] Comment on above: Order Comment: Speci men Type: BLOOD SPECIMEN Ordering Facility: External Submitter Address: , , Performed By: #### 5 8410-2 #### [facility] CLIA [id number] [address] [place] [address] [place] MCHC (RBC) [Mass/Vol] 32.8 g/dL Normal 30.5-36.0 [facility] Comment on above: Order Comment: Speci men Type: BLOOD SPECIMEN Ordering Facility: External Submitter Address: , , Performed By: #### 5 8410-2 #### [facility] CLIA [id number] [address] [place] [address] [place] MCV (RBC) [Entitic vol] 100.0 fL Normal 80.0-100.0 [facility] Comment on above: Order Comment: Speci men Type: BLOOD SPECIMEN Ordering Facility: External Submitter Address: , , Performed By: #### 5 8410-2 #### [facility] CLIA [id number] [address] [place] [address] [place] Nucleated RBC (Bld) [#/Vol] 10*3/uL Normal <0.01 [facility] Comment on above: Order Comment: Speci men Type: BLOOD SPECIMEN Ordering Facility: External Submitter Address: , , Performed By: #### 5 8410-2 #### [facility] CLIA [id number] [address] [place] [address] [place] Platelet mean volume (Bld) [Entitic vol] 11.4 fL Normal 9.0-12.7 [facility] Comment on above: Order Comment: Speci men Type: BLOOD SPECIMEN Ordering Facility: External Submitter Address: , , Performed By: #### 5 8410-2 #### [facility] CLIA [id number] [address] [place] [address] [place] Platelets (Bld) [#/Vol] 266 10*3/uL Normal 150-400 [facility] Comment on above: Order Comment: Speci men Type: BLOOD SPECIMEN Ordering Facility: External Submitter Address: , , Performed By: #### 5 8410-2 #### [facility] CLIA [id number] [address] [place] [address] [place] RBC (Bld) [#/Vol] 4.05 10*6/uL Normal 3.90-5.20 [facility] Comment on above: Order Comment: Speci men Type: BLOOD SPECIMEN Ordering Facility: External Submitter Address: , , Performed By: #### 5 8410-2 #### [facility] CLIA [id number] [address] [place] [address] [place] WBC (Bld) [#/Vol] 6.87 10*3/uL Normal 3.70-11.00 [facility] Comment on above: Order Comment: Speci men Type: BLOOD SPECIMEN Ordering Facility: External Submitter Address: , , Performed By: #### 5 8410-2 #### [facility] CLIA [id number] [address] [place] [address] [place] Comprehensive metabolic 2000 panelon 04-08-2024 Albumin [Mass/Vol] 4.0 g/dL Normal 3.9-4.9 [facility] Comment on above: Order Comment: Speci men Type: BLOOD SPECIMEN Ordering Facility: External Submitter Address: , , Performed By: #### 2 4331-1, 3, #### [facility] CLIA [id number] [address] [place] [address] [place] ALP [Catalytic activity/Vol] 84 U/L Normal 34-123 [facility] Comment on above: Order Comment: Speci men Type: BLOOD SPECIMEN Ordering Facility: External Submitter Address: , , Performed By: #### 2 4331-1, 3015-3, #### [facility] CLIA [id number] [address] [place] [address] [place] ALT [Catalytic activity/Vol] 16 U/L Normal 7-38 [facility] Comment on above: Order Comment: Speci men Type: BLOOD SPECIMEN Ordering Facility: External Submitter Address: , , Performed By: #### 2 4331-1, 3015-05, #### [facility] CLIA [id number] [address] [place] [address] [place] Anion gap [Moles/Vol] 11 mmol/L Normal 8-15 [facility] Comment on above: Order Comment: Speci men Type: BLOOD SPECIMEN Ordering Facility: External Submitter Address: , , Performed By: #### 2 4331-1, 3015-05, #### [facility] CLIA [id number] [address] [place] [address] [place] AST [Catalytic activity/Vol] 20 U/L Normal 13-35 [facility] Comment on above: Order Comment: Speci men Type: BLOOD SPECIMEN Ordering Facility: External Submitter Address: , , Performed By: #### 2 4331-1, 3015-05, #### [facility] CLIA [id number] [address] [place] [address] [place] Bilirubin [Mass/Vol] 0.3 mg/dL Normal 0.2-1.3 [facility] Comment on above: Order Comment: Speci men Type: BLOOD SPECIMEN Ordering Facility: External Submitter Address: , , Performed By: #### 2 4331-1, 3015-05, #### [facility] CLIA [id number] [address] [place] [address] [place] Calcium [Mass/Vol] 9.5 mg/dL Normal 8.5-10.2 [facility] Comment on above: Order Comment: Speci men Type: BLOOD SPECIMEN Ordering Facility: External Submitter Address: , , Performed By: #### 2 4331-1, 3, #### [facility] CLIA [id number] [address] [place] [address] [place] Chloride [Moles/Vol] 105 mmol/L Normal 98-107 [facility] Comment on above: Order Comment: Speci men Type: BLOOD SPECIMEN Ordering Facility: External Submitter Address: , , Performed By: #### 2 4331-1, 3, #### [facility] CLIA [id number] [address] [place] [address] [place] CO2 [Moles/Vol] 23 mmol/L Normal 22-30 [facility] Comment on above: Order Comment: Speci men Type: BLOOD SPECIMEN Ordering Facility: External Submitter Address: , , Performed By: #### 2 4331-1, 3015-05, #### [facility] CLIA [id number] [address] [place] [address] [place] Creatinine [Mass/Vol] 0.65 mg/dL Normal 0.58-0.96 [facility] Comment on above: Order Comment: Speci men Type: BLOOD SPECIMEN Ordering Facility: External Submitter Address: , , Performed By: #### 2 4331-1, 3015-05, #### [facility] CLIA [id number] [address] [place] [address] [facility] Creatinine and Glomerular filtration rate.predicted panel (S/P/Bld) 105 mL/min/1.73m??? Normal >=60 [facility] Comment on above: Order Comment: Speci [...] Performed By: #### 2 4331-1, 3015-05, #### [facility] CLIA [id number] [address] [address] [place] Glucose [Mass/Vol] 75 mg/dL Normal 74-99 [facility] Comment on above: Order Comment: Jessica gallegos Type: BLOOD SPECIMEN Ordering Facility: External Submitter Address: , , Result Comment: The [place] Diabetes Association (ADA) provides guidance for cutoff [...] Standards of Medical Care in Diabetes 2016, [place] [employer]. Diabetes Care. 2016.39(Suppl 1). Performed By: #### 2 4331-1, 3015-05, #### [facility] CLIA [id number] [address] [address] [place] Potassium [Moles/Vol] 4.0 mmol/L Normal 3.7-5.1 [facility] Comment on above: Order Comment: Jessica gallegos Type: BLOOD SPECIMEN Ordering Facility: External Submitter Address: , , Performed By: #### 2 4331-1, 3015-05, #### [facility] CLIA [id number] [address] [address] [place] Protein [Mass/Vol] 6.7 g/dL Normal 6.3-8.0 [facility] Comment on above: Order Comment: Jessica gallegos Type: BLOOD SPECIMEN Ordering Facility: External Submitter Address: , , Performed By: #### 2 4331-1, 3015-3, #### [facility] CLIA [id number] [address] [place] [address] [place] Sodium [Moles/Vol] 139 mmol/L Normal 136-144 [facility] Comment on above: Order Comment: Speci men Type: BLOOD SPECIMEN Ordering Facility: External Submitter Address: , , Performed By: #### 2 4331-1, 3, #### [facility] CLIA [id number] [address] [place] [address] [place] Urea nitrogen [Mass/Vol] 10 mg/dL Normal 7-21 [facility] Comment on above: Order Comment: Speci men Type: BLOOD SPECIMEN Ordering Facility: External Submitter Address: , , Performed By: #### 2 4331-1, 3015-05, #### [facility] CLIA [id number] [address] [place] [address] [place] Lipid 1996 panelon 5 Cholesterol [Mass/Vol] 186 mg/dL Normal <200 [facility] Comment on above: Order Comment: Speci men Type: BLOOD SPECIMEN Ordering Facility: External Submitter Address: , , Result Comment: <200 mg/dL, Desirable 200-239 mg/dL, Borderline high >239 mg/dL, High Performed By: #### 2 4331-1, 3, #### [facility] CLIA [id number] [address] [place] [id number] [place] Cholesterol in HDL [Mass/Vol] 54 mg/dL Normal >39 [facility] Comment on above: Order Comment: Speci men Type: BLOOD SPECIMEN Ordering Facility: External Submitter Address: , , Result Comment: 40-5 9 mg/dL, Acceptable >59 mg/dL, High: Negative risk factor for coronary heart disease <40 mg/dL, Low: Positive risk factor for coronary heart disease Performed By: #### 2 4331-1, 3015-3, #### [facility] CLIA [id number] [address] [place] [address] [place] Cholesterol in LDL [Mass/Vol] 99 mg/dL Normal <100 [facility] Comment on above: Order Comment: Speci men Type: BLOOD SPECIMEN Ordering Facility: External Submitter Address: , , Result Comment: <100 mg/dL, Optimal 100-129 mg/dL, Near optimal/above optimal 130-159 mg/dL, Borderline high 160-189 mg/dL, High >189 mg/dL, Very high Secondary prevention optimal LDL Cholesterol levels are recommended to be < 70 mg/dL Performed By: #### 2 4331-1, 3015-05, #### [facility] CLIA [id number] [address] [place] [address] [place] Cholesterol in LDL/Cholesterol in HDL [Mass ratio] 1.83 {ratio} Normal <2.54 [facility] Comment on above: Order Comment: Jessica gallegos Type: BLOOD SPECIMEN Ordering Facility: External Submitter Address: , , Result Comment: Deisi kohler: 1. National Cholesterol Education Program ATP III Guideline At-A-Glance Quick Desk Reference: National Heart, Lung, and Blood [place]. National Institutes of Health. 2001: NIH Publication No. 01-3305. 2. An International Atherosclerosis Society position paper: global recommendations for the management of dyslipidemia: executive summary, Atherosclerosis. 2014: 232(2):410-413. Performed By: #### 2 4331-1, 3015-05, #### [facility] CLIA [id number] [address] [place] [address] [place] Cholesterol in VLDL [Mass/Vol] 33 mg/dL High <30 [facility] Comment on above: Order Comment: Jessica men Type: BLOOD SPECIMEN Ordering Facility: External Submitter Address: , , Performed By: #### 2 4331-1, 3, #### [facility] CLIA [id number] [address] [place] [address] [place] Cholesterol non HDL [Mass/Vol] 132 mg/dL High <130 [facility] Comment on above: Order Comment: Fcoi men Type: BLOOD SPECIMEN Ordering Facility: External Submitter Address: , , Result Comment: <130 mg/dL, Optimal 130-159 mg/dL, Near optimal/above optimal 160-189 mg/dL, Borderline high 190-219 mg/dL, High >219 mg/dL, Very high Secondary prevention optimal non HDL Cholesterol levels are recommended to be <100 mg/dL Performed By: #### 2 4331-1, 3015-3, #### [facility] IA [id number] [address] [place] [address] [place] Cholesterol.total/Ch olesterol in HDL [Mass ratio] 3.44 {ratio} Normal <5.10 [facility] Comment on above: Order Comment: Speci men Type: BLOOD SPECIMEN Ordering Facility: External Submitter Address: , , Performed By: #### 2 4331-1, 3, #### [facility] IA [id number] [address] [place] [address] [place] FASTING TIME 15 hrs Normal [facility] Comment on above: Order Comment: Fcoi men Type: BLOOD SPECIMEN Ordering Facility: External Submitter Address: , , Performed By: #### 2 4331-1, 3, #### [facility] IA [id number] [address] [place] [address] [place] Triglyceride [Mass/Vol] 165 mg/dL High <150 [facility] Comment on above: Order Comment: Fcoi men Type: BLOOD SPECIMEN Ordering Facility: External Submitter Address: , , Result Comment: <150 mg/dL, Normal 150-199 mg/dL, Borderline high 200-499 mg/dL, High >499 mg/dL, Very high Performed By: #### 2 4331-1, 3015-3, #### [facility] CLIA [id number] [address] [place] [address] [place] TSH SerPl-aCncon 04-08-2024 TSH Qn 1.480 m[IU]/L Normal 0.270-4.200 [facility] Comment on above: Order Comment: Speci men Type: BLOOD SPECIMEN Ordering Facility: External Submitter Address: , , Performed By: #### 2 4331-1, 3016-3, #### [facility] CLIA [id number] [address] [place] [address] [place] 25(OH)D3 SerPl-mCncon 2023 25-hydroxyvitamin D3 [Mass/Vol] 23.4 ng/mL Low 31.0-80.0 [facility] Comment on above: Order Comment: Speci men Type: BLOOD SPECIMENOrdering Facility: [facility] Address: ATTN: LABORATORY, [place] [address] Result Comment: Clas sification of 25 OH Vitamin D status: Deficiency/Insufficiency: < or = 30 ng/ml. Sufficiency/Optimal Levels: 31-80 ng/mL Toxicity: > 100 ng/mL. Test performed by chemiluminescent immunoassay. Performed By: #### 1 989-3 ####[facility] [id number] [place] [address] [place] CBC W Auto Differential pane l (Bld)on 10-04-2023 Basophils (Bld) [#/Vol] 0.05 10*3/uL Normal <0.11 [facility] Comment on above: Order Comment: Speci men Type: BLOOD SPECIMEN Ordering Facility: [facility] Address: ATTN: LABORATORY, [place] [address] Performed By: #### 5 7021-8 #### [facility] CLIA [id number] [address] [place] [id number] [place] Basophils/100 WBC (Bld) 0.6 % Normal [facility] Comment on above: Order Comment: Speci men Type: BLOOD SPECIMEN Ordering Facility: [facility] Address: ATTN: LABORATORY, [place] [address] Performed By: #### 5 7021-8 #### [facility] CLIA [id number] [address] [place] [address] [place] Differential cell count method Nom (Bld) Auto Normal [facility] Comment on above: Order Comment: Speci men Type: BLOOD SPECIMEN Ordering Facility: [facility] Address: ATTN: LABORATORY, [place] [address] Performed By: #### 5 7021-8 #### [facility] CLIA [id number] [address] [place] [address] [place] Eosinophils (Bld) [#/Vol] 0.06 10*3/uL Normal <0.46 [facility] Comment on above: Order Comment: Speci men Type: BLOOD SPECIMEN Ordering Facility: [facility] Address: ATTN: LABORATORY, [place] [address] Performed By: #### 5 7021-8 #### [facility] CLIA [id number] [address] [place] [address] [place] Eosinophils/100 WBC (Bld) 0.7 % Normal [facility] Comment on above: Order Comment: Speci men Type: BLOOD SPECIMEN Ordering Facility: [facility] Address: ATTN: LABORATORY, [place] [address] Performed By: #### 5 7021-8 #### [facility] CLIA [id number] [address] [place] [address] [place] Erythrocyte distribution width (RBC) [Ratio] 12.2 % Normal 11.5-15.0 [facility] Comment on above: Order Comment: Speci men Type: BLOOD SPECIMEN Ordering Facility: [facility] Address: ATTN: LABORATORY, [place] [address] Performed By: #### 5 7021-8 #### [facility] CLIA [id number] [address] [place] [address] [place] Hematocrit (Bld) [Volume fraction] 41.2 % Normal 36.0-46.0 [facility] Comment on above: Order Comment: Speci men Type: BLOOD SPECIMEN Ordering Facility: [facility] Address: ATTN: LABORATORY, [place] [address] Performed By: #### 5 7021-8 #### [facility] CLIA [id number] [address] [place] [address] [place] Hemoglobin (Bld) [Mass/Vol] 13.5 g/dL Normal 11.5-15.5 [facility] Comment on above: Order Comment: Speci men Type: BLOOD SPECIMEN Ordering Facility: [facility] Address: ATTN: LABORATORY, [place] [address] Performed By: #### 5 7021-8 #### [facility] CLIA [id number] [address] [place] [address] [place] Immature granulocytes (Bld) [#/Vol] 0.17 10*3/uL High <0.10 [facility] Comment on above: Order Comment: Speci men Type: BLOOD SPECIMEN Ordering Facility: [facility] Address: ATTN: LABORATORY, [place] [address] Performed By: #### 5 7021-8 #### [facility] CLIA [id number] [address] [place] [address] [place] Immature granulocytes/100 WBC (Bld) 1.9 % Normal [facility] Comment on above: Order Comment: Speci men Type: BLOOD SPECIMEN Ordering Facility: [facility] Address: ATTN: LABORATORY, [place] [address] Performed By: #### 5 7021-8 #### [facility] CLIA [id number] [address] [place] [address] [place] Lymphocytes (Bld) [#/Vol] 2.15 10*3/uL Normal 1.00-4.00 [facility] Comment on above: Order Comment: Speci men Type: BLOOD SPECIMEN Ordering Facility: [facility] Address: ATTN: LABORATORY, [place] [address] Performed By: #### 5 7021-8 #### [facility] CLIA [id number] [address] [place] [address] [place] Lymphocytes/100 WBC (Bld) 23.8 % Normal [facility] Comment on above: Order Comment: Speci men Type: BLOOD SPECIMEN Ordering Facility: [facility] Address: ATTN: LABORATORY, [place] [address] Performed By: #### 5 7021-8 #### [facility] CLIA [id number] [address] [place] [address] [place] MCH (RBC) [Entitic mass] 32.9 pg Normal 26.0-34.0 [facility] Comment on above: Order Comment: Speci men Type: BLOOD SPECIMEN Ordering Facility: [facility] Address: ATTN: LABORATORY, [place] [address] Performed By: #### 5 7021-8 #### [facility] CLIA [id number] [address] [place] [address] [place] MCHC (RBC) [Mass/Vol] 32.8 g/dL Normal 30.5-36.0 [facility] Comment on above: Order Comment: Speci men Type: BLOOD SPECIMEN Ordering Facility: [facility] Address: ATTN: LABORATORY, [place] [address] Performed By: #### 5 7021-8 #### [facility] CLIA [id number] [address] [place] [address] [place] MCV (RBC) [Entitic vol] 100.5 fL High 80.0-100.0 [facility] Comment on above: Order Comment: Speci men Type: BLOOD SPECIMEN Ordering Facility: [facility] Address: ATTN: LABORATORY, [place] [address] Performed By: #### 5 7021-8 #### [facility] CLIA [id number] [address] [place] [address] [place] Monocytes (Bld) [#/Vol] 0.45 10*3/uL Normal <0.87 [facility] Comment on above: Order Comment: Speci men Type: BLOOD SPECIMEN Ordering Facility: [facility] Address: ATTN: LABORATORY, [place] [address] Performed By: #### 5 7021-8 #### [facility] CLIA [id number] [address] [place] [address] [place] Monocytes/100 WBC (Bld) 5.0 % Normal [facility] Comment on above: Order Comment: Speci men Type: BLOOD SPECIMEN Ordering Facility: [facility] Address: ATTN: LABORATORY, [place] [address] Performed By: #### 5 7021-8 #### [facility] CLIA [id number] [address] [place] [address] [place] Neutrophils (Bld) [#/Vol] 6.14 10*3/uL Normal 1.45-7.50 [facility] Comment on above: Order Comment: Speci men Type: BLOOD SPECIMEN Ordering Facility: [facility] Address: ATTN: LABORATORY, [place] [address] Performed By: #### 5 7021-8 #### [facility] CLIA [id number] [address] [place] [address] [place] Neutrophils/100 WBC (Bld) 68.0 % Normal [facility] Comment on above: Order Comment: Speci men Type: BLOOD SPECIMEN Ordering Facility: [facility] Address: ATTN: LABORATORY, [place] [address] Performed By: #### 5 7021-8 #### [facility] CLIA [id number] [address] [place] [address] [place] Nucleated RBC (Bld) [#/Vol] 10*3/uL Normal <0.01 [facility] Comment on above: Order Comment: Speci men Type: BLOOD SPECIMEN Ordering Facility: [facility] Address: ATTN: LABORATORY, [place] [address] Performed By: #### 5 7021-8 #### [facility] CLIA [id number] [address] [place] [address] [place] Nucleated RBC/100 WBC (Bld) [Ratio] 0.0 /100 WBC Normal [facility] Comment on above: Order Comment: Speci men Type: BLOOD SPECIMEN Ordering Facility: [facility] Address: ATTN: LABORATORY, [place] [address] Performed By: #### 5 7021-8 #### [facility] CLIA [id number] [address] [place] [address] [place] Platelet mean volume (Bld) [Entitic vol] 11.8 fL Normal 9.0-12.7 [facility] Comment on above: Order Comment: Speci men Type: BLOOD SPECIMEN Ordering Facility: [facility] Address: ATTN: LABORATORY, [place] [address] Performed By: #### 5 7021-8 #### [facility] CLIA [id number] [address] [place] [address] [place] Platelets (Bld) [#/Vol] 307 10*3/uL Normal 150-400 [facility] Comment on above: Order Comment: Speci men Type: BLOOD SPECIMEN Ordering Facility: [facility] Address: ATTN: LABORATORY, [place] [address] Performed By: #### 5 7021-8 #### [facility] CLIA [id number] [address] [place] [address] [place] RBC (Bld) [#/Vol] 4.10 10*6/uL Normal 3.90-5.20 [facility] Comment on above: Order Comment: Speci men Type: BLOOD SPECIMEN Ordering Facility: [facility] Address: ATTN: LABORATORY, [place] [address] Performed By: #### 5 7021-8 #### [facility] CLIA [id number] [address] [place] [address] [place] WBC (Bld) [#/Vol] 9.02 10*3/uL Normal 3.70-11.00 [facility] Comment on above: Order Comment: Speci men Type: BLOOD SPECIMEN Ordering Facility: [facility] Address: ATTN: LABORATORY, [place] [address] Performed By: #### 5 7021-8 #### [facility] CLIA [id number] [address] [place] [address] [place] Comprehensive metabolic 2000 panelon 10-04-2023 Albumin [Mass/Vol] 4.1 g/dL Normal 3.9-4.9 [facility] Comment on above: Order Comment: Speci men Type: BLOOD SPECIMEN Ordering Facility: [facility] Address: ATTN: LABORATORY, [place] [address] Performed By: #### 2 4331-1, 3015-3, 47489-0 #### [facility] CLIA [id number] [address] [place], [place] [address] [place] ALP [Catalytic activity/Vol] 98 U/L Normal 34-123 [facility] Comment on above: Order Comment: Speci men Type: BLOOD SPECIMEN Ordering Facility: [facility] Address: ATTN: LABORATORY, [place] [address] Performed By: #### 2 4331-1, 3015-3, 20138-8 #### [facility] CLIA [id number] [address] [place] [address] [place] ALT [Catalytic activity/Vol] 12 U/L Normal 7-38 [facility] Comment on above: Order Comment: Speci men Type: BLOOD SPECIMEN Ordering Facility: [facility] Address: ATTN: LABORATORY, [place] [address] Performed By: #### 2 4331-1, 3015-3, 65851-6 #### [facility] CLIA [id number] [address] [address] [place] Anion gap [Moles/Vol] 12 mmol/L Normal 8-15 [facility] Comment on above: Order Comment: Speci men Type: BLOOD SPECIMEN Ordering Facility: [facility] Address: ATTN: LABORATORY, [place] [address] Performed By: #### 2 4331-1, 3015-3, #### [facility] CLIA [id number] [address] [place] [address] [place] AST [Catalytic activity/Vol] 18 U/L Normal 13-35 [facility] Comment on above: Order Comment: Speci men Type: BLOOD SPECIMEN Ordering Facility: [facility] Address: ATTN: LABORATORY, [place] [address] Performed By: #### 2 4331-1, 3015-3, #### [facility] CLIA [id number] [address] [place] [address] [place] Bilirubin [Mass/Vol] 0.3 mg/dL Normal 0.2-1.3 [facility] Comment on above: Order Comment: Speci men Type: BLOOD SPECIMEN Ordering Facility: [facility] Address: ATTN: LABORATORY, [place] [address] Performed By: #### 2 4331-1, 3015-3, #### [facility] CLIA [id number] [address] [place] [address] [place] Calcium [Mass/Vol] 9.2 mg/dL Normal 8.5-10.2 [facility] Comment on above: Order Comment: Speci men Type: BLOOD SPECIMEN Ordering Facility: [facility] Address: ATTN: LABORATORY, [place] [address] Performed By: #### 2 4331-1, 3, #### [facility] CLIA [id number] [address] [place] [address] [place] Chloride [Moles/Vol] 105 mmol/L Normal 98-107 [facility] Comment on above: Order Comment: Speci men Type: BLOOD SPECIMEN Ordering Facility: [facility] Address: ATTN: LABORATORY, [place] [address] Performed By: #### 2 4331-1, 6-3, 65445-0 #### [facility] CLIA [id number] [address] [place] [address] [place] CO2 [Moles/Vol] 22 mmol/L Normal 22-30 [facility] Comment on above: Order Comment: Speci men Type: BLOOD SPECIMEN Ordering Facility: [facility] Address: ATTN: LABORATORY, [place] [address] Performed By: #### 2 4331-1, 3015-3, 71533-9 #### [facility] CLIA [id number] [address] [place] [address] [place] Creatinine [Mass/Vol] 0.60 mg/dL Normal 0.58-0.96 [facility] Comment on above: Order Comment: Fcoi men Type: BLOOD SPECIMEN Ordering Facility: [facility] Address: ATTN: LABORATORY, [place] [address] Performed By: #### 2 4331-1, 3015-3, #### [facility] CLIA [id number] [address] [place] [address] [place] Creatinine and Glomerular filtration rate.predicted panel (S/P/Bld) 107 mL/min/1.73m??? Normal >=60 [facility] Comment on above: Order Comment: Jessica gallegos Type: BLOOD SPECIMEN Ordering Facility: [facility] Address: ATTN: LABORATORY, [place] [address] Result Comment: Bashir mated Glomerular Filtration Rate [...] GFR. Performed By: #### 2 4331-1, 6-3, 97158-0 #### [facility] CLIA [id number] [address] [address] [place] Glucose [Mass/Vol] 77 mg/dL Normal 74-99 [facility] Comment on above: Order Comment: Jessica gallegos Type: BLOOD SPECIMEN Ordering Facility: [facility] Address: ATTN: LABORATORY, [place] [address] Result Comment: The [place] Diabetes Association (ADA) provides guidance for cutoff [...] Standards of Medical Care in Diabetes 2016, [place] [employer] Association. Diabetes Care. 2016.39(Suppl 1). Performed By: #### 2 4331-1, 6-3, 97780-7 #### [facility] CLIA [id number] [address] [address] [place] Potassium [Moles/Vol] 4.2 mmol/L Normal 3.7-5.1 [facility] Comment on above: Order Comment: Jessica gallegos Type: BLOOD SPECIMEN Ordering Facility: [facility] Address: ATTN: LABORATORY, [place] [address] Performed By: #### 2 4331-1, 3015-3, 80516-9 #### [facility] CLIA [id number] [address] [address] [place] Protein [Mass/Vol] 6.7 g/dL Normal 6.3-8.0 [facility] Comment on above: Order Comment: Jessica gallegos Type: BLOOD SPECIMEN Ordering Facility: [facility] Address: ATTN: LABORATORY, [place] [address] Performed By: #### 2 4331-1, 3015-3, 54201-6 #### [facility] CLIA [id number] [address] [address] [place] Sodium [Moles/Vol] 139 mmol/L Normal 136-144 [facility] Comment on above: Order Comment: Speci men Type: BLOOD SPECIMEN Ordering Facility: [facility] Address: ATTN: LABORATORY, [place] [address] Performed By: #### 2 4331-1, 3016-3, 29946-5 #### [facility] CLIA [id number] [address] [place] [address] [place] Urea nitrogen [Mass/Vol] 6 mg/dL Low 7-21 [facility] Comment on above: Order Comment: Speci men Type: BLOOD SPECIMEN Ordering Facility: [facility] Address: ATTN: LABORATORY, [place] [address] Performed By: #### 2 4331-1, 3015-3, 36365-7 #### [facility] CLIA [id number] [address] [place] [address] [place] Lipid 1996 panelon 4 Cholesterol [Mass/Vol] 181 mg/dL Normal <200 [facility] Comment on above: Order Comment: Speci men Type: BLOOD SPECIMENOrdering Facility: [facility] Address: ATTN: LABORATORY, [place] [address] Result Comment: <200 mg/dL, Desirable 200-239 mg/dL, Borderline high >239 mg/dL, High Performed By: #### 2 4331-1, 3016-3, 20771-7 ####[facility] [id number] [address] [address] [place] Cholesterol in HDL [Mass/Vol] 55 mg/dL Normal >39 [facility] Comment on above: Order Comment: Speci men Type: BLOOD SPECIMENOrdering Facility: [facility] Address: ATTN: LABORATORY, [place] [address] Result Comment: 40-5 9 mg/dL, Acceptable >59 mg/dL, High: Negative risk factor for coronary heart disease <40 mg/dL, Low: Positive risk factor for coronary heart disease Performed By: #### 2 4331-1, 3015-3, 09552-2 ####[facility] [id number] [address] [address] [place] Cholesterol in LDL [Mass/Vol] 104 mg/dL High <100 [facility] Comment on above: Order Comment: Speci men Type: BLOOD SPECIMENOrdering Facility: [facility] Address: ATTN: LABORATORY, [place] [address] Result Comment: <100 mg/dL, Optimal 100-129 mg/dL, Near optimal/above optimal 130-159 mg/dL, Borderline high 160-189 mg/dL, High >189 mg/dL, Very high Secondary prevention optimal LDL Cholesterol levels are recommended to be < 70 mg/dL Performed By: #### 2 4331-1, 3015-3, ####[facility] [id number] [place] [address] [place] Cholesterol in LDL/Cholesterol in HDL [Mass ratio] 1.89 {ratio} Normal <2.54 [facility] Comment on above: Order Comment: Fcoi men Type: BLOOD SPECIMENOrdering Facility: [facility] Address: ATTN: [place] [address] Result Comment: Refe rence: 1. National Cholesterol Education Program ATP III Guideline At-A-Glance Quick Desk Reference: National Heart, Lung, and Blood [place]. National Institutes of Health. 2001: NIH Publication No. 01-3305. 2. An International Atherosclerosis Society position paper: global recommendations for the management of dyslipidemia: executive summary, Atherosclerosis. 2014: 232(2):410-413. Performed By: #### 2 4331-1, 3015-3, ####[facility] [id number] [place] [id number] [place] Cholesterol in VLDL [Mass/Vol] 22 mg/dL Normal <30 [facility] Comment on above: Order Comment: Fcoi men Type: BLOOD SPECIMENOrdering Facility: [facility] Address: ATTN: LABORATORY, [place] [address] Performed By: #### 2 4331-1, 3, ####[facility] [id number] [address] [address] [place] Cholesterol non HDL [Mass/Vol] 126 mg/dL Normal <130 [facility] Comment on above: Order Comment: Speci men Type: BLOOD SPECIMENOrdering Facility: [facility] Address: ATTN: LABORATORY, [place] [address] Result Comment: <130 mg/dL, Optimal 130-159 mg/dL, Near optimal/above optimal 160-189 mg/dL, Borderline high 190-219 mg/dL, High >219 mg/dL, Very high Secondary prevention optimal non HDL Cholesterol levels are recommended to be <100 mg/dL Performed By: #### 2 4331-1, 3, ####[facility] [id number] [place] [address] [place] Cholesterol.total/Ch olesterol in HDL [Mass ratio] 3.29 {ratio} Normal <5.10 [facility] Comment on above: Order Comment: Fcoi men Type: BLOOD SPECIMENOrdering Facility: [facility] Address: ATTN: LABORATORY, [place] [address] Performed By: #### 2 4331-1, 3015-05, ####[facility] [id number] [address] [address] [place] FASTING TIME 12 hrs Normal [facility] Comment on above: Order Comment: Speci men Type: BLOOD SPECIMENOrdering Facility: [facility] Address: ATTN: LABORATORY, [place] [address] Performed By: #### 2 4331-1, 3, ####[facility] [id number] [address] [address] [place] Triglyceride [Mass/Vol] 109 mg/dL Normal <150 [facility] Comment on above: Order Comment: Speci rosy Type: BLOOD SPECIMENOrdering Facility: [facility] Address: ATTN: LABORATORY, [place] [address] Result Comment: <150 mg/dL, Normal 150-199 mg/dL, Borderline high 200-499 mg/dL, High >499 mg/dL, Very high Performed By: #### 2 4331-1, 3016-3, 05831-4 ####[facility] [id number] [place] [address] [place] TSH SerPl-aCncon 10-04-2023 TSH Qn 1.140 m[IU]/L Normal 0.270-4.200 [facility] Comment on above: Order Comment: Speci men Type: BLOOD SPECIMEN Ordering Facility: [facility] Address: ATTN: LABORATORY, [place] [address] Performed By: #### 2 4331-1, 3016-3, 13781-6 #### [facility] CLIA [id number] [address] [place] Mamm - Screening Mammogram w / Tomosynthesison 11-04-2022 MG Breast Screening Normal Women [address] Work Phone: Clinic Note - Machine Plate Stacker Onc-Teleph one Visiton 10-11-2022 Clinic Note - Machine Plate Stacker Onc-Telephone Visit Patient Visit Information: Onco- Fertility: [...] Cholecystectomy History of Skin biopsy History of [place] tooth extraction Social Hx Electronic cigarette use [...] Plan: Assessm (more content not included)... Normal [facility] Clinic Note - Machine Plate Stacker Onc-Follow Up Visiton 10-10-2022 Clinic Note - Machine Plate Stacker Onc-Follow Up Visit This report has been cancelled. Normal [facility] SURGICAL PATHOLOGY RESULTSon 10-03-2022 Pathology Report Name [...] reviewed this case. Diagnostic interpretation performed at [facility] [address] [facility] [address] Clinical History: Physician Contact Number: [phone] Fixative (A): Formalin Clinical Diagnosis History 51yo [...] velvety and measur (more content not included)... [facility] Clinic Note - Intakeon 09-27 Clinic Note [...] 27-Sep-2022 15:18 by Niharika Augustin (PCNA) Normal [facility] Clinic Note - Machine Plate Stacker Onc-Post-O madeline 09-26-2022 Clinic Note - Machine Plate Stacker Onc-Post-Op Patient Visit Information: Onco- Fertility: Visit Type: Post-Op Patient Visit Info: Last 3 Weights & Heights: Date: Weight/Scale Type:Height: 27-Sep-2022 15:1661.1 kg 150.8 cm 14-Jun-2022 11:1664.8 kg 150.8 cm History of Present Illness: Patient Information: KELSIE EZNG is a 52 year old Female Chief [...] Cholecystectomy History of Skin biopsy History of [place] tooth extraction Social Hx Electronic cigarette use [...] orally every 6 hours as needed for qitwmyys-ln-cpgpmp pain, take with ibuprofen. , Start Date: [...] after pathology is resulted. Denita Cha MD Finance Advisor, Gynecologic Oncology [facility] (more content not included)... Normal [facility] ABO/RH GROUP TESTon 09-01-19 [address] O Normal [facility] Comment on above: Performed By: #### V ERAB ####[id number] [place] [address] RH TYPE Positive Normal [facility] Comment on above: Performed By: #### V ERAB ####[id number] [place] [address] Order Reconciliationon 08-31 Order Reconciliation Page 1 [...] orally every 6 hours as needed for wglpcsvy-wh-xupbdt pain, take with ibuprofen. All Active Home Medications at time of Discharge Reconciliation: 31-Aug-2022 12:19 acetaminophen 500 mg oral tablet 2 tab(s) orally every 6 hours MiraLax oral powder for reconstitution 17 gram(s) orally once a day as needed for constipation oxyCODONE 5 mg oral tablet 1 tab(s) orally every 6 hours as needed for fufdppvc-kq-ewursv pain, take with ibuprofen. Normal [facility] Patient Profile - Preop v3on 08-31-2022 Patient Profile - Preop v3 Patient Profile - Preop: Initial Info: Patient DemographicsName: KELSIE ZENG Date: 1970 Address: [address] [place] [address] Primary Phone [phone] How to be AddressedJanet Spoken Language PreferredEnglish Stated Reason for Admissionhysterectomy Primary Contact Name and NumberGreg (H) [phone] Medications Brought to Hospitalno General Health: Weight in kg60.5 kilogram(s) Weight in scr875.3 pound(s) Weight Methodactual (measured) Scale Typestanding Height in feet4 feet Height in sbldvo42.98 inch(es) Height in cm149.8 centimeter(s) Height Methodstated BMI (kg/m2)26.96 square meter Patient or Family Member Reaction to Anesthesiano previous reaction Blood Avoidance/Restrictionsn one Previous Transfusion Reactionnot applicable Health Mgmt: Symptoms/Conditions Managed at Homesee significant events Are You no Are You Currently Breastfeedingno Barriers to Managing Healthnone Relationship/Environ: Lives Withspouse Living Arrangementsmobile home Resource/Environmental Concernsnone Anticipated Transition [employer] Anticipated at Transitionnone Tobacco Use: Tobacco Useyes Last Tobacco [id number] Tobacco Commentnicotine use- Vape user Pre-op Checklist: Arrival [id number] Arrival Time07:00 NPOyes ID Band On Patientpatient [...] Updated: 31-Aug-2022 07:03 by Tomasa Marks) Normal [facility] Surgical Pathology Depar mariposa 08-31-2022 [facility] Surgical Pathology Department Name KELSIE ZENG Pathologist: [...] reviewed this case. Diagnostic interpretation performed at [facility] [address] [facility]. [facility] [address] Clinical History: Physician Contact Number: [phone] Fixative (A): Formalin Clinical Diagnosis History 51yo [...] has 2 (more content not included)... Normal [facility] Comment on above: Performed By: #### [facility] ####[facility] Surgical Pathology [id number] AveCC[facility] [address] CBC AND DIFFERENTIALon 08-23 % AUTOMATED IMMATURE GRAN 0.3 % Normal 0.0 - 0.9 [facility] Comment on above: Result Comment: Annette ture Granulocyte Count (IG) includes promyelocytes, myelocytes and metamyelocytes but does not include bands. Percent differential counts (%) should be interpreted in the context of the absolute cell counts (cells/L). Performed By: #### C BCDF #### [address] [address] Basophils (Bld) [#/Vol] 0.05 10*3/uL Normal 0.00 - 0.10 [facility] Comment on above: Performed By: #### C BCDF #### [address] [address] Basophils/100 WBC (Bld) 0.7 % Normal 0.0 - 2.0 [facility] Comment on above: Performed By: #### C BCDF #### [address] [address] Eosinophils (Bld) [#/Vol] 0.09 10*3/uL Normal 0.00 - 0.70 [facility] Comment on above: Performed By: #### C BCDF #### [address] [address] Eosinophils/100 WBC (Bld) 1.3 % Normal 0.0 - 6.0 [facility] Comment on above: Performed By: #### C BCDF #### [address] [address] Erythrocyte distribution width (RBC) [Ratio] 12.6 % Normal 11.5 - 14.5 [facility] Comment on above: Performed By: #### C BCDF #### [address] [address] Hematocrit (Bld) [Volume fraction] 44.3 % Normal 36.0 - 46.0 [facility] Comment on above: Performed By: #### C BCDF #### [address] [address] Hemoglobin (Bld) [Mass/Vol] 14.2 g/dL Normal 12.0 - 16.0 [facility] Comment on above: Performed By: #### C BCDF #### [address] [address] Lymphocytes (Bld) [#/Vol] 2.14 10*3/uL Normal 1.20 - 4.80 [facility] Comment on above: Performed By: #### C BCDF #### [address] [address] Lymphocytes/100 WBC (Bld) 31.2 % Normal 13.0 - 44.0 [facility] Comment on above: Performed By: #### C BCDF #### [address] [address] MCHC (RBC) [Mass/Vol] 32.1 g/dL Normal 32.0 - 36.0 [facility] Comment on above: Performed By: #### C BCDF #### [address] [address] MCV (RBC) [Entitic vol] 99 fL Normal 80 - 100 [facility] Comment on above: Performed By: #### C BCDF #### [address] [address] Monocytes (Bld) [#/Vol] 0.48 10*3/uL Normal 0.10 - 1.00 [facility] Comment on above: Performed By: #### C BCDF #### [address] [address] Monocytes/100 WBC (Bld) 7.0 % Normal 2.0 - 10.0 [facility] Comment on above: Performed By: #### C BCDF #### [address] [address] Neutrophils (Bld) [#/Vol] 4.07 10*3/uL Normal 1.20 - 7.70 [facility] Comment on above: Result Comment: Perc ent differential counts (%) should be interpreted in the context of the absolute cell counts (cells/L). Performed By: #### C BCDF #### [address] [address] Neutrophils/100 WBC (Bld) 59.5 % Normal 40.0 - 80.0 [facility] Comment on above: Performed By: #### C BCDF #### [address] [address] Platelets (Bld) [#/Vol] 270 10*3/uL Normal 150 - 450 [facility] Comment on above: Performed By: #### C BCDF #### [address] [address] RBC 4.47 x10E12/L Normal 4.00 - 5.20 [facility] Comment on above: Performed By: #### C BCDF #### [address] [address] WBC (Bld) [#/Vol] 6.9 10*3/uL Normal 4.4 - 11.3 [facility] Comment on above: Performed By: #### C BCDF #### [address] [address] COMPREHENSIVE PANELon 2022 Albumin [Mass/Vol] 4.3 g/dL Normal 3.4 - 5.0 [facility] Comment on above: Performed By: #### C MP #### [address] [address] ALP [Catalytic activity/Vol] 149 U/L High 33 - 110 [facility] Comment on above: Performed By: #### C MP #### [address] [address] ALT [Catalytic activity/Vol] 30 U/L Normal 7 - 45 [facility] Comment on above: Result Comment: Merly ents treated with Sulfasalazine may generate falsely decreased results for ALT. Performed By: #### C MP #### [address] [address] Anion gap [Moles/Vol] 12 mmol/L Normal 10 - 20 [facility] Comment on above: Performed By: #### C MP #### [address] [address] AST [Catalytic activity/Vol] 31 U/L Normal 9 - 39 [facility] Comment on above: Performed By: #### C MP #### [address] [address] Bilirubin [Mass/Vol] 0.4 mg/dL Normal 0.0 - 1.2 [facility] [place] Comment on above: Performed By: #### C MP #### [address] [address] Calcium [Mass/Vol] 9.3 mg/dL Normal 8.6 - 10.3 [facility] Comment on above: Performed By: #### C MP #### [address] [address] Chloride [Moles/Vol] 106 mmol/L Normal 98 - 107 [facility] [place] Comment on above: Performed By: #### C MP #### [address] [address] Creatinine [Mass/Vol] 0.57 mg/dL Normal 0.50 - 1.05 [facility] Comment on above: Performed By: #### C MP #### [address] [address] eGFR FEMALE >90 Normal >90 [facility] Comment on above: Result Comment: CALC ULATIONS OF ESTIMATED GFR ARE PERFORMED USING THE 2020 CKD-EPI STUDY REFIT EQUATION WITHOUT THE RACE VARIABLE FOR THE IDMS-TRACEABLE CREATININE METHODS. https://jasn.asnjournals.org/content/early//ASN.1365856 988 Performed By: #### C MP #### [address] [address] Glucose [Mass/Vol] 87 mg/dL Normal 74 - 99 [facility] Comment on above: Performed By: #### C MP #### [address] [address] HCO3 (Bld) [Moles/Vol] 26 mmol/L Normal 21 - 32 [facility] Comment on above: Performed By: #### C MP #### [address] [address] Potassium [Moles/Vol] 3.8 mmol/L Normal 3.5 - 5.3 [facility] Comment on above: Performed By: #### C MP #### [address] [address] Protein [Mass/Vol] 7.1 g/dL Normal 6.4 - 8.2 [facility] Comment on above: Performed By: #### C MP #### [address] [address] Sodium [Moles/Vol] 140 mmol/L Normal 136 - 145 [facility] Comment on above: Performed By: #### C MP #### [address] [address] Urea nitrogen [Mass/Vol] 12 mg/dL Normal 6 - 23 [facility] Comment on above: Performed By: #### C MP #### [address] [address] HCG,BETA-QUANTITATIVEon 06-1 3-2023 HCG,BETA-QUANTITATIV E 3 mIU/mL Normal [facility] Comment on above: Result Comment: . Total HCG measurement is performed using the Mary Teachey Access Immunoassay which detects intact HCG and free beta HCG subunit. . This test is not indicated for use as a tumor marker. HCG testing is performed using a different test methodology at [facility] than other [facility]. Direct result comparison should only be made within the same method. REF VALUES NON FEMALE <5 MALES <5 Performed By: #### H CGQU ####[facility] [place] [address] TYPE + SCREENon 08-23-2022 ABO TYPE O Normal [facility] Comment on above: Performed By: #### T +S #### [facility] [address] [place] [address] RH TYPE Positive Normal [facility] Comment on above: Performed By: #### T +S #### [facility] [address] [place] [address] Office Visit (Neuro-General) on 07-12-2022 Follow-up visit [...] include tingling and brain fog. Return in [place] in 4 months. Diagnoses/Problems Assessed Seizure (780.39) [...] [place], confused, and taken to ER in [place] where she was told she was combative [...] side. Normal and development. No hx of CLINICAL PROGRAM COORDINATOR infection or brain injury. No prior tx [...] History o (more content not included)... Normal QR Wild Tobacco Screening.on 023 Adult depression screening assessment No MG-Neurolog y- [facility] 5 Work Phone: Fall risk assessment b) One or more fall s in the last year [facility] 5 Work Phone: Tobacco use status CPHS b) No [facility] [employer] Work Phone: Clinic Note - Intakeon 06-14 [...] (kg/m2)28.4 kg/M2 BSA (m2)1.64 M2 Nursing Verification [id number] Nursing Verification Height in cm150.8 centimeter(s) Nursing [...] you are livingno Depression: Past 2 wks: [place] down, depressed or hopelessno Past 2 wks: [place] little interest/pleasure doing thingsno Any Thoughts of [...] 11:38 by Zully Fritz (N MGR) Normal [facility] Clinic Note - Machine Plate Stacker Onc-New Vi santhosh 06-13-2022 Clinic Note - Machine Plate Stacker Onc-New Visit Patient Visit Information: Onco- Fertility: [...] Cholecystectomy History of Skin biopsy History of [place] tooth extraction Social Hx Electronic cigarette use [...] bhcg, Type & Screen Denita Cha MD Finance Advisor, Gynecologic Oncology [facility] Referred by Andrea Laird CNP Patient Instructions: Instructions Type: nutrition Note Recipients: Nestor Rae MD - [id number] Nestor Rae MD - [id number] [] Se (more content not included)... Normal [facility] MRI PELVIS W/O-W CONTRASTon 05-12-2022 MRI PELVIS W/O-W CONTRAST Patient Name: KELSIE ZENG STUDY: MRI PELVIS W/O-W CONTRAST; 05/12/2022 10:11 am INDICATION: Enlarged ovary can't r/o tumor per recent u/s N83.8: Enlarged ovary. COMPARISON: None. ACCESSION NUMBER(S): [id number] ORDERING CLINICIAN: ANDREA CHAPIN TECHNIQUE: Multiplanar MRI [...] Electronically signed by: JUWAN DAMON MD Normal [facility] MRI Pelvis w/wo Contraston 0 05-12-2022 MRA Pelvis vessels WO and W contrast IV [facility] [place] Work Phone: LATH TIER - Office Visiton 04-14 LATH TIER - Office Visit Diagnoses/Problems Health Maintenance/Risks Encounter for preventive health examination (V70.0) (Z00.00) Assessed Encounter for screening mammogram for breast cancer (V76.12) (Z12.31) Enlarged ovary (620.8) (N83.8) Orders MRI Pelvis without Contrast; Status:Hold For - Scheduling; Requested for:[id number]; Radiologist to Determine Optimal Study : Y Does the patient have a Cochlear Implant, Pacemaker, Defibrilator, Pacing Wire, Brain Aneurysm Clip, Implanted Nerve or Bone Graft Simulator, Implanted Breast Tissue Pit Boss, Glucose Monitor, or Neulasta Device? : No Is the patient or breast feeding? : No What are the patient's signs and symptoms? : Enlarged ovary can't r/o tumor per recent u/s Mamm - Screening Mammogram w/ Tomosynthesis; Status:Hold For - Scheduling; Requested for:[id number]; Radiologist to Determine Optimal Study : Y [...] Cholecystectomy History of Skin biopsy History of [place] tooth extraction Family History Mother Family history [...] 1 T (more content not included)... Normal QR Wild CT Chest Low Dose for Lung S creening w/o Contraston 04-26-2022 CT Chest for screening Normal [facility] [address] Work Phone: CT CHEST LUNG CA SCREEN I NITIAL OR FOLLOW UP LR1 LR2 CONTINUATION OF SCREENING LOW DOSEon 04-26-2022 CT CHEST LUNG CA SCREEN INITIAL OR FOLLOW UP LR1 LR2 CONTINUATION OF SCREENING LOW DOSE Patient Name: KELSIE ZENG STUDY: TH CT CHEST LOW DOSE FOR LUNG SCREENING WO CONTRAST INDICATION: NICOTINE DEPENDENCE. COMPARISON: None. ACCESSION NUMBER(S): [id number] ORDERING CLINICIAN: NESTOR RAE TECHNIQUE: Helical data [...] of Screening Low Dose recommended as per [place] [employer] Guidelines Lung-RADS Version 1.1. Electronically signed by: KANDACE CROOKS MD [facility] Absolute lymphocyte countOrd ered By: Dr. Rae on 03-29-2022 Lymphocytes Auto (Unsp spec) [#/Vol] 2.29 10*3/uL 0.83-4.51 [facility] Basophil percentageOrdered B y: Dr. Rae on 03-29-2022 Basophils/100 WBC (Bld) 0.6 % 0-1 [facility] Bilirubin [Mass/Vol] 0.40 mg/dL 0.20-1.00 [facility] Comment on above: For patients on eltr ombopag therapy, use of Dimension [place] TBIL is not recommended. Chloride [Moles/Vol] 110 mmol/L 98-107 [facility] Eosinophils/100 WBC (Bld) 1.2 % 0-5 [facility] Glucose [Mass/Vol] 81 mg/dL 74-106 [facility] Neutrophils (Bld) [#/Vol] 4.3 10*3/uL 2.0-7.7 [facility] Neutrophils/100 WBC (Bld) 59.0 % 47-70 [facility] Potassium [Moles/Vol] 3.7 mmol/L 3.5-5.1 [facility] Protein [Mass/Vol] 7.6 g/dL 6.4-8.2 [facility] Sodium [Moles/Vol] 141 mmol/L 136-145 [facility] WBC (Bld) [#/Vol] 7.3 10*3/uL 4.4-11.0 [facility] Blood erythrocytes count (nu mber/volume)Ordered By: Dr. Rae on 03-29-2022 RBC (Bld) [#/Vol] 4.61 10*6/uL 4.2-5.4 [facility] Blood hemoglobin measurement (mass/volume)Ordered By: Dr. Rae on 03-29-2022 Hemoglobin (Bld) [Mass/Vol] 14.8 g/dL 12.0-15.0 [facility] Blood lymphocytes/100 leukoc ytesOrdered By: Dr. Rae on 03-29-2022 Lymphocytes/100 WBC (Bld) 31.5 % 19-41 [facility] Blood monocytes/100 leukocyt esOrdered By: Dr. Rae on 03-29-2022 Monocytes/100 WBC (Bld) 7.4 % 0-10 [facility] Blood platelet mean volumeOr dered By: Dr. Rae on 03-29-2022 Platelet mean volume (Bld) [Entitic vol] 12.4 fL 6.2-12.0 [facility] CBC W/Diff, Automatedon 03-13 Absolute Lymph 2.29 X10 3/uL Normal 0.83-4.51 [facility] Comment on above: Performed By: #### L 100.0100, L500.4050, L506.1000, L501.9520, L3890.6300 #### [facility] [address] [place], [address] Absolute Neut 4.3 X10 3/uL Normal 2.0-7.7 [facility] Comment on above: Performed By: #### L 100.0100, L500.4050, L506.1000, L501.9520, L3890.6300 #### [facility] [address] [place], [address] Basophils/100 WBC (Bld) 0.6 % Normal 0-1 [facility] Comment on above: Performed By: #### L 100.0100, L500.4050, L506.1000, L501.9520, L3890.6300 #### [facility] [address] [place], [address] Eosinophils/100 WBC (Bld) 1.2 % Normal 0-5 [facility] Comment on above: Performed By: #### L 100.0100, L500.4050, L506.1000, L501.9520, L3890.6300 #### [facility] [address] [place], [address] Erythrocyte distribution width (RBC) [Ratio] 12.2 % Normal 11.6-14.6 [facility] Comment on above: Performed By: #### L 100.0100, L500.4050, L506.1000, L501.9520, L3890.6300 #### [facility] [address] [place], [address] Hematocrit (Bld) [Volume fraction] 43.9 % Normal 37-47 [facility] Comment on above: Performed By: #### L 100.0100, L500.4050, L506.1000, L501.9520, L3890.6300 #### [facility] [address] [place], [address] Hemoglobin (Bld) [Mass/Vol] 14.8 g/dL Normal 12.0-15.0 [facility] Comment on above: Performed By: #### L 100.0100, L500.4050, L506.1000, L501.9520, L3890.6300 #### [facility] [address] [place], [address] IG% 0.300 Normal 0.0-0.9 [facility] Comment on above: Result Comment: IG% - Immature Granulocytes (promyelocytes, myelocytes and metamyelocytes) > 1% indicates that a LEFT SHIFT is Present. Performed By: #### L 100.0100, L500.4050, L506.1000, L501.9520, L3890.6300 #### [facility] [address] [place], [address] Lymphocytes/100 WBC (Bld) 31.5 % Normal 19-41 [facility] Comment on above: Performed By: #### L 100.0100, L500.4050, L506.1000, L501.9520, L3890.6300 #### [facility] [address] [place], [address] MCH (RBC) [Entitic mass] 32.1 pg High 27.0-32.0 [facility] Comment on above: Performed By: #### L 100.0100, L500.4050, L506.1000, L501.9520, L3890.6300 #### [facility] [address] [place], [address] MCHC (RBC) [Mass/Vol] 33.7 g/dL Normal 32-36 [facility] Comment on above: Performed By: #### L 100.0100, L500.4050, L506.1000, L501.9520, L3890.6300 #### [facility] [address] [place], [address] MCV (RBC) [Entitic vol] 95.2 fL Normal 81-99 [facility] Comment on above: Performed By: #### L 100.0100, L500.4050, L506.1000, L501.9520, L3890.6300 #### [facility] [address] [place], [address] Monocytes/100 WBC (Bld) 7.4 % Normal 0-10 [facility] Comment on above: Performed By: #### L 100.0100, L500.4050, L506.1000, L501.9520, L3890.6300 #### [facility] [address] [place], [address] Neutrophils/100 WBC (Bld) 59.0 % Normal 47-70 [facility] Comment on above: Performed By: #### L 100.0100, L500.4050, L506.1000, L501.9520, L3890.6300 #### [facility] [address] [place], [address] Nucleated RBC (Bld) [#/Vol] 0 10*3/uL Normal 0-5 [facility] Comment on above: Performed By: #### L 100.0100, L500.4050, L506.1000, L501.9520, L3890.6300 #### [facility] [address] [place], [address] Platelet mean volume (Bld) [Entitic vol] 12.4 fL High 6.2-12.0 [facility] Comment on above: Performed By: #### L 100.0100, L500.4050, L506.1000, L501.9520, L3890.6300 #### [facility] [address] [place], [address] Platelets (Bld) [#/Vol] 205 10*3/uL Normal 150-450 [facility] Comment on above: Performed By: #### L 100.0100, L500.4050, L506.1000, L501.9520, L3890.6300 #### [facility] [address] [place], [address] RBC (Bld) [#/Vol] 4.61 10*6/uL Normal 4.2-5.4 [facility] Comment on above: Performed By: #### L 100.0100, L500.4050, L506.1000, L501.9520, L3890.6300 #### [facility] [address] [place], [address] RDW SD 42.5 fl Normal 35.1-43.9 [facility] Comment on above: Performed By: #### L 100.0100, L500.4050, L506.1000, L501.9520, L3890.6300 #### [facility] [address] [place], [address] WBC (Bld) [#/Vol] 7.3 10*3/uL Normal 4.4-11.0 [facility] Comment on above: Performed By: #### L 100.0100, L500.4050, L506.1000, L501.9520, L3890.6300 #### [facility] [address] [place], [address] Comprehensive Metabolic Prof ilon 03-29-2022 Albumin [Mass/Vol] 3.9 g/dL Normal 3.2-5.0 [facility] Comment on above: Performed By: #### L 100.0100, L500.4050, L506.1000, L501.9520, L3890.6300 #### [facility] [address] [place], [address] Albumin/Globulin [Mass ratio] 1.1 {ratio} Normal 0.9-2.4 [facility] Comment on above: Performed By: #### L 100.0100, L500.4050, L506.1000, L501.9520, L3890.6300 #### [facility] [address] [place], [address] ALK P 152 U/L High 45-117 [facility] Comment on above: Performed By: #### L 100.0100, L500.4050, L506.1000, L501.9520, L3890.6300 #### [facility] [address] [place], [address] ALT [Catalytic activity/Vol] 35 U/L Normal 13-56 [facility] Comment on above: Performed By: #### L 100.0100, L500.4050, L506.1000, L501.9520, L3890.6300 #### [facility] [address] [place], [address] AST [Catalytic activity/Vol] 28 U/L Normal 15-37 [facility] Comment on above: Performed By: #### L 100.0100, L500.4050, L506.1000, L501.9520, L3890.6300 #### [facility] [address] [place], [address] Bilirubin [Mass/Vol] 0.40 mg/dL Normal 0.20-1.00 [facility] Comment on above: Result Comment: For patients on eltrombopag therapy, use of Dimension [place] TBIL is not recommended. Performed By: #### L 100.0100, L500.4050, L506.1000, L501.9520, L3890.6300 #### [facility] [address] [place], [address] BUN/CRE 19.7 RATIO Normal 10-20 [facility] Comment on above: Performed By: #### L 100.0100, L500.4050, L506.1000, L501.9520, L3890.6300 #### [facility] [address] [place], [address] CA,Total 9.6 mg/dL Normal 8.5-10.1 [facility] Comment on above: Performed By: #### L 100.0100, L500.4050, L506.1000, L501.9520, L3890.6300 #### [facility] [address] [place], [address] Chloride [Moles/Vol] 110 mmol/L High 98-107 [facility] Comment on above: Performed By: #### L 100.0100, L500.4050, L506.1000, L501.9520, L3890.6300 #### [facility] [address] [place], [address] CO2 [Moles/Vol] 24.0 mmol/L Normal 21.0-32.0 [facility] Comment on above: Performed By: #### L 100.0100, L500.4050, L506.1000, L501.9520, L3890.6300 #### [facility] [address] [place], [address] Creatinine [Mass/Vol] 0.66 mg/dL Normal 0.55-1.02 [facility] Comment on above: Result Comment: The validity of the calculated GFR GFRAA in patients over 70 years has not been determined. Clinical correlation is essential. Performed By: #### L 100.0100, L500.4050, L506.1000, L501.9520, L3890.6300 #### [facility] [address] [place], [address] EST GFR - AA 121 mL/min Normal >60 [facility] Comment on above: Result Comment: Afri can [place] GFR Calc Performed By: #### L 100.0100, L500.4050, L506.1000, L501.9520, L3890.6300 #### [facility] [address] [place], [address] GAP 7 Normal 5-15 [facility] Comment on above: Performed By: #### L 100.0100, L500.4050, L506.1000, L501.9520, L3890.6300 #### [facility] [address] [place], [address] GFR/1.73 sq M.predicted among non-blacks MDRD (S/P/Bld) [Vol rate/Area] 100 mL/min/{1.73_m2} Normal >60 [facility] Comment on above: Result Comment: Non- GFR Calc Performed By: #### L 100.0100, L500.4050, L506.1000, L501.9520, L3890.6300 #### [facility] [address] [place], [address] Globulin (S) [Mass/Vol] 3.7 g/dL Normal 2.2-4.2 [facility] Comment on above: Performed By: #### L 100.0100, L500.4050, L506.1000, L501.9520, L3890.6300 #### [facility] [address] [place], [address] Glucose [Mass/Vol] 81 mg/dL Normal 74-106 [facility] Comment on above: Performed By: #### L 100.0100, L500.4050, L506.1000, L501.9520, L3890.6300 #### [facility] [address] [place], [address] Potassium [Moles/Vol] 3.7 mmol/L Normal 3.5-5.1 [facility] Comment on above: Performed By: #### L 100.0100, L500.4050, L506.1000, L501.9520, L3890.6300 #### [facility] [address] [place], [address] Sodium [Moles/Vol] 141 mmol/L Normal 136-145 [facility] Comment on above: Performed By: #### L 100.0100, L500.4050, L506.1000, L501.9520, L3890.6300 #### [facility] [address] [place], [address] T PROT 7.6 g/dL Normal 6.4-8.2 [facility] Comment on above: Performed By: #### L 100.0100, L500.4050, L506.1000, L501.9520, L3890.6300 #### [facility] [address] [place], [address] Urea nitrogen [Mass/Vol] 13 mg/dL Normal 7-18 [facility] Comment on above: Performed By: #### L 100.0100, L500.4050, L506.1000, L501.9520, L3890.6300 #### [facility] [address] [place], [address] Determination of erythrocyte mean corpuscular volume (MCV)Ordered By: Dr. Rae on 03-29-2022 MCV (RBC) [Entitic vol] 95.2 fL 81-99 [facility] Hematocrit Auto (Bld) [Volum e fraction]Ordered By: Dr. Rae on 03-29-2022 Hematocrit (Bld) [Volume fraction] 43.9 % 37-47 [facility] Hepatitis C Antibodyon 03-29 Hepatitis C Ab Non-Reactive Normal Nonreactive [facility] Comment on above: Result Comment: Non Reactive: < 0.8 Equivocal: >/= 0.8 to < 1.0 Reactive: >/= 1.0 The CDC recommends that a reactive/equivocal HCV antibody result be followed up by the HCV Nucleic Acid Amplification test (740602) Performed By: #### L 100.0100, L500.4050, L506.1000, L501.9520, L3890.6300 #### [facility] [address] [place], [address] Laboratory - Chemistry and C hemistry - challengeOrdered By: Dr. Rae on 03-29-2022 ALP [Catalytic activity/Vol] 152 U/L 45-117 [facility] ALT [Catalytic activity/Vol] 35 U/L 13-56 [facility] CO2 [Moles/Vol] 24.0 mmol/L 21.0-32.0 [facility] Globulin (S) [Mass/Vol] 3.7 g/dL 2.2-4.2 [facility] Urea nitrogen/Creatinine [Mass ratio] 19.7 mg/mg 10-20 [facility] Laboratory - Hematology and Cell countsOrdered By: Dr. Rae on 03-29-2022 Erythrocyte distribution width (RBC) [Entitic vol] 42.5 fL 35.1-43.9 [facility] Erythrocyte distribution width (RBC) [Ratio] 12.2 % 11.6-14.6 [facility] Immature granulocytes/100 WBC (Bld) 0.300 % 0.0-0.9 [facility] Comment on above: IG% - Immature Granu locytes (promyelocytes, myelocytes and metamyelocytes) > 1% indicates that a LEFT SHIFT is Present. MCH (RBC) [Entitic mass] 32.1 pg 27.0-32.0 [facility] Nucleated RBC/100 WBC (Bld) [Ratio] 0 % 0-5 [facility] Auto (RBC) [Mass/Vol]Or dered By: Dr. Rae on 03-29-2022 MCHC (RBC) [Mass/Vol] 33.7 g/dL 32-36 [facility] No Panel InformationOrdered By: Dr. Rae on 03-29-2022 Estimated GFR (MDRD) Amer 121 mL/min >60 [facility] Comment on above: GFR Calc Estimated GFR (MDRD) Non-Af Amer 100 mL/min >60 [facility] Comment on above: Non- GFR Calc Hepatitis C Antibody Non-Reactive Nonreactive [facility] Comment on above: Non Reactive: < 0.8 Equivocal: >/= 0.8 to < 1.0 Reactive: >/= 1.0The CDC recommends that a reactive/equivocal HCV antibody result be followed up by the HCV Nucleic Acid Amplificationtest (240615) Thyroid Stimulating Hormone (TSH) 1.14 uIU/mL 0.358-3.74 [facility] Vitamin D 25-Hydroxy 20.8 ng/mL [facility] Comment on above: Vitamin D 25(OH) Sta tus Range Deficiency <20 ng/mL (50nmol/L) Insufficiency 20 - 30 ng/mL (50 - 75 nmol/L) Sufficiency 30 - 100 ng/mL (75 - 250 nmol/L) Toxicity >100 ng/mL (>250 nmol/L) Platelets bldOrdered By: Dr. Rae on 03-29-2022 Platelets (Bld) [#/Vol] 205 10*3/uL 150-450 [facility] Serum or plasma albumin cecilia urement (mass/volume)Ordered By: Dr. Rae on 03-29-2022 Albumin [Mass/Vol] 3.9 g/dL 3.2-5.0 [facility] Serum or plasma albumin/glob ulin mass ratioOrdered By: Dr. Rae on 03-29-2022 Albumin/Globulin [Mass ratio] 1.1 {ratio} 0.9-2.4 [facility] Serum or plasma calcium cecilia urement (mass/volume)Ordered By: Dr. Rae on 03-29-2022 Calcium [Mass/Vol] 9.6 mg/dL 8.5-10.1 [facility] Serum or plasma creatinine m easurement (mass/volume)Ordered By: Dr. Rae on 03-29-2022 Creatinine [Mass/Vol] 0.66 mg/dL 0.55-1.02 [facility] Comment on above: The validity of the calculated GFR & GFRAA in patients over 70 years has not been determined. Clinical correlation is essential. Serum or plasma urea nitroge n measurement (mass/volume)Ordered By: Dr. Rae on 03-29-2022 Urea nitrogen [Mass/Vol] 13 mg/dL 7-18 [facility] Thin prep Papanicolaou smear with manual screeningOrdered By: Dr. Rae on 03-29-2022 Thin prep Papanicolaou smear with manual screening 28 U/L 15- [facility] Thin prep Papanicolaou smear with manual screening 7 5-15 [facility] Thyroid Stim Hormone (TSH)on 03-29-2022 TSH 1.14 uIU/mL Normal 0.358-3.74 [facility] Comment on above: Performed By: #### L 100.0100, L500.4050, L506.1000, L501.9520, L3890.6300 #### [facility] [address] [place], [place], [id number] Vitamin D,25 Hydroxyon 03-29 Vitamin D 25-OH 20.8 ng/mL Normal [facility] Comment on above: Result Comment: Dahlia min D 25(OH) Status Range Deficiency <20 ng/mL (50nmol/L) Insufficiency 20 - 30 ng/mL (50 - 75 nmol/L) Sufficiency 30 - 100 ng/mL (75 - 250 nmol/L) Toxicity >100 ng/mL (>250 nmol/L) Performed By: #### L 100.0100, L500.4050, L506.1000, L501.9520, L3890.6300 #### [facility] [address] [place], [address] Office Visit (Internal Medic ine)on 10-26-2021 Follow-up visit Diagnoses/Problems Assessed Acute encephalopathy (348.30) (G93.40) Cervical strain (847.0) (S16.1XXA) Orders Acute encephalopathy Neurology - General Referral Evaluation and Treatment Evaluate AND Treat Status: Hold For - Scheduling Requested for: [id number] Ordered;For: Acute encephalopathy; Ordered By: Caleb Munguia Performed: Due: 24Jan2022 Cervical strain Start: predniSONE 10 MG Oral Tablet; TAKE 3 TABLETS FOR 3 DAYS, 2 TABLETS FOR 3 DAYS, 1 TABLET FOR 4 DAYS AND THEN STOP Rx By: Caleb Munguia; Dispense: 0 Days ; #:19 Tablet; Refill: 0;For: Cervical strain; KARL = N; Verified Transmission to [facility]; Last Updated By: [facility] [email or web address]; 10/26/2021 11:54:02 AM Start: tiZANidine HCl - 4 MG Oral Tablet; TAKE 1 TABLET 3 TIMES DAILY NEEDED Rx By: Caleb Munguia; Dispense: 10 Days ; #:30 Tablet; Refill: 1;For: Cervical strain; KARL = N; Verified Transmission to [facility]; Last Updated By: [employer]zed; 10/26/2021 11:54:02 AM Patient Discussion/Summary Acute encephalopathy: [...] Cholecystectomy History of Skin biopsy History of [place] tooth extraction Family History Mother Family history [...] containing caffe (more content not included)... Normal [facility] CBC,PLATELETSon 10-20-2021 Hematocrit (Bld) [Volume fraction] 34.7 % Low 34.9-44.3 [facility] Comment on above: Performed By: #### L ABHSTI1 #### [facility] (DEFAULT) [address] [address] Hemoglobin (Bld) [Mass/Vol] 11.5 g/dL Normal 11.4-15.2 [facility] Comment on above: Performed By: #### L ABHSTI1 #### [facility] (DEFAULT) [address] [address] MCV (RBC) [Entitic vol] 99.4 fL High 79.6-97.7 [facility] Comment on above: Performed By: #### L ABHSTI1 #### [facility] (DEFAULT) [address] [place] [address] Mean Cell Hgb 33.0 pg Normal 25.9-33.9 [facility] Comment on above: Performed By: #### L ABHSTI1 #### [facility] (DEFAULT) [address] [place] [address] Mean Cell Hgb Conc 33.1 g/dL Normal 31.4-35.9 [facility] Comment on above: Performed By: #### L ABHSTI1 #### [facility] (DEFAULT) [address] [place] [address] Platelet mean volume (Bld) [Entitic vol] 10.5 fL Normal 8.5-12.2 [facility] Comment on above: Performed By: #### L ABHSTI1 #### [facility] (DEFAULT) [address] [address] Platelets (Bld) [#/Vol] 306 10*3/uL Normal 150-393 [facility] Comment on above: Performed By: #### L ABHSTI1 #### [facility] (DEFAULT) [address] [address] RBC (Bld) [#/Vol] 3.49 10*6/uL Low 3.91-5.04 [facility] Comment on above: Performed By: #### L ABHSTI1 #### [facility] (DEFAULT) [address] [address] RBC Distribution 12.8 % Normal 10.8-14.9 [facility] Comment on above: Performed By: #### L ABHSTI1 #### [facility] (DEFAULT) [address] [address] WBC (Bld) [#/Vol] 7.18 10*3/uL Normal 3.99-11.19 [facility] Comment on above: Performed By: #### L ABHSTI1 #### [facility] (DEFAULT) [address] [address] Erythrocyte distribution width (RBC) [Ratio] 12.8 % 10.8 - 14.9 % [facility] Hematocrit (Bld) [Volume fraction] 34.7 % Low 34.9 - 44.3 % [facility] Hemoglobin (Bld) [Mass/Vol] 11.5 g/dL 11.4 - 15.2 g/dL [facility] Interpretation and review of laboratory results Abnormal [facility] MCH (RBC) [Entitic mass] 33.0 pg 25.9 - 33.9 pg [facility] MCHC (RBC) [Mass/Vol] 33.1 g/dL 31.4 - 35.9 g/dL [facility] MCV (RBC) [Entitic vol] 99.4 fL High 79.6 - 97.7 fL [facility] Platelet mean volume (Bld) [Entitic vol] 10.5 fL 8.5 - 12.2 fL [facility] Platelets (Bld) [#/Vol] 306 10*3/uL 150 - 393 K/uL [facility] RBC (Bld) [#/Vol] 3.49 10*6/uL Low [facility] WBC (Bld) [#/Vol] 7.18 10*3/uL 3.99 - 11. 19 K/uL [facility] CHEM 7 (LYTES,BUN,CREA,GLUC) on 10-20-2021 Anion gap [Moles/Vol] 13 mmol/L Normal 7-17 [facility] Comment on above: Performed By: #### C HM7 #### [facility] (DEFAULT) [address] [place] [address] Chloride [Moles/Vol] 110 mmol/L High 98-108 [facility] Comment on above: Performed By: #### C HM7 #### [facility] (DEFAULT) [address] [place] [address] CO2 [Moles/Vol] 21 mmol/L Normal 21-31 [facility] Comment on above: Performed By: #### C HM7 #### [facility] (DEFAULT) [address] [place] [address] Creatinine [Mass/Vol] 0.60 mg/dL Normal 0.50-1.20 [facility] Comment on above: Performed By: #### C HM7 #### [facility] (DEFAULT) [address] [place] [address] eGFR, CKD-EPI, Female >90 Normal >=60 [facility] Comment on above: Result Comment: Repo rted eGFR is based on the CKD-EPI 2020 equation using creatinine, age, and sex. Performed By: #### C HM7 #### [facility] (DEFAULT) [address] [place] [address] Glucose [Mass/Vol] 86 mg/dL Normal 70-99 [facility] Comment on above: Performed By: #### C HM7 #### [facility] (DEFAULT) [address] [place] [address] Osmolality [Osmolality] 293 mosm/kg Normal 278-305 [facility] Comment on above: Performed By: #### C HM7 #### [facility] (DEFAULT) [address] [place] [address] Potassium [Moles/Vol] 3.3 mmol/L Low 3.5-5.0 [facility] Comment on above: Performed By: #### C HM7 #### [facility] (DEFAULT) [address] [place] [address] Sodium [Moles/Vol] 141 mmol/L Normal 135-145 [facility] Comment on above: Performed By: #### C HM7 #### [facility] (DEFAULT) [address] [place] [address] Urea nitrogen [Mass/Vol] 14 mg/dL Normal 7-25 [facility] Comment on above: Performed By: #### C HM7 #### [facility] (DEFAULT) [address] [place] [address] Urea nitrogen/Creatinine [Mass ratio] 23 mg/mg Normal [facility] Comment on above: Performed By: #### C HM7 #### [facility] (DEFAULT) [address] [place] [address] Anion gap [Moles/Vol] 13 mmol/L 7 - 17 mmol/L [facility] Chloride [Moles/Vol] 110 mmol/L High 98 - 10 8 mmol/L [facility] CO2 [Moles/Vol] 21 mmol/L 21 - 31 mmol/L [facility] Creatinine [Mass/Vol] 0.60 mg/dL 0.50 - 1.20 mg/dL [facility] GFR/1.73 sq M.predicted CKD-EPI (S/P/Bld) [Vol rate/Area] >90 >=60 mL/min/1.73m2 [facility] Comment on above: Reported eGFR is bas ed on the CKD-EPI 2020 equation using creatinine, age, and sex. Glucose [Mass/Vol] 86 mg/dL 70 - 99 mg/dL [facility] Interpretation and review of laboratory results Abnormal [facility] Osmolality Calc [Osmolality] 293 [facility] Potassium [Moles/Vol] 3.3 mmol/L Low 3.5 - 5.0 mmol/L [facility] Sodium [Moles/Vol] 141 mmol/L 135 - 145 mmol/L [facility] Urea nitrogen [Mass/Vol] 14 mg/dL 7 - 25 mg/dL [facility] Urea nitrogen/Creatinine [Mass ratio] 23 mg/mg [facility] CONTINUOUS CARDIAC MONITORIN G STRIPOrdered By: Unassigned Pacs on 10-20-2021 [facility] Work Phone: EXTRA MICROon 10-20-2021 [facility] MR Brain WO contraston 10-20 IMPRESSION: No [...] evidence of acute infarct or intracranial hemorrhage. [facility] Radiology Study observation (narrative) [facility] MR Brain WO contrastOrdered By: Miguel Angel Najera on 10-20-2021 [facility] Work Phone: MRI BRAIN WITHOUT CONTRASTon 10-20-2021 [...] of acute infarct or intracranial hemorrhage. Normal [facility] BETA HCG, QUAL, BLOODon HCG (Qual) Serum Negative Normal Negative [facility] Comment on above: Performed By: #### B HCG #### [facility] (DEFAULT) [address] [place] [address] CBC AND ELECTRONIC DIFFon Basophils (Bld) [#/Vol] 0.04 10*3/uL Normal 0.00-0.15 [facility] Comment on above: Performed By: #### L ABHSTI1 #### [facility] (DEFAULT) [address] [address] Basophils/100 WBC (Bld) 0.3 % Normal [facility] Comment on above: Performed By: #### L ABHSTI1 #### [facility] (DEFAULT) [address] [address] DIFF STATUS Electronic Differential Normal [facility] Comment on above: Performed By: #### L ABHSTI1 #### [facility] (DEFAULT) [address] [address] Eosinophils (Bld) [#/Vol] 10*3/uL Normal 0.00-0.42 [facility] Comment on above: Performed By: #### L ABHSTI1 #### [facility] (DEFAULT) [address] [address] Eosinophils/100 WBC (Bld) 0.1 % Normal [facility] Comment on above: Performed By: #### L ABHSTI1 #### [facility] (DEFAULT) [address] [address] Hematocrit (Bld) [Volume fraction] 36.4 % Normal 34.9-44.3 [facility] Comment on above: Performed By: #### L ABHSTI1 #### [facility] (DEFAULT) [address] [address] Hemoglobin (Bld) [Mass/Vol] 12.1 g/dL Normal 11.4-15.2 [facility] Comment on above: Performed By: #### L ABHSTI1 #### [facility] (DEFAULT) [address] [address] Immature Grans % 0.5 % Normal [facility] Comment on above: Performed By: #### L ABHSTI1 #### [facility] (DEFAULT) [address] [address] Immature Grans Absolute 0.07 K/uL Normal <=0.08 [facility] Comment on above: Performed By: #### L ABHSTI1 #### [facility] (DEFAULT) [address] [address] Lymphocytes (Bld) [#/Vol] 1.72 10*3/uL Normal 1.16-3.51 [facility] Comment on above: Performed By: #### L ABHSTI1 #### [facility] (DEFAULT) [address] [address] Lymphocytes/100 WBC (Bld) 11.3 % Normal [facility] Comment on above: Performed By: #### L ABHSTI1 #### [facility] (DEFAULT) [address] [address] MCV (RBC) [Entitic vol] 96.0 fL Normal 79.6-97.7 [facility] Comment on above: Performed By: #### L ABHSTI1 #### [facility] (DEFAULT) [address] [address] Mean Cell Hgb 31.9 pg Normal 25.9-33.9 [facility] Comment on above: Performed By: #### L ABHSTI1 #### [facility] (DEFAULT) [address] [address] Mean Cell Hgb Conc 33.2 g/dL Normal 31.4-35.9 [facility] Comment on above: Performed By: #### L ABHSTI1 #### [facility] (DEFAULT) [address] [address] Monocytes (Bld) [#/Vol] 0.78 10*3/uL Normal 0.22-0.87 [facility] Comment on above: Performed By: #### L ABHSTI1 #### [facility] (DEFAULT) [address] [address] Monocytes/100 WBC (Bld) 5.1 % Normal [facility] Comment on above: Performed By: #### L ABHSTI1 #### [facility] (DEFAULT) [address] [address] Nucleated RBC 0.0 /100 WBC Normal <=0.2 [facility] Comment on above: Performed By: #### L ABHSTI1 #### [facility] (DEFAULT) [address] [address] Platelet mean volume (Bld) [Entitic vol] 10.5 fL Normal 8.5-12.2 [facility] Comment on above: Performed By: #### L ABHSTI1 #### [facility] (DEFAULT) [address] [address] Platelets (Bld) [#/Vol] 363 10*3/uL Normal 150-393 [facility] Comment on above: Performed By: #### L ABHSTI1 #### [facility] (DEFAULT) [address] [address] RBC (Bld) [#/Vol] 3.79 10*6/uL Low 3.91-5.04 [facility] Comment on above: Performed By: #### L ABHSTI1 #### [facility] (DEFAULT) [address] [address] RBC Distribution 12.3 % Normal 10.8-14.9 [facility] Comment on above: Performed By: #### L ABHSTI1 #### [facility] (DEFAULT) [address] [address] Segs + Bands Auto 82.7 % Normal [facility] Comment on above: Performed By: #### L ABHSTI1 #### [facility] (DEFAULT) [address] [address] Segs + Bands,Absolute Auto 12.56 K/uL High 1.64-7.28 [facility] Comment on above: Performed By: #### L ABHSTI1 #### [facility] (DEFAULT) [address] [address] WBC (Bld) [#/Vol] 15.18 10*3/uL High 3.99-11.19 [facility] Comment on above: Performed By: #### L ABHSTI1 #### [facility] (DEFAULT) [address] [address] CBC,PLATELETSon 10-19-2021 Hematocrit (Bld) [Volume fraction] 34.9 % Normal 34.9-44.3 [facility] Comment on above: Performed By: #### H EMO #### [facility] (DEFAULT) [address] [address] Hemoglobin (Bld) [Mass/Vol] 11.6 g/dL Normal 11.4-15.2 [facility] Comment on above: Performed By: #### H EMO #### [facility] (DEFAULT) [address] [address] MCV (RBC) [Entitic vol] 96.9 fL Normal 79.6-97.7 [facility] Comment on above: Performed By: #### H EMO #### [facility] (DEFAULT) [address] [address] Mean Cell Hgb 32.2 pg Normal 25.9-33.9 [facility] Comment on above: Performed By: #### H EMO #### [facility] (DEFAULT) [address] [address] Mean Cell Hgb Conc 33.2 g/dL Normal 31.4-35.9 [facility] Comment on above: Performed By: #### H EMOGC #### [facility] (DEFAULT) [address] [address] Platelet mean volume (Bld) [Entitic vol] 10.3 fL Normal 8.5-12.2 [facility] Comment on above: Performed By: #### H EMOGC #### [facility] (DEFAULT) [address] [place] [address] Platelets (Bld) [#/Vol] 354 10*3/uL Normal 150-393 [facility] Comment on above: Performed By: #### H EMOGC #### [facility] (DEFAULT) [address] [place] [address] RBC (Bld) [#/Vol] 3.60 10*6/uL Low 3.91-5.04 [facility] Comment on above: Performed By: #### H EMOGC #### [facility] (DEFAULT) [address] [place] [address] RBC Distribution 12.7 % Normal 10.8-14.9 [facility] Comment on above: Performed By: #### H EMOGC #### [facility] (DEFAULT) [address] [place] [address] WBC (Bld) [#/Vol] 11.18 10*3/uL Normal 3.99-11.19 [facility] Comment on above: Performed By: #### [facility] #### [facility] (DEFAULT) [address] [place] [address] Erythrocyte distribution width (RBC) [Ratio] 12.7 % 10.8 - 14.9 % [facility] Hematocrit (Bld) [Volume fraction] 34.9 % 34.9 - 44.3 % [facility] Hemoglobin (Bld) [Mass/Vol] 11.6 g/dL 11.4 - 15.2 g/dL [facility] Interpretation and review of laboratory results Abnormal [facility] MCH (RBC) [Entitic mass] 32.2 pg 25.9 - 33.9 pg [facility] MCHC (RBC) [Mass/Vol] 33.2 g/dL 31.4 - 35.9 g/dL [facility] MCV (RBC) [Entitic vol] 96.9 fL 79.6 - 97.7 fL [facility] Platelet mean volume (Bld) [Entitic vol] 10.3 fL 8.5 - 12.2 fL [facility] Platelets (Bld) [#/Vol] 354 10*3/uL 150 - 393 K/uL [facility] RBC (Bld) [#/Vol] 3.60 10*6/uL Low [facility] WBC (Bld) [#/Vol] 11.18 10*3/uL 3.99 - 11 .19 K/uL [facility] CHEM 7 (LYTES,BUN,CREA,GLUC) on 10-19-2021 Anion gap [Moles/Vol] 14 mmol/L Normal 7-17 [facility] Comment on above: Performed By: #### L ABHSTI1 #### [facility] (DEFAULT) [address] [place] [address] Chloride [Moles/Vol] 112 mmol/L High 98-108 [facility] Comment on above: Performed By: #### L ABHSTI1 #### [facility] (DEFAULT) [address] [place] [address] CO2 [Moles/Vol] 21 mmol/L Normal 21-31 [facility] Comment on above: Performed By: #### L ABHSTI1 #### [facility] (DEFAULT) [address] [place] [address] Creatinine [Mass/Vol] 0.63 mg/dL Normal 0.50-1.20 [facility] Comment on above: Performed By: #### L ABHSTI1 #### [facility] (DEFAULT) [address] [place] [address] eGFR, CKD-EPI, Female >90 Normal >=60 [facility] Comment on above: Result Comment: Repo rted eGFR is based on the CKD-EPI 2020 equation using creatinine, age, and sex. Performed By: #### L ABHSTI1 #### [facility] (DEFAULT) [address] [place] [address] Glucose [Mass/Vol] 93 mg/dL Normal 70-99 [facility] Comment on above: Performed By: #### L ABHSTI1 #### [facility] (DEFAULT) [address] [place] [address] Osmolality [Osmolality] 296 mosm/kg Normal 278-305 [facility] Comment on above: Performed By: #### L ABHSTI1 #### [facility] (DEFAULT) [address] [place] [address] Potassium [Moles/Vol] 3.6 mmol/L Normal 3.5-5.0 [facility] Comment on above: Performed By: #### L ABHSTI1 #### [facility] (DEFAULT) [address] [place] [address] Sodium [Moles/Vol] 143 mmol/L Normal 135-145 [facility] Comment on above: Performed By: #### L ABHSTI1 #### [facility] (DEFAULT) [address] [place] [address] Urea nitrogen [Mass/Vol] 10 mg/dL Normal 7-25 [facility] Comment on above: Performed By: #### L ABHSTI1 #### [facility] (DEFAULT) [address] [place] [address] Urea nitrogen/Creatinine [Mass ratio] 16 mg/mg Normal [facility] Comment on above: Performed By: #### L ABHSTI1 #### [facility] (DEFAULT) [address] [place] [address] Anion gap [Moles/Vol] 14 mmol/L 7 - 17 mmol/L [facility] Chloride [Moles/Vol] 112 mmol/L High 98 - 10 8 mmol/L [facility] CO2 [Moles/Vol] 21 mmol/L 21 - 31 mmol/L [facility] Creatinine [Mass/Vol] 0.63 mg/dL 0.50 - 1.20 mg/dL [facility] GFR/1.73 sq M.predicted CKD-EPI (S/P/Bld) [Vol rate/Area] >90 >=60 mL/min/1.73m2 [facility] Comment on above: Reported eGFR is bas ed on the CKD-EPI 2020 equation using creatinine, age, and sex. Glucose [Mass/Vol] 93 mg/dL 70 - 99 mg/dL [facility] Interpretation and review of laboratory results Abnormal [facility] Osmolality Calc [Osmolality] 296 [facility] Potassium [Moles/Vol] 3.6 mmol/L 3.5 - 5.0 mmol/L [facility] Sodium [Moles/Vol] 143 mmol/L 135 - 145 mmol/L [facility] Urea nitrogen [Mass/Vol] 10 mg/dL 7 - 25 mg/dL [facility] Urea nitrogen/Creatinine [Mass ratio] 16 mg/mg [facility] CHM 7 - EDon 10-19-2021 Anion gap [Moles/Vol] 14 mmol/L Normal 7-17 [facility] Comment on above: Performed By: #### H [facility] #### [facility] (DEFAULT) [address] [place] [address] Chloride [Moles/Vol] 111 mmol/L High 98-108 [facility] Comment on above: Performed By: #### H [facility] #### [facility] (DEFAULT) [address] [place] [address] CO2 [Moles/Vol] 20 mmol/L Low 21-31 [facility] Comment on above: Performed By: #### H [facility] #### [facility] (DEFAULT) [address] [place] [address] Creatinine [Mass/Vol] 0.64 mg/dL Normal 0.50-1.20 [facility] Comment on above: Performed By: #### H [facility] #### [facility] (DEFAULT) [address] [place] [address] eGFR, CKD-EPI, Female >90 Normal >=60 [facility] Comment on above: Result Comment: Repo rted eGFR is based on the CKD-EPI 2020 equation using creatinine, age, and sex. Performed By: #### H EMO #### [facility] (DEFAULT) [address] [place] [address] Glucose [Mass/Vol] 104 mg/dL High 70-99 [facility] Comment on above: Performed By: #### H EMO #### [facility] (DEFAULT) [address] [place] [address] Osmolality [Osmolality] 294 mosm/kg Normal 278-305 [facility] Comment on above: Performed By: #### H EMO #### [facility] (DEFAULT) [address] [place] [address] Potassium [Moles/Vol] 4.2 mmol/L Normal 3.5-5.0 [facility] Comment on above: Result Comment: Slig htly hemolyzed Performed By: #### H EMO #### [facility] (DEFAULT) [address] [place] [address] Sodium [Moles/Vol] 141 mmol/L Normal 135-145 [facility] Comment on above: Performed By: #### H EMO #### [facility] (DEFAULT) [address] [place] [address] Urea nitrogen [Mass/Vol] 9 mg/dL Normal 7-25 [facility] Comment on above: Performed By: #### H EMO #### [facility] (DEFAULT) [address] [place] [address] Urea nitrogen/Creatinine [Mass ratio] 14 mg/mg Normal [facility] Comment on above: Performed By: #### H EMO #### [facility] (DEFAULT) [address] [place] [address] HEAD WITHOUT CONTRASTon 0 10-19-2021 CT [...] have reviewed and approved this report. Normal [facility] CT Head WO contraston 2021 IMPRESSION: [...] I have reviewed and approved this report. [facility] Rad[facility] Study observation (narrative) [facility] CT Head WO contrastOrdered B y: Jaciel Henry on 10-19-2021 [facility] Work Phone: CT STROKE HEAD-STROKE ALERT ONLYon [...] have reviewed and approved this report. Normal [facility] FIBRINOGEN, CLOTTABLEon 08-0 Fibrinogen Coag (PPP) [Mass/Vol] 204 mg/dL Low 220 - 410 mg/dL [facility] Comment on above: Functional Fibrinoge n (activity) levels can be affected by direct thrombin inhibitors such as heparins (>2.0 IU/ml) and dabigatran. Abnormal results should be interpreted with caution. Interpretation and review of laboratory results Abnormal [facility] Fibrinogen levels m ay be altered by the normal physiologic changes of and should be interpreted considering reference ranges specific to gestational age. First Trimester: 244-510 mg/dL Second Trimester: 291-538 mg/dL Third Trimester: 373-619 mg/dL Reference: Jony-Magdy M, Yeboah LG, Terrell FG. and laboratory studies: a reference table for clinicians. Obstet Gynecol 2009; 114:1326. [facility] Fibrinogen-Clottable 204 mg/dL Low 220-410 [facility] Comment on above: Order Comment: Acute Coronary Syndrome (ACS): Initial Evaluation and Management: [email or web address]% 20Coronary%20Syndrome.[email or web address] Result Comment: Func tional Fibrinogen (activity) levels can be affected by direct thrombin inhibitors such as heparins (>2.0 IU/ml) and dabigatran. Abnormal results should be interpreted with caution. Performed By: #### L ABHSTI1 #### [facility] (DEFAULT) [address] [place] [address] Fibrinogen-Clottable 187 mg/dL Low 220-410 [facility] Comment on above: Order Comment: Fibr [...] By: #### P TT, PTISTR, FIB #### [facility] (DEFAULT) [address] [address] GLUCOSE POCon 10-19-2021 Glucose [Mass/Vol] 94 mg/dL 70 - 99 mg/dL [facility] POC Sample Type CAPBL [facility] Test performed at address of the patient encounter. [facility] HEMOGLOBIN A1Con 10-19-2021 Glucose [Mass/Vol] 103 mg/dL Normal [facility] Comment on above: Performed By: #### A 1CB #### [facility] (DEFAULT) [address] [address] HbA1c (Bld) [Mass fraction] 5.2 % Normal 4.7-5.6 [facility] Comment on above: Performed By: #### A 1CB #### [facility] (DEFAULT) [address] [address] HEMOGLOBIN [id number] By: Sa emelyn Vásquez on 10-19-2021 Average glucose Estimated from glycated hemoglobin (Bld) [Mass/Vol] 103 mg/dL [facility] HbA1c (Bld) [Mass fraction] 5.2 % 4.7 - 5.6 % [facility] HEPATIC FUNCTION PANELon Albumin [Mass/Vol] 3.9 g/dL Normal 3.5-5.0 [facility] Comment on above: Performed By: #### H EMO #### [facility] (DEFAULT) [address] [place] [address] ALP [Catalytic activity/Vol] 82 U/L Normal 32-126 [facility] Comment on above: Performed By: #### H EMO #### [facility] (DEFAULT[facility] [address] [place] [address] 39520 ALT [Catalytic activity/Vol] 17 U/L Normal 9-48 [facility] Comment on above: Result Comment: Slig htly hemolyzed Performed By: #### H EMO #### [facility] (DEFAULT) [address] [place] [address] 31164 AST [Catalytic activity/Vol] 21 U/L Normal 10-39 [facility] Comment on above: Result Comment: Slig htly hemolyzed Performed By: #### H EMO #### [facility] (DEFAULT) [address] [place] [address] 58717 Bilirubin [Mass/Vol] 0.8 mg/dL Normal <1.5 [facility] Comment on above: Result Comment: Slig htly hemolyzed Performed By: #### H EMO #### [facility] (DEFAULT) [address] [place] [address] 27787 Bilirubin.indirect [Mass/Vol] 0.1 mg/dL Normal <0.3 [facility] Comment on above: Result Comment: Slig htly hemolyzed Performed By: #### H EMO #### [facility] (DEFAULT) [address] [place] [address] 43052 Protein [Mass/Vol] 6.7 g/dL Normal 6.4-8.3 [facility] Comment on above: Performed By: #### H EMOGC #### [facility] (DEFAULT) [address] [place] [address] 95486 HIGH SENSITIVITY TROPONIN I - SINGLE ORDERon 10-19-2021 hs-Troponin I 12 ng/L Normal <34 [facility] Comment on above: Order Comment: Acute Coronary Syndrome (ACS): Initial Evaluation and Management: [email or web address] [email or web address] Performed By: #### L ABHSTI1 #### [facility] (DEFAULT) [address] [place] [address] 27179 LIPID PANEL WITH REFLEX TO M ELOD[place] LDLon 10-19-2021 Calculated LDL Cholesterol 80 mg/dL Normal 0-99 [facility] Comment on above: Result Comment: [<10 0 mg/dL: Optimal] [100-129 mg/dL: Near Optimal] [130-159 mg/dL: Borderline High] [160-189 mg/dL: High] [>189 mg/dL: Very High] Performed By: #### L IPDR #### [facility] (DEFAULT) [address] [place] [address] 04260 Cholesterol [Mass/Vol] 138 mg/dL Normal <200 [facility] Comment on above: Result Comment: [<20 0 mg/dL: Desirable] [200-239 mg/dL: Borderline High] [>239 mg/dL: High] Performed By: #### L IPDR #### [facility] (DEFAULT) [address] [place] [address] 75617 Cholesterol in HDL [Mass/Vol] 32 mg/dL Low >=40 [facility] Comment on above: Result Comment: [<40 mg/dL: Low (High Risk)] [>59 mg/dL: High (Low Risk)] Performed By: #### L IPDR #### [facility] (DEFAULT) [address] [address] Non HDL Cholesterol 106 mg/dL Normal <130 [facility] Comment on above: Performed By: #### L IPDR #### [facility] (DEFAULT) [address] [address] Total Cholesterol/HDL Ratio 4.3 Normal <4.5 [facility] Comment on above: Performed By: #### L IPDR #### [facility] (DEFAULT) [address] [place] [address] 08356 Triglyceride [Mass/Vol] 128 mg/dL Normal <150 [facility] Comment on above: Result Comment: [<15 0 mg/dL: Desirable] [150-199 mg/dL: Borderline] [200-499 mg/dL: High] [>500 mg/dL: Very High] Performed By: #### L IPDR #### [facility] (DEFAULT) [address] [place] [address] Cholesterol [Mass/Vol] 138 mg/dL <200 [facility] Comment on above: [<200 mg/dL: Desirab le] [200-239 mg/dL: Borderline High] [>239 mg/dL: High] Cholesterol in HDL [Mass/Vol] 32 mg/dL Low >=40 [facility] Comment on above: [<40 mg/dL: Low (Hig h Risk)] [>59 mg/dL: High (Low Risk)] Cholesterol in HDL [Mass/Vol] 106 mg/dL <130 [facility] Cholesterol in LDL [Mass/Vol] 80 mg/dL 0 - 99 mg/dL [facility] Comment on above: [<100 mg/dL: Optimal ] [100-129 mg/dL: Near Optimal] [130-159 mg/dL: Borderline High] [160-189 mg/dL: High] [>189 mg/dL: Very High] Cholesterol.total/Ch olesterol in HDL [Mass ratio] 4.3 {ratio} <4.5 [facility] Interpretation and review of laboratory results Abnormal [facility] Triglyceride [Mass/Vol] 128 mg/dL <150 [facility] Comment on above: [<150 mg/dL: Desirab le] [150-199 mg/dL: Borderline] [200-499 mg/dL: High] [>500 mg/dL: Very High] [facility] LT BLUE TOP TUBEon 2 [facility] MAGNESIUMon 10-19-2021 Magnesium [Mass/Vol] 2.1 mg/dL Normal 1.6-2.6 [facility] Comment on above: Performed By: #### L ABHSTI1 #### [facility] (DEFAULT) [address] [place] [address] 51993 Interpretation and review of laboratory results Normal [facility] Magnesium [Mass/Vol] 2.1 mg/dL 1.6 - 2 .6 mg/dL [facility] No Panel Informationon 10-19 [facility] PTINR-STROKEon 10-19-2021 INR Coag (PPP) [Relative time] 1.2 {INR} High 0.9-1.1 [facility] Comment on above: Performed By: #### P TT, PTISTR, FIB #### [facility] (DEFAULT) [address] [place] [address] 47030 PT Coag (PPP) [Time] 14.8 s High 11.9-14.2 [facility] Comment on above: Performed By: #### P TT, PTISTR, FIB #### [facility] (DEFAULT) [address] [place] [address] 71546 PTTon 10-19-2021 aPTT Coag (Bld) [Time] 30.7 s Normal 24.0-34.3 [facility] Comment on above: Performed By: #### P TT, PTISTR, FIB #### [facility] (DEFAULT) [address] [place] [address] 29641 Portable XR Chest Viewson IMPRESSION: No acute [...] structures are intact. RADIOLOGY Mar Wyatt MB [facility] - 10/19/2021 EXAM: XR CHEST PORTABLE, 10/19/2021 [...] I have reviewed and approved this report. [facility] Radiology Study observation (narrative) [facility] Portable XR Chest ViewsOrder ed By: Mar Wyatt on 10-19-2021 [facility] Work Phone: TOXICOLOGY SCREEN URINE - UD RGOrdered By: Nancy King on 10-19-2021 Barbiturates Ql (U) Negative Cutoff: 200 ng/mL [facility] Cannabinoids Screen Ql (U) Negative Cutoff: 50 ng/mL [facility] Drugs identified Screen Nom (U) Ketamine Lorazapam Dextromethorphan Abnormal Negative [facility] Interpretation and review of laboratory results Abnormal [facility] For Medical Purposes Only. Nonforensic screen results are considered presumptive and no confirmatory testing will follow. Drugs are detected by immunoassay or Liquid Chromatography Mass Spectrometry (LC-MS/MS). The LC-MS/MS test was developed and its performance characteristics determined by the Toxicology Laboratory at [facility]. It has not been cleared or [...] Alprazolam(50), Amitriptyline(50), Amphetamine(250), Atenolol(500),Benzoylec gonine(50), Buprenorphine(100), Bupropion(25),Caffeine( 70513),Chlordiazepoxide (50), Chlorpheniramine(100), Chlorpromazine(50), Citalopram(100), Clonazepam(200), Cocaine(25),Codeine(200 ), [...] Tramadol(50), Trazodone(25), Triazolam(100), Trifluoperazine (100),Venlafaxine(50), Verapamil(100), Zolpidem(200) [facility] TOXICOLOGY SCREEN URINE - UD RGon 10-19-2021 Barbiturates Negative Normal Cutoff: 200 ng/mL [facility] Comment on above: Order Comment: For M edical Purposes Only. Nonforensic screen results are considered presumptive and no confirmatory testing will follow. Drugs are detected by immunoassay or Liquid Chromatography Mass Spectrometry (LC-MS/MS). The LC-MS/MS test was developed and its performance characteristics determined by the Toxicology Laboratory at [facility]. It has not been cleared or [...] (200), Alphahydrozyalprazolam(200), Alprazolam(50), Amitriptyline(50), Amphetamine(250), Atenolol(500),Benzoylecgonine(50), Buprenorphine(100), Bupropion(25),Caffeine(58953),Chlordiazepoxide(50), Chlorpheniramine(100), Chlorpromazine(50), Citalopram(100), Clonazepam(200), Cocaine(25),Codeine(200), Cotinine(500),Desipramine(50), Desmethyldoxepin(100), [...] Performed By: #### U DRG #### [facility] (DEFAULT) [address] [place] [address] Cannabinoids Screen Ql (U) Negative Normal Cutoff: 50 ng/mL [facility] Comment on above: Order Comment: For M edical Purposes Only. Nonforensic screen results are considered presumptive and no confirmatory testing will follow. Drugs are detected by immunoassay or Liquid Chromatography Mass Spectrometry (LC-MS/MS). The LC-MS/MS test was developed and its performance characteristics determined by the Toxicology Laboratory at [facility]. It has not been cleared or [...] (200), Alphahydrozyalprazolam(200), Alprazolam(50), Amitriptyline(50), Amphetamine(250), Atenolol(500),Benzoylecgonine(50), Buprenorphine(100), Bupropion(25),Caffeine(85864),Chlordiazepoxide(50), Chlorpheniramine(100), Chlorpromazine(50), Citalopram(100), Clonazepam(200), Cocaine(25),Codeine(200), Cotinine(500),Desipramine(50), Desmethyldoxepin(100), [...] Performed By: #### U DRG #### [facility] (DEFAULT) [address] [place] [address] Drugs Detected Urine Tox Abnormal Negative [facility] Comment on above: Order Comment: For M edical Purposes Only. Nonforensic screen results are considered presumptive and no confirmatory testing will follow. Drugs are detected by immunoassay or Liquid Chromatography Mass Spectrometry (LC-MS/MS). The LC-MS/MS test was developed and its performance characteristics determined by the Toxicology Laboratory at [facility]. It has not been cleared or [...] (200), Alphahydrozyalprazolam(200), Alprazolam(50), Amitriptyline(50), Amphetamine(250), Atenolol(500),Benzoylecgonine(50), Buprenorphine(100), Bupropion(25),Caffeine(58993),Chlordiazepoxide(50), Chlorpheniramine(100), Chlorpromazine(50), Citalopram(100), Clonazepam(200), Cocaine(25),Codeine(200), Cotinine(500),Desipramine(50), Desmethyldoxepin(100), [...] Dextromethorphan Performed By: #### U DRG #### [facility] (DEFAULT) [address] [place] [address] 28948 URINE DIPSTICK; REFLEX MICRO SCOPY; REFLEX CULTURE PERFORMABLEon 10-19-2021 Appearance (U) Clear Normal Clear [facility] Comment on above: Performed By: #### L ABHSTI1 #### [facility] (DEFAULT) [address] [place] [address] 47272 Blood Urine Trace Abnormal Negative [facility] Comment on above: Performed By: #### L ABHSTI1 #### [facility] (DEFAULT) [address] [place] [address] 48040 Color (U) Yellow Normal Yellow [facility] Comment on above: Performed By: #### L ABHSTI1 #### [facility] (DEFAULT) [address] [place] [address] 48646 Glucose Ql (U) Negative Normal Negative [facility] Comment on above: Performed By: #### L ABHSTI1 #### [facility] (DEFAULT) [address] [place] [address] 09028 Ketones Ql (U) 15 mg/dL = Small Abnormal Negative [facility] Comment on above: Performed By: #### L ABHSTI1 #### [facility] (DEFAULT) [address] [place] [address] 20971 Leukocyte esterase Test strip Ql (U) Negative Normal Negative [facility] Comment on above: Performed By: #### L ABHSTI1 #### [facility] (DEFAULT) [address] [place] [address] 37533 Nitrites Urine Negative Normal Negative [facility] Comment on above: Performed By: #### L ABHSTI1 #### [facility] (DEFAULT) [address] [place] [address] 20554 pH (U) 5.5 [pH] Normal 5.0-7.0 [facility] Comment on above: Performed By: #### L ABHSTI1 #### [facility] (DEFAULT) [address] [place] [address] 33918 Protein Urine Negative Normal Negative [facility] Comment on above: Performed By: #### L ABHSTI1 #### [facility] (DEFAULT) [address] [place] [address] 44964 Specific [place] Urine 1.010 Normal 1.001-1.035 [facility] Comment on above: Performed By: #### L HUYTI1 #### [facility] (DEFAULT) [address] [place] [address] 49246 Urobilinogen Urine 0.2 E.U./dL Normal 0.2 E.U/d L, 1.0 E.U/dL [facility] Comment on above: Performed By: #### L ABHSTI1 #### [facility] (DEFAULT) [address] [place] [address] 99473 Appearance (U) Clear Clear [facility] Color (U) Yellow Yellow [facility] Glucose Test strip (U) [Mass/Vol] Negative Negative [facility] Interpretation and review of laboratory results Abnormal [facility] Ketones (U) [Mass/Vol] 15 mg/dL = Small Abnormal Negative [facility] Leukocyte esterase Test strip Ql (U) Negative Negative [facility] Nitrite Ql (U) Negative Negative [facility] pH (U) 5.5 [pH] 5.0 - 7.0 [facility] Protein (U) [Mass/Vol] Negative Negative [facility] RBC (U) [#/Vol] Trace Abnormal Negative [facility] Specific gravity (U) [Rel density] 1.010 [facility] Urobilinogen (U) [Mass/Vol] 0.2 E.U./dL 0.2 E.U/dL, 1.0 E.U/dL [facility] URINE MICROSCOPIC WITH REFLE X TO CULTUREon 10-19-2021 Bacteria ABSENT Normal ABSENT [facility] Comment on above: Performed By: #### L ABHSTI1 #### [facility] (DEFAULT) [address] [place] [address] 61780 RBC Urine 0-2 Normal 0-2 [facility] Comment on above: Performed By: #### L ABHSTI1 #### [facility] (DEFAULT) [address] [place] [address] 62876 Squamous/Epithelial Cells ABSENT Normal 1/hpf = 1+, 2-5/hpf = 2+, 0/hpf = 0+, ABSENT [facility] Comment on above: Performed By: #### L ABHSTI1 #### [facility] (DEFAULT) [address] [place] [address] 01802 WBC Urine 0-5 Normal 0-5 [facility] Comment on above: Performed By: #### L ABHSTI1 #### [facility] (DEFAULT) [address] [place] [address] 75365 URINE MICROSCOPIC WITH REFLE X TO CULTUREOrdered By: Maia Noyola on 10-19-2021 Bacteria LM Ql (Urine sed) ABSENT ABSENT [facility] Epithelial cells.squamous LM Ql (Urine sed) ABSENT 1/hpf = 1+, 2-5/hpf = 2+, 0/hpf = 0+, ABSENT [facility] Interpretation and review of laboratory results Normal [facility] RBC LM.HPF (Urine sed) [#/Area] 0-2 0 - 2 /HPF [facility] WBC LM.HPF (Urine sed) [#/Area] 0-5 0 - 5 /HPF [facility] XR CHEST PORTABLEon 10-20-19 XR CHEST PORTABLE [...] have reviewed and approved this report. Normal [facility] Absolute lymphocyte counton 10-18-2021 Lymphocytes Auto (Unsp spec) [#/Vol] 1.67 10*3/uL 0.83-4.51 [facility] Work Phone: [phone] Basophil percentageon 2021 Basophils/100 WBC (Bld) 0.5 % 0-1 [facility] Work Phone: [phone] Chloride [Moles/Vol] 110 mmol/L 98-107 [facility] Work Phone: Eosinophils/100 WBC (Bld) 0.0 % 0-5 [facility] Work Phone: Glucose [Mass/Vol] 107 mg/dL 74-106 [facility] Work Phone: [phone] Comment on above: Fasting Glucose resu lt from 100 to 125 mg/dL suggests IMPAIRED HOMEOSTASIS per A.D.A. criteria. Neutrophils (Bld) [#/Vol] 5.2 10*3/uL 2.0-7.7 [facility] Work Phone: Neutrophils/100 WBC (Bld) 70.3 % 47-70 [facility] Work Phone: Potassium [Moles/Vol] 3.1 mmol/L 3.5-5.1 [facility] Work Phone: [phone] Sodium [Moles/Vol] 139 mmol/L 136-145 [facility] Work Phone: WBC (Bld) [#/Vol] 7.4 10*3/uL 4.4-11.0 [facility]: Blood erythrocytes count (nu mber/volume)on 10-18-2021 RBC (Bld) [#/Vol] 4.01 10*6/uL 4.2-5.4 [facility] Phone: Blood hemoglobin measurement (mass/volume)on 10-18-2021 Hemoglobin (Bld) [Mass/Vol] 13.4 g/dL 12.0-15.0 [facility] Work Phone: Blood lymphocytes/100 leukoc yteson 10-18-2021 Lymphocytes/100 WBC (Bld) 22.6 % 19-41 [facility] Work Phone: Blood monocytes/100 leukocyt eson 10-18-2021 Monocytes/100 WBC (Bld) 6.2 % 0-10 [facility] Work Phone: Blood platelet mean volumeon 10-18-2021 Platelet mean volume (Bld) [Entitic vol] 10.2 fL 6.2-12.0 [facility] Work Phone: CBC AND ELECTRONIC DIFFon Basophils (Bld) [#/Vol] 0.04 10*3/uL 0.00 - 0.15 K/uL [facility] Basophils/100 WBC (Bld) 0.3 % [facility] Differential cell count method Nom (Bld) Electronic Differential [facility] Eosinophils (Bld) [#/Vol] 10*3/uL 0.00 - 0.42 K/uL [facility] Eosinophils/100 WBC (Bld) 0.1 % [facility] Erythrocyte distribution width (RBC) [Ratio] 12.3 % 10.8 - 14.9 % [facility] Hematocrit (Bld) [Volume fraction] 36.4 % 34.9 - 44.3 % [facility] Hemoglobin (Bld) [Mass/Vol] 12.1 g/dL 11.4 - 15.2 g/dL [facility] Immature granulocytes (Bld) [#/Vol] 0.07 10*3/uL <=0.08 [facility] Immature granulocytes/100 WBC (Bld) 0.5 % [facility] Interpretation and review of laboratory results Abnormal [facility] Lymphocytes (Bld) [#/Vol] 1.72 10*3/uL 1.16 - 3.51 K/uL [facility] Lymphocytes/100 WBC (Bld) 11.3 % [facility] MCH (RBC) [Entitic mass] 31.9 pg 25.9 - 33.9 pg [facility] MCHC (RBC) [Mass/Vol] 33.2 g/dL 31.4 - 35.9 g/dL [facility] MCV (RBC) [Entitic vol] 96.0 fL 79.6 - 97.7 fL [facility] Monocytes (Bld) [#/Vol] 0.78 10*3/uL 0.22 - 0.87 K/uL [facility] Monocytes/100 WBC (Bld) 5.1 % [facility] Neutrophils (Bld) [#/Vol] 12.56 10*3/uL High 1.64 - 7.28 K/uL [facility] Nucleated RBC/100 WBC (Bld) [Ratio] 0.0 % <=0.2 /100 WBC [facility] Platelet mean volume (Bld) [Entitic vol] 10.5 fL 8.5 - 12.2 fL [facility] Platelets (Bld) [#/Vol] 363 10*3/uL 150 - 393 K/uL [facility] RBC (Bld) [#/Vol] 3.79 10*6/uL Low [facility] Segmented neutrophils/100 WBC (Bld) 82.7 % [facility] WBC (Bld) [#/Vol] 15.18 10*3/uL High 3.99 - 11 .19 K[facility]L [facility] - EDon 10-18-2021 Anion gap [Moles/Vol] 14 mmol/L 7 - 17 mmol/L [facility] Chloride [Moles/Vol] 111 mmol/L High 98 - 10 8 mmol/L [facility] CO2 [Moles/Vol] 20 mmol/L Low 21 - 31 mmol/L [facility] Creatinine [Mass/Vol] 0.64 mg/dL 0.50 - 1.20 mg/dL [facility] GFR/1.73 sq M.predicted CKD-EPI (S/P/Bld) [Vol rate/Area] >90 >=60 mL/min/1.73m2 [facility] Comment on above: Reported eGFR is bas ed on the CKD-EPI 2020 equation using creatinine, age, and sex. Glucose [Mass/Vol] 104 mg/dL High 70 - 99 mg/dL [facility] Interpretation and review of laboratory results Abnormal [facility] Osmolality Calc [Osmolality] 294 [facility] Potassium [Moles/Vol] 4.2 mmol/L 3.5 - 5.0 mmol/L [facility] Comment on above: Slightly hemolyzed Sodium [Moles/Vol] 141 mmol/L 135 - 145 mmol/L [facility] Urea nitrogen [Mass/Vol] 9 mg/dL 7 - 25 mg/dL [facility] Urea nitrogen/Creatinine [Mass ratio] 14 mg/mg [facility] CT Head limitedon 10-18-2021 IMPRESSION: 1. No [...] I have reviewed and approved this report. [facility] Radiology Study observation (narrative) [facility] CT Head limitedOrdered By: Barb Leon on 10-18-2021 [facility] Work Phone: Determination of erythrocyte mean corpuscular volume (MCV)on 10-18-2021 MCV (RBC) [Entitic vol] 94.8 fL 81-99 [facility] Work Phone: FIBRINOGEN, CLOTTABLEon 08-0 Fibrinogen Coag (PPP) [Mass/Vol] 187 mg/dL Low 220 - 410 mg/dL [facility] Comment on above: Functional Fibrinoge n (activity) levels can be affected by direct thrombin inhibitors such as heparins (>2.0 IU/ml) and dabigatran. Abnormal results should be interpreted with caution. Interpretation and review of laboratory results Abnormal [facility] Fibrinogen levels m ay be altered by the normal physiologic changes of and should be interpreted considering reference ranges specific to gestational age. First Trimester: 244-510 mg/dL Second Trimester: 291-538 mg/dL Third Trimester: 373-619 mg/dL Reference: Osmar M, Edilia LG, Terrell FG. and laboratory studies: a reference table for clinicians. Obstet Gynecol 2009; 114:1326. [facility] HCG ( test) QlOrder ed By: Marissa Marino on 10-18-2021 Beta HCG ( test) Ql Negative Negative [facility] Interpretation and review of laboratory results Normal [facility] HEPATIC FUNCTION PANELon Albumin [Mass/Vol] 3.9 g/dL 3.5 - 5.0 g/dL [facility] ALP [Catalytic activity/Vol] 82 U/L 32 - 126 U/L [facility] ALT [Catalytic activity/Vol] 17 U/L 9 - 48 U/L [facility] Comment on above: Slightly hemolyzed AST [Catalytic activity/Vol] 21 U/L 10 - 39 U/L [facility] Comment on above: Slightly hemolyzed Bilirubin [Mass/Vol] 0.8 mg/dL <1.5 [facility] Comment on above: Slightly hemolyzed Bilirubin.direct [Mass/Vol] 0.1 mg/dL <0.3 [facility] Comment on above: Slightly hemolyzed Interpretation and review of laboratory results Normal [facility] Protein [Mass/Vol] 6.7 g/dL 6.4 - 8.3 g/dL [facility] HIGH SENSITIVITY TROPONIN I - SINGLE ORDERon 10-18-2021 Interpretation and review of laboratory results Normal [facility] Troponin I.cardiac DL <= 0.01 ng/mL [Mass/Vol] 12 ng/L <34 [facility] Hematocrit Auto (Bld) [Volum e fraction]on 10-18-2021 Hematocrit (Bld) [Volume fraction] 38.0 % 37-47 [facility] Work Phone: INR in Blood by Coagulation assayon 10-18-2021 INR Coag (Bld) [Relative time] 1.0 {INR} [facility] Work Phone: Laboratory - Chemistry and C hemistry - challengeon 10-18-2021 CO2 [Moles/Vol] 20.0 mmol/L 21.0-32.0 [facility] Work Phone: Urea nitrogen/Creatinine [Mass ratio] 10.4 mg/mg 10-20 [facility] Work Phone: Laboratory - Coagulationon 0 10-18-2021 aPTT Coag (Bld) [Time] 31.8 s 24.1-36.2 [facility] Work Phone: PT Coag (PPP) [Time] 13.2 s 11.7-14.9 [facility] Work Phone: Laboratory - Hematology and Cell countson 10-18-2021 Erythrocyte distribution width (RBC) [Entitic vol] 43.3 fL 35.1-43.9 [facility] Work Phone: Erythrocyte distribution width (RBC) [Ratio] 12.3 % 11.6-14.6 [facility] Work Phone: Immature granulocytes/100 WBC (Bld) 0.400 % 0.0-0.9 [facility] Work Phone: Comment on above: IG% - Immature Granu locytes (promyelocytes, myelocytes and metamyelocytes) > 1% indicates that a LEFT SHIFT is Present. MCH (RBC) [Entitic mass] 33.4 pg 27.0-32.0 [facility] Work Phone: Nucleated RBC/100 WBC (Bld) [Ratio] 0 % 0-5 [facility] Work Phone: MCHC Auto (RBC) [Mass/Vol]on 10-18-2021 MCHC (RBC) [Mass/Vol] 35.3 g/dL 32-36 [facility] Work Phone: No Panel Informationon 10-18 [facility] Estimated Creatinine Clearance Calc 66.83 ml/min [facility] Work Phone: Estimated GFR (MDRD) Amer 89 mL/min >60 [facility] Work Phone: Comment on above: GFR Calc Estimated GFR (MDRD) Non-Af Amer 73 mL/min >60 [facility] Work Phone: Comment on above: Non- GFR Calc Troponin I High Sensitivity 9 pg/mL 3.0-54.0 [facility] Work Phone: Comment on above: Please Note: [place] t Units and Gender Specific Reference Ranges. For more information see Policy Stat Procedure [place] High Sensitivity Troponin (TNIH) and attachments. PTINR-STROKEon 10-18-2021 INR Coag (Bld) [Relative time] 1.2 {INR} [facility] Interpretation and review of laboratory results Abnormal [facility] PT Coag (PPP) [Time] 14.8 s High [facility] PTTon 10-18-2021 aPTT Coag (PPP) [Time] 30.7 s [facility] Interpretation and review of laboratory results Normal [facility] Platelets bldon 10-18-2021 Platelets (Bld) [#/Vol] 417 10*3/uL 150-450 [facility] Work Phone: Serum or plasma calcium cecilia urement (mass/volume)on 10-18-2021 Calcium [Mass/Vol] 9.4 mg/dL 8.5-10.1 [facility] Work Phone: Serum or plasma creatinine m easurement (mass/volume)on 10-18-2021 Creatinine [Mass/Vol] 0.86 mg/dL 0.55-1.02 [facility] [facility] Work Phone: Comment on above: The validity of the calculated GFR & GFRAA in patients over 70 years has not been determined. Clinical correlation is essential. Serum or plasma urea nitroge n measurement (mass/volume)on 10-18-2021 Urea nitrogen [Mass/Vol] 9 mg/dL 7-18 [facility] Work Phone: Thin prep Papanicolaou smear with manual screeningon 10-18-2021 Thin prep Papanicolaou smear with manual screening 9 5-15 [facility] Work Phone: Office Visit (Internal Medic ine)on 10-11-2021 Follow-up visit Diagnoses/Problems Assessed URI, acute (465.9) (J06.9) Orders URI, acute Start: Azithromycin 250 MG Oral Tablet (Zithromax); TAKE DIRECTED PER PACKAGE INSTRUCTIONS Rx By: Caleb Munguia; Dispense: 0 Days ; #:6 Tablet; Refill: 0;For: URI, acute; KARL = N; Verified Transmission to [facility]; Last Updated By: Paulina Brown; 10/11/2021 11:25:47 AM Xray Chest 2 View PA + Lateral; Status:Hold For - Scheduling; Requested for:[id number]; Perform:[facility]; Due:[id number];Ordered; For:URI, acute; Ordered By:Caleb Munguia; Radiologist to Determine Optimal Study : Y What are the patient's signs and symptoms? : cough, covid suspected Start: predniSONE 10 MG Oral Tablet; Take 1 tablet twice daily Rx By: Caleb Munguia; Dispense: 5 Days ; #:10 Tablet; Refill: 0;For: URI, acute; KARL = N; Verified Transmission to [facility] #[facility]; Last Updated By: Paulian Brown; 10/11/2021 11:25:48 AM Start: Widemzszk-Fjonnuod-RV 30-2-10 MG/5ML Oral Syrup; take 5-10 mL po q4-6 hrs prn cough, cold, or allergy symptoms Rx By: Caleb Munguia; Dispense: 0 Days ; #:200 Milliliter; Refill: 1;For: URI, acute; KARL = N; Verified Transmission to [facility] #[facility]; Last Updated By: Paulina Brown; [...] Cholecystectomy History of Skin biopsy History of [place] tooth extraction Family History Mother Family history [...] Hour Art (more content not included)... Normal [facility] Tobacco Screening.on 022 Adult depression screening assessment No [facility] Work Phone: Fall risk assessment a) No falls within the last year [facility] Work Phone: Tobacco use status CPHS a) Yes [facility] Work Phone: LATH TIER - Office Visiton 09-11 LATH TIER - Office Visit Diagnoses/Problems Assessed Abnormal uterine [...] Cholecystectomy History of Skin biopsy History of [place] tooth extraction Family History Mother Family history [...] TIMES DAILY NEEDED. Vitals Vital Signs Recorded: [id number] 02:45PM Gnyevszs173 Naygvdmit22 Height5 ft 1 in Wsdvgf294 lb 4 oz BMI Lbygxqcmgp69.37 kg/m2 BSA Calculated1.59 Physical Exam Constitutional: Alert and in no acute distress. Well developed, well nourished Signatures Electronically signed by : Andrea Chapin APRN-LUIS [employer]-BREWERY WORKER; Oct 07 2021 3:27PM EST (Author) Normal QR Wild LATH TIER - Office Visit No report was sent Normal QR Wild No Panel Informationon 10-04 Please click on the link to view the study images [place] [address] [address] Work Phone: Mamm - Screening Mammogram w / Tomosynthesison 09-30-2021 MG Breast Screening Please click on the link to view the study images [place] [address] [address] Work Phone: No Panel Informationon 09-30 Please click on the link to view the study images Normal [place] [address] [address] Work Phone: Initial Visit (Orthopaedic [facility])on 09-29-2021 Initial Visit (Orthopaedic Surgery) Diagnoses/Problems Assessed Right wrist pain (719.43) (M25.531) Tendonitis of wrist, right (727.05) (M77.8) Orders Right wrist pain Xray Wrist Complete Min 3 View; Status:Resulted - Preliminary; Done: [id number] 01:48PM Laterality : Right Radiologist to Determine [...] if she has written restrictions. I did summer counselor her that repetitive movement and use of [...] of care. This note was generated using [employer] software. 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 Normal [facility] Radiologyon 09-29-2021 XR Wrist - bilateral 3 Views Please click on the link to view the study images Normal [facility] Orthopedics [facility] 300 Work Phone: XR Wrist - bilateral 3 Views Normal [facility] 300 Work Phone: Tobacco Screening.on 022 Fall risk assessment b) One or more fall s in the last year [facility] 300 Work Phone: Tobacco use status CPHS a) Yes [facility] 300 Work Phone: Hemoglobin A1Con 09-23-2021 Glucose [Mass/Vol] 100 mg/dL [facility] Work Phone: HbA1c (Bld) [Mass fraction] 5.1 % [facility] Work Phone: Comment on above: Diagnosis of Diabete s-Adults Non-Diabetic: < or = 5.6% Increased risk for developing diabetes: 5.7-6.4% Diagnostic of diabetes: > or = 6.5%. Monitoring of Diabetes Age (y) Therapeutic Goal (%) Adults: >18 <7.0 Pediatrics: 13-18 <7.5 7-12 <8.0 0- 6 7.5-8.5 [place] [employer]. Diabetes Care 33(S1), Mar 2009. LMPon 09-23-2021 Last menstrual period start date [facility] [address] [place] Work Phone: Laboratory - Chemistry and C hemistry - challengeon 09-23-2021 Albumin BCP dye [Mass/Vol] 3.9 g/dL 3.4 - 5.0 [facility] Work Phone: ALP [Catalytic activity/Vol] 93 U/L 33 - 110 [facility] Work Phone: ALT With P-5'-P [Catalytic activity/Vol] 17 U/L 7 - 45 [facility] Work Phone: Comment on above: Patients treated wit h Sulfasalazine may generate falsely decreased results for ALT. Anion gap [Moles/Vol] 10 mmol/L 10 - 20 [facility] Work Phone: [phone] AST With P-5'-P [Catalytic activity/Vol] 17 U/L 9 - 39 [facility] Work Phone: [phone] Bilirubin [Mass/Vol] 0.3 mg/dL 0.0 - 1.2 -[facility] Work Phone: [phone] Calcium [Mass/Vol] 8.8 mg/dL 8.6 - 10.3 [facility] Work Phone: [phone] Chloride [Moles/Vol] 108 mmol/L above high threshold 98 - 107 [facility] Work Phone: CO2 [Moles/Vol] 25 mmol/L 21 - 32 [facility] Work Phone: [phone] Creatinine [Mass/Vol] 0.56 mg/dL See Below [facility] Work Phone: Comment on above: Reference Range: 0.5 0 - 1.05 Glucose [Mass/Vol] 83 mg/dL 74 - 99 [facility] Work Phone: [phone] Potassium [Moles/Vol] 3.9 mmol/L 3.5 - 5.3 [facility] Work Phone: Protein [Mass/Vol] 6.2 g/dL below low threshold 6.4 - 8.2 [facility] Work Phone: [phone] Sodium [Moles/Vol] 139 mmol/L 136 - 145 [facility] Work Phone: [phone] TSH Qn 1.09 m[IU]/L See Below [facility] Work Phone: [phone] Comment on above: Reference Range: 0.4 4 - 3.98 TSH testing is performed using different testing methodology at [facility] than at other [facility]. Direct result comparisons should only be made within the same method. Urea nitrogen [Mass/Vol] 12 mg/dL 6 - 23 [facility] Work Phone: [phone] Laboratory - Hematology and Cell countson 09-23-2021 Erythrocyte distribution width (RBC) [Ratio] 12.7 % See Below [facility] Work Phone: [phone] Comment on above: Reference Range: 11. 5 - 14.5 Hematocrit (Bld) [Volume fraction] 38.3 % See Below [facility] Work Phone: [phone] Comment on above: Reference Range: 36. 0 - 46.0 Hemoglobin (Bld) [Mass/Vol] 12.8 g/dL See Below [facility] Work Phone: [phone] Comment on above: Reference Range: 12. 0 - 16.0 MCHC (RBC) [Mass/Vol] 33.3 g/dL See Below [facility] Work Phone: [phone] Comment on above: Reference Range: 32. 0 - 36.0 MCV (RBC) [Entitic vol] 97 fL 80 - 100 [facility] Work Phone: [phone] Platelets (Bld) [#/Vol] 266 10*3/uL 150 - 450 [facility] Work Phone: [phone] RBC (Bld) [#/Vol] 3.94 {x10E12/L} below low threshold See Below [facility] Work Phone: Comment on above: Reference Range: 4.0 0 - 5.20 WBC (Bld) [#/Vol] 7.5 10*3/uL 4.4 - 11.3 [facility] Work Phone: Lipid Panelon 09-23-2021 Cholesterol [Mass/Vol] 197 mg/dL 0 - 199 [facility] Work Phone: Comment on above: . AGE [...] dosing. Cholesterol in HDL [Mass/Vol] 51.0 mg/dL [facility] Work Phone: Comment on above: . AGE VERY LOW LOW N ORMAL HIGH 0-19 Y < 35 < 40 40-45 ---- 20- 24 Y ---- < 40 >45 ---- >24 Y ---- < 40 40-60 >60. Cholesterol in LDL [Mass/Vol] 123 mg/dL above high threshold 0 - 99 [facility] Work Phone: Comment on above: . NEAR BORD AGE KALI RABLE OPTIMAL HIGH HIGH VERY HIGH 0-19 Y 0 - 109 --- 110-129 >/= 130 ---- 20-24 Y 0 - 119 --- 120-159 >/= 160 ---- >24 Y 0 - 99 100-129 130-159 160-189 >/=190. Cholesterol.total/Ch olesterol in HDL [Mass ratio] 3.9 {ratio} [facility] Work Phone: Comment on above: REF VALUESDESIRABLE < 3.4HIGH RISK > 5.0 Triglyceride [Mass/Vol] 116 mg/dL 0 - 149 [facility] Work Phone: Comment on [...] Lipid Panel 23 mg/dL 0 - 40 [facility] Work Phone: No Panel Informationon 09-23 >90 >90 [facility] Work Phone: Comment on above: CALCULATIONS OF BASHIR MATED GFR ARE PERFORMED USING THE 2020 CKD-EPI STUDY REFIT EQUATION WITHOUT THE RACE VARIABLE FOR THE IDMS-TRACEABLE CREATININE METHODS.https://jasn.asnjournals.org/content//ASN .3270656158 LATH TIER - Office Visiton 09-10 LATH TIER - Office Visit Diagnoses/Problems Health Maintenance/Risks Encounter for preventive health examination (V70.0) (Z00.00) Assessed Abnormal uterine bleeding (AUB) (626.9) (N93.9) Orders Ultrasound Pelvis Transabdominal With Transvaginal; Status:Active; Requested for:30Sep2021; Radiologist to Determine Optimal Study : Y What are the patient's signs and symptoms? : abnormal uterine bleeding PAP DIRECTOR SPEECH, Cytology; Status:In Progress - Specimen/Data Collected,Retrospective Authorization; [...] and f/u for results get records from [place] Chief Complaint PT HERE TODAY FOR ABNORMAL BLEEDING. PT STATES SHE HAS BEEN SPOTTING, BUT NOTICES ITS MORE NEAR HER RECTUM. PT HAS NOT HAD A PERIOD SINCE 2018, THINKS SHE HAD A DANDC PROCEDURE AND NOW IS STARTING TO BLEED. LMP ALEX History of Present IllnessPt. reports uterine polyps (?) removed and possible D+C 2018 due to heavy bleeding done in [place]. States no vaginal bleeding all of 2020 [...] Cholecystectomy History of Skin biopsy History of [place] tooth extraction Family History Mother Family history [...] TIMES DAILY NEEDED. Vitals Vital Signs Recorded: [id number] 03:27PM Tauarvwl626 Wkbgvhxjw78 Height5 ft Rpmnlp071 lb 14.22 oz BMI Jrtjncnvap62.13 kg/m2 BSA Calculated1.6 LMPMENO Physical Exam Constitutional: [...] to pat (more content not included)... Normal [facility] Radiologyon 09-23-2021 XR Knee 4 Views Please click on the link to view the study images Normal [address] Work Phone: XR Knee 4 Views Normal [facility] Work Phone: XR Ankle 3 Views Please click on the link to view the study images Normal [address] Work Phone: XR Ankle 3 Views Normal [facility] Work Phone: XR Foot 3 Views Please click on the link to view the study images Normal [address] Work Phone: XR Foot 3 Views Normal [facility] Work Phone: Office Visit (Internal Medic ine)on [...] syndrome; KARL = N; Verified Transmission to [facility]; Last Updated By: Paulina Brown; [...] View; Status:Hold For - Scheduling; Requested for:20Sep2021; Perform:[facility]; Due:19Dec2021;Ordered; For:Chronic pain of left knee; Ordered By:Caleb Munguia; Laterality : Left Radiologist to Determine Optimal Study : Y What are the patient's signs and symptoms? : pain, instability Chronic pain of right ankle Xray Ankle 3 View; Status:Hold For - Scheduling; Requested for:20Sep2021; Perform:[facility]; Due:19Dec2021;Ordered; For:Chronic pain of right ankle; Ordered By:Caleb Munguia; Laterality : Right Radiologist to Determine Optimal Study : Y What are the patient's signs and symptoms? : pain Xray Foot Complete Min 3 View; Status:Hold For - Scheduling; Requested for:20Sep2021; Perform:[facility]; Due:19Dec2021;Ordered; For:Chronic pain of [...] intractable; KARL = N; Verified Transmission to [facility] #[facility]; Last Updated By: Prized; 09/20/2021 9:06:06 AM Start: Rizatriptan Benzoate 10 MG Oral Tablet (Maxalt); TAKE 1 TABLET AT ONSET OF HEADACHE. MAY REPEAT EVERY 2 HOURS NEEDED. MAXIMUM 3 TABLETS IN 24 HOURS Rx By: Caleb Munguia; Dispense: 3 Days ; #:9 Tablet; Refill: 2;For: Migraine with aura and without status migrainosus, not intractable; KARL = N; Verified Transmission to [facility]; Last Updated By: Prized; 09/20/2021 9:06:07 AM Patient Discussion/Summary Health maintenance: Patient is scheduled to see LATH TIER for breast and pelvic exams. CBC, CMP, A1c, lipid panel, and TSH ordered. Screening colonoscopy ordered as well. Further recommendations pending results. Carpal tunnel syndrome, right hand: We will start Celebrex. Patient reports history of tolerance and intolerance to prescription NSAIDs versus pgaq-wxn-gjywcko NSAIDs. Patient states that prescription Aleve was tolerated without issue and mqrr-nym-vkvfmvh was not resulting in a rash. We will try Celebrex. Signs and symp (more content not included)... Normal [facility] Tobacco Screening.on 022 Adult depression screening assessment No [facility] Work Phone: Fall risk assessment a) No falls within the last year [facility] Work Phone: Tobacco use status CPHS a) Yes [facility] Work Phone: Vital Signs Date Time Vital Sign Value Performing Clinician Facility 08-31-2022 08:55-0400 Body temperature 96.8 [degF] Denita Cha MD Work Phone: [facility] 08-31-2022 08:55-0400 Diastolic blood pressure 71 mm[Hg] Denita Cha MD Work Phone: [facility] 08-31-2022 08:55-0400 Heart rate 63 /min Denita Cha MD Work Phone: [facility] 08-31-2022 08:55-0400 Respiratory rate 16 /min Denita Cha MD Work Phone: [facility] 08-31-2022 08:55-0400 Systolic blood pressure 145 mm[Hg] Denita Cha MD Work Phone: [facility] 08-31-2022 06:58-0400 Body height 149.8 cm Denita Cah MD Work Phone: [facility] 08-31-2022 06:58-0400 Body mass index (BMI) [Ratio] 26.96 kg/m2 Denita Cha MD Work Phone: [facility] 08-31-2022 06:58-0400 Body weight 60.5 kg Denita Cha MD Work Phone: [facility] 07-12-2022 09:31-0400 Body height 154.94 cm Rommel-Chi Butch Work Phone: [facility] [place] [address] Work Phone: 07-12-2022 09:31-0400 Body mass index (BMI) [Ratio] 26.83 kg/m2 Rommel-Chi Butch Work Phone: XT-Jjgqqpbpm-RMEQB [place] [facility] Work Phone: 07-12-2022 09:31-0400 Body surface area Derived from formula 1.63 m2 Rommel-Chi Butch Work Phone: JP-Esyzvyulb-ZYAQU [place] [address] Work Phone: 07-12-2022 09:31-0400 Body weight 64.41 kg Rommel-Chi Butch Work Phone: UY-Sqbywuiwo-STZEC [place] [address] Work Phone: 07-12-2022 09:31-0400 Diastolic blood pressure 81 mm[Hg] Rommel-Chi Butch Work Phone: JH-Dwwpxgyku-HJFCG [place] [address] Work Phone: 07-12-2022 09:31-0400 Heart rate 69 /min Rommel-Chi Butch Work Phone: LL-Oixzisech-WTRFJ [place] [address] Work Phone: 07-12-2022 09:31-0400 Respiratory rate 18 /min Rommel-Chi Butch Work Phone: ZA-Jgqffyymi-AUEQP [place] [address] Work Phone: 07-12-2022 09:31-0400 Systolic blood pressure 146 mm[Hg] Rommel-Chi Ubtch Work Phone: MJ-Pastwgiqx-BTKAX [place] [address] Work Phone: 07-12-2022 09:31-0400 0 1 Rommel-Chi Butch Work Phone: [facility] Work Phone: Comment on above: [employer] 05-05-2022 09:32-0500 Body height 154.94 cm Caleb Munguia Work Phone: [employer] [facility] [place] Work Phone: 05-05-2022 09:32-0500 Body mass index (BMI) [Ratio] 27.4 kg/m2 Caleb Munguia Work Phone: [place] [address] [place] Work Phone: 05-05-2022 09:32-0500 Body surface area Derived from formula 1.65 m2 Caleb Munguia Work Phone: [place] [address] [place] Work Phone: 05-05-2022 09:32-0500 Body weight 65.77 kg Caleb Munguia Work Phone: [place] [address] [place] Work Phone: 05-05-2022 09:32-0500 Diastolic blood pressure 82 mm[Hg] Caleb Munguia Work Phone: [place] [address] [place] Work Phone: 05-05-2022 09:32-0500 Systolic blood pressure 130 mm[Hg] Caleb Munguia Work Phone: [address] Work Phone: 10-20-2021 11:56-0400 Body temperature 98.29 [degF] Louis Ireland MD Work Phone: [facility] 10-20-2021 11:56-0400 Diastolic blood pressure 54 mm[Hg] Louis Ireland MD Work Phone: [facility] 10-20-2021 11:56-0400 Heart rate 54 /min Louis Ireland MD Work Phone: [facility] 10-20-2021 11:56-0400 Respiratory rate 18 /min Louis Ireland MD Work Phone: [facility] 10-20-2021 11:56-0400 SaO2% (BldA) [Mass fraction] 99 % Louis Ireland MD Work Phone: [facility] 10-20-2021 11:56-0400 Systolic blood pressure 108 mm[Hg] Louis Ireland MD Work Phone: [facility] 10-18-2021 22:12-0400 Body height 154.9 cm Louis Ireland MD Work Phone: [facility] 10-18-2021 22:12-0400 Body mass index (BMI) [Ratio] 27.17 kg/m2 Louis Ireland MD Work Phone: [facility] 10-18-2021 22:12-0400 Body weight 65.23 kg Louis Ireland MD Work Phone: [facility] 10-18-2021 18:53-0400 Diastolic blood pressure 61 mm[Hg] [facility] Work Phone: 10-18-2021 18:53-0400 Systolic blood pressure 126 mm[Hg] [facility] Work Phone: 10-18-2021 18:45-0400 Heart rate 74 /min [facility] Work Phone: 10-18-2021 18:45-0400 Respiratory rate 25 /min [facility] Work Phone: 10-18-2021 18:45-0400 SaO2% (BldA) [Mass fraction] 100 % [facility] Work Phone: 10-18-2021 17:06-0400 Body height 162.56 cm [facility] Work Phone: 10-18-2021 17:06-0400 Body mass index (BMI) [Ratio] 26 kg/m2 [facility] Work Phone: 10-18-2021 17:06-0400 Body temperature 97.9 [degF] [facility] Work Phone: 10-18-2021 17:06-0400 Body weight 68.9 kg [facility] Work Phone: 10-11-2021 11:06-0400 Body height 154.94 cm Caleb Barb Newbill Work Phone: [facility] Work Phone: 10-11-2021 11:06-0400 Body mass index (BMI) [Ratio] 25.51 kg/m2 Caleb M Newbill Work Phone: [facility] Work Phone: 10-11-2021 11:06-0400 Body surface area Derived from formula 1.6 m2 Caleb Barb Newbill Work Phone: [facility] Work Phone: 10-11-2021 11:06-0400 Body temperature 97.8 [degF] Caleb Barb Newbill Work Phone: [facility] Work Phone: 10-11-2021 11:06-0400 Body weight 61.24 kg Caleb Barb Newbill Work Phone: [facility] Work Phone: 10-11-2021 11:06-0400 Diastolic blood pressure 79 mm[Hg] Caleb M Newbill Work Phone: [facility] Work Phone: 10-11-2021 11:06-0400 Heart rate 76 /min Caleb M Newbill Work Phone: [facility] Work Phone: 10-11-2021 11:06-0400 SaO2% (BldA) [Mass fraction] 98 % Caleb Munguia Work Phone: [facility] Work Phone: 10-11-2021 11:06-0400 Systolic blood pressure 120 mm[Hg] Caleb Munguia Work Phone: [facility] Work Phone: 10-07-2021 14:45-0400 Body height 154.94 cm Caleb Munguia Work Phone: [address] Work Phone: 10-07-2021 14:45-0400 Body mass index (BMI) [Ratio] 25.37 kg/m2 Caleb Munguia Work Phone: [address] Work Phone: 10-07-2021 14:45-0400 Body surface area Derived from formula 1.59 m2 Caleb Munguia Work Phone: [address] Work Phone: 10-07-2021 14:45-0400 Body weight 60.9 kg Caleb Munguia Work Phone: [place] [address] [place] Work Phone: 10-07-2021 14:45-0400 Diastolic blood pressure 72 mm[Hg] Caleb Claytonl Work Phone: [place] [address] [place] Work Phone: 10-07-2021 14:45-0400 Systolic blood pressure 118 mm[Hg] Caleb Claytonl Work Phone: [place] [address] [place] Work Phone: 09-29-2021 13:08-0400 Body height 152.4 cm Caleb M Newbill Work Phone: [facility] [address] Work Phone: 09-29-2021 13:08-0400 Body mass index (BMI) [Ratio] 26.83 kg/m2 Caleb M Newbill Work Phone: [facility] 300 Work Phone: 09-29-2021 13:08-0400 Body surface area Derived from formula 1.59 m2 Caleb M Newbill Work Phone: [facility] 300 Work Phone: 09-29-2021 13:08-0400 Body temperature 97.2 [degF] Caleb M Newbill Work Phone: [facility] 300 Work Phone: 09-29-2021 13:08-0400 Body weight 62.32 kg Caleb M Newbill Work Phone: [facility] [address] Work Phone: 09-23-2021 15:27-0400 Body height 152.4 cm Caleb M Newbill Work Phone: [address] Work Phone: 09-23-2021 15:27-0400 Body mass index (BMI) [Ratio] 27.13 kg/m2 Caleb M Newbill Work Phone: [facility] [address] [place] Work Phone: 09-23-2021 15:27-0400 Body surface area Derived from formula 1.6 m2 Caleb M Newbill Work Phone: [facility] [address] [place] Work Phone: 09-23-2021 15:27-0400 Body weight 63 kg Caleb M Newbill Work Phone: [address] Work Phone: 09-23-2021 15:27-0400 Diastolic blood pressure 68 mm[Hg] Caleb Babr Claytonl Work Phone: [address] Work Phone: 09-23-2021 15:27-0400 Systolic blood pressure 146 mm[Hg] Caleb Barb Newbill Work Phone: [address] Work Phone: 09-20-2021 08:35-0400 Body height 152.4 cm Caleb Barb Valerobill Work Phone: [facility] Work Phone: 09-20-2021 08:35-0400 Body mass index (BMI) [Ratio] 27.07 kg/m2 Caleb Barb Valerobill Work Phone: [facility] Work Phone: 09-20-2021 08:35-0400 Body surface area Derived from formula 1.6 m2 Caleb Barb Valerobill Work Phone: [facility] Work Phone: 09-20-2021 08:35-0400 Body temperature 98.4 [degF] Caleb Barb Valerobill Work Phone: [facility] Work Phone: 09-20-2021 08:35-0400 Body weight 62.87 kg Caleb Barb Newbill Work Phone: [facility] Work Phone: 09-20-2021 08:35-0400 Diastolic blood pressure 66 mm[Hg] Caleb Barb Newbill Work Phone: [facility] Work Phone: 09-20-2021 08:35-0400 Heart rate 76 /min Caleb Barb Newbill Work Phone: [facility] Work Phone: 09-20-2021 08:35-0400 SaO2% (BldA) [Mass fraction] 99 % Caleb Munguia Work Phone: [facility] Work Phone: 09-20-2021 08:35-0400 Systolic blood pressure 128 mm[Hg] Caleb Munguia Work Phone: [facility] Work Phone: 08-02-2021 12:16-0400 Body height 152.4 cm Text Entry [facility] 08-02-2021 12:16-0400 Body temperature 98.06 [degF] Text Entry [facility] 08-02-2021 12:16-0400 Diastolic blood pressure 80 mm[Hg] Text Entry [facility] 08-02-2021 12:16-0400 Heart rate 71 /min Text Entry [facility] 08-02-2021 12:16-0400 Respiratory rate 16 /min Text Entry [facility] 08-02-2021 12:16-0400 SaO2% (BldA) [Mass fraction] 97 % Text Entry [facility] 08-02-2021 12:16-0400 Systolic blood pressure 120 mm[Hg] Text Entry [facility] Encounters Encounter Date Encounter Type Care Provider Facility Start: 04-11-2024 End: 04-11-2024 ambulatory ROMMEL CHI BUTCH Facility:[place] Start: 04-11-2024 End: 04-11-2024 Subsequent hospital visit by physician Screen Mammo [facility] Comment on above: Encounter for screen ing mammogram for breast cancer [Z12.31] Start: 04-09-2024 End: 04-09-2024 Telephone encounter Nurse/Nathan Eduardo [facility] Work Phone: Mammogram Comment on above: Orders Start: 04-08-2024 End: 04-08-2024 ambulatory PIERO MARQUESQUEZ Facility:[place] Start: 10-04-2023 End: 10-04-2023 ambulatory PIERO Camara NATHAN Facility:[place] Start: 11-10-2022 Chart Update Nestor Rae Work Phone: [address] Work Phone: Start: 11-04-2022 ambulatory Andrea Chapin Facility:[id number] Start: 11-04-2022 Encounter for genera l adult medical examination without abnormal findings Andrea Fried Facility:[id number] Start: 10-12-2022 ambulatory Rommel Rae Facility:[facility] Start: 10-11-[address] Nestor Donnelly ty:[facility] Start: 09-27-[address] Nestor Donnelly ty:[facility] Start: 08-31-2022 End: 08-31-[address] Nestor Rae Facility:[facility] Start: 08-31-2022 End: 08-31-2022 Subsequent hospital visit by physician Denita Cha MD Work Phone: [facility] Comment on above: Generalized intra-ab dominal and pelvic swelling, mass and lump; Leiomyoma of uterus, unspecified; Abnormal uterine and vaginal bleeding, unspecified; Other intra-abdominal and pelvic swelling, mass and lump Start: 07-12-2022 Office outpatient ne w 60 minutes Nestor Rae Work Phone: [id number] [place] [address] Work Phone: Start: 07-12-[address] Nestor Donnelly ty:[facility] Start: 06-14-[address] Nestor Donnelly ty:[facility] Start: 06-02-2022 Chart Update Nestor Rae Work Phone: [address] Work Phone: Start: 05-17-[address] Nestor Donnelly ty:[id number] Start: 05-12-[address] Nestor Donnelly ty:[id number] Start: 05-05-2022 Periodic preventive med est patient 40-64yrs Caleb Munguia Work Phone: [address] Work Phone: Start: 05-05-2022 ambulatory Ms. Andrea Ybarra cility:[id number] Start: 04-26-[address] Nestor Donnelly ty:[id number] Start: 03-29-2022 End: 03-29-2022 Patient encounter procedure [facility], Phy Office 3rd Flr Start: 03-29-2022 End: 03-29-2022 ambulatory [facility] Work Phone: Start: 11-04-2021 Transcribe Orders Caleb Sam Nilda CASTELLANOS Work Phone: [facility] Neuroscience Comment on above: Acute encephalopathy (Primary Dx) Start: 10-26-2021 ambulatory Mr. Caleb crury Nilda Facility:[id number] Start: 10-18-2021 End: 10-20-2021 Evaluation and management of inpatient [facility] Facility:[facility] Start: 10-18-2021 End: 10-20-2021 Evaluation and management of inpatient Louis Ireland MD Work Phone: [phone] Comment on above: Stroke Start: 10-18-2021 End: 10-18-2021 Emergency department patient visit [facility] Start: 10-13-2021 FUV, Provider: Avis Yoon, Status: Pen, Time: 3:30 PM Caleb Munguia Work Phone: [facility] Work Phone: Start: 10-11-2021 AUDIT Caleb Munguia Work Phone: [place] [address] [facility] Work Phone: Start: 10-11-2021 Office outpatient vi sit 25 minutes Caleb Munguia Work Phone: [facility] Work Phone: Start: 10-07-2021 Office outpatient vi sit 10 minutes Caleb Barb Newbill Work Phone: [facility] [place] Work Phone: Start: 09-30-2021 Chart Update Caleb Day Newbill Work Phone: [facility] 300 Work Phone: Start: 09-29-2021 NPV, Provider: Avis Yoon, Status: Pen, Time: 1:00 PM Caleb Barb Newabhishekl Work Phone: [facility] Work Phone: Start: 09-29-2021 Office outpatient ne w 45 minutes Caleb Barb Newbill Work Phone: [facility] 300 Work Phone: Start: 09-29-2021 Patient encounter procedure Caleb Munguia Work Phone: [facility] 300 Work Phone: Start: 09-27-2021 Chart Update Caleb Munguia Work Phone: [facility] Work Phone: Start: 09-23-2021 Initial preventive medicine new patient 40-64yrs Caleb Day Newbill Work Phone: [facility] [place] Work Phone: Start: 09-20-2021 Office outpatient ne w 45 minutes Caleb Barb Newbill Work Phone: [facility] Work Phone: Start: 09-08-2021 ambulatory Piero powers MD Work Phone: [facility] [place] Start: 08-02-2021 End: 08-02-2021 Emergency department patient visit Elsie Webb [facility] 02 Encounter for gynecological examination (general) (routine) without abnormal findings Caleb Munguia Work Phone: [facility] [address] [address] Work Phone: Comment on above: 10/25/21 NORMAL; Patient encounter status Caleb Munguia Work Phone: [place] [address] [address] Work Phone: End: 10-26-2021 Patient encounter status Caleb Munguia Work Phone: [facility] [address] [address] Work Phone: Procedures Date Procedure Procedure Detail Performing Clinician Start: 04-08-2024 Lipid 1996 panel - S fly or Plasma Nurse/Nathan Niñotr Work Phone: Start: 11-04-2022 Mammography Denita michelle MD Work Phone: Start: 08-31-2022 SURGICAL PATHOLOGY RESULTS Denita Cha MD Work Phone: Start: 08-23-[address] Rommel Rae Comment on above: Performed By: #### T +S #### [facility] [address] [place] [address] Start: 10-20-2021 CONTINUOUS CARDIAC MONITORING STRIP Other Other Start: 10-20-2021 Electrolyte panel Maribell Grewal DO Work Phone: Start: 10-20-2021 Mri brain brain stem w/o contrast material Maribell Grewal DO Work Phone: Start: 10-19-2021 Ct head/brain w/o co ntrast material Maribell Grewal DO Work Phone: Start: 10-19-2021 Radiologic exam ches t single view Yu Jolley CHORUS MASTER-BREWERY WORKER Work Phone: Start: 10-19-2021 End: 10-19-2021 Drug [...] Author Start: 04-08-2029 Lipid panel Lipid Screening [facility] Start: 04-26-2028 Urine microalbumin profile Start: 04-08-2027 Diabetes Screening Diabetes Screenin g Start: 10-19-2026 Fasting lipid profile LIPID SCREENIN [facility] Start: 09-23-2026 Lipid panel Lipid Panel [facility] Start: 05-04-2025 Screening for malign ant neoplasm of colon Start: 09-23-2024 Diabetes mellitus screening Diabetes Screening [facility] Start: 09-23-2024 Screening for malign ant neoplasm of cervix [facility] Start: 04-11-2024 End: 04-11-2024 Patient encounter procedure 04/11/2024 10:50 AM EST Appointment Mammogram [address] [facility] [place] [address] did phone note for order 04/09 z12.39 Mammogram Comment on above: did phone note for o rder 04/09 z12.39 Start: 11-12-2023 Covid-19 Vaccine ( season) Covid-19 Vaccine () Start: 11-12-2023 Influenza vaccination Influenza Vacc ine (#1) Start: 11-05-2023 Screening for malign ant neoplasm of breast [facility] Start: 04-26-2023 LIPID SCREEN LIPID SCREEN Start: 11-22-2022 HPV TESTING HPV TESTING Start: 11-22-2022 PAP TESTING PAP TESTING Start: 11-22-2022 Screening for malign ant neoplasm of cervix Cerv[facility] Screening Start: 11-18-2022 FUV, Provider: Oliverio Doan, Status: Pen, Time: 8:30 AM FUV, Provider: Oliverio Doan, Status: Pen, Time: 8:30 AM [id number] [place] [address] Work Phone: Start: 11-11-2022 Influenza vaccination Influenza Vacc ine (#1) [facility] Start: 07-12-2022 NPV, Provider: Oliverio Doan, Status: Pen, Time: 9:30 AM NPV, Provider: Oliverio Doan, Status: Pen, Time: 9:30 AM [employer] Work Phone: Start: 05-17-2022 EEG, Provider: NEURO EEG SMC02 EQUIPMENT,[id number], Status: Pen, Time: 9:00 AM EEG, Provider: NEURO EEG SMC02 EQUIPMENT,[id number], Status: Pen, Time: 9:00 AM [employer] Work Phone: Start: 11-11-2021 Influenza vaccination [facility] Start: 10-18-2021 Bleeding precautions [facility] Work Phone: Start: 10-18-2021 Consultation [facility] Work Phone: Start: 10-18-2021 CT angiography of he ad and neck STROKE CTA Head AND Neck W/Con [facility] Work Phone: Start: 10-18-2021 CTA Head vessels and Neck vessels W contrast IV [facility] Work Phone: Start: 10-18-2021 CT of head without contrast STROKE Brain/Head without Cont [facility] Work Phone: Start: 10-18-2021 CT Unspecified body region WO contrast [facility] Work Phone: Start: 10-18-2021 Oxygen therapy [facility] Work Phone: Start: 10-18-2021 Plain chest X-ray Chest 1 View [facility] Work Phone: Start: 10-18-2021 [facility] Work Phone: Start: 10-13-2021 FUV, Provider: Avis Yoon, Status: Pen, Time: 3:30 PM FUV, Provider: Avis Yoon, Status: Pen, Time: 3:30 PM [facility] 300 Work Phone: Start: 10-07-2021 FUV, Provider: Andrea Chapin, Status: Pen, Time: 2:30 PM FUV, Provider: Andrea Chapin, Status: Pen, Time: 2:[address] Work Phone: Start: 09-29-2021 NPV, Provider: Avis Yoon, Status: Pen, Time: 1:00 PM NPV, Provider: Avis Yoon, Status: Pen, Time: 1:00 PM [facility] Work Phone: Start: 09-23-2021 NPV, Provider: Andrea Chapin, Status: Pen, Time: 3:00 PM NPV, Provider: Andrea Chapin, Status: Pen, Time: 3:00 PM [facility] Work Phone: Start: 05-10-2021 DIABETES SCREEN DIABETES SCREEN [facility] Start: 2020 Pneumococcal Vaccine : 50+ (1 of 1 - PCV) Pneumococcal Vaccine: 50+ (1 of 1 - PCV) Start: 2020 SHINGRIX VACCINE (1 of 2) SHINGRIX VACCINE (1 of 2) Start: 2020 Zoster vaccine hzv l nisha for subcutaneous use ZOSTER (SHINGLES) VACCINE (1 of 2) [facility] Start: 2020 Zoster Vaccines (1 o f 2) Zoster Vaccines (1 of 2) [facility] Start: 04-26-2019 Adult depression screening assessment DEPRESSION SCREENING Start: 11-22-2018 Mammography MAMMOGRAM Start: 08-31-2015 COLOGUARD (FIT-DNA) COLOGUARD (FIT-D NA) Start: 08-31-2015 Colonoscopy Start: 08-31-2015 COLORECTAL CANCER SCREENING COLORECTAL CANCER SCREENING Start: 08-31-[address] COLONOGRAPHY [facility] Start: 08-31-2015 FECAL OCCULT BLOOD FECAL OCCULT BLOO D Start: 08-31-2015 Screening for malign ant neoplasm of colon Start: 08-31-2015 SIGMOIDOSCOPY SIGMOIDOSCOPY [facility] Start: 2010 Screening mammography MAMMOGRA M SCREENING DISCUSSION [facility] Start: 1992 DTaP/Tdap/Td Vaccine s (1 - Tdap) DTaP/Tdap/Td Vaccines (1 - Tdap) [facility] Start: 08-31-1991 Screening for malign ant neoplasm of cervix [facility] Start: 1989 Hepatitis B Vaccine (1 of 3 - 19+ 3-dose series) Hepatitis B Vaccine (1 of 3 - 19+ 3-dose series) Start: 1989 Third diphtheria, tetanus and acellular pertussis (DTaP) vaccination TDAP (ADULT) [facility] Start: 1988 Anxiety Screening Anxiety Screening Start: 1988 Depression Screening Depression Scre ening Start: 1988 HEPATITIS C SCREENING HEPATITIS C SC [facility] Start: 1988 Hepatitis C screening Hepatitis C Sc [facility] Start: 1988 HIV SCREENING HIV SCREENING [facility] Start: 1988 HIV screening HIV Screening [facility] Start: 1988 Tetanus vaccination TETANUS [facility] Start: 1985 HIV screening HIV SCREENING DISCUSSION [facility] Start: 1976 PNEUMOCOCCAL (1 - PCV) PNEUMOCOCCAL (1 - PCV) Start: 1976 Pneumococcal Vaccine : Pediatrics (0 to 5 Years) and At-Risk Patients (6 to 64 Years) (1 - PCV) Pneumococcal Vaccine: Pediatrics (0 to 5 Years) and At-Risk Patients (6 to 64 Years) (1 - PCV) [facility] Start: 08-31-1975 COVID-19 VACCINE (#1) COVID-19 VACCI NE (#1) Start: 08-31-1971 MMR Vaccines (1 of 1 - Standard series) MMR Vaccines (1 of 1 - Standard series) [facility] Start: 03-01-1971 COVID-19 VACCINE (#1) COVID-19 VACCI NE (#1) [facility] Start: 1970 Hepatitis B Vaccines (1 of 3 - 3-dose series) Hepatitis B Vaccines (1 of 3 - 3-dose series) [facility] Start: 1970 Hepatitis C antibody , confirmatory test HEPATITIS C VIRUS SCREENING [facility] Start: 1970 HIV screening HIV Screening [facility] Start: 1970 Screening for malign ant neoplasm of colon [facility] Start: 1970 [facility]ly [facility] - bilater al screening WENDY SCREENING W YANG Radiology Routine Encounter for screening mammogram for breast cancer 04/11/2024 11:01 AM EST [facility] Work Phone: GOLD TOP TUBE GOLD TOP TUBE La b STAT 10/18/2021 10:10 PM EDT [facility] LAVENDER TOP TUBE LAVENDER TOP T UBE Lab STAT 10/18/2021 10:10 PM EDT [facility] Patient referral [facility] Work Phone: RAINBOW DRAW RAINBOW DRAW Lab STAT 10/18/2021 10:10 PM EDT [facility] End: 10-08-2022 Screening mammography bi 2-view breast inc cad WENDY SCREENING Radiology Routine Encounter for screening mammogram for breast cancer 1 Occurrences starting 09/08/2021 until 10/08/2022 [facility] Work Phone: Comment on above: 1 Occurrences starti ng 09/08/2021 until 10/08/2022 Immunizations Immunization Date Immunization Notes Care Provider Tate castellon 04-26-2018 tetanus toxoid, redu campbell diphtheria toxoid, and acellular pertussis vaccine, adsorbed Piero Evans MD Work Phone: Work Phone: 04-26-2018 influenza virus vaccine, unspecified formulation Nurse/Nathan Wstr Work Phone: Payers Date Payer Category Payer Private Health Insurance [employer]NA [employer] [place] [id number] 2023-Present [address] [address] [place] [address] Medicaid [id number] 2023 Unknown [id number] 2022 Self-pay [id number] 2022 Unknown [id number] 2021 Unknown 2021 Unknown [id number] 2018 Unknown [employer] PPO [id number] 2018-Present [phone] [address] [place] [address] PPO [id number] 1970 Unknown [id number] 94 1970 Unknown [id number] [id number] 56 1970 Unknown [id number] [id number] 56 1970 Unknown [id number] 2.840.1.368475.3.579.2.3 56 1970 Unknown [id number] 2.16840.1.065277.3.579.2.3 56 1970 Unknown [id number] 2.16840.1.014361.3.579.2.3 56 1970 Unknown [id number] 2.16840.1.472435.3.579.2.3 56 1970 Unknown [id number] 2.16.840.1.914932.3.579.2.3 56 1970 Unknown [id number] 2.16840.1.679114.3.579.2.1 9 1970 Unknown [id number] 2.16840.1.681795.3.579.2.1 069 1970 Unknown [id number] 2.840.1.292742.3.579.2.1 9 1970 Unknown [id number] 2.16840.1.375609.3.579.2.1 069 Unknown [id number] Unknown [id number] Unknown [id number] Unknown [id number] [id number] 62 Unknown [id number] [id number] 62 Social History Date Type Detail Facility [facility] Start: 10-18-2021 End: 10-18-2021 Tobacco smoking consumption unknown [facility] Start: 1982 Tobacco smoking stat us CAIS Smokes tobacco daily Start: 1982 History of tobacco use Cigarette Smo ker Start: 10-03-2018 End: 03-30-2023 Alcohol intake Current non-drinker of alcohol (finding) Start: 04-26-2018 Tobacco Comment Vaping since 2014. [facility] Start: 1970 Sex Assigned At Not on file [facility] Start: 02-19-2020 End: 01-18-2024 Patient ingests cola containing caffeine Patient ingests cola containing caffeine Start: 09-24-2018 None [facility] Start: 09-24-2018 Spouse/ Signif icant Other [facility] Start: 09-25-2018 - [facility] Start: 1970 Sex Assigned At Female [facility] Start: 02-19-2020 End: 03-30-2023 Gender identity Not on file Start: 03-30-2023 Tobacco smoking stat us NHIS Ex-smoker Start: 1982 History of tobacco use Current smoke r History of tobacco use Passive smoker [facility] Start: 03-30-2023 Tobacco use and exposure Smokeless tobacco non-user Adult Depression Screening Assessment 0 Start: 03-30-2023 Tobacco Comment Vaping since 2 015. also vapes Start: 03-30-2023 Gender identity Identifies as female gender (finding) Mental Status Date Assessment Result Facility 10-18-2021 Cognitive function Voice/Name [facility] Work Phone: Clinical Notes 11-13-2007 to [...] PATIENT PRESENTS WITH AN IMPLANTABLE OR ATTACHED CANDY CUTTER HAND: No RADIOLOGY DEPARTMENT: Mammography PERIPHERAL IV DATA: Not applicable SIGNED BY: Dane Marcial April 11, 2024 11:09 AM documented in this encounter 04-11-2024 Note HNO ID: [id number] Author: RD HENRY Mammo Tech Service: ? Author Type: Feller Operator Type: Progress Notes Filed: 04/11/2024 11:09 Note [...] PATIENT PRESENTS WITH AN IMPLANTABLE OR ATTACHED CANDY CUTTER HAND: No RADIOLOGY DEPARTMENT: Mammography PERIPHERAL IV DATA: Not applicable SIGNED BY: Dane Marcial April 11, 2024 11:09 AM [facility] 04-09-2024 Telephone encounter Note Has not been seen since 2019. 04-09-2024 Miscellaneous Notes Has not been seen since 2019. Could we have a order for a screening mammogram? Pt schedule 04/11. Thanks a million documented in this encounter 04-09-2024 Telephone encounter Note Could we have a order for a screening mammogram? Pt schedule 04/11. Thanks a million [facility] 08-31-2022 Note Post Operative Note: PreOp Diagnosis: pelvic mass Post-Procedure Diagnosis: fibroid uterus Procedure: 1. Robotic-assisted total laparoscopic hysterectomy 2. Bilateral salpingooophorectomy Surgeon: Dr. Cha Resident/Fellow/Other Epic Prelude Analyst: Fidelina Shaffer, PGY-3 Anesthesia: general I.V. Fluids: [...] were moved into the upper abdomen. The Playhemi robotic surgical system was brought to the [...] (Signed 01-Sep-2022 08:48 (more content not included)... [facility] 08-31-2022 Miscellaneous Notes Post Operative Note: PreOp Diagnosis: pelvic mass Post-Procedure Diagnosis: fibroid uterus Procedure: 1. Robotic-assisted total laparoscopic hysterectomy 2. Bilateral salpingooophorectomy Surgeon: Dr. Cha Resident/Fellow/Other Epic Prelude Analyst: Fidelina Shaffer, PGY-3 Anesthesia: general I.V. Fluids: [...] were moved into the upper abdomen. The Playhemi robotic surgical system was brought to the [...] by Denita Cha) documented in this encounter [facility] Work Phone: 08-31-2022 Note Formatting of this n ote is different from the original. Post Operative Note: PreOp Diagnosis: pelvic mass Post-Procedure Diagnosis: fibroid uterus Procedure: 1. Robotic-assisted total laparoscopic hysterectomy 2. Bilateral salpingooophorectomy Surgeon: Dr. Cha Resident/Fellow/Other Epic Prelude Analyst: Fidelina Shaffer, PGY-3 Anesthesia: general I.V. Fluids: [...] were moved into the upper abdomen. The [employer] robotic surgical system was brought to the [...] Last Updated: 01-Sep-2022 08:48 by Denita Cha) [facility] Work Phone: 08-31-2022 Note History of [...] Cholecystectomy History of Skin biopsy History of [place] tooth extraction Social Hx Electronic cigarette use [...] the note. I personally evaluated the patient [id number] Electronic Signatures: Fidelina Shaffer (Resident)) (Signed 31-Aug-2022 [...] Patient Profile - Preop v3 31-Aug-2022 06:58 [facility] 08-31-2022 History and physical note History of [...] Cholecystectomy History of Skin biopsy History of [place] tooth extraction Social Hx Electronic cigarette use [...] Patient Profile - Preop v3 31-Aug-2022 06:58 [facility] Work Phone: 08-31-2022 History and physical [...] Cholecystectomy History of Skin biopsy History of [place] tooth extraction Social Hx Electronic cigarette use [...] v3 31-Aug-2022 06:58 documented in this encounter [facility] Work Phone: 07-12-2022 History of Present [...] [place], confused, and taken to ER in [place] where she was told she was combative [...] left side.Normal and development. No hx of CLINICAL PROGRAM COORDINATOR infection or brain injury. No prior tx with [facility]. No hx of kidney stones or glaucoma.PMH/PSH:migraine w auraSHX: She stopped working since the seizure. 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 She vapes. Does not drink alcohol.FHX: Brother has epilepsy onset in adulthood. [facility]CIUD[facility] Work Phone: 10-20-2021 Note Formatting of this n ote might be different from the original. AVS reviewed with patient. Denies any questions. Patient taken to ride home by KRAFT DIGESTER OPERATOR. Belongings sent with patient. [facility] 10-20-2021 Miscellaneous Notes AVS reviewed with patient. Denies any questions. Patient taken to ride home by KRAFT DIGESTER OPERATOR. Belongings sent with patient. Nutrition Plan of [...] goal of average po being 50-75%. 5. ultrasound tech to follow. Problem: OT - Dressing Goal: [...] hospitalization care will be discharge to location [facility]. Problem: GERMAN INSTRUCTOR - Cognition Goal: Attention Goal 1 Description: [...] sessions. Outcome: Ongoing documented in this encounter [facility] 10-20-2021 History of Present illness Narrative Introduced self and role of the entry level paralegal to patient. Patient expressed no needs at this time. If needs should arise, please page [phone] or please enter a consult. Chaplains are available in-house 24 hours a day and 7 days a week. For urgent matters in [facility], please page [phone]. If the request is not urgent, please enter a consult. Consults are responded to within 24 hours. JENNIFER DANIEL MA, BCC EXERCISE INSTRUCTOR 03/10 Pager [phone] Maciel Pager [phone] Deshaun: [phone] 10/20/21 1200 Clinical Encounter Type Visited With Patient Visit Type Introduction Pastoral Time Spent 15 min Spiritual Assessment Emotional Observation Coping well Interventions Provided Supportive presence Waiter/Waitress Third Class Education Waiter/Waitress Third Class Service Available Yes Plan of Care Continue [...] goal of average po being 50-75%. 5. ultrasound tech to follow. Kelsie Zeng is a 51 [...] Occurrences: 1 Food Allergies reviewed:reviewed Cultural or Catholic Restrictions/Preferences: reviewed Skin Sarthak Score: 20 STAND [...] Will continue to monitor. Nichelle Barajas DTR Pager:[phone] Admission Screening for Discharge Planning Patient is here for stroke workup. After review of chart and discussion with treatment team, Insole Channeler has not identified needs at this time. Patient is expected to discharge home. Should discharge needs arise please place a consult order for case management. PCP hospital follow-up appointment scheduled 10/26. 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 [...] noted Mobility Assessment: Supine to Sit Mobility [employer] Level: Supine->Sit: (Pt greeted/left seated in bedside chair.) Transfer Assessment: Sit to Stand Transfer [employer] Level: Sit->Stand: independent Assistive Device: Sit->Stand: gait belt (Non-skid socks.) Stand to Sit Transfer [employer] Level: Stand->Sit: independent Assistive Device: Stand->Sit: gait belt (Non-skid socks.) Functional Mobility: Functional Mobility [employer] Level: Functional Mobility/Gait: independent Assistive Device: Functional Mobility/Gait: gait belt (Non-skid socks.) Functional Mobility Distance: Distance needed for common household mobility Outcome Score(s): [facility]RENT [facility] Daily Activity Inpatient Short Form Putting on/Taking Off Lower Body Clothin - No Assistance Bathin - No Assistance Toiletin - No Assistance Putting on/Taking Off Upper Body Clothin - No Assistance Groomin - No Assistance Eatin - No Assistance CURRENT [facility] Activity Raw Score: 24 CURRENT [facility] Activity Functional Limitation/Modifier: 0.00% Currently Impaired in Daily Activity - Interventions: Therapist provided education on techniques for safe/efficient performance of functional transfers/activities post-discharge, including strategies for IADL performance. Therapist also provided education on medication management strategies. Pt verbalized understanding. 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 OBJECTIVE: [...] performance Mobility Assessment: Supine to Sit Mobility [employer] Level: Supine->Sit: modified [place] Bed Features/Set-up: Supine->Sit: Flat Skilled Rationale: Verbal [...] assistance. Transfer Assessment: Sit to Stand Transfer [employer] Level: Sit->Stand: modified [place] Assistive Device: Sit->Stand: gait belt Skilled Rationale: Verbal cues, Positioning Skilled Intervention/Details: Sit->Stand: x1 from EOB, x1 from toilet. Stand to Sit Transfer [employer] Level: Stand->Sit: independent Assistive Device: Stand->Sit: gait belt Skilled Rationale: Verbal cues, Controlled descent for sitting Skilled Intervention/Details: Stand->Sit: x1 to toilet, x1 to recliner. Gait/Functional Mobility: Gait Assessment [employer] Level: Gait: supervision Assistive Device: Gait: gait belt Gait Distance (feet): 150ft Gait Deviations Identified: decreased heel strike, flexed posture Gait Skilled Rationale: verbal, upright posture Skilled Intervention/Details - Gait: Pt ambulated without LOB. Stairs: Stairs Assessment [employer] Level: Stair Negotiation: supervision Assistive Device: Stair Negotiation: gait belt, right rail (ascending) Number of stairs: x4 steps Stairs Skilled Rationale: verbal, nonreciprocal pattern, general safety Skilled Intervention/Details - Stairs: Pt ascend/descend with nonreciprocal pattern and UE assist on rail. ASSESSMENT & PLAN: Pt admitted for aphasia and left sided weakness, [place] [employer], now s/p tPA. PT consulted for functional [...] PT - 10/20/2021 1:16 PM EDT I, Meidna Chavis PT, provided line of sight supervision during this patient care session. I attest that all documentation reflects accurate skilled clinical decisions and judgements. Acute Care Speech-Language Pathology Note Received consult for swallow evaluation. However, pt passed Ebony Swallow Screening by nursing. Swallow eval by GERMAN INSTRUCTOR will not be completed at this time unless this service notified of change in status or re-consult for swallow eval placed. GERMAN INSTRUCTOR to proceed with speech/language/cognitive evaluation per order. Thank you. No charge Maira Blankenship M.S., [facility]-GERMAN INSTRUCTOR [id number] Acute Care GERMAN INSTRUCTOR Speech/Language/Cognitive Evaluation Best mode of Communication: reduce distractions Communication Strategies: Give patient extended time to respond Discharge Recommendations: Based on the below outcome measures/assessment score(s) and GERMAN INSTRUCTOR clinical judgment, discharge destination recommendation is: Inpatient Rehab Facility Barriers to discharge home: Cognitive impairments that impact safety and independence Acute GERMAN INSTRUCTOR Outcomes Tracking Communicate basic wants and needs?: [...] to work and safely complete iADL's at [facility]. Patient Instruction/Education this session: Role of GERMAN INSTRUCTOR, results of GERMAN INSTRUCTOR evaluation Plan for next session: Continue current POC, address goals below Subjective: Patient seen sitting upright in bed, alert and agreeable to GERMAN INSTRUCTOR evaluation. present in room. Pain: General Pain [...] 1 Asthenia (A): 2 Strain (S): 1 GERMAN INSTRUCTOR Outcomes: GERMAN INSTRUCTOR Outcomes / Standardized Measures Score The Orientation [...] 30 Seconds: 20-24 seconds or 36-40 seconds Syrm-Gcam-Vtyp: three correct repetitions Go / No-Go: coorrect on no trial Address Recall: no recall Total Score: 19 Acute GERMAN INSTRUCTOR Goals Plan of Care by Maira Blankenship GERMAN INSTRUCTOR at 10/19/2021 12:48 PM Version 1 of 1 Problem: GERMAN INSTRUCTOR - Cognition Goal: Attention Goal 1 Description: [...] Progress Note IDENTIFYING INFORMATION Kelsie Zeng MR# [id number] 10/19/2021 HISTORY OF PRESENT ILLNESS Kelsie Zeng [...] Zeng will likely be discharged to location [facility] Yu Jolley, CHORUS MASTER-[facility] 10/19/2021 8:47 AM VITAL SIGNS Temp: [98.4 [...] SHAHBAZ RAMIREZ MD. documented in this encounter [facility] 10-20-2021 Note Formatting of this n ote [...] goal of average po being 50-75%. 5. ultrasound tech to follow. [facility] 10-20-2021 Note Formatting of this n ote [...] discharge destination. Outcome: Met This Shift [facility] 10-20-2021 Hospital course Narrative Discharge Summary [...] taking care of Kelsie Zeng at [facility]. As you well know Kelsie Zeng is a 51 y.o. female [...] 0 NIH Total Score (Provider): 0 Modified Calvin Scale Score Premorbid (MRSS): No symptoms Modified Calvin Scale Score at Discharge (MRSS): No symptoms [...] take each medicine. Include all prescription and odtn-vkh-mgntbre medicines, vitamins, and supplements. Keep this list [...] plan your refills so that you can warehouse picker all your medicines at the same time. This can mean fewer trips to the drugstore. If we have prescribed you a new medication during your stay, please contact with your primary physician for refills Medication List for when you go home You have not been prescribed any medications. Follow-up: Caleb Munguia PA-C [address] [facility] [id number] Go on 10/26/2021 You have a hospital follow-up appointment with your primary care provider at 11:10am this date. Call as needed. Upcoming Appointments (up to five)-Some appointments for Medical Center outpatient clinics or diagnostic testing locations are not displayed below Provider Department Dept Phone 11/03/2021 10:00 AM [facility] [phone] I have seen and examined the patient with the team on 10/20/21. I have personally reviewed all the imaging studies and laboratory data and also reviewed the note. I agree with the assessment and plan with the following additions. SHAHBAZ RAMIREZ MD. documented in this encounter [facility] 10-20-2021 Note Formatting of this n ote [...] Response Clinical Practice Guideline (CPG) Outcome: [facility]ng[facility] 10-20-2021 Hospital Discharge instructions Day Waller, CHORUS MASTER-BREWERY WORKER - 10/20/2021 6:24 AM EDT CONTACTS FOR NEUROVASCULAR SERVICE: - You may call your neurovascular doctors office at [phone], if you have questions between 8:30 am and 4:30 pm. - For off hours or the weekend you may call the office or the hospital signal tower operator at and ask for the stroke resident amphibious operations officer to be paged. - If you have any questions or needs, please call Ester Quiros RN, stroke program technician at [phone] Mon-Fri from 7-3 ? Any questions concerning your discharge instructions please call Case Management Office [phone] Patient Stroke Resources: [facility] Stroke Support The [facility] Stroke Support Group is for stroke survivors, friends, and family members. Meets every Monday from 12:00PM to 1:00PM at [facility]), [address] [place] [address] Krys Mendes, at [phone]. If you are outside of the [place] area, contact The [place] [employer] at www.strokeassociation.org or 3-441-4-stroke, or for supports groups in your area. Also refer to the Stroke Education booklet you received as part of your stroke education while you were a patient for additional resources Additional Contacts: Evening and Weekend Contacts If you have questions or concerns during evening, weekend, or holiday hours, please call: -[facility] and [facility] signal tower operator at [phone]. -[facility] signal tower operator at [phone] Ask the signal tower operator to page the on-call doctor for [...] Other reference numbers: [facility] Intake Office at 670-062-3417; [employer] at 219-608-3508; or Suicide Prevention Hotline at 470-536-2986. *Helpful phone numbers: Free Crisis Hotline: 7-333-251-TALK ( ) Suicide Hotline: 333.742.1654 Seniors Suicide Hotline: 284.353.1451 [facility] Youth: 671.323.3716 Mental Health of [place]: 862.440.9894 (free counseling) [employer] Access Hotline: 301-086-QDVJ (607-887-6962) 24-hour crisis text hotline: Text the word 4hope to 444-537 for crisis support. Texting this number is [...] Medicaid Applications over the phone. Please call 2-809-242[facility] (7676) and apply over the phone or apply online at www.benefits.[place].gov. Monday-Monday 8am-12pm noon. Medication Assistance Programs [employer] members can buy 100+ common prescriptions for FREE, $3 or $6. Annual membership is $36 for individuals and $72 for families (up to 6 people, including pets). Sign up online or enroll at your nearest pharmacy! -[employer], web site can provide a significant number [...] take each medicine. Include all prescription and juex-cix-zndocgg medicines, vitamins, and supplements. Keep this list [...] plan your refills so that you can warehouse picker all your medicines at the same time. [...] or chills documented in this encounter [facility] 10-20-2021 Reason for referr al (narrative) Specialty Diagnoses / Procedures Referred By Nadeem dawn Referred To Contact Maribell Grewal, DO [address] [place] [address] Referral ID Status Reason Start Date Expiration Date Visits Re quested Visits Authorized * (Routine) Specialty Diagnoses / Procedures Referred By Contac t Referred To Contact Maribell Grewal, DO [address] [place] [address] Referral ID Status Reason Start Date Expiration Date Visits Re quested Visits Authorized * (Routine) - Pending Review Specialty Diagnoses / Procedures Referred By Contac t Referred To Contact Procedures NO PHARMACOLOGICAL DVT PROPHYLAXIS Shahbaz Ramirez MD [address] [place] [address] Referral ID Status Reason Start Date Expiration Date V isits Requested Visits Authorized [id number] Pending Review 10/18/2021 11/12/2022 1 1 * (Routine) - Pending Review Specialty Diagnoses / Procedures Referred By Contac t Referred To Contact Procedures DVT/VTE RISK ASSESSMENT Shahbaz Ramirez MD [address] [place] [id number] Referral ID Status Reason Start Date Expiration Date V isits Requested Visits Authorized [id number] Pending Review 10/18/2021 11/12/2022 1 1 [facility] Note* Plan of Care - [place] [...] Practice Guideline (CPG) Outcome: Progressing Toward Goal [facility] Note* Certification - Yu Jolley APRN-BREWERY WORKER - 10/19/2021 2:48 PM EDT I certify that this patient requires inpatient services at this time. I anticipate the expected length of stay will include at least two midnights. Inpatient services are due to the following medicalconcerns encephalopathy. Plans for post hospitalization care will be discharge to location [facility]. [facility] Note* Plan of Care - MATTHIEU North - 10/19/2021 12:48 PM EDT Problem: GERMAN INSTRUCTOR - Cognition Goal: Attention Goal 1 Description: [...] Orientation Log, across 1-2 sessions. Outcome: [facility]ngoing [facility] NoteAcute Coronary Syndrome (ACS): Initial Evaluation and Management: [email or web address]%20Sy ndrome.[email or web address] [facility]20[facility] Emergency department Note* Angelique Lopez RN - 10/18/2021 10:17 PM EDT Unable to complete full triage questions at this time. Jason at bedside for collateral. [facility] Emergency department Note* Angelique Lopez RN - 10/18/2021 10:17 PM EDT Unable to complete full triage questions at this time. Jason at bedside for collateral. * ELLIOT Carroll - 10/18/2021 10:14 PM EDT SW responded to Stroke Alert. Emergency Contacts listed in demographics. SW will be available for support as needed while patient is in the ED. PHAN Reyes, GLUING MACHINE ADJUSTER Hospital Cleaner, Emergency Dept. [phone] * Louis Ireland MD - 10/18/2021 10:06 [...] Procedure Abnormality Status --------- ------ GOLD TOP TUBE[[id number]] MINT GREEN TOP TUBE[[id number]] LAVENDER TOP TUBE[[id number]] LT BLUE TOP TUBE[[id number]] Please view results for these tests on the individual orders. CBC, EDIF, PLATELET Narrative: The following orders were created for panel order CBC, EDIF, PLATELET. Procedure Abnormality Status --------- ------ CBC AND ELECTRONIC DIFF[[id number]] Please view results for these tests on the individual orders. [facility] 7 - ED HEPATIC FUNCTION PANEL PTINR-STROKE [...] Abnormality Status --------- ------ URINE DIPSTICK; REFLEX M...[[id number]] EXTRA MICRO[[id number]] Please view results for these tests on [...] reportable procedures. This note was dictated using [employer] voice recognition software. Attempts at proofreading were [...] Attending Physician Department of Emergency Medicine [facility] Louis Ireland MD 10/18/21 1618 * Jayne Perez, [facility] - 10/18/2021 9:50 PM EDT Department of Pharmacy Emergency Department Stroke Alert Response Note Patient Name: Kelsie Zeng Room/Bed: E039/E039 A Pharmacist responded to the stroke alert. Confirmed via [facility] records the patient was started on the following thrombolytic therapy prior to arrival: Alteplase Bolus: 6.2 mg given at 18:11. Alteplase Infusion: 55.9 mg/hr, (infusion rate 55.9 mL/hr) initiated at 18:14. Upon arrival thrombolytic therapy (tPA and saline chaser) had completely infused (stopped at 20:20 per transport crew) and therefore the transition to [facility] infusion pump was not required. [...] further questions. Name: Jayne Perez RPH Phone: [phone] Date/Time: 10/18/2021 9:50 PM * Angelique Lopez [...] 20mg ketamine and 1mg ativan given by lifeAssemblage. TPA bolus was given at OSH and [...] further management. This note was dictated using [employer] Dictation Software. Attempts at proofreading have been made, however errors may still occasionally occur. Jaciel Park MD Resident 10/18/212341 [facility] Note* ELLIOT Carroll - 10/18/2021 10:14 PM EDT SW responded to Stroke Alert. Emergency Contacts listed in demographics. SW will be available for support as needed while patient is in the ED. PHAN Reyes, GLUING MACHINE ADJUSTER Hospital Cleaner, Emergency Dept. [phone] [facility] Physician Emergency department Note* Louis Ireland MD [...] Procedure Abnormality Status --------- ------ GOLD TOP TUBE[[id number]] MINT GREEN TOP TUBE[[id number]] LAVENDER TOP TUBE[[id number]] LT BLUE TOP TUBE[[id number]] Please view results for these tests on the individual orders. CBC, EDIF, PLATELET Narrative: The following orders were created for panel order CBC, EDIF, PLATELET. Procedure Abnormality Status --------- ------ CBC AND ELECTRONIC DIFF[[id number]] Please view results for these tests on [...] Abnormality Status --------- ------ URINE DIPSTICK; REFLEX M...[[id number]] EXTRA MICRO[[id number]] Please view results for these tests on [...] reportable procedures. This note was dictated using [employer] voice recognition software. Attempts at proofreading were [...] Attending Physician Department of Emergency Medicine [facility] Louis Ireland MD 10/18/21 8235 [facility] Work Phone: 1(387) 938-579408-08-2022 Emergency department Note* Jayne Perez RP - 10/18/2021 9:50 PM EDT Department of Pharmacy Emergency Department Stroke Alert Response Note Patient Name: Kelsie Zeng Room/Bed: E039/E039 A Pharmacist responded to the stroke alert. Confirmed via [facility] records the patient was started on the following thrombolytic therapy prior to arrival: Alteplase Bolus: 6.2 mg given at 18:11. Alteplase Infusion: 55.9 mg/hr, (infusion rate 55.9 mL/hr) initiated at 18:14. Upon arrival thrombolytic therapy (tPA and saline chaser) had completely infused (stopped at 20:20 per transport crew) and therefore the transition to [facility] infusion pump was not required. [...] further questions. Name: Jayne Perez RP Phone: [phone] Date/Time: 10/18/2021 9:50 PM [facility] Work Phone: 1(880) 406-955708-08-2022 Emergency department Note* Angelique Lopez RN - 10/18/2021 9:46 PM EDT Pt answering questions for Neuro, but looking around the room. [facility] Emergency department Note* Angelique Lopez RN - 10/18/2021 9:45 PM EDT Pt in scanner. Neuro at bedside. MD Park at bedside. [facility]* Angelique Lopez RN - [...] 20mg ketamine and 1mg ativan given by lifeJamglueight. TPA bolus was given at OSH and flush was completed. Finished at 2019. Weakness on right greater than the left. Was cleared of traumatic injury by OSH per EMS. [facility] Note* Angelique Lopez RN - 10/18/2021 9:39 PM EDT Bed: E039 Expected date: 10/18/21 Expected time: Means of arrival: Air Comments: [facility] Consult note* Maribell Grewal DO - 10/18/2021 [...] seconds. Drift to bed. Reflexes: Deferred Coordination: Oetxak-tg-lgur intact bilaterally. Sensation: intact to light touch throughout without extinction. Gait: Deferred Laboratory Results Diagnostics/Procedures: Labs-CBC Labs-Chem 7([facility]) Labs-Coags Additional Labs No results found for: CHOLESTEROL, TRIG, HDL, LDLCALC, LDLDIRECT Labs-Hemoglobin A1C No results found for: HGBA1C Imaging Imaging was not analyzed by [facility] OS CT Stroke Head: no hemorrhage, R [...] ED. Continuous telemetry -PT, OT, Speech and clinical social work therapist consults Code Status: No Order DVT prophylaxis: [...] the following additions. SHAHBAZ RAMIREZ MD. [facility]08-08-2022 Consult note* Maribell Day Grewal, - [...] Scales Flowsheet Row Most Recent Value Modified Calvin Scale Score Premorbid (MRSS) 0 filed on [...] seconds. Drift to bed. Reflexes: Deferred Coordination: Qvwysr-is-dpjn intact bilaterally. Sensation: intact to light touch throughout without extinction. Gait: Deferred Laboratory Results Diagnostics/Procedures: Labs-CBC Labs-Chem 7([facility]) Labs-Coags Additional Labs No results found for: CHOLESTEROL, TRIG, HDL, LDLCALC, LDLDIRECT Labs-Hemoglobin A1C No results found for: HGBA1C Imaging Imaging was not analyzed by [facility] OS CT Stroke Head: no hemorrhage, R [...] ED. Continuous telemetry -PT, OT, Speech and clinical social work therapist consults Code Status: No Order DVT prophylaxis: [...] additions. SHAHBAZ RAMIREZ MD. [facility] Physician Emergency department Note* Jaciel Park MD [...] further management. This note was dictated using [employer] Dictation Software. Attempts at proofreading have been made, however errors may still occasionally occur. Jaciel Park MD Resident 10/18/21 9043 [facility] Work Phone: 1(328) 129-218707-21-2022 History of Present illness Narrative* Pt. presents for f/u from [facility] u/s 09/30/2021. Indication was bleeding [...] noted noted near R ovary. MRI recommended. 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 She is right-hand dominant. 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 Heavier items more so than light items. She believes symptoms are worsening over time and rates it moderate to severe in intensity [facility] She has taken Tylenol and states, I [...] therapy post injury. She is right-hand dominant. [facility] Work Phone: 1(276) 813-192109-02-2008 History of Past illness Narrative* Problem Noted Date Resolved Date Brachial neuritis or radiculitis NOS 11/13/2007 04/26/2018 Painful respiration 11/13/2007 04/26/2018 documented as of this encounter (statuses as of 09/13/2021) [facility] note* Diagnosis Encounter for screening mammogram for breast cancer documented in this encounter [facility] noteNo assessment information availableWCincinnati [facility] Work Phone: Evaluation note* Diagnosis Stroke Unspecified cerebral artery occlusion with cerebral infarction [facility] Diagnosis Acute encephalopathy- Primary documented in this encounter [facility] note* Diagnosis Generalized intra-abdominal and pelvic swelling, mass and lump Leiomyoma of uterus, unspecified Abnormal uterine and vaginal bleeding, unspecified Other intra-abdominal and pelvic swelling, mass and lump documented in this encounter [facility] Work Phone: Evaluation note* Diagnosis Encounter for screening mammogram for breast cancer documented in this encounter History of Present illness Narrative* Patient presents to [facility] care. 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 Patient takes Tylenol for this as well. * Patient has never had a colonoscopy. * Patient wishes to discuss a diagnosis of vertigo. Patient states this started with dizziness and left-sided paresthesias. Patient presented to [facility] emergency department with these complaints and was [...] left described as tunneling followed by left bahai and occipital pain with associated photosensitivity, nausea, and dizziness. Patient takes Dramamine which does help some. Patient states there is also intermittent V1 and V3 paresthesias when these symptoms present. This presentation is debilitating and patient has to miss work when it occurs. Currently, the patient is asymptomatic. [facility] Work Phone: History of Present illness NarrativePresents for evaluation of URI. Symptoms including cough, congestion, body aches, malaise, and headache have been present for seven days and refractory to OTC meds. Patient also reports associated loss of taste and smell and diarrhea. No fever, chills, nausea, vomiting, abdominal pain, CP, or SOB. [facility] Work Phone: History of Present illness Narrative* Pt. presents for f/u to concern about ovarian mass from Summer 2021. At the time a pelvic MRI and CA 125 was ordered. Soon after that visit pt. had a stroke and then lost health ins. She now presentswith to follow up. * Pt. reports continued pelvic pain with intercourse [facility] Work Phone: Reason for referral (narrative)* Diagnostic Procedure Only (Routine) - Pending Review Specialty Diagnoses / Procedures Referred By Nadeem dawn Referred To Contact [facility] Diagnoses Encounter for screening mammogram for breast cancer Procedures WENDY SCREENING SCREENING MAMMOGRAPHY BI 2-VIEW BREAST INC CAD Piero Evans MD [address] [place] [address] [facility] [address] [place] [address] Referral ID Status Reason Start Date Expiration Date Visits Requested Visits Authorized [id number] Pending Review Auto-Generat ed Referral 09/08/2021 10/08/2022 1 1 [facility] for visit Narrative* Auth/Cert Specialty Diagnoses / Procedures Referred By Nadeem dawn Referred To Contact Diagnoses Level A Stroke with Mukeshs Shahbaz Ramirez MD [address] [place] [address] [facility] [address] [place] [address] Referral ID Status Reason Start Date Expiration Date Visits Re quested Visits Authorized [id number] 1 1 [facility] for visit Narrative* Diagnostic Procedure Only (Routine) - Closed Specialty Diagnoses / Procedures Referred By Nadeem dawn Referred To Contact [facility] Diagnoses Encounter for screening mammogram for breast cancer Procedures WENDY SCREENING W YANG SCREENING DIGITAL BREAST TOMOSYNTHESIS BI SCREENING MAMMOGRAPHY BI 2-VIEW BREAST INC CAD Gracia Dunham APRN.BREWERY WORKER [address] [place] [address] [facility] [address] [place] [address] Referral ID Status Reason Start Date Expiration Date V isits Requested Visits Authorized [id number] Closed Auto-Generate d Referral 03/30/2023 04/28/2024 1 1 Chief Complaint * Patient here today to [...] 2 years ago. Patient has appt with [facility] this month. 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 No September 24 9 10:18am Latest Code Status on File Code Status Date Activated Date Inactivated Comments Full Code 10/18/2021 10:13 PM Advance Directive Response Recorded Date/ Time Living Will No September 24, 2018 9:18am Power of Cold [employer] Supervisor No September 24 9 9:18am Reason for Referral Specialty Diagnoses / Procedures Referred By Contmary t Referred To Contact Neurology Diagnoses Acute encephalopathy Caleb Munguai PA-C [address] [place] [address] [facility] Referral ID Status Reason Start Date Expiration Date V isits Requested Visits Authorized [id number] Authorized 11/04/2021 11/04/2022 1 1 Summary Purpose [...] or prosecute any alcohol or drug abuse patient.In the event this information is protected by the Federal Confidentiality of Alcohol and Drug Abuse Patient Records regulations: The Federal rules restrict any use of the information to criminally investigate or prosecute any alcohol or drug abuse patient.In the event this information is protected by the Federal Confidentiality of Alcohol and Drug Abuse Patient Records regulations: The Federal rules restrict any use of the information to criminally investigate or prosecute any alcohol or drug abuse patient.In the event this information is protected by the Federal Confidentiality of Alcohol and Drug Abuse Patient Records regulations: The Federal rules restrict any use of the information to criminally investigate or prosecute any alcohol or drug abuse patient. Care Teams (unrecognized sec tion and content) Residential Solar Sales Consultant Relationship Specialty Start Date End Date Piero Evans MD [address] [place] [address] PCP - General Internal Medicine 04/26/18 [employer]idential [employer] Sales Consultant Relationship Specialty Start Date End Date Caleb Munguia PA-C [address] [place] [address] PCP - General Physician Epic Prelude Analyst 10/14/21 Residential Solar Sales Consultant Relationship Specialty Start Date End Date Caleb Munguia PA-C [address] [place] [address] PCP - General Physician Epic Prelude Analyst 11/04/21 Team Status: Active Member Role Status Dates Piero Evans MD Family Provider Active No Primary Care Physician Primary Care Provider Active Team Status: Inactive Member Role Status Dates No Primary Care Physician Primary Care Provider Active Dr. Rommel Rae MD Attending Provider Active Residential Solar Sales Consultant Relationship Specialty Start Date End Date Nestor Rae MD [address] [facility] [address] [place], [place] [id number] PCP - General 05/12/22 Residential Solar Sales Consultant Relationship Specialty Start Date End Date Rommel Rae Chi [address] [place], [place] [id number] PCP - General Gerontology 04/09/24 Residential Solar Sales Consultant Relationship Specialty Start Date End Date Rommel Rae Chi [address] [place], [place] [id number] PCP - General Gerontology 04/09/24 Residential Solar Sales Consultant Relationship Specialty Start Date End Date Rommel Rae Chi [address] [facility] [address] [place], [place] [id number] PCP - General Gerontology 04/09/24 Goals (unrecognized [...] at 2315 2311 (Given - Provider: Angelique Lopze, RN) potassium chloride (K-DUR) tablet ER 40 [...] over 2 minutes. Telemetry required except for LATH TIER patients on [address] Floors 6 and 7. [...] section and content) DATE CREATED AUTHOR 05/04/2022 [facility] DATE CREATED AUTHOR AUTHOR'S ORGANIZ ATION 07/13/2022 [employer] DATE CREATED AUTHOR AUTHOR'S ORGANIZ ATION 10/19/2022 [facility] DATE CREATED AUTHOR AUTHOR'S ORGANIZ ATION 11/05/2022 [facility] DATE CREATED AUTHOR AUTHOR'S ORGANIZ ATION 02/23/2023 [facility] DATE CREATED AUTHOR AUTHOR'S ORGANIZ ATION 04/16/2024 [facility] Reason for Visit (unrecogniz ed section [...] BE BASED ON THE PRIMARY CLINICAL RECORDS. [email or web address] provides no warranty or guarantee of the accuracy or completeness of information in this document.
[2025-01-12 12:06] LABS: Troponin T High Sens 2 HR 8 ng/L (<=14)
[2025-01-12] MEDS: 0.9% Saline Lock 10 ML Syringe IV (13:05)
[2025-01-12] MEDS: 0.9% Normal Saline (1000mL) 1,000 ML 75 ML IV (13:05)
[2025-01-12 14:01] LABS: Troponin T High Sens 4 HR < 6 ng/L (<=14)
--- NOTE | 2025-01-12 14:02 | ECHOCS_ITS ---
Reason For Study Reason For Study: TIA/CVA Procedure This was a 2D Doppler, Color Flow transthoracic echocardiogram. Exam performed portable in patient room. Left Ventricle Normal LV size. Left ventricular systolic function is normal. The left ventricular ejection fraction is 60 %. No evidence for diastolic dysfunction. No regional wall motion abnormalities noted. Right Ventricle Normal RV size. Normal systolic function. Atria The left and right atria are normal. No doppler evidence for ASD. Mitral Valve Normal mitral valve. Mild (1+) mitral valve insufficiency. Tricuspid Valve Normal tricuspid valve. Mild (1+) tricuspid valve insufficiency. Pulmonary artery systolic pressure is 27 mmHg. Aortic Valve Trisinus/trileaflet aortic valve. Pulmonic Valve Normal pulmonic valve. Great Vessels Normal sized aortic root. Pericardium/Pleural No pericardial effusion. MMode/2D Measurements & Calculations LVIDd: 4.1 cm IVSd: 0.82 cm Ao root diam: 2.5 cm LVIDs: 2.7 cm LVPWd: 0.75 cm RVDd: 3.1 cm FS: 34.4 % LAV(MOD-bp): 26.5 ml LVAd ap4: 16.7 cm2 LVAd ap2: 16.4 cm2 LAV(MOD-bp) Indexed: 16.2 ml/m2 LVLd ap4: 6.4 cm LVLd ap2: 6.5 cm LAV(MOD-sp2): 26.8 ml EDV(MOD-sp4): 35.5 ml EDV(MOD-sp2): 34.9 ml LAV(MOD-sp4): 25.4 ml EDV(sp4-el): 36.9 ml EDV(sp2-el): 34.9 ml LVAs ap4: 8.3 cm2 LVAs ap2: 8.1 cm2 LVLs ap4: 5.1 cm LVLs ap2: 5.2 cm ESV(MOD-sp4): 11.5 ml ESV(MOD-sp2): 10.9 ml ESV(sp4-el): 11.4 ml ESV(sp2-el): 10.7 ml EF(MOD-sp4): 67.5 % EF(MOD-sp2): 68.7 % EF(sp4-el): 69.1 % SV(MOD-sp4): 23.9 ml SV(MOD-sp2): 24.0 ml SV(sp4-el): 25.5 ml SI(MOD-sp4): 14.7 ml/m2 SI(MOD-sp2): 14.7 ml/m2 LA A4 area: 12.3 cm2 LA dimension(2D): 3.0 cm RA A4 area: 10.0 cm2 TAPSE: 2.0 cm Time Measurements MV dec time: 0.18 sec Doppler Measurements & Calculations MV E max cristian: 92.0 cm/sec Lat Peak E' Cristian: 13.6 cm/sec Med Peak E' Cristian: 10.8 cm/sec MV A max cristian: 74.0 cm/sec E/E' lat: 6.8 E/E' med: 8.5 MV E/A: 1.2 Ao V2 max: 122.7 cm/sec LV V1 max: 110.3 cm/sec MV dec slope: 511.5 cm/sec2 Ao max P.0 mmHg LV V1 max P.9 mmHg Ao V2 mean: 76.7 cm/sec LV V1 mean P.3 mmHg Ao mean P.8 mmHg LV V1 mean: 71.2 cm/sec Ao V2 VTI: 28.7 cm LV V1 VTI: 24.2 cm AV (velocity ratio): 0.84 PA V2 max: 74.6 cm/sec TR max cristian: 243.9 cm/sec TR max P.8 mmHg ECHO/Echo Complete Interpretation Summary The left ventricular ejection fraction is 60 %. No evidence for diastolic dysfunction. Mild (1+) mitral valve insufficiency. Ordering Physician: Delio Turner Referring Physician: Rommel Rae Chi Performed By: Han Jeff RDCS
[2025-01-13 00:24] VITALS: BP 106/68; PULSE 65; RESP 14; TEMP 37; O2SAT 97
[2025-01-13 03:44] VITALS: BP 115/54; PULSE 54; RESP 14; TEMP 36.6; O2SAT 95
[2025-01-13 05:00] VITALS: BMI 25.3
--- NOTE | 2025-01-13 05:55 | MRI_ITS ---
PROCEDURE: BRAIN WITHOUT CONTRAST 01/13/2025 REASON FOR EXAM: SUSPECTED STROKE TECHNIQUE: Procedure Code: MRIBR Modality: MR Procedure: BRAIN WITHOUT CONTRAST Multiplanar and multisequence images were obtained. COMPARISON: Head CT 01/12/2025. FINDINGS: Brain: Diffusion-weighted images demonstrate no area of restricted diffusion. No intracranial mass or mass effect is seen. No extra-axial fluid collections noted. Mild bilateral cerebral white matter hypodensities, consistent with chronic ischemic changes of small-vessel disease. Orbits are unremarkable in appearance. Ventricles: Normal. Sinuses: Minimal mucosal thickening. Mastoids: Clear. MRI/Brain without Contrast IMPRESSION: 1. Mild bilateral cerebral white matter hypodensities, consistent with chronic ischemic changes of small-vessel disease. 2. No area of infarction or other acute process is seen Reading Location: [place] [address]
[2025-01-13 08:00] VITALS: BP 118/65; PULSE 57; RESP 15; TEMP 36.2; O2SAT 98
[2025-01-13 08:08] LABS: Cholesterol 175 mg/dL (<=200); Low Density Lipoprotein Calc. 111 mg/dL; Triglycerides 80 mg/dL; Very Low Density Lipoprotein 16 mg/dL (5-40); cholesterol:hdl ratio screen 3.57
--- NOTE | 2025-01-13 09:07 | PCM.PN.HOSP ---
Reason for Visit Chief Complaint: Numbness of lower part of face and any speech abnormality Subjective Subjective Feeling better. Objective Data Objective Data Vital Signs: Vital Signs Temp Pulse Resp BP Pulse Ox O2 Del Method 36.2 C L 57 L 15 118/65 98 Room Air 01/13/25 08:00 01/13/25 08:00 01/13/25 08:00 01/13/25 08:00 01/13/25 08:00 01/13/25 08:00 Oxygen Delivery Method Room Air Weight: 62.8 kg Body Mass Index (BMI) 25.3 Intake & Output: Intake and Output for Last 24 Hours 01/11/25 01/12/25 01/13/25 23:59 22:59 23:59 Intake Total 440 / 440 1000 / 1000 Balance 440 / 440 1000 / 1000 Lab / Micro Data 01/12/25 09:40 01/12/25 09:40 Labs: Laboratory Results - last 24 hr 01/12/25 09:26: POC Glucose 92 01/12/25 09:40: WBC 8.2, RBC 4.46, Hgb 14.5, Hct 42.8, MCV 96.0, MCH 32.5 H, MCHC 33.9, RDW Std Deviation 42.2, RDW Coeff of Kishore 12.2, Plt Count 290, MPV 10.9, Immature Gran % (Auto) 0.500, Neut % (Auto) 61.0, Lymph % (Auto) 30.6, Reeves % (Auto) 6.3, Eos % (Auto) 1.0, Baso % (Auto) 0.6, Absolute Neuts (auto) 5.0, Absolute Lymphs (auto) 2.51, Nucleated RBC % 0, PT 13.0, INR 1.0, APTT 30.0, Sodium 137, Potassium 4.0, Chloride 104, Carbon Dioxide 22.2, Anion Gap 11, BUN 11, Creatinine 0.62 L, Estim Creat Clear Calc 97.00, Est GFR (MDRD) Non-Af 106, BUN/Creatinine Ratio 18.1, Glucose 97, Calcium 9.3, Troponin T High Sens < 6 01/12/25 11:40: Troponin T Hi Sens 2 Hr 8 01/12/25 13:05: Troponin T Hi Sens 4Hr < 6 01/13/25 06:49: Hemoglobin A1c 5.4, Triglycerides 80, Cholesterol 175, LDL Cholesterol, Calc 111, VLDL Cholesterol 16, HDL Cholesterol 49, Cholesterol/HDL Ratio 3.57, TSH 3.270 Radiography Diagnostic Testing: Radiology Impression Brain CT 01/12/25 09:32 IMPRESSION: No acute intracranial process. If concern for infarction persists, I recommend MRI with diffusion-weighted imaging if clinically indicated. Results were reported to Dr. Zaragoza at 9:40 a.m. EST on 01/12/2025. Reading Location: [facility] Head/Neck CTA 01/12/25 09:40 IMPRESSION: Negative CTA head/neck. No large vessel occlusion or stenosis. No aneurysm identified. Reading Location: [facility] Physical Exam Const alert and no apparent distress HEENT head/scalp atraumatic and moist oral mucous membranes Resp normal respiratory effort Neuro oriented x3, CN's II-XII intact bilaterally, moves all extremities, no focal motor deficits and no sensory deficits noted Sensorium / Orientation: awake, alert, oriented to person, oriented to place and oriented to time Coordination / Balance: cnbako-[id number] test normal and osum-vv-[id number] test normal Assessment & Plan Assessment/Plan (1) TIA (transient ischemic attack): PLAN: Plan Possible TIA: Brain CT and head and neck CTA unremarkable. No LVO or aneurysm identified. Twelve-lead EKG, individually reviewed, NSR 60 bpm, QTc 434 ms. PT, OT, speech therapy/swallow evaluation and management, nursing NIH stroke scale, BP and glucose monitoring and control as per stroke protocol. TSH, A1c WNL. MRI no acute infarct. and 2D echo with bubble contrast study ordered. Her previous echo shows no Doppler evidence of ASD/ Bubble contrast read negative for [id number] interatrial shunt. Glucose is normal. Serial troponin normal. BP within stroke guidelines. Seen by neurology: suspected migraine with aura. Recommending magnesium 400 mg QHS for migraine prophylaxis. 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 No acute dizziness/vertigo now. DVT prophylaxis: Moderate risk. On enoxaparin 40 mg subcu daily. NIHSS NIHSS Nursing Documentation NIHSS Nursing Documentation: NIHSS: Ischemic Stroke/TIA Start: 01/12/25 12:04 Text: For PCU Patients: NIH and Neuro Check every 4 Status: Active hours, PRN and with change in RN caregiver. Freq: Q4H Protocol: Activity Type Activity Date Activity User E-sign Co-sign Detail Recorded Client Recorded Date Recorded By Document 01/13/25 07:47 [facility] desktop 01/13/25 07:48 [facility] 01/13/25 07:47 NIH Stroke Scale [NIHSS] A score of 0 is normal or asymptomatic . Total possible score is 42. Inpatient: RN or Physician to activate a stroke alert for onset of new stroke symptoms or with NIHSS increase >/= 3 points. Following change in neurological status, NIHSS will be performed per physician order or more frequently PRN. -1a. Level of Consciousness 0 - Alert; keenly responsive -1b. LOC Questions 0 - Answers BOTH questions correctly -1c. LOC Commands 0 - Performs BOTH tasks correctly -2. Best Gaze 0 - Normal -3. Visual 0 - No visual loss -4. Facial Palsy 0 - Normal symmetrical movements -5a. Left Arm 0 - No drift; arm holds 90 ( or 45) degrees for full 10 seconds -5b. Right Arm 0 - No drift; arm holds 90 ( or 45) degrees for full 10 seconds -6a. Left Leg 0 - No drift; leg holds 30- degree position for full 5 seconds -6b. Right Leg 0 - No drift; leg holds 30- degree position for full 5 seconds -7. Limb Ataxia 0 - Absent -8. Sensory 0 - Normal; no sensory loss -9. Best Language 0 - No aphasia; normal -10. Dysarthria 0 - Normal -11. Extinction and Inattention 0 - No abnormality -Total 0 Query Text:A score of 0 is normal or asymptomatic. Total possible score is 42 . ED: Notify Physician for NIHSS increase by > / = 3 points. Inpatient: RN or Physician to activate a stroke alert for NIHSS increase of > / = 3 points. Coma Scale [Assess] -Eye Opening Spontaneous -Motor Obeys Commands -Verbal Oriented [Total] -Coma Scale Total 15
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
--- NOTE | 2025-01-13 13:49 | CASEMGMT ---
Social Work Per imaging pt negative for stroke, therefore PHQ9 not completed. MALLORIE Celaya
--- NOTE | 2025-01-13 13:52 | DS.PCM_ITS ---
Providers Date of Admission: 01/12/25 Primary Care Physician: Dr. Rommel Rae MD Consultations 01/12/25 12:04 Consult: Tele-Neurology Routine Consulting Provider: [facility] Reason for Consult: Acute Ischemic Stroke/TIA EMERGENT Consult: No MD Notified: Yes Date Notified: 01/12/25 Time Notified: 11:28 Method of Notification: Answering Service Nursing Unit Staff Notify [facility] of Tele-Neurology Consult: Yes Reason For Visit: STROKE LIKE YMTOMS Diagnosis Discharge Diagnosis (1) TIA (transient ischemic attack): Status: Ruled-out Code(s): G45.9 - Transient cerebral ischemic attack, unspecified Plan Possible TIA: * Brain CT and head and neck CTA unremarkable. No LVO or aneurysm identified. * Twelve-lead EKG, individually reviewed, NSR 60 bpm, QTc 434 ms. * PT, OT, speech therapy/swallow evaluation and management, nursing NIH stroke scale, BP and glucose monitoring and control as per stroke protocol. * TSH, A1c WNL. * MRI no acute infarct. and 2D echo with bubble contrast study ordered. Her previous echo shows no Doppler evidence of ASD/ Bubble contrast read negative for [id number] interatrial shunt. * Glucose is normal. Serial troponin normal. BP within stroke guidelines. * Seen by neurology: suspected migraine with aura. Recommending magnesium 400 mg QHS for migraine prophylaxis. 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 No acute dizziness/vertigo now. DVT prophylaxis: Moderate risk. On enoxaparin 40 mg subcu daily. Medications at Discharge Home Medications estradiol 1 mg tablet 1 mg PO DAILY 01/12/25 loratadine 10 mg tablet (Claritin) 10 mg PO DAILY allergies 01/12/25 acetaminophen 325 mg tablet 1,000 mg (3.0769 x 325 mg) PO Q8 PRN Pain 1-10 Or Fever>99.6 #0 tabs 01/13/25 magnesium 200 mg tablet 400 mg (2 x 200 mg) PO QHS #30 tabs 01/13/25 Hospital Course Operations None Procedures 2-D Echocardiogram Summary of Care Provided Hospital Course: Patient presented with period of neurologic symptoms where she was having dysarthria, felt numbness in her lower jaw and neck. Patient underwent MRI that showed no acute stroke. Seen by neurology who suspecting migraine with aura. Recommending follow-up neurology as outpatient, magnesium 40 mg nightly, proper sleep, headache dietary, limited but consistent caffeine intake. Weight / BMI Weight Weight: 62.8 kg Body Mass Index (BMI) 25.3 ABG / Lab / Microbiology Data 01/12/25 09:40 01/12/25 09:40 Laboratory: Laboratory Results - last 24 hr 01/13/25 06:49: Hemoglobin A1c 5.4, Triglycerides 80, Cholesterol 175, LDL Cholesterol, Calc 111, VLDL Cholesterol 16, HDL Cholesterol 49, Cholesterol/HDL Ratio 3.57, TSH 3.270 Radiography Diagnostic Testing: Radiology Impression Brain MRI 01/13/25 05:55 IMPRESSION: 1. Mild bilateral cerebral white matter hypodensities, consistent with chronic ischemic changes of small-vessel disease. 2. No area of infarction or other acute process is seen Reading Location: [place] [address] D/C Instructions DC O2, CPAP, BIPAP Needs Home O2 Discharge instructions: No Meaningful Use Info Meaningful Use Meaningful Use Diagnoses (Choose all that apply): None applicable Discharge Plan Admission Admit Date/Time: 01/12/25 11:27 Primary Reason for Your Visit: Migraine. Attending Provider: Jaciel Al Primary Care Provider: Rommel Rae Chi Consulting Providers: Roland Miller; Damon Cheney; Shira Li; Tanya Griffin; Nancy Gonzalez; Junaid Kaplan; Monica Rome; Jerome Mcdermott; Maciel Salgado; Tye Sosa; Yoko Garcia; Radha Gonzalez; Awais Arguello; Maribell Dejesus; Brandon Trevizo; Kev Valentino; Luis Barboza; Janett Wyatt; Orville Galicia; Abigail Smith; Fatuma Street; Delio Turner Instructions Additional Instructions / Restrictions: Your MRI was negative. Neurology felt that this is more of a unusual presentation with a migraine. The neurologist recommended taking magnesium 400 mg at night. Proper sleep, limited but consistent caffeine intake. Discharge Orders/Prescriptions Prescriptions: New acetaminophen 325 mg Tablet 1,000 mg PO Q8 PRN (Reason: Pain 1-10 Or Fever>99.6) Qty: 0 0RF magnesium 200 mg tablet 400 mg PO QHS Qty: 30 0RF Continued estradiol 1 mg tablet 1 mg PO DAILY loratadine [Claritin] 10 mg tablet 10 mg PO DAILY Referrals / Follow Up: [facility] [Provider Group] - Within 1 Month Rommel Rae Chi, MD [Primary Care Provider, Geriatrics] - Within 2 Weeks Disposition Disposition (needs filled in before D/C Order can be placed): Home, Self Care Charges/Coding Visit Charges Inpatient E&M: 67009 Disch Hosp
--- NOTE | 2025-01-13 14:36 | CASEMGMT ---
Patient has order for discharge. RN CM in to discuss needs at discharge, at bedside. Patient denies needs or help at discharge. Patient had no further questions or concerns.
--- NOTE | 2025-01-13 14:44 | PHA.DC_ITS ---
Pharmacy [facility] has performed discharge medication reconciliation and counseling for this patient. 1. MAGNESIUM 400MG PO QHS The patient's discharge medication list was reviewed for discrepancies and discrepancies were resolved. The patient was counseled on the following discharge medications and changes in medications for homegoing were reviewed. The Reason for Use, instructions for use, and potential side effects were reviewed for all new medications. The patient's questions regarding all of their medications were answered. The patient was able to verbally demonstrate an understanding of their discharge medications. Medications at Discharge Home Medications estradiol 1 mg tablet 1 mg PO DAILY 01/12/25 loratadine 10 mg tablet (Claritin) 10 mg PO DAILY allergies 01/12/25 acetaminophen 325 mg tablet 1,000 mg (3.0769 x 325 mg) PO Q8 PRN Pain 1-10 Or Fever>99.6 #0 tabs 01/13/25 magnesium 200 mg tablet 400 mg (2 x 200 mg) PO QHS #30 tabs 01/13/25
== END 2025-01-13 14:00 | disposition home or self-care (01) ==
LOC: ED 10:06 → PCU 11:40
PROVIDERS: Admitting Provider Internal Medicine; Emergency Provider Student in an Organized Health Care Education/Training Program; PCP Family Medicine Geriatric Medicine
DX: G45.9 Transient cerebral ischemic attack, unspecified (principal); Z90.710 Acquired absence of both cervix and uterus; R47.9 Unspecified speech disturbances; Z87.891 Personal history of nicotine dependence; Z90.49 Acquired absence of other specified parts of digestive tract; R01.1 Cardiac murmur, unspecified; Z79.899 Other long term (current) drug therapy; R20.0 Anesthesia of skin; Z86.73 Personal history of transient ischemic attack (TIA), and cerebral infarction without residual deficits
CPT/HCPCS: 36415; 70450; 70496; 70498; 70551; 80048; 80061; 82962; 83036; 84443; 84484; 85025; 85610; 85730; 93005; 93306; 94668; 96360; 96361; 96372; 99221; 99285; 99406; Q9967; A4216; G0378